=== PATIENT | male | born 1960 | race Caucasian/White ===

== ENCOUNTER 2019-10-03 09:31 | Emergency (ER) | payer MEDICARE, MEDICAID, SELFPAY ==
--- NOTE | ~2019-10-03 | XR_ITS ---
EXAMINATION: XR chest 1V portable DATE: 10/03/2019 10:07 INDICATION: Shortness of breath. TECHNIQUE: A single frontal view of the chest was obtained. COMPARISON: Chest 2 views 01/26/2019 FINDINGS: There is a small right pleural effusion. There are airspace opacities at right lung base. N o pneumothorax. The heart size is normal. IMPRESSION: 1. Small right pleural effusion with interval improvement. 2. Stable airspace opacities at right lung base, consistent with atelectasis versus pneumonia. Reviewed, dictated and finalized at location A. IMPRESSION: 1. Small right pleural effusion with interval improvement. 2. Stable airspace opacities at right lung base, consistent with atelectasis ve rsus pneumonia.
--- NOTE | 2019-10-03 09:34 | ECG_ITS ---
Measurements Intervals [place] Rate: 59 P: [place]: 0 QRS: 19 QRSD: 101 T: 67 QT: 396 QTc: 394 Interpretive Statements ATRIAL FLUTTER/TACHYCARDIA WITH SLOW VENTRICULAR RESPONSE DELAYED PRECORDIAL R/S TRANSITION LOW QRS VOLTAGE IN PRECORDIAL LEADS BASELINE ARTIFACT- I, AVL, AVF ABNORMAL ECG Electronically Signed On 10-03-2019 13:20:26 CDT by George Cruz D.O.
[2019-10-03 09:35] VITALS: BP 142/88; PULSE 70; RESP 35; TEMP 36.9; O2SAT 97
[2019-10-03 09:39] VITALS: PULSE 69
--- NOTE | 2019-10-03 10:02 | ED.SOB ---
HPI - SOB/Dyspnea General Chief Complaint: Shortness of Breath/Dyspnea Stated Complaint: SOB Time Seen by Provider: 10/03/19 09:43 History of Present Illness HPI Narrative: Patient is a 59-year-old male who presents ER with shortness of breath. Worsening over the last week. He is a long-term smoker. No fevers or chills. He does have night sweats for the last year. Mildly productive cough. Reports he has been getting out driving has not been around other people. Doesn't report aggravating or alleviating factors. Does not have an inhaler. Related Data Home Medications Medication Instructions Recorded Confirmed aripiprazole 30 mg tablet 30 mg PO DAILY 07/22/19 08/24/19 clonazepam 0.5 mg tablet 0.5 mg PO DAILY 07/22/19 08/24/19 naproxen 500 mg tablet 500 mg PO BID 07/22/19 08/24/19 sertraline 100 mg tablet 100 mg PO DAILY 07/22/19 08/24/19 Allergies Allergy/AdvReac Type Severity Reaction Status Date / Time aspirin Allergy Unknown Hives Verified 10/03/19 09:38 Review of Systems Review of Systems: All systems reviewed & are unremarkable except as noted in HPI and below Constitutional: Constitutional: Denies chills and Denies fever(s) Comments: Sweats x1 year ENT: Reports nasal congestion and Denies sore throat Cardiovascular: Cardiovascular: Denies chest pain and Denies rapid heart rate Respiratory: Respiratory: Denies chest congestion, Reports cough, Reports dyspnea and Denies wheezing Gastrointestinal: Gastrointestinal: Denies abdominal pain, Denies nausea and Denies vomiting PMFSH Past Medical History Medical History (Updated 10/03/19 @ 11:45 by Elver Fletcher MD) Abscess of buttock, left Atrial flutter Benign prostatic hyperplasia with urinary obstruction and other lower urinary tract symptoms Body mass index 40.0-44.9, adult Impacted cerumen of left ear Nicotine dependence, unspecified, uncomplicated Obstructive sleep apnea (adult) (pediatric) Other chronic pain Other hyperlipidemia Paranoid schizophrenia Pleural effusion, right Pneumonia of both lower lobes Social History Social History Smoking status: Heavy tobacco smoker Gender identity (if verbalized by the patient): Male Exam Narrative: Exam Narrative: GENERAL: Well-appearing, well-nourished, and in no acute distress. HEAD: Normocephalic, atraumatic. ENT: Mucous membranes moist. CHEST: Faint wheezing right base. No respiratory distress. HEART: Bradycardic and regular. Normal peripheral pulses. ABDOMEN: Soft, nontender, nondistended. EXTREMITIES: Normal range of motion. Trace edema. NEURO: Alert and oriented x3. PSYCH: Normal mood and affect. Course Course Emergency Course: Resting comfortably. Known history of atrial flutter. No chest pain. Will prescribe albuterol and steroids. Vital Signs Vital signs: Vital Signs Temperature 98.4 F 10/03/19 09:35 Pulse Rate 70 10/03/19 09:35 Respiratory Rate 35 H 10/03/19 09:35 Blood Pressure 142/88 H 10/03/19 09:35 Pulse Oximetry 97 10/03/19 09:35 Temperature 98.4 F 10/03/19 09:35 Pulse Rate 56 L 10/03/19 11:26 Respiratory Rate 19 10/03/19 11:26 Blood Pressure 115/64 10/03/19 11:26 Pulse Oximetry 96 10/03/19 11:26 MDM - SOB/Dyspnea Lab Data Result diagrams: 10/03/19 09:59 10/03/19 09:59 Labs: Lab Results 10/03/19 10/03/19 10/03/19 Range/Units 09:59 09:59 10:23 WBC 7.4 (4.5-10.0) K/mm3 RBC 4.61 (4.6-6.20) M/mm3 Hgb 15.0 (14.0-18.0) g/dL Hct 46.3 (42.0-52.0) % MCV 100.4 H (80-100) fl MCH 32.5 (26-34) pg MCHC 32.4 (32-36) g/dl RDW 15.1 H (11.5-14.5) % Plt Count 139 L (150-375) k/mm3 MPV 8.3 (7.4-10.4) fl Immature Gran % (Auto) 0.4 (0-0.5) % Neut % (Auto) 79.8 H (45.5-73.1) % Lymph % (Auto) 13.6 L (18.3-44.2) % [place] % (Auto) 5.8 (2.6-8.5) % Eos % (Auto) 0.1 (0-4.4) % Baso % (Aut
[2019-10-03 10:07] LABS: Basophils Percent Auto 0.3 % (0.2-1.2); Eosinophils Percent Auto 0.1 % (0-4.4); Hematocrit 46.3 % (42.0-52.0); Immature Granulocyte Absolute 0.03 K/mm3 (0.00-0.031); Immature Granulocyte Percent A 0.4 % (0-0.5); Lymphocytes Absolute Auto 1.01 K/mm3 (0.9-3.2); Lymphocytes Percent Auto 13.6 % (18.3-44.2); Mean Corpuscular HGB Conc 32.4 g/dl (32-36); Mean Corpuscular Hemoglobin 32.5 pg (26-34); Mean Corpuscular Volume 100.4 fl (80-100); Mean Platelet Volume 8.3 fl (7.4-10.4); Monocytes Absolute Auto 0.4 K/mm3 (0.1-0.6); Monocytes Percent Auto 5.8 % (2.6-8.5); Neutrophils Absolute Auto 5.9 K/mm3 (1.3-6.7); Neutrophils Percent Auto 79.8 % (45.5-73.1); Platelet Count Result 139 k/mm3 (150-375); Red Blood Count 4.61 M/mm3 (4.6-6.20); Red Cell Distribution Width 15.1 % (11.5-14.5); White Blood Count 7.4 K/mm3 (4.5-10.0)
[2019-10-03 10:19] LABS: Blood Urea Nitrogen 20 mg/dL (9-20); Calcium 8.7 mg/dL (8.4-10.2); Carbon Dioxide 29 mmol/L (22-30); Chloride 107 mmol/L (98-107); Estimated CRCL calculation 94 ml/min; Estimated Glomerular Filt Rate > 60; Glucose 94 mg/dL (75-110); Potassium 4.3 mmol/L (3.4-5.0); Sodium 140 mmol/L (137-145)
[2019-10-03 10:25] VITALS: BP 109/69; PULSE 85; RESP 19; O2SAT 96
[2019-10-03 11:26] VITALS: BP 115/64; PULSE 56; RESP 19; O2SAT 96
[2019-10-03 11:52] VITALS: BP 109/63; PULSE 59; RESP 23; O2SAT 96
== END 2019-10-03 11:53 | disposition home or self-care (01) ==
PROVIDERS: Emergency Provider Emergency Medicine; PCP Internal Medicine
DX: J44.1 Chronic obstructive pulmonary disease with (acute) exacerbation (principal); I48.92 Unspecified atrial flutter; N40.1 Benign prostatic hyperplasia with lower urinary tract symptoms; N13.8 Other obstructive and reflux uropathy; G47.33 Obstructive sleep apnea (adult) (pediatric); E78.5 Hyperlipidemia, unspecified; F20.0 Paranoid schizophrenia; F17.200 Nicotine dependence, unspecified, uncomplicated; R94.31 Abnormal electrocardiogram [ECG] [EKG]; R00.0 Tachycardia, unspecified
CPT/HCPCS: 36415; 71045; 80048; 83605; 85025; 93005; 99284

== ENCOUNTER 2019-11-15 07:51 | Outpatient (CLI) | payer MEDICARE, MEDICAID, SELFPAY ==
--- NOTE | ~2019-11-15 | NM_ITS ---
EXAMINATION: NM sis stress w perfusion DATE: 11/15/2019 10:39 INDICATION: Shortness of breath. TECHNIQUE: Rest images were obtained following intravenous administration of 10.7 mCi Tc99m tetrofosm in (Myoview). The patient was infused intravenously with Lexiscan (regadenoson). Then, 30.1 mCi Tc99m tetrofosmin (Myoview) was administered intravenously, and stress images were obtained. Data was juan francisco nstructed into short axis and horizontal and vertical long axis SPECT images. Gated SPECT images were also obtained. COMPARISON: Myocardial perfusion imaging 03/15/2015 FINDINGS: There is a small, mild, fixed perfusion defect involving apical septal segment of left vent ricle, consistent with infarct. There is a moderate-sized, mild, fixed perfusion defect involving api dann inferior, apical lateral, and mid inferolateral segments of left ventricle, consistent with infar ct. No reversible component to suggest ischemia. There is no segmental wall motion abnormality. Lef t ventricular ejection fraction measures >70%. IMPRESSION: 1. Small area of mild infarct involving apical septal segment of left ventricle. 2. Moderate-sized area of mild infarct involving apical inferior, apical lateral, and mid inferolater al segments of left ventricle. 3. Normal left ventricular ejection fraction measuring >70%. Reviewed, dictated and finalized at location E. IMPRESSION: 1. Small area of mild infarct involving apical septal segment of left ventricle . 2. Moderate-sized area of mild infarct involving apical inferior, apical latera l, and mid inferolateral segments of left ventricle. 3. Normal left ventricular ejection fraction measuring >70%.
--- NOTE | 2019-11-15 08:13 | ECHO_ITS ---
Patient Info Name: Easton Tanner Age: 59 years : 1960 Gender: Male Ht: 68 in Wt: 285 lbs BSA: 2.56 m2 HR: 50 bpm BP: 117 / 77 mmHg Heart Rhythm: Bradycardia Technical Quality: Good Exam Date: 11/15/2019 8:28 AM Exam Location: [facility] Patient Status: Outpatient Admit Date: 11/15/2019 Staff Ordering Physician: Tj Monreal DO Engineer: Will Cooper RDCS, RT Attending Provider: Tj Monreal DO Referring Physician: Rah STOVALL; Exam Type: CA echo doppler color flow Study Info Indications R06.02 - Shortness of breath Complete two-dimensional, color flow and Doppler transthoracic echocardiogram is performed. Summary 1. Left ventricular chamber dimension is mildly enlarged. 2. Left ventricular systolic function is normal, estimated at 55-60%. 3. There is mildly increased left ventricular wall thickness. 4. The left ventricular diastolic function is indeterminate. 5. Right ventricular chamber dimension is mildly enlarged. 6. Right ventricular systolic function is reduced. 7. Left atrial chamber dimension is mildly enlarged. 8. There is mild mitral valve regurgitation. 9. The pericardium appears epicardial fat pad. 10. There is small pericardial effusion. Left Ventricle Left ventricular chamber dimension is mildly enlarged. Left ventricular systolic function is normal, estimated at 55-60%. There is mildly increased left ventricular wall thickness. The left ventricular diastolic function is indeterminate. Right Ventricle Right ventricular chamber dimension is mildly enlarged. Right ventricular systolic function is reduced. Left Atria Left atrial chamber dimension is mildly enlarged. Right Atria Right atrial chamber dimension is normal. Atrial Septum Intact interatrial septum visualized by color flow imaging. Aortic Valve The aortic valve is trileaflet. There is mild aortic valve sclerosis. There is no aortic valve stenosis. There is trace aortic valve regurgitation. Pulmonic Valve The pulmonic valve is normal. There is no pulmonic valve stenosis. There is trace pulmonic regurgitation. Mitral Valve The mitral valve has normal leaflets. There is no mitral valve stenosis. There is mild mitral valve regurgitation. Tricuspid Valve The tricuspid valve leaflets are normal. There is no significant tricuspid valve stenosis. There is trace tricuspid valve regurgitation. Pericardium/Pleural The pericardium appears epicardial fat pad. There is small pericardial effusion. Inferior Vena Cava Dilated inferior vena cava with <50% collapse upon inspiration consistent with elevated right atrial pressure, 15 mmHg. Aorta The aortic root size at the sinus of Valsalva is mildly dilated. The prox ascending aorta size is normal. Left Ventricular Outflow Tract Name Value Normal LVOT 2D LVOT Diameter 2.1 cm LVOT Doppler LVOT Peak Gradient 2 mmHg LVOT Mean Gradient 1 mmHg LVOT VTI 20 cm LVOT VTI/AV VTI Ratio 1.0 LVOT Yonathank
--- NOTE | 2019-11-15 08:13 | EST_ITS ---
Patient Info Name: Easton Tanner Age: 59 years : 1960 Gender: Male Ht: 68 in Wt: 285 lbs BSA: 2.56 m2 Exam Date: 11/15/2019 10:01 AM Patient Status: Outpatient Admit Date: 11/15/2019 Staff Ordering Physician: Tj Monreal DO Attending Provider: Tj Monreal DO Exercise Technologist: Lulu Lepe RDCS Nurse: Jayda Schumacher, MARGARITA, ACNP-BC Exam Type: CA stress sis w NM Study Info Indications R06.02 - Shortness of breath A regadenoson stress test was performed. Summary 1. No abnormal ST-T wave changes with lexiscan. 2. Please correlate with nuclear medicine images, reported separately. 3. Baseline atrial flutter with slow ventricular response. Protocol: Lexiscan Stress ECG Details Stage: REST Duration (min): 6 min : 32 sec HR (bpm): 43 SBP (mmHg): 107 DBP (mmHg): 67 Stage: REST Duration (min): 23 min : 13 sec HR (bpm): 76 SBP (mmHg): 107 DBP (mmHg): 67 Stage: STAGE 1 Duration (min): 1 min : 0 sec HR (bpm): 78 SBP (mmHg): 180 DBP (mmHg): 60 Stage: RECOVERY Duration (min): 1 min : 0 sec HR (bpm): 79 SBP (mmHg): 180 DBP (mmHg): 60 Stage: RECOVERY Duration (min): 2 min : 0 sec HR (bpm): 72 SBP (mmHg): 201 DBP (mmHg): 55 Stage: RECOVERY Duration (min): 3 min : 0 sec HR (bpm): 67 SBP (mmHg): 201 DBP (mmHg): 55 Stage: RECOVERY Duration (min): 4 min : 0 sec HR (bpm): 48 SBP (mmHg): 187 DBP (mmHg): 59 Stage: RECOVERY Duration (min): 5 min : 0 sec HR (bpm): 54 SBP (mmHg): 123 DBP (mmHg): 66 Stage: RECOVERY Duration (min): 5 min : 8 sec HR (bpm): 60 SBP (mmHg): 123 DBP (mmHg): 66 Rest HR: 76 bpm Peak HR: 79 bpm Rest Sys BP: 107 mmHg Peak Sys BP: 201 mmHg Max Pred HR: 161 bpm % Max Pred HR: 49 % Target HR: 137 bpm Max RPP: 15,879 bpm*mmHg BP Response: Patient exhibited a hypertensive response with stress Termination Reason: Completed protocol Cardiac Symptoms: None Total Time: 1 min : 0 sec Rest Chapman BP: 67 mmHg Peak Chapman BP: 55 mmHg Total Dose: 0.4 mg Resting ECG Atrial flutter. slow ventricular response. Stress ECG No abnormal ST/T wave changes with exercise. Arrhythmias atrial flutter. Report Signatures
--- NOTE | 2019-11-15 11:26 | PM.OP ---
Procedure Note - Brief Procedure Note - Brief Date of procedure: 11/15/19 Pre-op diagnosis: SOB Procedure performed: Pharmacological stress test Description of procedure: Baseline 12 lead EKG: probable atrial tachycardia with slow ventricular response, Subtle ST depression in the precordial and limb leads; low voltage in the precordial leads. TEST: After obtaining baseline 12 lead EKG and blood pressure , the patient received 0.4 milligrams of Regadenoson IV push followed by stress dose of technetium. The patient was then followed for 4 minutes into recovery with 12 lead EKG and blood pressure at one minute intervals . Baseline heart rate 44 beats per minute Baseline blood pressure 107/67 mmHg Maximum heart rate 78 pbm Heart rate in recovery 55 beats per minute , blood pressure 123/[address] depression remained persistent in the precordial and limb leads after Lexiscan injection. Patient complaint of shortness of breath without chest discomfort during the procedure. EKG portion of the pharmacologic stress test is indeterminate for ischemia. Myocardial perfusion scan is pending at this time , and the results of this test should be correlated with perfusion imaging. Surgeon: Serge Greer MD
== END 2019-11-15 07:52 | disposition home or self-care (01) ==
PROVIDERS: PCP Internal Medicine; Visit Provider Internal Medicine
DX: R06.02 Shortness of breath (principal); I48.92 Unspecified atrial flutter; I21.9 Acute myocardial infarction, unspecified; I51.7 Cardiomegaly; I31.3 Pericardial effusion (noninflammatory)
CPT/HCPCS: 78452; 93017; 93306; A9502; J2785

== ENCOUNTER 2019-12-18 12:56 | Emergency (ER) | payer MEDICARE, MEDICAID, SELFPAY ==
--- NOTE | ~2019-12-18 | XR_ITS ---
EXAMINATION: XR chest 2V DATE: 12/18/2019 13:54 INDICATION: Shortness of breath. TECHNIQUE: Frontal and lateral views of the chest were obtained. COMPARISON: Chest single view 10/03/2019 FINDINGS: There is mild atelectasis in the lower lung zones. No pleural effusion or pneumothorax. The heart size is normal. IMPRESSION: 1. Mild atelectasis in the lower lung zones. Reviewed, dictated and finalized at location A.
[2019-12-18 13:06] VITALS: BP 121/65; PULSE 86; RESP 28; TEMP 37.1; O2SAT 96
[2019-12-18 13:59] LABS: Glucose Point of Care 99 (65-105)
--- NOTE | 2019-12-18 14:28 | PC.NURSE ---
dR Berry CALLED AND GAVE REPORT TO TIMMY FIGUEROA
--- NOTE | 2019-12-18 14:37 | ED.WEAKNESS ---
HPI - Weakness General Chief complaint: Weakness Stated complaint: chills/weakness Source: patient Mode of arrival: ambulatory Limitations: no limitations History of Present Illness HPI Narrative: The patient-- with COPD, ASHD and mood disorders and variably compliant with several meds-- presents with shortness of breath and weakness. Patient and family indicates that he is a current smoker and history of COPD noncompliant with inhalers; chest x-ray in early summer showed right sided atelectasis versus infiltrate which was treated with 2 courses of antibiotics. He and family also note that he had history of ASHD based upon recent November Lexiscan with reversible ischemia, yet good EF of 70%. He is also has a history of atrial flutter, which has been prescribed Plavix which he noncompliant ; he has been taking his schizophrenia medicines. Patient lives independently, and sister notes about half week history of increasing exertional weakness and shortness of breath . No fever measured - but has chills, no vomiting/diarrhea/dehydration, no chest pain, palpitations, no frequency/urgency/dysuria, no increased cough, wheeze. Symptoms are mild, worse with activity Related Data Home Medications Medication Instructions Recorded Confirmed aripiprazole 30 mg tablet 30 mg PO DAILY 07/22/19 12/18/19 clonazepam 0.5 mg tablet 0.5 mg PO DAILY 07/22/19 12/18/19 sertraline 100 mg tablet 150 mg PO DAILY 07/22/19 12/18/19 albuterol sulfate [ProAir HFA] 2 puff INHALATION QID PRN 12/18/19 12/18/19 diclofenac sodium 75 mg PO BID 12/18/19 12/18/19 nicotine 1 patch TRANSDERMAL DAILY 12/18/19 12/18/19 Allergies Allergy/AdvReac Type Severity Reaction Status Date / Time aspirin Allergy Severe Anaphylactic Verified 12/18/19 21:45 Shock Review of Systems Review of Systems: Narrative: General/Constitutional: No weight loss,fever Eyes: N0: Redness,discharge Ears/Nose/Throat: No: Epistaxis,ear discharge Respiratory: Denies: Hemoptysis Gastrointestinal: No Vomiting, Bleeding-rectal Skin: No Lumps, eruption Neurologic: No Focal Weakness,Sz Hematologic: Denies: Petechiae/Purpura Psychiatric: No: Suicida ideationl All Other Systems: Reviewed and Negative [facility] Past Medical History Medical History (Updated 12/22/19 @ 10:56 by Steve Cedillo MD) Atrial flutter Benign prostatic hyperplasia with urinary obstruction and other lower urinary tract symptoms Body mass index 40.0-44.9, adult COPD (chronic obstructive pulmonary disease) (Unknown) [id number] obstructive ventilatory defect with severe small airway disease pattern no acute bronchodilator response and mildly decreased DLCO noted on pulmonary function testing from 2014 COPD exacerbation History of myocardial infarction With stress test November 2019 demonstrating 2 fixed perfusion defects small mild area of apical septal segment defect in left ventricle, moderate sized area of mild infarct involving apical inferior apical lateral and mid inferior lateral segment of the left ventricle, ejection fraction of 70% Nicotine dependence, unspecified, uncomplicated (Unknown) Obstructive sleep apnea (adult) (pediatric) (Unknown) Obstructive sleep apnea treated with BiPAP With settings of 25/20 according to sleep study from February 2010 Other chronic pain Other hyperlipidemia (Unknown) Paranoid schizophrenia (Unknown) Right heart failure with reduced right ventricular function Echocardiogram November 2019 demonstrated reduced right ventricular systolic function and mild enlargement, mild left ventricular enlargement, EF 55-60%, indeterminate diastolic function, mild left atrial enlargement, mild mitral valve regurgitation, small pericardial effusion Surgical History Surgical History (Updated 12/19/19 @ 00:52 by Mesha Baez DO) H/O inguinal hernia repair As a child Social History Social History (Updated 12/19/19 @ 00:56 by Mesha Baez DO) Smoking packs per day: 1 Smoking ci
== END 2019-12-18 14:36 | disposition short-term general hospital (02) ==
PROVIDERS: Emergency Provider Emergency Medicine; PCP Internal Medicine
DX: R53.1 Weakness (principal); R91.8 Other nonspecific abnormal finding of lung field; J44.9 Chronic obstructive pulmonary disease, unspecified; Z20.828 Contact with and (suspected) exposure to other viral communicable diseases; I25.2 Old myocardial infarction; F17.210 Nicotine dependence, cigarettes, uncomplicated; N40.1 Benign prostatic hyperplasia with lower urinary tract symptoms; N13.8 Other obstructive and reflux uropathy; G47.33 Obstructive sleep apnea (adult) (pediatric); E78.49 Other hyperlipidemia; I50.9 Heart failure, unspecified; F20.0 Paranoid schizophrenia
CPT/HCPCS: 71046; 99213; G0463

== ENCOUNTER 2019-12-18 14:51 | Inpatient (IN) | payer MEDICARE, MEDICAID, SELFPAY ==
--- NOTE | ~2019-12-18 | CT_ITS ---
EXAMINATION: CT abdomen pelvis w con DATE: 12/18/2019 16:46 INDICATION: Rectal pain TECHNIQUE: Computed tomography (CT) of the abdomen and pelvis was performed with 100 cc Omnipaque 350 intravenous contrast. The dose-length product was 1912.81 mGy-cm. Automated exposure control and ite rative reconstruction technique were employed. COMPARISON: None. FINDINGS: There is a small amount of fatty stranding and fluid adjacent to the rectum on the left, herrmann spicious for infection. No walled off drainable fluid collection to suggest abscess. There is right lower lobe airspace disease. No significant pleural or pericardial effusion. Heart siz e is normal. Mild atherosclerosis without aneurysm. The liver, spleen, pancreas, adrenal glands and kidneys are unremarkable. There are gallstones. Jenn l appendix. Nonobstructive bowel gas pattern. Colonic diverticulosis without evidence for diverticuli tis. Severe lumbar spondylosis. IMPRESSION: 1. Left perirectal fluid and fatty infiltration, suspicious for infection. No drainable abscess ident ified. 2: Cholelithiasis. Reviewed, dictated and finalized at location A. IMPRESSION: 1. Left perirectal fluid and fatty infiltration, suspicious for infection. No d rainable abscess identified. 2: Cholelithiasis.
--- NOTE | 2019-12-18 14:52 | ECG_ITS ---
Measurements Intervals [place] Rate: 78 P: [place]: 0 QRS: 21 QRSD: 108 T: 0 QT: 213 QTc: 243 Interpretive Statements ATRIAL FLUTTER/TACHYCARDIA DELAYED PRECORDIAL R/S TRANSITION NONSPECIFIC ST & T-WAVE ABNORMALITY- DIFFUSE LEADS BASELINE ARTIFACT- III, AVF, V5-V6 ABNORMAL ECG Electronically Signed On 12-18-2019 17:17:54 CDT by George Cruz D.O.
[2019-12-18 15:01] VITALS: BP 109/46; PULSE 90; RESP 22; TEMP 36.2; O2SAT 97
[2019-12-18 15:28] LABS: Basophils Absolute Auto 0.1 K/mm3 (0.0-0.1); Basophils Percent Auto 0.4 % (0.2-1.2); Eosinophils Percent Auto 0.1 % (0-4.4); Hematocrit 45.9 % (42.0-52.0); Hemoglobin 15.3 g/dL (14.0-18.0); Immature Granulocyte Absolute 0.12 K/mm3 (0.00-0.031); Immature Granulocyte Percent A 0.8 % (0-0.5); Lymphocytes Absolute Auto 0.87 K/mm3 (0.9-3.2); Lymphocytes Percent Auto 5.5 % (18.3-44.2); Mean Corpuscular HGB Conc 33.3 g/dl (32-36); Mean Corpuscular Volume 99.1 fl (80-100); Mean Platelet Volume 8.6 fl (7.4-10.4); Monocytes Absolute Auto 0.9 K/mm3 (0.1-0.6); Monocytes Percent Auto 5.6 % (2.6-8.5); Neutrophils Absolute Auto 13.9 K/mm3 (1.3-6.7); Neutrophils Percent Auto 87.6 % (45.5-73.1); Platelet Count Result 129 k/mm3 (150-375); Red Blood Count 4.63 M/mm3 (4.6-6.20); Red Cell Distribution Width 14.5 % (11.5-14.5); White Blood Count 15.9 K/mm3 (4.5-10.0)
[2019-12-18 15:42] LABS: Blood Urea Nitrogen 26 mg/dL (9-20); Calcium 8.4 mg/dL (8.4-10.2); Carbon Dioxide 30 mmol/L (22-30); Chloride 99 mmol/L (98-107); Estimated CRCL calculation 63 ml/min; Estimated Glomerular Filt Rate 48; Glucose 108 mg/dL (75-110); Potassium 3.7 mmol/L (3.4-5.0); Sodium 136 mmol/L (137-145)
[2019-12-18 15:45] LABS: INR 1.3; Partial Thromboplastin Time 29.6 SECONDS (22.3-36.8); Prothrombin Time 15.5 Seconds (11.1-14.7)
[2019-12-18 15:54] LABS: Troponin I 0.022 ng/mL (0.000-0.034)
[2019-12-18] MEDS: SODIUM CHLORIDE 0.9% IV 1,000 ML 999 ML IV CONT ×2 (16:02→18:47)
[2019-12-18 16:08] LABS: Lactic Acid Reflex 0.8 mmol/L (0.7-2.1)
--- NOTE | 2019-12-18 17:05 | ED.GENADULT ---
HPI - General Adult General Chief complaint: Shortness of Breath/Dyspnea Stated complaint: CHEST PAIN Time Seen by Provider: 12/18/19 15:25 History of Present Illness HPI narrative: Patient is a 59-year-old male with history of schizophrenia who presents to the ER from an urgent care. Urgent care was worried about some EKG changes. He had arrived at their facility diaphoretic. Patient is a poor historian due to his mental illness. Family with him reports that he had an abnormal stress test month and a half ago. He is not complaining of any chest pain. His main issue is that when he sits on his bottom he has a lot of pain. He is reporting flares of diaphoresis. No lightheadedness. Subjective fevers and chills. Related Data Home Medications Medication Instructions Recorded Confirmed aripiprazole 30 mg tablet 30 mg PO DAILY 07/22/19 12/18/19 clonazepam 0.5 mg tablet 0.5 mg PO DAILY 07/22/19 12/18/19 sertraline 100 mg tablet 100 mg PO DAILY 07/22/19 12/18/19 Allergies Allergy/AdvReac Type Severity Reaction Status Date / Time aspirin Allergy Unknown Hives Verified 12/18/19 15:01 Review of Systems Constitutional: Constitutional: Reports chills, Reports fatigue and Reports fever(s) ENT: Denies nasal congestion and Denies sore throat Cardiovascular: Cardiovascular: Denies chest pain, Denies rapid heart rate and Denies radiating jaw, neck or arm pain Respiratory: Respiratory: Denies cough, Reports dyspnea and Denies wheezing Gastrointestinal: Gastrointestinal: Denies abdominal pain, Denies diarrhea, Denies nausea and Denies vomiting Comments: Pain around the rectum PMFSH Past Medical History Medical History (Updated 12/18/19 @ 19:36 by Elver Fletcher MD) Abscess of buttock, left Atrial flutter Benign prostatic hyperplasia with urinary obstruction and other lower urinary tract symptoms Body mass index 40.0-44.9, adult Impacted cerumen of left ear Nicotine dependence, unspecified, uncomplicated Obstructive sleep apnea (adult) (pediatric) Other chronic pain Other hyperlipidemia Paranoid schizophrenia Pleural effusion, right Pneumonia of both lower lobes Social History Social History Smoking status: Heavy tobacco smoker Gender identity (if verbalized by the patient): Male Exam Narrative: Exam Narrative: GENERAL: ill-appearing, well-nourished, and in no acute distress. HEAD: Normocephalic, atraumatic. EYES: PERRL and EOMI. CHEST: Clear to auscultation. No respiratory distress. HEART: Regular rate and rhythm. Normal peripheral pulses. ABDOMEN: Soft, nontender, nondistended, normal active bowel sounds. Tender palpation right gluteal region with skin breakdown but no obvious area of drainage. No cellulitis or skin induration is EXTREMITIES: Normal range of motion. No edema. SKIN: Warm, dry, no rash. NEURO: Alert and oriented x3. Course Course Emergency Course: Admit to hospitalist service, general surgery consulted. Sophie for antibiotic coverage. Vital Signs Vital signs: Vital Signs Temperature 97.1 F L 12/18/19 15:01 Pulse Rate 90 12/18/19 15:01 Respiratory Rate 22 H 12/18/19 15:01 Blood Pressure 109/46 L 12/18/19 15:01 Pulse Oximetry 97 12/18/19 15:01 Temperature 97.1 F L 12/18/19 15:01 Pulse Rate 78 12/18/19 18:13 Respiratory Rate 22 H 12/18/19 15:01 Blood Pressure 109/46 L 12/18/19 15:01 Pulse Oximetry 97 12/18/19 18:13 Medical Decision Making Vital Signs Vital Signs: Vital Signs Temperature 97.1 F L 12/18/19 15:01 Pulse Rate 90 12/18/19 15:01 Respiratory Rate 22 H 12/18/19 15:01 Blood Pressure 109/46 L 12/18/19 15:01 Pulse Oximetry 97 12/18/19 15:01 Temperature 97.1 F L 12/18/19 15:01 Pulse Rate 78 12/18/19 18:13 Respiratory Rate 22 H 12/18/19 15:01 Blood Pressure 109/46 L 12/18/19 15:01 Pulse Oximetry 97 12/18/19 18:13 Lab Data Result diagrams: 12/18/19
[2019-12-18 18:13] VITALS: PULSE 78; O2SAT 97
[2019-12-18 18:29] LABS: Add Urine Microscopic? YES; Appearance Urine Clear (Clear); Bilirubin Urine Negative (Negative); Blood Urine Negative (Negative); Color Urine Yellow (Yellow); Glucose Urine UA Negative (Negative); Ketones Urine Negative (Negative); Leukocyte Esterase Ur Negative LEU/UL (Negative); Mucus Urine Rare /lpf; Nitrate Urine Negative (Negative); Protein Urine Negative (Negative); RBC Urine 0-2 /hpf (0-2); Squamous Epithelial Cell Urine Moderate /hpf (Few); WBC Urine 0-3 /hpf
[2019-12-18 20:15] VITALS: BP 100/55; PULSE 80; RESP 28; TEMP 36.5; O2SAT 93; BMI 44.2
--- NOTE | 2019-12-18 20:15 | ADMGEN ---
This patient, Easton Tanner, was admitted to 3 [facility] Surg Room 320-01. Patient/family oriented to hospital policies and general routines including ID bracelet, bed and alarms, visiting hours, pain management, procedures, bathroom and other care routines, personal items, smoking policy, room service/diet, and visiting hours. Valuables list has been completed. Information on how to activate the Rapid Response Team has been discussed. Patient/Family are encouraged to report perceived risks to care and to ask questions if they do not understand what they are told or what they should do.
[2019-12-18 21:46] LABS: Troponin I < 0.012 ng/mL (0.000-0.034)
[2019-12-18 22:00] VITALS: BP 100/55; PULSE 80; RESP 28; TEMP 36.5; O2SAT 93
[2019-12-18 22:06] VITALS: PULSE 82; RESP 22; O2SAT 94
--- NOTE | 2019-12-18 22:38 | PM.IMHP ---
H&P: HPI History of Present Illness Chief complaint: Shortness of breath Narrative: Date and time of patient contact: 12/18/2019 at 9:00 p.m. Easton Tanner is a 59 year old male with a past medical history of schizophrenia, COPD, and chronic tobacco abuse who presented to the ER from [facility] due to concern for EKG changes. The patient had [facility] with diaphoresis. She the patient was also reporting some mild increased shortness of breath from his baseline. He reports a chronic smoker's cough that is nonproductive. He had a stress test last month that was unremarkable for any acute ischemia. He has not been having any chest pain or palpitations. He denied having any fevers at home but at the same time stated that he has been having shaking/chills and sweats. He has had a sore on his buttock for approximately 2 weeks. He has noticed the areas gotten larger and more tender. It is worse when he sits down and weaned back. The pain is a 5/10 in intensity at its worst. He has not noticed any pain with bowel movements. He denies any hematochezia or melena. He has had a history of prior skin infections under the arms but denies a history of skin infections to his perineal area. He does not have a history of diabetes. He denies any dysuria or changes in urinary frequency. The patient's smells strongly of smoke. Source of information: ER records, past medical records and patient report. The patient is a fair to good historian. Review of Systems Review of Systems: Narrative: 12 systems were reviewed with pertinent positives and negatives per HPI. Except as documented in the HPI, all other systems were reviewed and are negative. [facility] Past Medical History Medical History (Updated 12/19/19 @ 00:51 by Mesha Baez DO) Atrial flutter Benign prostatic hyperplasia with urinary obstruction and other lower urinary tract symptoms Body mass index 40.0-44.9, adult COPD (chronic obstructive pulmonary disease) Pati-op-zlzmbwor obstructive ventilatory defect with severe small airway disease pattern no acute bronchodilator response and mildly decreased DLCO noted on pulmonary function testing from 2014 COPD exacerbation History of myocardial infarction With stress test November 2019 demonstrating 2 fixed perfusion defects small mild area of apical septal segment defect in left ventricle, moderate sized area of mild infarct involving apical inferior apical lateral and mid inferior lateral segment of the left ventricle, ejection fraction of 70% Nicotine dependence, unspecified, uncomplicated Obstructive sleep apnea (adult) (pediatric) Obstructive sleep apnea treated with BiPAP With settings of 25/20 according to sleep study from February 2010 Other chronic pain Other hyperlipidemia Paranoid schizophrenia Right heart failure with reduced right ventricular function Echocardiogram November 2019 demonstrated reduced right ventricular systolic function and mild enlargement, mild left ventricular enlargement, EF 55-60%, indeterminate diastolic function, mild left atrial enlargement, mild mitral valve regurgitation, small pericardial effusion Surgical History Surgical History (Updated 12/19/19 @ 00:52 by Mesha Baez DO) H/O inguinal hernia repair As a child Family History Family History Sibling Healthy female adult Reportedly both of the patient's sisters are healthy. Social History Social History (Updated 12/19/19 @ 00:56 by Mesha Baez DO) Smoking packs per day: 1 Smoking cigarettes per day: 20.0 Years smoked: 43 Smoking pack-years: 43.00 Smoking status: Current every day smoker Alcohol intake: never Substance use: never Additional living arrangements comments: The patient lives in his own home. His sister comes over and spends much of the day with him. However, he is alone in the evenings. Additional occupation/education comments:
[2019-12-19] VITALS (13 sets, daily range): BP systolic 102–118; BP diastolic 54–69; PULSE 76–96; RESP 18–23; TEMP 36.1–36.9; O2SAT 88–97
[2019-12-19] MEDS: NICOTINE (*PBKC) 21 MG PATCH 1 PATCH TRANSDERM ×2 (01:02→09:25)
[2019-12-19] MEDS: SODIUM CHLORIDE 0.9% IV 1,000 ML 125 ML IV CONT ×2 (01:02→13:42)
[2019-12-19] MEDS: ALBUTEROL SULFATE NEB 2.5 MG/0.5 ML INH 5 MG INHALATION ×4 (02:28→19:59)
[2019-12-19] MEDS: IPRATROPIUM BR 0.02% INH SOLN 0.5 MG/2.5 ML VIAL INHALATION ×4 (02:28→19:59)
[2019-12-19 06:15] LABS: Basophils Percent Auto 0.2 % (0.2-1.2); Eosinophils Percent Auto 0.1 % (0-4.4); Hematocrit 41.5 % (42.0-52.0); Immature Granulocyte Absolute 0.14 K/mm3 (0.00-0.031); Immature Granulocyte Percent A 0.9 % (0-0.5); Lymphocytes Percent Auto 4.6 % (18.3-44.2); Mean Corpuscular HGB Conc 33.7 g/dl (32-36); Mean Corpuscular Hemoglobin 33.2 pg (26-34); Mean Corpuscular Volume 98.3 fl (80-100); Mean Platelet Volume 8.9 fl (7.4-10.4); Monocytes Absolute Auto 0.7 K/mm3 (0.1-0.6); Monocytes Percent Auto 4.6 % (2.6-8.5); Neutrophils Absolute Auto 13.8 K/mm3 (1.3-6.7); Neutrophils Percent Auto 89.6 % (45.5-73.1); Platelet Count Result 123 k/mm3 (150-375); Red Blood Count 4.22 M/mm3 (4.6-6.20); Red Cell Distribution Width 14.4 % (11.5-14.5); White Blood Count 15.3 K/mm3 (4.5-10.0)
[2019-12-19 06:28] LABS: Blood Urea Nitrogen 18 mg/dL (9-20); Carbon Dioxide 24 mmol/L (22-30); Chloride 103 mmol/L (98-107); Estimated CRCL calculation 93 ml/min; Estimated Glomerular Filt Rate > 60; Glucose 104 mg/dL (75-110); Potassium 3.9 mmol/L (3.4-5.0); Sodium 132 mmol/L (137-145)
[2019-12-19] MEDS: DICLOFENAC SOD 75 MG TABLET.EC PO ×2 (09:25→17:39)
[2019-12-19] MEDS: clonazePAM 0.5 MG TABLET PO (09:25)
[2019-12-19] MEDS: ARIPiprazole 10 MG TABLET 30 MG PO (09:25)
[2019-12-19] MEDS: ENOXAPARIN 40 MG/0.4 ML SYRINGE SUB-Q ×2 (09:26→20:44)
[2019-12-19] MEDS: SERTRALINE HCL 50 MG TABLET 150 MG PO (09:27)
--- NOTE | 2019-12-19 14:54 | PM.IMPN ---
Progress Note: A&P Assessment and Plan (1) Abscess, perirectal: Code(s): K61.1 - Rectal abscess Status: Acute Assessment and Plan: CT abdomen pelvis showed Left perirectal fluid and fatty infiltration, suspicious for infection. No drainable abscess identified. Cholelithiasis. Small abscess noted to superficially to left perirectal buttocks. General surgery has been consulted and will be seeing the patient today and decide if they can open the abscess in get a culture. Continue antibiotic therapy with Zosyn, consider addition of vancomycin if there is no improvement of symptoms. Blood cultures are pending. Continue monitoring patient's symptoms with the IV antibiotics. Surgical consult is greatly appreciated. (2) Obstructive sleep apnea: Code(s): G47.33 - Obstructive sleep apnea (adult) (pediatric) Status: Chronic Assessment and Plan: Patient's home BiPAP has been ordered (3) COPD (chronic obstructive pulmonary disease): Code(s): J44.9 - Chronic obstructive pulmonary disease, unspecified Status: Chronic Assessment and Plan: P.r.n. albuterol inhaler for shortness of breath. Lungs are clear to auscultation without any wheezing. (4) Paranoid schizophrenia: Code(s): F20.0 - Paranoid schizophrenia Status: Chronic Assessment and Plan: Will continue him on his home medications of sertraline and clonazepam. His mood is stable at this time. (5) Nicotine dependence, unspecified, uncomplicated: Code(s): F17.200 - Nicotine dependence, unspecified, uncomplicated Status: Chronic Assessment and Plan: He requested a nicotine patch. He is not interested in tobacco cessation education. Time Spent With Patient Time with patient: 25 - 35 minutes Subjective Date/time seen: 12/19/19 14:54 Interval history: Date of service 12/19/2019: The patient reports feeling much better today. He still has pain to his boil on his perirectal area but states it is improved. He denies any more fevers or chills today. The patient's sister states he does seem diaphoretic right now is unsure if he has a fever. The patient denies any chest pain, shortness of breath, cough, nausea, vomiting, abdominal pain, calf pain, leg swelling, or any other symptoms at this time. Review of Systems Review of Systems: All systems reviewed & are unremarkable except as noted in HPI and below Exam Narrative: Exam Narrative: General: 59-year-old man sitting up on the side of the bed talking to his sister. Appears comfortable. In no acute distress. Skin: Left perirectal area of buttocks there is a 1 cm x 1 cm round area of raised skin with a small [place] noted to the top with no active drainage at this time. Erythema is noted in about a 4 cm diameter around the raised area. Without any fluctuance or induration. No jaundice or cyanosis. Good skin turgor. Neck: Full range of motion. Supple. Respiratory: Lungs are clear to auscultation bilaterally. No bony chest wall tenderness. Cardiovascular: The heart has a regular rate and rhythm without murmur. Lower extremities: No lower extremity edema. Distal pulses are easily palpated. No calf tenderness to palpation. Gastrointestinal: The abdomen is soft, nontender and nondistended with active bowel sounds. Psychiatric: Flat affect. Memory intact. Neurologic: No focal deficits. Speech is clear. No facial drooping. Objective Data Vital Signs Vital Signs: Vital Signs - 24 hr 12/18/19 15:01 12/18/19 18:13 12/18/19 20:15 Temperature 97.1 F L 97.7 F Pulse Rate 90 78 80 Respiratory Rate 22 H 28 H Blood Pressure 109/46 L 100/55 L Pulse Oximetry 97 97 93 12/18/19 22:00
[2019-12-19] MEDS: SACCHAROMYCES BOULARDII 250 MG CAPSULE PO (17:39)
--- NOTE | 2019-12-19 20:07 | PM.CNGS ---
Assessment and Plan Assessment and plan (1) Abscess, perianal: Onset Date: ~11/2019 Code(s): K61.0 - Anal abscess Status: Acute Assessment and Plan: Careful examination of the left buttock reveals excoriation and skin breakdown near the anal opening and on the left buttock 4-5 cm from the anal verge there is a rounded red area with a 1 cm white head on it. There is no drainage currently. This may be the beginning of a skin abscess which will drain. This may also be the top of a epidermal cyst that has been present for some time. I discussed this with the patient and subsequently his POA - sister Mesha. At this time my recommendation is to begin hand-held showers to the perianal area b.i.d.. Apply Aloe [place] cream to the excoriated skin and watch the area of the abscess. If blood cultures come back showing a bacteria that could be one suspected form a skin abscess on the left buttock then will consider proceeding to incision and drainage under local anesthetic with subsequent packing. For now I recommend outlining the area of erythema and seeing if it progresses or regresses. Continue antibiotics. I am not super worried about MRSA so could continue just Zosyn for now. (2) COPD (chronic obstructive pulmonary disease): Onset Date: Unknown Code(s): J44.9 - Chronic obstructive pulmonary disease, unspecified Status: Chronic Assessment and Plan: medicines addressing this issue. (3) Paranoid schizophrenia: Onset Date: Unknown Code(s): F20.0 - Paranoid schizophrenia Status: Chronic Assessment and Plan: Patient is continuing on usual medications for this. Medicine is addressing this issue. (4) Atrial flutter by electrocardiogram: Onset Date: Unknown Code(s): I48.92 - Unspecified atrial flutter Status: Acute Assessment and Plan: this is being addressed by the medicine service (5) Other hyperlipidemia: Onset Date: Unknown Code(s): E78.49 - Other hyperlipidemia Status: Acute Assessment and Plan: this is being addressed by the medicine service (6) Obstructive sleep apnea (adult) (pediatric): Onset Date: Unknown Code(s): G47.33 - Obstructive sleep apnea (adult) (pediatric) Status: Acute (7) Nicotine dependence, unspecified, uncomplicated: Onset Date: Unknown Code(s): F17.200 - Nicotine dependence, unspecified, uncomplicated Status: Chronic History of Present Illness Consult details Consult date: 12/19/19 Reason for consult: other ( Possible abscess on the left perianal area) Requesting physician: Mesha Baez DO Narrative: I was asked to see this 59-year-old white male due to the development of an apparent skin abscess on the left buttock. This was present when he presented to the ER last evening with complaints of chills. He is being worked up for sepsis. He denied having any fevers at home but at the same time stated that he has been having shaking/chills and sweats. I talked to his sister who is also his POA after I did this consult tonight and she states that he does have a thermometer at home but that he does not know how to use it. Therefore he probably has not taken his temperature at home prior to this admission. He has had a sore on his buttock for approximately 2 weeks. He has noticed the areas gotten larger and more tender. It is worse when he sits down and leans back. The pain is a 5/10 in intensity at its worst. He has not noticed any pain with bowel movements. He denies any hematochezia or melena. He has had a history of prior skin infections under the arms but denies a history of skin infections to his perineal area. He does not have a history of diabetes. He denies any dysuria or changes in urinary frequency. After my exam and further questioning he does admit that he has had loose stools for some time. His sister states that she has kno
[2019-12-20] VITALS (12 sets, daily range): BP systolic 104–115; BP diastolic 59–70; PULSE 72–81; RESP 18–20; TEMP 36.2–36.6; O2SAT 94–97
[2019-12-20] MEDS: IPRATROPIUM BR 0.02% INH SOLN 0.5 MG/2.5 ML VIAL INHALATION ×4 (01:29→21:11)
[2019-12-20] MEDS: ALBUTEROL SULFATE NEB 2.5 MG/0.5 ML INH 5 MG INHALATION ×4 (01:29→21:11)
[2019-12-20 06:29] LABS: Basophils Percent Auto 0.1 % (0.2-1.2); Eosinophils Percent Auto 0.1 % (0-4.4); Hematocrit 39.9 % (42.0-52.0); Hemoglobin 13.3 g/dL (14.0-18.0); Immature Granulocyte Absolute 0.14 K/mm3 (0.00-0.031); Immature Granulocyte Percent A 1.2 % (0-0.5); Lymphocytes Absolute Auto 0.56 K/mm3 (0.9-3.2); Lymphocytes Percent Auto 4.7 % (18.3-44.2); Mean Corpuscular HGB Conc 33.3 g/dl (32-36); Mean Corpuscular Hemoglobin 33.1 pg (26-34); Mean Corpuscular Volume 99.3 fl (80-100); Mean Platelet Volume 8.9 fl (7.4-10.4); Monocytes Absolute Auto 0.6 K/mm3 (0.1-0.6); Monocytes Percent Auto 5.2 % (2.6-8.5); Neutrophils Absolute Auto 10.5 K/mm3 (1.3-6.7); Neutrophils Percent Auto 88.7 % (45.5-73.1); Platelet Count Result 129 k/mm3 (150-375); Red Blood Count 4.02 M/mm3 (4.6-6.20); Red Cell Distribution Width 14.4 % (11.5-14.5); White Blood Count 11.8 K/mm3 (4.5-10.0)
[2019-12-20 06:41] LABS: Blood Urea Nitrogen 24 mg/dL (9-20); Carbon Dioxide 27 mmol/L (22-30); Chloride 100 mmol/L (98-107); Estimated CRCL calculation 73 ml/min; Estimated Glomerular Filt Rate 57; Glucose 104 mg/dL (75-110); Potassium 3.7 mmol/L (3.4-5.0); Sodium 133 mmol/L (137-145)
--- NOTE | 2019-12-20 07:22 | PM.PNGS ---
Progress Note: A&P Assessment and Plan (1) Abscess, perianal: Onset Date: ~11/2019 Code(s): K61.0 - Anal abscess Status: Acute Assessment and Plan: C&S sent Continue local therapy with hand-held showers, aloe [place], also packing of the tract that was found today at the site of the white head that was present 4 cm from the anal opening on the left buttock opened. I believe we should be able to get some quarter-inch Nu Gauze in this. This will hopefully allow continuous drainage. One thought would be quizing the patient more about abdominal pain and if he does have it considering an inflammatory bowel panel to check and see if he has Crohn's or ulcerative colitis since this may be the external opening of a anal fistula. Additional Plan Consider a serology or immunologic blood panel for inflammatory bowel disease in view of the patient's possible anal fistula. Time Spent With Patient Time with patient: less than 15 minutes Subjective Subjective Date/Time Seen: 12/20/19 07:22 Patient lying in bed when I entered the room. Patient states he does not think they sent stool cultures overnight as he had another accident clean himself up in the bathroom and and call the nurse. I encouraged him to call the nurse to help him. He is having loose and I would like to get the stool cultures going. If we get these studies we may be able to start him on some Imodium to help slowed them down some. Review of Systems Constitutional: Constitutional: Reports no additional constitutional complaints ENT: Reports other (Mucous Membranes moist.) Cardiovascular: Cardiovascular: Denies dyspnea Respiratory: Respiratory: Denies pain on inspiration and Denies dyspnea Gastrointestinal: Gastrointestinal: Reports diarrhea Comments: Reports that he still having loose stools that are difficult to control. Musculoskeletal: Musculoskeletal: Reports other (No calf swelling or edema) Integumentary/Breasts: Skin/Breast: Reports system reviewed and no additional complaints, except as docu Psychiatric: Comments: Known history of schizophrenia, but seems to be calm at this time. Exam Const: General: cooperative, no acute distress, alert and awake Orientation/consciousness: patient oriented x3 HENMT: Mouth: Yes moist mucous membranes Neck: Neck: normal visual inspection Chest: Chest palpation & inspection: normal inspection of the chest Resp: Effort & Inspection: normal respiratory effort Auscultation: clear to auscultation bilaterally Cardio: Jugular venous distension: no JVD GI: Rectal Exam: deferred Other: Careful inspection shows that the area of inflammation is about the same. The purple vanessa I made is now gone since he has been having loose stools and wiping. The white head that was present 5 cm from the anal verge yesterday now is an opening. I was easily able to probe this and I did send a culture for Gram stain C&S aerobic and anaerobic after placing the swab in the cavity. This tunnels toward the anus so he may indeed have an anal fistula. Neuro: General: patient oriented x3 and moves all extremities Speech: normal speech Extrem: General: normal exam except as noted Psych: Speech and movement: Normal speech and movement present Affect: Anxious affect present Thought content: Yes Normal thought content present Other: Able to answer my questions and seems to understand instructions. Objective Data Vital Signs Vital Signs: Vital Signs - 24 hr 12/19/19 08:00 12/19/19 08:16 12/19/19 08:28 Temperature Pulse Rate 81 81 81 Respiratory Rate 20 20 20 Blood Pressure Pulse Oximetry 97 12/19/19 14:00 12/19/19 14:39 12/19/19 14:48 Temperature 36.1 C L Pulse Rate 79 82 96 Respiratory Rate 20 20 20 Blood Pressure 102/54 L Pulse Oximetry 88 L 12/19/19 19:59 12/19/19 20:08 12/19/19 22:00 Temperature 36.4 C Pulse Rate 76 76 76 Respiratory Rate 20 Blood Pressure 118/54 L Puls
[2019-12-20] MEDS: DICLOFENAC SOD 75 MG TABLET.EC PO ×2 (09:03→19:34)
[2019-12-20] MEDS: ARIPiprazole 10 MG TABLET 30 MG PO (09:03)
[2019-12-20] MEDS: SERTRALINE HCL 50 MG TABLET 150 MG PO (09:04)
[2019-12-20] MEDS: SACCHAROMYCES BOULARDII 250 MG CAPSULE PO ×2 (09:04→19:34)
[2019-12-20] MEDS: NICOTINE (*PBKC) 21 MG PATCH 1 PATCH TRANSDERM (09:05)
[2019-12-20] MEDS: clonazePAM 0.5 MG TABLET PO (09:09)
[2019-12-20 09:33] LABS: IFOB Positive Control Positive; Immunochemical Fecal Occult Bl Negative (N)
[2019-12-20] MEDS: PSYLLIUM POWDER PACKET 1 PACKET PO (14:15)
--- NOTE | 2019-12-20 17:04 | PM.IMPN ---
Progress Note: A&P Assessment and Plan (1) Abscess, perirectal: Code(s): K61.1 - Rectal abscess Status: Deleted Assessment and Plan: CT abdomen pelvis read as Left perirectal fluid and fatty infiltration, suspicious for infection. No drainable abscess identified. Dr. Coulter, General Surgery consulted and appreciate recommendations. Small abscess noted to superficially to left perirectal buttocks; this is now draining today and was packed per Surgery. Patient is adopted and family history for IBD is unknown. He has never been diagnosed with IBD in past. He has diarrhea off and on in the past per sister. He denies any oral lesions in the past; lesion noted on left buccal mucosa but he states this is from biting his cheek. Continue antibiotic therapy with Zosyn, consider addition of vancomycin if there is no improvement of symptoms. Continue monitoring Await further rec from General Surgery Given unknown family history and recurrent abscesses/boils on buttocks, agree with obtaining IBD panel; this has been collected today; await results, but will likely need f/u with PCP and possibly GI specialist (2) Obstructive sleep apnea: Code(s): G47.33 - Obstructive sleep apnea (adult) (pediatric) Status: Chronic Assessment and Plan: Patient's home BiPAP has been ordered (3) COPD (chronic obstructive pulmonary disease): Onset Date: Unknown Code(s): J44.9 - Chronic obstructive pulmonary disease, unspecified Status: Chronic Assessment and Plan: Lungs are clear to auscultation without any wheezing. P.r.n. albuterol inhaler for shortness of breath. PRN neb treatments as well (4) Paranoid schizophrenia: Onset Date: Unknown Code(s): F20.0 - Paranoid schizophrenia Status: Chronic Assessment and Plan: Will continue him on his home medications of sertraline and clonazepam. His mood is stable at this time. (5) Nicotine dependence, unspecified, uncomplicated: Onset Date: Unknown Code(s): F17.200 - Nicotine dependence, unspecified, uncomplicated Status: Chronic Assessment and Plan: He requested a nicotine patch. He is not interested in tobacco cessation education. Subjective Date/time seen: 12/20/19 17:04 Interval history: Patient is a 59 yo M with history of schizophrenia, COPD, and chronic tobacco abuse who is here for evaluation/treatment of perianal abscess and surrounding cellulitis. Patient states he is feeling better today. He is eating and drinking well today; tolerating PO. He states his loose stools/diarrhea is improving this afternoon. His buttock pain is better today as well. No other complaints. Denies f/c/s, cp/palpitations, current sob/cough, n/v, abd pain, melena, BRBPR, dysuria, hematuria, cloudy urine, calf pain/swelling. Review of Systems Review of Systems: All systems reviewed & are unremarkable except as noted in HPI and below Exam Narrative: Exam Narrative: Patient sitting upright on side of bed at time of visit; sister in room visiting Const: General: cooperative, comfortable, no acute distress, well developed, alert and awake Orientation/consciousness: patient oriented x3 HENMT: Head: normocephalic and atraumatic General nose exam: Normal nares present Face and sinus: face symmetric Mouth: Yes moist mucous membranes and Yes Abnormal oral and palatal mucosa present lesions (lesion on left buccal mucosa; states from biting ) Eyes: General: appearance normal, both eyes and all related structures EOM: EOMs intact bilaterally Neck: Neck: trachea midline and supple Resp: Effort & Inspection: normal respiratory effort Auscultation: clear to auscultation bi
[2019-12-20] MEDS: ENOXAPARIN 40 MG/0.4 ML SYRINGE SUB-Q (20:44)
[2019-12-21] VITALS (10 sets, daily range): BP systolic 109–115; BP diastolic 54–71; PULSE 68–87; RESP 18–20; TEMP 36.6–36.7; O2SAT 93–95
[2019-12-21] MEDS: IPRATROPIUM BR 0.02% INH SOLN 0.5 MG/2.5 ML VIAL INHALATION ×3 (02:16→20:25)
[2019-12-21] MEDS: ALBUTEROL SULFATE NEB 2.5 MG/0.5 ML INH 5 MG INHALATION ×3 (02:16→20:25)
[2019-12-21 07:42] LABS: Basophils Percent Auto 0.3 % (0.2-1.2); Eosinophils Absolute Auto 0.1 K/mm3 (0-0.3); Eosinophils Percent Auto 0.5 % (0-4.4); Hemoglobin 13.7 g/dL (14.0-18.0); Immature Granulocyte Absolute 0.06 K/mm3 (0.00-0.031); Immature Granulocyte Percent A 0.7 % (0-0.5); Lymphocytes Absolute Auto 0.66 K/mm3 (0.9-3.2); Lymphocytes Percent Auto 7.2 % (18.3-44.2); Mean Corpuscular HGB Conc 33.4 g/dl (32-36); Mean Corpuscular Hemoglobin 33.3 pg (26-34); Mean Corpuscular Volume 99.5 fl (80-100); Mean Platelet Volume 8.7 fl (7.4-10.4); Monocytes Absolute Auto 0.5 K/mm3 (0.1-0.6); Monocytes Percent Auto 5.1 % (2.6-8.5); Neutrophils Percent Auto 86.2 % (45.5-73.1); Platelet Count Result 152 k/mm3 (150-375); Red Blood Count 4.12 M/mm3 (4.6-6.20); Red Cell Distribution Width 14.6 % (11.5-14.5); White Blood Count 9.2 K/mm3 (4.5-10.0)
[2019-12-21 08:00] LABS: Blood Urea Nitrogen 16 mg/dL (9-20); Calcium 8.4 mg/dL (8.4-10.2); Carbon Dioxide 28 mmol/L (22-30); Chloride 105 mmol/L (98-107); Estimated CRCL calculation 93 ml/min; Estimated Glomerular Filt Rate > 60; Glucose 90 mg/dL (75-110); Potassium 3.9 mmol/L (3.4-5.0); Sodium 138 mmol/L (137-145)
[2019-12-21] MEDS: DICLOFENAC SOD 75 MG TABLET.EC PO ×2 (09:16→17:38)
[2019-12-21] MEDS: clonazePAM 0.5 MG TABLET PO (09:24)
--- NOTE | 2019-12-21 09:26 | WPDCDIQUERY2 ---
CDI Query Clarification Request - Acute kidney injury-labs consistent with dehydration with elevated urine specific gravity. Continue IV fluid hydration and repeat BMP in a.m documented in H&P - 12/17 creatinine 1.5, GFR 48, 12/20 creatinine, 1.0 GFR >60 - No further mention of acute kidney injury Please clarify if acute kidney injury was ruled in or ruled out.
[2019-12-21] MEDS: ENOXAPARIN 40 MG/0.4 ML SYRINGE SUB-Q ×2 (11:02→22:44)
[2019-12-21] MEDS: NICOTINE (*PBKC) 21 MG PATCH 1 PATCH TRANSDERM (11:02)
[2019-12-21] MEDS: ARIPiprazole 10 MG TABLET 30 MG PO (11:02)
[2019-12-21] MEDS: PSYLLIUM POWDER PACKET 1 PACKET PO ×2 (11:03→22:45)
[2019-12-21] MEDS: SACCHAROMYCES BOULARDII 250 MG CAPSULE PO ×2 (11:03→17:39)
[2019-12-21] MEDS: SERTRALINE HCL 50 MG TABLET 150 MG PO (11:04)
--- NOTE | 2019-12-21 12:00 | PM.PNGS ---
Progress Note: A&P Assessment and Plan (1) Abscess, perianal: Onset Date: ~11/2019 Code(s): K61.0 - Anal abscess Status: Acute Assessment and Plan: C&S sent Continue local therapy with hand-held showers, aloe [place], also packing of the tract that was found on 12/19 at the site of the white head that was present 4 cm from the anal opening on the left buttock opened. I believe we should be able to get some quarter-inch Nu Gauze in this. This will hopefully allow continuous drainage. An inflammatory bowel panel has been sent to check and see if he has Crohn's or ulcerative colitis since this may be the external opening of a anal fistula. Additional Plan We are serology or immunologic blood panel for inflammatory bowel disease in view of the patient's possible anal fistula. I have discussed possible colonoscopy with the patient and his sister who is [id number]. She states that he is adopted so the do not know whether not he has any family history of inflammatory bowel disease or colon tumors. Patient has not previously had a colonoscopy that we know of. I think in view of his continuing loose stools and the known probable proctitis/perirectal abscess with fistula formation it would be redd to go ahead with colonoscopy. They have given perforation to proceed so we will prep the patient this afternoon and I will try to have it added on for a procedure tomorrow. Subjective Subjective Date/Time Seen: 12/21/19 12:00 Patient is sitting up on the side of the bed when I entered the room today. Denies much pain in the perianal area today. He states that the pain is less now that the fistula is draining. He is having bowel movements once once or twice a day. These are still loose. No report of blood in them by the nurses. Patient tolerating the diet without problems at this time. Denies abdominal pain. Review of Systems Constitutional: Constitutional: Reports as per HPI, Reports no additional constitutional complaints and Denies headache(s) Eyes: Eyes: Denies loss of vision and Denies eye pain ENT: Reports Normal hearing present, Denies change in voice, Denies dizziness, Denies headache(s) and Reports other (Mucous Membranes moist.) Cardiovascular: Cardiovascular: Denies chest pain and Denies dyspnea Respiratory: Respiratory: Denies pain on inspiration, Denies dyspnea and Denies wheezing Gastrointestinal: Gastrointestinal: Denies abdominal pain ( denies epigastric right upper quadrant pain), Reports change in stool character ( stools have been loose and occasionally he is incontinent.), Denies dyspepsia, Reports diarrhea and Reports loose stools Musculoskeletal: Musculoskeletal: Denies back pain, Denies arthralgias and Reports other (No calf swelling or edema) Integumentary/Breasts: Skin/Breast: Reports system reviewed and no additional complaints, except as docu Neurologic: Reports Normal hearing present, Denies dizziness, Denies headache(s), Denies loss of vision and Denies memory loss Psychiatric: Psychiatric: Reports anxiety, Denies memory loss and Denies panic attacks Endocrine: Endocrine: Reports no additional endocrine complaints Hematologic/Lymphatic: Hematologic/Lymphatic: Reports no additional hematologic/lymphatic complaints Allergic/Immunologic: Allergic/Immunologic: Denies wheezing Exam Const: General: cooperative, no acute distress, well developed, alert and awake Nutritional Appearance: well nourished Orientation/consciousness: patient oriented x3 Limitations: no limitations HENMT: Head: normal to inspection, normocephalic and atraumatic Ears: hearing grossly normal bilaterally General nose exam: Normal external nose present Face and sinus: normal facial exam Mouth: Yes Normal oral and palatal mucosa present, Yes tongue normal and Yes moist mucous membranes Eyes: General: appearance normal, both eyes and all related structures Pupils: Equal, round and reactive pupils present EOM
--- NOTE | 2019-12-21 15:37 | PM.IMPN ---
Progress Note: A&P Assessment and Plan (1) Abscess, perirectal: Code(s): K61.1 - Rectal abscess Status: Deleted Assessment and Plan: CT abdomen pelvis read as Left perirectal fluid and fatty infiltration, suspicious for infection. No drainable abscess identified. Dr. Coulter (General Surgery) consulted and appreciate recommendations. Small abscess noted to superficially to left perirectal buttocks; this is now draining and was packed per Surgery. Patient is adopted and family history for IBD is unknown. He has never been diagnosed with IBD in past. He has diarrhea off and on in the past per sister. He denies any oral lesions in the past; lesion noted on left buccal mucosa but he states this is from biting his cheek. Patient to have colonoscopy per General Surgery tomorrow; prep starting tonight Continue antibiotic therapy with Zosyn, consider addition of vancomycin pending wound cultures Continue monitoring Await further rec from General Surgery Given unknown family history and recurrent abscesses/boils on buttocks, agree with obtaining IBD panel; this has been collected; await results, but will likely need f/u with PCP and possibly GI specialist. Agree with colonoscopy in future; planning on colonoscopy tomorrow (2) Obstructive sleep apnea: Code(s): G47.33 - Obstructive sleep apnea (adult) (pediatric) Status: Chronic Assessment and Plan: Patient's home BiPAP has been ordered (3) COPD (chronic obstructive pulmonary disease): Onset Date: Unknown Code(s): J44.9 - Chronic obstructive pulmonary disease, unspecified Status: Chronic Assessment and Plan: Lungs are clear to auscultation without any wheezing. P.r.n. albuterol inhaler for shortness of breath. PRN neb treatments as well (4) Paranoid schizophrenia: Onset Date: Unknown Code(s): F20.0 - Paranoid schizophrenia Status: Chronic Assessment and Plan: Will continue him on his home medications of sertraline and clonazepam. His mood is stable at this time. (5) Nicotine dependence, unspecified, uncomplicated: Onset Date: Unknown Code(s): F17.200 - Nicotine dependence, unspecified, uncomplicated Status: Chronic Assessment and Plan: He requested a nicotine patch. He is not interested in tobacco cessation education. Additional Plan ROBERT on admission with Cr 1.50 Resolved with rehydration. Cr 1.00 today Will monitor Cr tomorrow Subjective Date/time seen: 12/21/19 15:37 Interval history: Patient is a 59 yo M with history of schizophrenia, COPD, and chronic tobacco abuse who is here for evaluation/treatment of perianal abscess and surrounding cellulitis. Patient states he is feeling better again today. He is eating and drinking well today; tolerating PO. He states his loose stools/diarrhea is about the same from yesterday. His buttock pain is better today as well. No other complaints. Denies f/c/s, cp/palpitations, current sob/cough, n/v, abd pain, melena, BRBPR, dysuria, hematuria, cloudy urine, calf pain/swelling. Review of Systems Review of Systems: All systems reviewed & are unremarkable except as noted in HPI and below Exam Narrative: Exam Narrative: Patient sitting upright on side of bed at time of visit; sister in room visiting. nursing also in room Const: General: cooperative, comfortable, no acute distress, well developed, alert and awake Orientation/consciousness: patient oriented x3 HENMT: Head: normocephalic and atraumatic General nose exam: Normal nares present Face and sinus: face symmetric Mouth: Yes moist mucous membranes Eyes: General: appearance normal,
[2019-12-21] MEDS: polyethylene glycoL 3350 238 GM BOTTLE PO (18:29)
--- NOTE | 2019-12-21 18:58 | PC.NURSE ---
Bowel prep started 1700.
[2019-12-22] VITALS (10 sets, daily range): BP systolic 109–143; BP diastolic 60–89; PULSE 49–76; RESP 16–28; TEMP 36.3–36.7; O2SAT 91–99
[2019-12-22] MEDS: SODIUM CHLORIDE 0.9% IV 1,000 ML 100 ML IV CONT ×2 (00:28→15:57)
[2019-12-22 07:02] LABS: Basophils Absolute Auto 0.1 K/mm3 (0.0-0.1); Basophils Percent Auto 0.6 % (0.2-1.2); Eosinophils Absolute Auto 0.2 K/mm3 (0-0.3); Eosinophils Percent Auto 2.3 % (0-4.4); Immature Granulocyte Absolute 0.14 K/mm3 (0.00-0.031); Immature Granulocyte Percent A 1.7 % (0-0.5); Lymphocytes Absolute Auto 0.98 K/mm3 (0.9-3.2); Mean Corpuscular HGB Conc 32.6 g/dl (32-36); Mean Corpuscular Hemoglobin 32.7 pg (26-34); Mean Corpuscular Volume 100.2 fl (80-100); Mean Platelet Volume 8.7 fl (7.4-10.4); Monocytes Absolute Auto 0.5 K/mm3 (0.1-0.6); Monocytes Percent Auto 6.6 % (2.6-8.5); Neutrophils Absolute Auto 6.3 K/mm3 (1.3-6.7); Neutrophils Percent Auto 76.8 % (45.5-73.1); Platelet Count Result 176 k/mm3 (150-375); Red Blood Count 4.59 M/mm3 (4.6-6.20); Red Cell Distribution Width 14.6 % (11.5-14.5); White Blood Count 8.2 K/mm3 (4.5-10.0)
[2019-12-22 07:25] LABS: Blood Urea Nitrogen 10 mg/dL (9-20); Calcium 8.7 mg/dL (8.4-10.2); Carbon Dioxide 29 mmol/L (22-30); Chloride 104 mmol/L (98-107); Estimated CRCL calculation 93 ml/min; Estimated Glomerular Filt Rate > 60; Glucose 82 mg/dL (75-110); Potassium 3.7 mmol/L (3.4-5.0); Sodium 139 mmol/L (137-145)
--- NOTE | 2019-12-22 09:12 | PCRCNOTE ---
PT. REFUSED NEBULIZER TX; STATES HE DOES NOT NEED IT. CHAITANYA WISEMAN NOTIFIED.
[2019-12-22] MEDS: ENOXAPARIN 40 MG/0.4 ML SYRINGE SUB-Q ×2 (10:07→21:40)
[2019-12-22] MEDS: NICOTINE (*PBKC) 21 MG PATCH 1 PATCH TRANSDERM (10:07)
--- NOTE | 2019-12-22 11:07 | WPDANESEPPF ---
Anes - Initial Pre Proc Eval Procedure: Operation Date: 12/22/19 13:30 Proposed Procedures p Colonoscopy - Dom Coulter MD Date/Time: 12/22/19 11:07 Surgeon: London Martin PA-C Pre Op Diagnosis: Perirectal abscess, Acute kidney injury Patient Data Age: 59 Gender: M Height: 5 ft 8 in Weight: 132 kg Last Vital Signs Temp 97.4 F L 12/22/19 06:00 Pulse 74 12/22/19 06:00 Resp 16 12/22/19 06:00 BP 129/78 12/22/19 06:00 Pulse Ox 96 12/22/19 06:00 Allergies Allergy/AdvReac Type Severity Reaction Status Date / Time aspirin Allergy Severe Anaphylactic Verified 12/22/19 12:44 Shock Home Medications Medication Instructions Recorded Confirmed Type aripiprazole 30 mg tablet 30 mg PO DAILY 07/22/19 12/18/19 History clonazepam 0.5 mg tablet 0.5 mg PO DAILY 07/22/19 12/18/19 History sertraline 100 mg tablet 150 mg PO DAILY 07/22/19 12/18/19 History albuterol sulfate [ProAir HFA] 2 puff INHALATION QID PRN 12/18/19 12/18/19 History diclofenac sodium 75 mg PO BID 12/18/19 12/18/19 History nicotine 1 patch TRANSDERMAL DAILY 12/18/19 12/18/19 History Laboratory Tests 12/22/19 12/22/19 06:40 06:40 WBC 8.2 K/mm3 K/mm3 (4.5-10.0) RBC 4.59 M/mm3 L M/mm3 (4.6-6.20) Hgb 15.0 g/dL g/dL (14.0-18.0) Hct 46.0 % % (42.0-52.0) MCV 100.2 fl H fl (80-100) MCH 32.7 pg pg (26-34) MCHC 32.6 g/dl g/dl (32-36) RDW 14.6 % H % (11.5-14.5) Plt Count 176 k/mm3 k/mm3 (150-375) MPV 8.7 fl fl (7.4-10.4) Immature Gran % (Auto) 1.7 % H % (0-0.5) Neut % (Auto) 76.8 % H % (45.5-73.1) Lymph % (Auto) 12.0 % L % (18.3-44.2) [place] % (Auto) 6.6 % % (2.6-8.5) Eos % (Auto) 2.3 % % (0-4.4) Baso % (Auto) 0.6 % % (0.2-1.2) Lymph # (Auto) 0.98 K/mm3 K/mm3 (0.9-3.2) [place] # (Auto) 0.5 K/mm3 K/mm3 (0.1-0.6) Eos # (Auto) 0.2 K/mm3 K/mm3 (0-0.3) Baso # (Auto) 0.1 K/mm3 K/mm3 (0.0-0.1) Abs Immat Gran (auto) 0.14 K/mm3 H K/mm3 (0.00-0.031) Absolute Neuts (auto) 6.3 K/mm3 K/mm3 (1.3-6.7) Absolute Nucleated RBC 0.0 K/mm3 K/mm3 (0.0-0.012) Nucleated RBC % 0.0 % % (0.0-0.2) Sodium 139 mmol/L mmol/L (137-145) Potassium 3.7 mmol/L mmol/L (3.4-5.0) Chloride 104 mmol/L mmol/L (98-107) Carbon Dioxide 29 mmol/L mmol/L (22-30) BUN 10 mg/dL D mg/dL (9-20) Creatinine 1.00 mg/dL mg/dL (0.7-1.3) Estim Creat Clear Calc 93 ml/min ml/min Estimated GFR > 60 (59 - ) Glucose 82 mg/dL mg/dL (75-110) Calcium 8.7 mg/dL mg/dL (8.4-10.2) Magnesium 2.0 mg/dL mg/dL (1.6-2.3) Patient hx anesthesia problems: none Family hx anesthesia problems: none [facility] Past Medical History Medical History (Updated 12/22/19 @ 10:56 by Steve Cedillo MD) Atrial flutter Benign prostatic hyperplasia with urinary obstruction and other lower urinary tract symptoms Body mass index 40.0-44.9, adult COPD (chronic obstructive pulmonary disease) (Unknown) [id number]-ef-[id number] obstructive ventilatory defect with severe small airway disease pattern no acute bronchodilator response and mildly decreased DLCO noted on pulmonary function testing from 2014 COPD exacerbation History of myocardial infarction With stress test November 2019 demonstrating 2 fixed perfusion defects small mild area of apical septal segment defect in left ventricle, moderate sized area of mild infarct involving apical inferior apical lateral and mid inferior lateral segment of the left ventricle, ejection fraction of 70% Nicotine dependence, unspecified, uncomplicated (Unknown) Obstructive sleep apnea (adult) (pediatric) (Unknown) Obstructive sleep apnea treated with BiPAP With settings of 25/20 according to sleep study from February 2010 Other chronic pain Other hyperlipidemia (Unknown) Paranoid schizophrenia
--- NOTE | 2019-12-22 12:26 | PC.NURSE ---
Patient to GI LAB per stretcher.
[2019-12-22] MEDS: LACTATED RINGERS 1,000 ML 150 ML IV CONT (12:49)
[2019-12-22] MEDS: SIMETHICONE ORAL SUSPENSION 20 MG/0.3 ML 30 ML BOTTLE 0.6 ML PO (13:25)
--- NOTE | 2019-12-22 14:39 | SUR.OPER ---
BETADINE SOLUTION (RATIO BETADINE 5ML TO NS 15ML) INJECTED INTO PERIANAL ABSCESS BY DR LANTIGUA TO ASSESS FOR FISTULA
[2019-12-22] MEDS: clonazePAM 0.5 MG TABLET PO (15:54)
[2019-12-22] MEDS: SACCHAROMYCES BOULARDII 250 MG CAPSULE PO ×2 (15:55→18:16)
[2019-12-22] MEDS: SERTRALINE HCL 50 MG TABLET 150 MG PO (15:55)
[2019-12-22] MEDS: PSYLLIUM POWDER PACKET 1 PACKET PO ×2 (15:55→21:40)
[2019-12-22] MEDS: DICLOFENAC SOD 75 MG TABLET.EC PO ×2 (15:55→18:17)
[2019-12-22] MEDS: ARIPiprazole 10 MG TABLET 30 MG PO (15:56)
--- NOTE | 2019-12-22 18:41 | PM.IMPN ---
Progress Note: A&P Assessment and Plan (1) Abscess, perirectal: Code(s): K61.1 - Rectal abscess Status: Deleted Assessment and Plan: CT abdomen pelvis read as Left perirectal fluid and fatty infiltration, suspicious for infection. No drainable abscess identified. Dr. Coulter (General Surgery) consulted and appreciate recommendations. Small abscess noted to superficially to left perirectal buttocks; this is now draining and was packed per Surgery. Patient is adopted and family history for IBD is unknown. He has never been diagnosed with IBD in past. He has diarrhea off and on in the past per sister. He denies any oral lesions in the past; lesion noted on left buccal mucosa but he states this is from biting his cheek. Patient had colonoscopy per General Surgery today. WCx grew skin ebony on aerobic bottle and no anaerobes isolated Continue antibiotic therapy with Zosyn, consider addition of vancomycin pending wound cultures Continue monitoring Await further rec from General Surgery Given unknown family history and recurrent abscesses/boils on buttocks, agree with obtaining IBD panel; this has been collected; await results, but will likely need f/u with PCP and possibly GI specialist. Colonoscopy performed today per GS; will await results/report (2) Obstructive sleep apnea: Code(s): G47.33 - Obstructive sleep apnea (adult) (pediatric) Status: Chronic Assessment and Plan: Patient's home BiPAP has been ordered (3) COPD (chronic obstructive pulmonary disease): Onset Date: Unknown Code(s): J44.9 - Chronic obstructive pulmonary disease, unspecified Status: Chronic Assessment and Plan: Lungs are clear to auscultation without any wheezing. P.r.n. albuterol inhaler for shortness of breath. PRN neb treatments as well (4) Paranoid schizophrenia: Onset Date: Unknown Code(s): F20.0 - Paranoid schizophrenia Status: Chronic Assessment and Plan: Will continue him on his home medications of sertraline and clonazepam. His mood is stable at this time. (5) Nicotine dependence, unspecified, uncomplicated: Onset Date: Unknown Code(s): F17.200 - Nicotine dependence, unspecified, uncomplicated Status: Chronic Assessment and Plan: He requested a nicotine patch. He is not interested in tobacco cessation education. Subjective Date/time seen: 12/22/19 18:41 Interval history: Patient is a 59 yo M with history of schizophrenia, COPD, and chronic tobacco abuse who is here for evaluation/treatment of perianal abscess and surrounding cellulitis. Patient states he is feeling better again today. He thinks his colonoscopy went well. He is still having diarrhea, but thinks is mainly from his colonscopy prep. His buttock pain is better today as well. No other complaints. Denies f/c/s, cp/palpitations, current sob/cough, n/v, abd pain, melena, BRBPR, dysuria, hematuria, cloudy urine, calf pain/swelling. Review of Systems Review of Systems: All systems reviewed & are unremarkable except as noted in HPI and below Exam Narrative: Exam Narrative: Patient sitting upright on side of bed at time of visit; sister in room visiting. Const: General: cooperative, comfortable, no acute distress, well developed, alert and awake Orientation/consciousness: patient oriented x3 HENMT: Head: normocephalic and atraumatic General nose exam: Normal nares present Face and sinus: face symmetric Mouth: Yes moist mucous membranes Eyes: General: appearance normal, both eyes and all related structures EOM: EOMs intact bilaterally Neck: Neck: trachea midline and supple Resp: Effort & Inspection: normal respiratory effort
[2019-12-23] MEDS: SODIUM CHLORIDE 0.9% IV 1,000 ML 100 ML IV CONT (04:47)
[2019-12-23 06:00] VITALS: BP 122/51; PULSE 53; RESP 18; TEMP 36.4; O2SAT 97
[2019-12-23 07:35] LABS: Basophils Absolute Auto 0.1 K/mm3 (0.0-0.1); Basophils Percent Auto 0.8 % (0.2-1.2); Eosinophils Absolute Auto 0.1 K/mm3 (0-0.3); Eosinophils Percent Auto 1.4 % (0-4.4); Hemoglobin 13.6 g/dL (14.0-18.0); Immature Granulocyte Percent A 2.6 % (0-0.5); Lymphocytes Absolute Auto 1.13 K/mm3 (0.9-3.2); Lymphocytes Percent Auto 14.8 % (18.3-44.2); Mean Corpuscular HGB Conc 33.2 g/dl (32-36); Mean Corpuscular Hemoglobin 32.9 pg (26-34); Mean Platelet Volume 8.6 fl (7.4-10.4); Monocytes Absolute Auto 0.5 K/mm3 (0.1-0.6); Monocytes Percent Auto 6.6 % (2.6-8.5); Neutrophils Absolute Auto 5.6 K/mm3 (1.3-6.7); Neutrophils Percent Auto 73.8 % (45.5-73.1); Platelet Count Result 164 k/mm3 (150-375); Red Blood Count 4.14 M/mm3 (4.6-6.20); Red Cell Distribution Width 14.3 % (11.5-14.5); White Blood Count 7.6 K/mm3 (4.5-10.0)
[2019-12-23 07:50] LABS: Blood Urea Nitrogen 7 mg/dL (9-20); Calcium 8.2 mg/dL (8.4-10.2); Carbon Dioxide 27 mmol/L (22-30); Chloride 106 mmol/L (98-107); Estimated CRCL calculation 85 ml/min; Estimated Glomerular Filt Rate > 60; Glucose 76 mg/dL (75-110); Magnesium 1.9 mg/dL (1.6-2.3); Potassium 3.9 mmol/L (3.4-5.0); Sodium 137 mmol/L (137-145)
--- NOTE | 2019-12-23 09:54 | WPDANESPN ---
Anes - Prog Note Post-Op Date/Time: 12/23/19 09:54 Cardiovascular status: normal Respiratory status: normal Airway patency: baseline Mental status: baseline Post-Op hydration status: normal Vital Signs: Last Vital Signs Temp 97.6 F 12/23/19 06:00 Pulse 53 L 12/23/19 06:00 Resp 18 12/23/19 06:00 BP 122/51 L 12/23/19 06:00 Pulse Ox 97 12/23/19 06:00 I/O: Intake & Output 12/22/19 12/23/19 12/23/19 23:59 07:59 15:59 Intake Total 220 1600 Balance 220 1600 Laboratory Tests 12/23/19 06:53 12/23/19 06:53 12/23/19 12/23/19 06:53 06:53 WBC 7.6 RBC 4.14 L Hgb 13.6 L Hct 41.0 L MCV 99.0 MCH 32.9 MCHC 33.2 RDW 14.3 Plt Count 164 MPV 8.6 Immature Gran % (Auto) 2.6 H Neut % (Auto) 73.8 H Lymph % (Auto) 14.8 L [place] % (Auto) 6.6 Eos % (Auto) 1.4 Baso % (Auto) 0.8 Lymph # (Auto) 1.13 [place] # (Auto) 0.5 Eos # (Auto) 0.1 Baso # (Auto) 0.1 Abs Immat Gran (auto) 0.20 H Absolute Neuts (auto) 5.6 Absolute Nucleated RBC 0.0 Nucleated RBC % 0.0 Sodium 137 Potassium 3.9 Chloride 106 Carbon Dioxide 27 BUN 7 L Creatinine 1.10 Estim Creat Clear Calc 85 Estimated GFR > 60 Glucose 76 Calcium 8.2 L Magnesium 1.9 Microbiology 12/20/19 08:54 Abscess Anaerobic Culture - Preliminary 12/20/19 08:54 Abscess Aerobic Culture - Final 12/20/19 08:40 Stool Stool for WBCs - Final 12/20/19 08:40 Stool Escherichia coli Shiga Toxins - Final 12/20/19 08:40 Stool Salmonella/Shigella Culture - Final Post-procedural complaints: none Patient Feedback: Patient satisfied with anesthetic care.
[2019-12-23] MEDS: ARIPiprazole 10 MG TABLET 30 MG PO (10:04)
[2019-12-23] MEDS: SERTRALINE HCL 50 MG TABLET 150 MG PO (10:04)
[2019-12-23] MEDS: SACCHAROMYCES BOULARDII 250 MG CAPSULE PO (10:04)
[2019-12-23] MEDS: ENOXAPARIN 40 MG/0.4 ML SYRINGE SUB-Q (10:04)
[2019-12-23] MEDS: NICOTINE (*PBKC) 21 MG PATCH 1 PATCH TRANSDERM (10:05)
[2019-12-23] MEDS: DICLOFENAC SOD 75 MG TABLET.EC PO (10:05)
[2019-12-23] MEDS: PSYLLIUM POWDER PACKET 1 PACKET PO (10:05)
[2019-12-23] MEDS: clonazePAM 0.5 MG TABLET PO (10:07)
--- NOTE | 2019-12-23 11:12 | PC.NURSE ---
PT 0600 ZOSYN NOT GIVEN. ABLE TO HANG IT AT 1000. CALLED PHARMACY WHO SAID TO SKIP 1200 DOSE AND HANG 1800 EARLY. NOTIFIED CHAITANYA BAUER.
--- NOTE | 2019-12-23 11:44 | PM.PNGS ---
Progress Note: A&P Assessment and Plan (1) Abscess, perianal: Onset Date: ~11/2019 Code(s): K61.0 - Anal abscess Status: Acute Assessment and Plan: C&S sent Continue local therapy with hand-held showers, aloe [place], also packing of the tract that was found on 12/19 at the site of the white head that was present 4 cm from the anal opening on the left buttock opened. I believe we should be able to get some quarter-inch Nu Gauze in this. This will hopefully allow continuous drainage. An inflammatory bowel panel has been sent to check and see if he has Crohn's or ulcerative colitis since this may be the external opening of a anal fistula. (2) Obstructive sleep apnea: Code(s): G47.33 - Obstructive sleep apnea (adult) (pediatric) Status: Chronic Assessment and Plan: Medicine is handling this problem. He needs to continue using his sleep apnea machine at home. (3) Nicotine dependence, unspecified, uncomplicated: Onset Date: Unknown Code(s): F17.200 - Nicotine dependence, unspecified, uncomplicated Status: Chronic Assessment and Plan: There were papers on the patient's bedside table regarding smoking cessation. I did discuss this with him encourage him to stop smoking if at all possible. Additional Plan We have sent and are awating serology or immunologic blood panel for inflammatory bowel disease in view of the patient's possible anal fistula. Today I discussed the results of the colonoscopy yesterday with the patient while he was well awake. He understands there were a few polyps and we will get reports on these next week. There was however no sign that the opening on his left buttock leads to an internal opening that would be suggestive of a anal fistula. Most likely he just has a subcutaneous abscess the drain to the outside and will need to let this heal from the inside out. I believe the patient could be converted to oral antibiotics. I would recommend Cipro 500 mg twice a day for 10 days and Flagyl 500 mg 3 times a day for 10 days then I will see him in the office in recheck the perineal/ perianal area and the current fistula. The problem however, may be packing to the opening on the left buttock. This will need to be done twice a day. Hopefully a family member will be able to be trained to do this but patient should also probably have visiting nurses at home to come in and to check on this and make sure it is being packed appropriately. Nurse nursing was going to check with case management to pursue options on this. Subjective Subjective Date/Time Seen: 12/23/19 11:44 Post Op day: 1 ( Status post colonoscopy with biopsies) Patient reports: feels better and tolerating a regular diet Interval history: patient states he still has some irritation in the left buttock area but otherwise is doing well. He still has occasional loose stools. He did tolerate a reasonable soft diet last evening. Patient needs to be on a low-fat diet when he is discharged because of his known gallstones. Review of Systems Constitutional: Constitutional: Reports as per HPI, Reports no additional constitutional complaints and Denies headache(s) Eyes: Eyes: Denies loss of vision and Denies eye pain ENT: Reports Normal hearing present, Denies change in voice, Denies dizziness, Denies headache(s) and Reports other (Mucous Membranes moist.) Cardiovascular: Cardiovascular: Denies chest pain and Denies dyspnea Respiratory: Respiratory: Denies pain on inspiration, Denies dyspnea and Denies wheezing Gastrointestinal: Gastrointestinal: Denies abdominal pain ( denies epigastric right upper quadrant pain), Reports change in stool character ( stools have been loose and occasionally he is incontinent.), Denies dyspepsia and Reports loose stools Musculoskeletal: Musculoskeletal: Denies back pain, Denies arthralgias and Reports other (No calf swelling or edema) Integumentary/Breasts: Skin/Breast:
--- NOTE | 2019-12-23 14:33 | PM.DS ---
DS: Admitting Diagnosis Admitting Diagnosis Admitting Diagnosis: Anal abscess DS: Discharge Diagnosis Discharge Diagnosis (1) Abscess, perirectal: Code(s): K61.1 - Rectal abscess Status: Deleted Assessment and Plan: CT abdomen pelvis read as Left perirectal fluid and fatty infiltration, suspicious for infection. No drainable abscess identified. Dr. Coulter (General Surgery) consulted and appreciate recommendations. Small abscess noted to superficially to left perirectal buttocks; this is now draining and was packed per Surgery. Patient is adopted and family history for IBD is unknown. He has never been diagnosed with IBD in past. He has diarrhea off and on in the past per sister. He denies any oral lesions in the past; lesion noted on left buccal mucosa during stay but he states this is from biting his cheek. Patient had colonoscopy per General Surgery yesterday; polyps and diverticulum were noted; biopsies were take. WCx grew skin ebony on aerobic bottle and no anaerobes isolated IV zosyn during stay Per General Surgery rec, will discharge on cipro and flagyl for 10 days after discharge F/u with General Surgery and PCP in 1-2 weeks HH set up for daily packing for at least 4 days per CC; thereafter, Dr. Coulter will be contacted for further instructions Given unknown family history and recurrent abscesses/boils on buttocks, agree with obtaining IBD panel; this has been collected; await results, but will likely need f/u with PCP and possibly GI specialist. Colonoscopy performed yesterday per ; they will be following up with patient as outpatient for results (2) Obstructive sleep apnea: Code(s): G47.33 - Obstructive sleep apnea (adult) (pediatric) Status: Chronic Assessment and Plan: Patient's home BiPAP has been ordered (3) COPD (chronic obstructive pulmonary disease): Onset Date: Unknown Code(s): J44.9 - Chronic obstructive pulmonary disease, unspecified Status: Chronic Assessment and Plan: Lungs are clear to auscultation without any wheezing. P.r.n. albuterol inhaler for shortness of breath. PRN neb treatments as well (4) Paranoid schizophrenia: Onset Date: Unknown Code(s): F20.0 - Paranoid schizophrenia Status: Chronic Assessment and Plan: Will continue him on his home medications of sertraline and clonazepam. His mood is stable at this time. (5) Nicotine dependence, unspecified, uncomplicated: Onset Date: Unknown Code(s): F17.200 - Nicotine dependence, unspecified, uncomplicated Status: Chronic Assessment and Plan: He requested a nicotine patch. Smoking cessation encouraged DS: Summary Hospital Course Reason for hospitalization: Perirectal abscess and surrounding cellulitis Hospital Course: Patient is a 59 yo M with history schizophrenia, COPD, and chronic tobacco abuse who presented to the ER from [facility] due to concern for EKG changes. He arrived at [facility] with diaphoresis and mild increased SOB form his baseline. While in the ED he was found to have a abscess on his buttocks. CT of abd/pelvis in ED showed left perirectal fluid and fatty infiltration, suspicious for infection. Patient admitted under this setting. Please see H&P for further details. Presenting VS: Temp Pulse Resp BP Pulse Ox 97.1 F L 90 22 H 109/46 L 97 12/18/19 15:01 12/18/19 15:01 12/18/19 15:01 12/18/19 15:12/18/19 15:01 Presenting Pertinent labs: WBC 15.9k, Cr 1.50 (1.10 on 12/22). serial troponins 0.022, <0.012. Negative stool occult blood. ANCA screen, PR3 ab, Myeloperoxidase ab, s. cerevisiae pending. CBC, coag, chemistry, UA otherwise unremarkable Pathology: Colono
[2019-12-23 18:42] VITALS: BP 142/68; PULSE 68; RESP 16; TEMP 37.1; O2SAT 98
[2019-12-24 22:54] LABS: ANCA Screen Negative (Negative); Myeloperoxidase Ab <1.0 AI (<1.0); Proteinase-3 Ab <1.0 AI (<1.0)
== END 2019-12-23 17:20 | disposition home health service (06) | DRG 394 ==
LOC: ANHED 18:37 → ANH3MEDSUR 19:19
PROVIDERS: Internal Medicine; Physician Assistant; Surgery; Admitting Provider Internal Medicine; Emergency Provider Emergency Medicine; PCP Internal Medicine; Visit Provider Physician Assistant
PROC: 0DJD8ZZ Inspection of Lower Intestinal Tract, Via Natural or Artificial Opening Endoscopic (ICD-10-PCS; CPT 45378; principal; 2019-12-22 13:30)
DX: K61.1 Rectal abscess (principal); N17.9 Acute kidney failure, unspecified; F20.0 Paranoid schizophrenia; L03.317 Cellulitis of buttock; E86.0 Dehydration; F17.210 Nicotine dependence, cigarettes, uncomplicated; J44.9 Chronic obstructive pulmonary disease, unspecified; G47.33 Obstructive sleep apnea (adult) (pediatric); K57.30 Diverticulosis of large intestine without perforation or abscess without bleeding; K63.5 Polyp of colon; K52.9 Noninfective gastroenteritis and colitis, unspecified
CPT/HCPCS: 36415; 71046; 74177; 80048; 81001; 82274; 83605; 83735; 84484; 85025; 85610; 85730; 86021; 86671; 87040; 87045; 87046; 87070; 87075; 87205; 87427; 88305; 89055; 93005; 94640; 96361; 96365; 96366; 96372; 97161; 99213; 99285; A9270; G0378; G0463; J1650; J2543; J2704; J7030; J7040; J7120; Q9967

== ENCOUNTER 2020-01-13 09:21 | Outpatient (CLI) | payer MEDICARE, MEDICAID, SELFPAY ==
[2020-01-13 09:53] LABS: Hematocrit 45.9 % (42.0-52.0); Hemoglobin 15.3 g/dL (14.0-18.0)
[2020-01-13 10:08] LABS: Blood Urea Nitrogen 16 mg/dL (9-20); Estimated Glomerular Filt Rate > 60; Potassium 4.5 mmol/L (3.4-5.0)
== END 2020-01-13 09:22 | disposition home or self-care (01) ==
PROVIDERS: PCP Internal Medicine; Visit Provider Internal Medicine
DX: M17.0 Bilateral primary osteoarthritis of knee (principal); Z82.61 Family history of arthritis; M79.662 Pain in left lower leg
CPT/HCPCS: 36415; 82565; 84132; 84520; 85014; 85018

== ENCOUNTER 2020-01-14 13:07 | Inpatient (IN) | payer MEDICARE, MEDICAID, SELFPAY ==
[2020-01-14] VITALS (14 sets, daily range): BP systolic 92–125; BP diastolic 52–90; PULSE 78–125; RESP 26–35; TEMP 36.6–39.4; O2SAT 89–100; BMI 43.7
--- NOTE | ~2020-01-14 | XR_ITS ---
EXAMINATION: XR chest 1V portable DATE: 01/14/2020 13:35 INDICATION: Cough, shortness of breath and fever TECHNIQUE: frontal view of the chest was obtained. COMPARISON: Chest radiograph dated 12/18/2019 FINDINGS: Unchanged mild elevation of the right hemidiaphragm. Mild lingular atelectasis near the costophrenic angle. No other airspace opacities, pulmonary edema, pleural effusion or pneumothorax. The cardiomedi astinal silhouette is normal. IMPRESSION: 1. Mildly elevated right hemidiaphragm and mild lingular atelectasis. Reviewed, dictated and finalized at location A.
--- NOTE | ~2020-01-14 | CT_ITS ---
EXAMINATION: CT chest abdomen pelvis w con EXAM DATE: 01/14/2020 15:56 INDICATION: Sepsis, hypoxia. History of perirectal abscess. TECHNIQUE: Spiral CT of the chest, abdomen and pelvis was performed following intravenous injection o f 100 mL Omnipaque 350. Axial, coronal and sagittal images were reviewed. Coronal maximum intensity pixel images of chest reviewed. The dose-length product (DLP) for this examination was 2095.44 mGy- cm. The exposure was tailored according to patient size (auto mA exposure control), and iterative re construction (ASIR) was used as additional dose reduction technique. Comparison is made to prior exam ination from 12/18/2019. FINDINGS: CHEST: Bibasilar subsegmental atelectasis. There are no pleural or pericardial effusions. Tracheo bronchial tree is patent. There is no mediastinal, hilar or axillary lymphadenopathy. There is no pneumothorax. Heart normal in size. There is mild coronary arterial calcification, arterial scle rosis. ABDOMEN PELVIS: In the inner fold of the left buttocks there is again a region of induration, fat str anding with small fluid density region, but without well-defined wall. This region measures about 10 mm in thickness by 30 mm in length, slightly larger than on previous examination. No emphysema. Appea [place] most consistent with phlegmon. The liver, spleen, adrenal glands and pancreas are unremarkable. There are gallstones within an otherwise unremarkable gallbladder. No evidence of obstructive bili villa disease. Portal and splenic veins are patent. Kidneys enhance symmetrically. There is no hydro nephrosis. The prostate is unremarkable. The bladder is unremarkable. There is no retroperitoneal or pelvic lymphadenopathy. There is mild scattered arteriosclerotic disease. The appendix is normal. The stomach and small bowel are unremarkable. Suspect mild descending, sigm oid colonic wall edema, with colonic fluid. Consider enterocolitis. There is mild scattered colonic d iverticulosis. There is no adjacent inflammatory change to suggest diverticulitis. No free intraper itoneal gas. There are no osteoblastic or osteolytic lesions identified. IMPRESSION: 1. Persistent left buttock/perirectal phlegmon. 2. Possible mild colitis, with colonic fluid. Consider enterocolitis. 3. Cholelithiasis. 4. Subsegmental atelectasis. Reviewed, dictated and finalized at location A.
--- NOTE | 2020-01-14 13:22 | ECG_ITS ---
Measurements Intervals [place] Rate: 125 P: WI: 0 QRS: 12 QRSD: 87 T: 52 QT: 404 QTc: 583 Interpretive Statements ATRIAL FLUTTER/TACHYCARDIA WITH RAPID VENTRICULAR RESPONSE LOW QRS VOLTAGE IN LIMB LEADS DELAYED PRECORDIAL R/S TRANSITION BORDERLINE T WAVE ABNORMALITY- DIFFUSE LEADS BASELINE ARTIFACT- I, II, III, AVR, AVL, AVF, V1-V6 ABNORMAL ECG Electronically Signed On 01-14-2020 19:35:34 CDT by George Cruz D.O.
[2020-01-14] MEDS: SODIUM CHLORIDE 0.9% IV 1,000 ML 999 ML (13:35)
[2020-01-14 13:49] LABS: Basophils Percent Auto 0.3 % (0.2-1.2); Hematocrit 49.6 % (42.0-52.0); Hemoglobin 16.5 g/dL (14.0-18.0); Immature Granulocyte Absolute 0.02 K/mm3 (0.00-0.031); Immature Granulocyte Percent A 0.2 % (0-0.5); Immature Platelet Fraction Pct 0.9 % (0.9-11.2); Lymphocytes Absolute Auto 0.55 K/mm3 (0.9-3.2); Lymphocytes Percent Auto 4.8 % (18.3-44.2); Mean Corpuscular HGB Conc 33.3 g/dl (32-36); Mean Corpuscular Hemoglobin 32.9 pg (26-34); Mean Corpuscular Volume 98.8 fl (80-100); Mean Platelet Volume 8.9 fl (7.4-10.4); Monocytes Absolute Auto 0.2 K/mm3 (0.1-0.6); Monocytes Percent Auto 2.1 % (2.6-8.5); Neutrophils Absolute Auto 10.6 K/mm3 (1.3-6.7); Neutrophils Percent Auto 92.6 % (45.5-73.1); Platelet Count Result 158 k/mm3 (150-375); Red Blood Count 5.02 M/mm3 (4.6-6.20); Red Cell Distribution Width 14.9 % (11.5-14.5); White Blood Count 11.4 K/mm3 (4.5-10.0)
[2020-01-14 13:57] LABS: INR 1.2; Prothrombin Time 14.9 Seconds (11.1-14.7)
[2020-01-14 13:58] LABS: Partial Thromboplastin Time 28.7 SECONDS (22.3-36.8)
[2020-01-14 14:03] LABS: Lactic Acid Reflex 2.5 mmol/L (0.7-2.1)
[2020-01-14 14:11] LABS: Alanine Aminotransferase 12 U/L (4-50); Albumin Level 4.3 g/dL (3.5-5.1); Alkaline Phosphatase 84 U/L (38-126); Anion Gap 10 mmol/L (8-16); Aspartate Amino Transferase 21 U/L (17-59); Bilirubin,Total 1.7 mg/dL (0.2-1.3); Blood Urea Nitrogen 20 mg/dL (9-20); Calcium 9.1 mg/dL (8.4-10.2); Carbon Dioxide 29 mmol/L (22-30); Chloride 96 mmol/L (98-107); Estimated CRCL calculation 63 ml/min; Estimated Glomerular Filt Rate 48; Glucose 114 mg/dL (75-110); Potassium 4.1 mmol/L (3.4-5.0); Sodium 135 mmol/L (137-145)
[2020-01-14] MEDS: SODIUM CHLORIDE 0.9% IV 1,000 ML 999 ML IV CONT ×2 (14:12→16:25)
[2020-01-14 14:16] LABS: Troponin I 0.017 ng/mL (0.000-0.034)
--- NOTE | 2020-01-14 14:50 | ED.FEVER ---
HPI - Fever General Chief Complaint: Fever Stated Complaint: sob/cold sweats/shaky Time Seen by Provider: 01/14/20 13:28 History of Present Illness HPI Narrative: Patient is a 59-year-old male who presents the ER with sweats and weakness. Patient has history of perirectal abscess required drainage about a month ago. He has been seeing wound care and Dr. Coulter for this. Last visit Dr. Coulter was yesterday. He went off his antibiotics about 2 weeks ago. He has no pain in his rectum at this time. He has been having diarrhea through the night. On presentation he is hypoxic. Patient has mental delay and schizophrenia which makes obtaining a history difficult. Most history provided by his family member. Related Data Home Medications Medication Instructions Recorded Confirmed aripiprazole 30 mg tablet 30 mg PO DAILY 07/22/19 12/30/19 clonazepam 0.5 mg tablet 0.5 mg PO DAILY 07/22/19 12/30/19 sertraline 100 mg tablet 150 mg PO DAILY 07/22/19 12/30/19 albuterol sulfate [ProAir HFA] 2 puff INHALATION QID PRN 12/18/19 12/30/19 diclofenac sodium 75 mg PO BID 12/18/19 12/30/19 nicotine 1 patch TRANSDERMAL DAILY 12/18/19 12/30/19 clopidogrel 01/14/20 Allergies Allergy/AdvReac Type Severity Reaction Status Date / Time aspirin Allergy Severe Anaphylactic Verified 01/14/20 13:45 Shock Review of Systems Review of Systems: All systems reviewed & are unremarkable except as noted in HPI and below Constitutional: Constitutional: Reports chills, Reports fatigue and Reports fever(s) ENT: Denies nasal congestion and Denies sore throat Cardiovascular: Cardiovascular: Denies chest pain and Denies radiating jaw, neck or arm pain Respiratory: Respiratory: Denies cough, Denies dyspnea and Denies wheezing Gastrointestinal: Gastrointestinal: Denies abdominal pain, Denies nausea and Denies vomiting [facility] Past Medical History Medical History (Updated 01/14/20 @ 18:15 by Elver Fletcher MD) Asymptomatic cholelithiasis Atrial flutter Benign prostatic hyperplasia with urinary obstruction and other lower urinary tract symptoms Body mass index 40.0-44.9, adult COPD (chronic obstructive pulmonary disease) (Unknown) Xugc-[id number]-rhugyvxs obstructive ventilatory defect with severe small airway disease pattern no acute bronchodilator response and mildly decreased DLCO noted on pulmonary function testing from 2014 COPD exacerbation History of myocardial infarction (Unknown) With stress test November 2019 demonstrating 2 fixed perfusion defects small mild area of apical septal segment defect in left ventricle, moderate sized area of mild infarct involving apical inferior apical lateral and mid inferior lateral segment of the left ventricle, ejection fraction of 70% Nicotine dependence, unspecified, uncomplicated (Unknown) Obstructive sleep apnea (adult) (pediatric) (Unknown) Obstructive sleep apnea treated with BiPAP With settings of 25/20 according to sleep study from February 2010 Other chronic pain Other hyperlipidemia (Unknown) Paranoid schizophrenia (Unknown) Right heart failure with reduced right ventricular function Echocardiogram November 2019 demonstrated reduced right ventricular systolic function and mild enlargement, mild left ventricular enlargement, EF 55-60%, indeterminate diastolic function, mild left atrial enlargement, mild mitral valve regurgitation, small pericardial effusion Surgical History Surgical History (Updated 12/19/19 @ 00:52 by Mesha Baez DO) H/O inguinal hernia repair As a child Social History Social History (Updated 12/19/19 @ 00:56 by Mesha Baez DO) Smoking packs per day: 1 Smoking cigarettes per day: 20.0 Years smoked: 43 Smoking pack-years: 43.00 Smoking status: Current every day smoker Alcohol intake: never Substance use: never Additional living arrangements comments: The patient lives in his own home. His sister comes over and spends much of the day with him. However, he is al
[2020-01-14 15:25] LABS: Add Urine Microscopic? YES; Appearance Urine Cloudy (Clear); Bacteria Urine Trace /hpf; Bilirubin Urine 1+ (Negative); Blood Urine Negative (Negative); Color Urine Amber (Yellow); Glucose Urine UA Negative (Negative); Hyaline Casts Urine 15-19 /lpf; Ketones Urine Negative (Negative); Leukocyte Esterase Ur Negative LEU/UL (Negative); Mucus Urine Heavy /lpf; Nitrate Urine Negative (Negative); Protein Urine 2+ mg/dL (Negative); RBC Urine 0-2 /hpf (0-2); Specific Grav Ur 1.024 (1.001-1.035); Squamous Epithelial Cell Urine Moderate /hpf (Few)
[2020-01-14 15:27] LABS: CRP 7.1 mg/dL (<1.0)
--- NOTE | 2020-01-14 15:43 | PC.NURSE ---
ct taking pt, will draw when pt returns
--- NOTE | 2020-01-14 16:41 | PC.NURSE ---
Deanna Tanner, patient's sister and point of contact,[phone] Dai Ciro, sister,
[2020-01-14 16:45] LABS: Reflex Lactic Acid Yes or No Add Lactic
[2020-01-14 17:15] LABS: Lactic Acid 0.8 mmol/L (0.7-2.1)
--- NOTE | 2020-01-14 17:55 | PC.NURSE ---
stool sample sent to lab at this time.
[2020-01-14] MEDS: SODIUM CHLORIDE 0.9% IV 1,000 ML 125 ML IV CONT (20:16)
--- NOTE | 2020-01-14 20:20 | PM.IMHP ---
H&P: HPI History of Present Illness Date/Time: 01/14/20 20:30 Chief complaint: Sweats and weakness. Narrative: Easton Tanner is a very pleasant 59-year-old male smoker with multiple medical problems including COPD, coronary artery disease, obstructive sleep apnea, paroxysmal atrial flutter, and benign prostatic hyperplasia presented to the emergency department earlier this afternoon with complaints of sweats and weakness. He is known to the hospitalist service with a recent admission from 12/18 to 12/23/2019 in which he was treated for a perirectal abscess with surrounding cellulitis. He was treated with antibiotics and local wound care. He also had a colonoscopy per Dr. Coulter due to reports of chronic diarrhea, and at that time he had several colon polyps removed and was noted to have diverticulosis. It is noted that his S. cerevisiae IgA antibodies were elevated as well. he completed a course of 2 weeks of antibiotics and has been following with Dr. Coulter and wound care at home, with significant improvement in the appearance and he has not had any pain in this region since that time. Today he began to have hot sweats, presumed to have been a fever, and weakness and thus he came in for evaluation as this is how he felt prior to his last hospitalization. He was found to meet sepsis criteria, without obvious source and thus a CT of the chest, abdomen, and pelvis was ordered , which showed persistent left buttock / perirectal phlegmon and findings of possible mild colitis. As mentioned, he has chronic diarrhea and has had several episodes of such since arrival to the hospital. He denies blood in mucus in the stool. He has not had giving abdominal pain or discomfort. No melena or hematochezia. He denies nausea and vomiting. No history of C diff or exposure to such. He denies recent travel. Of note, he is requiring couple of liters of oxygen as well as his SpO2 did dip down into the high 80s, however he has no shortness of breath, cough, or cold symptoms. No chest pain, pleuritic pain, palpitations, lower extremity edema, or history of venous thromboembolism. Review of Systems Review of Systems: Narrative: Twelve systems were reviewed with pertinent positives and negatives as per HPI. Except as documented, all other systems were reviewed and are negative. [facility] Past Medical History Medical History Asymptomatic cholelithiasis Atrial flutter Benign prostatic hyperplasia Body mass index 40.0-44.9, adult Chronic pain COPD (chronic obstructive pulmonary disease) (Unknown) Auye-ex-gxzuyzfw obstructive ventilatory defect with severe small airway disease pattern no acute bronchodilator response and mildly decreased DLCO noted on pulmonary function testing from 2014. History of myocardial infarction (Unknown) With stress test November 2019 demonstrating 2 fixed perfusion defects small mild area of apical septal segment defect in left ventricle, moderate sized area of mild infarct involving apical inferior apical lateral and mid inferior lateral segment of the left ventricle, ejection fraction of 70%. Hyperlipidemia Nicotine dependence, unspecified, uncomplicated (Unknown) Obstructive sleep apnea treated with BiPAP Settings of 25/20 according to sleep study in February 2010. Paranoid schizophrenia (Unknown) Right heart failure with reduced right ventricular function Echocardiogram November 2019 demonstrated reduced right ventricular systolic function and mild enlargement, mild left ventricular enlargement, EF 55-60%, indeterminate diastolic function, mild left atrial enlargement, mild mitral valve regurgitation, small pericardial effusion Surgical History Surgical History History of inguinal herniorrhaphy As a child. Family History Family History Sibling Healthy female adult Reportedly both
--- NOTE | 2020-01-14 20:33 | PC.NURSE ---
This patient, Easton Tanner, was admitted to Intensive Care Unit-1 at 1945. Patient/family oriented to hospital policies and general routines including ID bracelet, bed and alarms, visiting hours, pain management, procedures, bathroom and other care routines, personal items, smoking policy, room service/diet, and visiting hours. Valuables list has been completed. Information on how to activate the Rapid Response Team has been discussed. Patient/Family are encouraged to report perceived risks to care and to ask questions if they do not understand what they are told or what they should do.
[2020-01-14] MEDS: NICOTINE (*PBKC) 21 MG PATCH 1 PATCH TRANSDERM (23:05)
[2020-01-15] VITALS (11 sets, daily range): BP systolic 91–120; BP diastolic 63–65; PULSE 67–85; RESP 14–23; TEMP 36.1–36.8; O2SAT 93–98
[2020-01-15 05:39] LABS: Basophils Percent Auto 0.3 % (0.2-1.2); Eosinophils Percent Auto 0.1 % (0-4.4); Hematocrit 42.3 % (42.0-52.0); Hemoglobin 13.9 g/dL (14.0-18.0); Immature Granulocyte Absolute 0.06 K/mm3 (0.00-0.031); Immature Granulocyte Percent A 0.4 % (0-0.5); Lymphocytes Percent Auto 5.2 % (18.3-44.2); Mean Corpuscular HGB Conc 32.9 g/dl (32-36); Mean Corpuscular Hemoglobin 32.6 pg (26-34); Mean Corpuscular Volume 99.3 fl (80-100); Mean Platelet Volume 8.5 fl (7.4-10.4); Monocytes Absolute Auto 0.7 K/mm3 (0.1-0.6); Monocytes Percent Auto 5.3 % (2.6-8.5); Neutrophils Percent Auto 88.7 % (45.5-73.1); Platelet Count Result 106 k/mm3 (150-375); Red Blood Count 4.26 M/mm3 (4.6-6.20); Red Cell Distribution Width 15.2 % (11.5-14.5); White Blood Count 13.5 K/mm3 (4.5-10.0)
[2020-01-15 06:11] LABS: Alanine Aminotransferase 9 U/L (4-50); Albumin Level 3.3 g/dL (3.5-5.1); Alkaline Phosphatase 58 U/L (38-126); Anion Gap 5 mmol/L (8-16); Aspartate Amino Transferase 16 U/L (17-59); Blood Urea Nitrogen 17 mg/dL (9-20); Calcium 8.2 mg/dL (8.4-10.2); Carbon Dioxide 25 mmol/L (22-30); Chloride 107 mmol/L (98-107); Estimated CRCL calculation 84 ml/min; Estimated Glomerular Filt Rate > 60; Glucose 94 mg/dL (75-110); Lactate Dehydrogenase 239 U/L (313-618); Sodium 137 mmol/L (137-145)
[2020-01-15] MEDS: ARIPiprazole 10 MG TABLET 30 MG PO (08:47)
[2020-01-15] MEDS: SERTRALINE HCL 50 MG TABLET 150 MG PO (08:47)
[2020-01-15] MEDS: clonazePAM 0.5 MG TABLET PO (08:48)
[2020-01-15] MEDS: SODIUM CHLORIDE 0.9% IV 1,000 ML 125 ML IV CONT (11:40)
--- NOTE | 2020-01-15 12:45 | PM.CNGS ---
Assessment and Plan Assessment and plan (1) Sepsis: Qualifiers: Sepsis type: sepsis due to unspecified organism Sepsis acute organ dysfunction status: with acute organ dysfunction Severe sepsis acute organ dysfunction type: encephalopathy Code(s): A41.9 - Sepsis, unspecified organism Status: Acute Assessment and Plan: high fever of uncertain etiology associated with hypoxemia, altered mental status, acute renal failure with creatinine 1.5. (2) Person under investigation for COVID-19: Code(s): Z20.828 - Contact with and (suspected) exposure to other viral communicable diseases Status: Acute Assessment and Plan: With hypoxemia stars Coronavirus type 2 testing is pending. (3) Perianal excoriation: Code(s): S30.817A - Abrasion of anus, initial encounter Status: Acute Assessment and Plan: I do not see a perirectal abscess or a persistent perianal tract. There is some evidence of inflammation on the left side of the perianal area on CT scan which is described as a phlegmon. This could be just healing perianal inflammation from his infection 1 month ago. Currently all I see is excoriation and some coating of liquid stool which will certainly contribute to more excoriation. No pain or tenderness. (4) Colitis: Code(s): K52.9 - Noninfective gastroenteritis and colitis, unspecified Status: Acute Assessment and Plan: Patient having severe diarrhea much worse than what he had been having previously. He has also just finished at least 1 round of antibiotics last month. Will get stool cultures and C difficile toxin testing. CT shows evidence of colitis which is not particularly mild by my review with Dr. Roberts. (5) Asymptomatic cholelithiasis: Code(s): K80.20 - Calculus of gallbladder without cholecystitis without obstruction Status: Chronic Assessment and Plan: Noted on CT scan. No evidence of acute cholecystitis noted. No symptoms of cholecystitis. (6) COPD (chronic obstructive pulmonary disease): Onset Date: Unknown Code(s): J44.9 - Chronic obstructive pulmonary disease, unspecified Status: Chronic (7) History of myocardial infarction: Onset Date: Unknown Code(s): I25.2 - Old myocardial infarction Status: Chronic (8) Paranoid schizophrenia: Onset Date: Unknown Code(s): F20.0 - Paranoid schizophrenia Status: Chronic Assessment and Plan: Patient chronically disabled. Also has some cognitive impairment. (9) Obstructive sleep apnea: Code(s): G47.33 - Obstructive sleep apnea (adult) (pediatric) Status: Chronic (10) Morbid obesity with BMI of 40.0-44.9, adult: Code(s): E66.01 - Morbid (severe) obesity due to excess calories; Z68.41 - Body mass index (BMI) 40.0-44.9, adult Status: Chronic History of Present Illness Consult details Consult date: 01/14/20 Reason for consult: other (Perirectal abscess, fever) Narrative: patient was seen in the emergency room about 4:30 p.m. on January 14, 2020 even though this consultation is being done on January 14. The patient is a 59-year-old man with multiple problems. He has cognitive impairment as well as paranoid schizophrenia. He is morbidly obese with a BMI of 43.5. He has COPD obstructive sleep apnea history of myocardial infarction and atrial flutter. He takes Plavix chronically. I saw him and his sister was there and was primarily the source of the history as well as old records. Mr. Tanner had been seen by my partner, Dr. Coulter, in the middle of December for perianal skin breakdown and excoriation. Although diagnosed as a perianal abscess, no incision and drainage procedure was required. Ghazala [place] cream to the perianal area was recommended. He was treated with Zosyn antibiotics. A tract was found at that time 4 cm from the anal opening and this was treated with quarter-inch Nu Gauze packing. Janelle
[2020-01-15 13:06] LABS: SARS-CoV-2 RNA PCR Negative
--- NOTE | 2020-01-15 13:20 | PM.PNGS ---
Progress Note: A&P Assessment and Plan (1) Sepsis: Qualifiers: Sepsis type: sepsis due to unspecified organism Sepsis acute organ dysfunction status: with acute organ dysfunction Severe sepsis acute organ dysfunction type: encephalopathy Code(s): A41.9 - Sepsis, unspecified organism Status: Acute Assessment and Plan: mental status, renal function, fever, respiratory rate and heart rate have all improved from yesterday. Continue antibiotics. Not sure what we are treating but with the response to Zosyn, consider colitis. (2) Person under investigation for COVID-19: Code(s): Z20.828 - Contact with and (suspected) exposure to other viral communicable diseases Status: Acute Assessment and Plan: Pending (3) Perianal excoriation: Code(s): S30.817A - Abrasion of anus, initial encounter Status: Acute Assessment and Plan: a little worse with persistent coating of liquid stool. No abscess no purulent drainage no sign of fistula (4) Colitis: Code(s): K52.9 - Noninfective gastroenteritis and colitis, unspecified Status: Acute Assessment and Plan: stool still loose but less frequent no abdominal pain or tenderness. (5) Paranoid schizophrenia: Onset Date: Unknown Code(s): F20.0 - Paranoid schizophrenia Status: Chronic (6) Morbid obesity with BMI of 40.0-44.9, adult: Code(s): E66.01 - Morbid (severe) obesity due to excess calories; Z68.41 - Body mass index (BMI) 40.0-44.9, adult Status: Chronic Subjective Subjective Date/Time Seen: 01/15/20 11:20 Patient reports: no new complaints ( More conversant and lucid this morning), feels better, tolerating a regular diet, diarrhea ( Much fewer stools than the night before coming to the emergency room.) and afebrile ( Fever heart rate respiratory rate all came down very quickly yesterday.) Review of Systems Review of Systems: All systems reviewed & are unremarkable except as noted in HPI and below Constitutional: Constitutional: Denies chills, Denies fever(s), Denies headache(s) and Reports weakness ( better) Cardiovascular: Cardiovascular: Denies chest pain and Denies dyspnea Respiratory: Respiratory: Denies cough and Denies dyspnea Gastrointestinal: Gastrointestinal: Reports as per HPI, Denies abdominal pain, Denies bloating, Reports diarrhea, Reports loose stools, Denies nausea and Denies vomiting Neurologic: Denies confusion, Denies dizziness, Denies headache(s) and Reports weakness ( improved) Psychiatric: Psychiatric: Reports as per HPI and Reports confusion ( improved) Exam Const: General: cooperative, comfortable, no acute distress, alert, awake and poor hygiene; No confusion Nutritional Appearance: obese Orientation/consciousness: oriented to person, oriented to place and No confusion GI: Inspection: normal to inspection and obesity GI Palp: Yes Soft to palpation, No Tenderness to palpation present (GI), No Guarding due to palpation present (GI), No Palpable mass present and No Rebound tenderness present Percussion: No Fluid wave present Auscultation: normal bowel sounds Rectal Exam: Abnormal stool present ( liquid stool coating perianal skin again), No abscess, No Anal fissure(s) present, Excoriation present (GI) ( more excoriation predominantly on the left side and the posterior aspect ), No mass and No buttock abscess Extrem: General: no calf tenderness and no edema Psych: Appearance: disheveled Speech and movement: Clear speech present Affect: normal affect Attitude: cooperative Thought process: Normal thought process present Thought content: Yes Normal thought content present Insight: Fair insight present (Psych) Judgement: Fair judgement present (Psych) Objective Data Vital Signs Vital Signs: Vital Signs - 24 hr 01/14/20 13:36 01/14/20 13:51 01/14/20 13:57 Temperature 38.7 C H 39.4 C H Pulse Rate 125 H Respiratory Rate 28 H 29
[2020-01-15] MEDS: FLUTICASONE/SALMETEROL 115-21 MCG INHALER 1 PUFF 2 PUFF INHALATION ×2 (13:45→20:20)
--- NOTE | 2020-01-15 14:20 | PM.IMPN ---
Progress Note: A&P Assessment and Plan (1) Sepsis: Qualifiers: Sepsis type: sepsis due to unspecified organism Sepsis acute organ dysfunction status: with acute organ dysfunction Severe sepsis acute organ dysfunction type: encephalopathy Severe sepsis shock status: without septic shock Qualified Code(s): A41.9 - Sepsis, unspecified organism; R65.20 - Severe sepsis without septic shock; G93.40 - Encephalopathy, unspecified Code(s): A41.9 - Sepsis, unspecified organism Status: Acute Assessment and Plan: Present on admission and supported by fever, leukocytosis, and elevated lactic acid level. Fever has resolved today. Lactic acid level has normalized with IV fluid rehydration. Blood cultures have been obtained and are pending. Continue IV fluids and IV antibiotics (2) Colitis: Code(s): K52.9 - Noninfective gastroenteritis and colitis, unspecified Status: Acute Assessment and Plan: CT a/p shows possible mild colitis with colonic fluid. He has had chronic diarrhea but colonoscopy during last hospitalization was unrevealing. It is noted, however, that his S. cerevisiae IgA antibodies were elevated. Will send stool studies for culture and C diff testing Continue IV Zosyn and IV fluids (3) Perianal excoriation: Code(s): S30.817A - Abrasion of anus, initial encounter Status: Acute Assessment and Plan: CT shows persistent left buttock/perirectal phlegmon. He had previously been hospitalized approximately 1 month ago for a perirectal abscess which was managed by Dr. Coulter. At this time there does not appear to be any evidence of abscess. General surgery has been consulted and recommendations are appreciated. Will continue to monitor this area. (4) Hypoxia: Code(s): R09.02 - Hypoxemia Status: Acute Assessment and Plan: He has had intermittent hypoxia, mainly with exertion. due to sepsis and recent hospitalization, he was checked for COVID-19 which was negative. He is maintaining adequate oxygenation on 2 L nasal cannula. Given his continued tobacco use and COPD, he may very well have an oxygen requirement and will need an evaluation prior to discharge. Continue supplemental oxygen as needed with goal O2 saturation 90% or above. (5) COPD (chronic obstructive pulmonary disease): Onset Date: Unknown Code(s): J44.9 - Chronic obstructive pulmonary disease, unspecified Status: Chronic Assessment and Plan: He has post expiratory wheezes on exam. he is requiring 2 L supplemental O2. Continue albuterol rescue inhaler as needed. Continue addition of long-acting bronchodilator / inhaled steroid I am unsure if he has had PFT done recently, but he would benefit from this as an outpatient. (6) Nicotine dependence, unspecified, uncomplicated: Onset Date: Unknown Code(s): F17.200 - Nicotine dependence, unspecified, uncomplicated Status: Chronic Assessment and Plan: He smokes 1 pack per day. Smoking cessation is imperative and is encouraged. I have counseled him on smoking cessation for 4 minutes. Continue nicotine patch while inpatient. (7) Dehydration: Code(s): E86.0 - Dehydration Status: Acute Assessment and Plan: Due to insensible losses and fever. His serum creatinine was a bit elevated at presentation at 1.5 and has improved with IV fluids. Continue IV fluid rehydration, monitoring closely for signs of fluid overload. (8) Paranoid schizophrenia: Onset Date: Unknown Code(s): F20.0 - Paranoid schizophrenia Status: Chronic Assessment and Plan: Continue aripiprazole and clonazepam as needed. Additional Plan Given improvement of sepsis and stable vitals, will downgrade from IMU status to med surge with tele. Subjective Date/time seen: 01/15/20 14:20 Interval history: Date of servi
--- NOTE | 2020-01-15 16:36 | PC.NURSE ---
This patient, Easton Tanner, was transferred to [ [id number]] on 01/15/20 at 1620. Personal belongings sent with patient. Belongings list checked and signed with receiving [ ]. Report given to [ AVA Antony]. Appropriate documentation sent with patient.
[2020-01-15] MEDS: SODIUM CHLORIDE 0.9% IV 1,000 ML 100 ML IV CONT ×2 (18:00→21:48)
--- NOTE | 2020-01-15 18:35 | PC.NURSE ---
This patient, Easotn Tanner, was received from ICU on 01/15/20 at 1625. Personal belongings list checked and signed. Patient/family oriented to unit policies and routines
[2020-01-15] MEDS: NICOTINE (*PBKC) 21 MG PATCH 1 PATCH TRANSDERM (21:47)
[2020-01-15] MEDS: FIDAXOMICIN 200 MG TABLET PO (21:48)
[2020-01-16] VITALS (16 sets, daily range): BP systolic 113–116; BP diastolic 57–70; PULSE 51–83; RESP 14–19; TEMP 36.2; O2SAT 92–99
[2020-01-16 05:55] LABS: Basophils Percent Auto 0.2 % (0.2-1.2); Eosinophils Absolute Auto 0.1 K/mm3 (0-0.3); Eosinophils Percent Auto 1.4 % (0-4.4); Hematocrit 40.1 % (42.0-52.0); Hemoglobin 12.9 g/dL (14.0-18.0); Immature Granulocyte Absolute 0.03 K/mm3 (0.00-0.031); Immature Granulocyte Percent A 0.4 % (0-0.5); Lymphocytes Absolute Auto 1.11 K/mm3 (0.9-3.2); Lymphocytes Percent Auto 13.2 % (18.3-44.2); Mean Corpuscular HGB Conc 32.2 g/dl (32-36); Mean Corpuscular Hemoglobin 32.3 pg (26-34); Mean Corpuscular Volume 100.5 fl (80-100); Monocytes Absolute Auto 0.5 K/mm3 (0.1-0.6); Monocytes Percent Auto 6.1 % (2.6-8.5); Neutrophils Absolute Auto 6.6 K/mm3 (1.3-6.7); Neutrophils Percent Auto 78.7 % (45.5-73.1); Platelet Count Result 118 k/mm3 (150-375); Red Blood Count 3.99 M/mm3 (4.6-6.20); Red Cell Distribution Width 15.2 % (11.5-14.5); White Blood Count 8.4 K/mm3 (4.5-10.0)
[2020-01-16 06:14] LABS: Anion Gap 6 mmol/L (8-16); Blood Urea Nitrogen 17 mg/dL (9-20); Carbon Dioxide 25 mmol/L (22-30); Chloride 105 mmol/L (98-107); Estimated CRCL calculation 85 ml/min; Estimated Glomerular Filt Rate > 60; Glucose 85 mg/dL (75-110); Potassium 3.9 mmol/L (3.4-5.0); Sodium 136 mmol/L (137-145)
[2020-01-16 06:18] LABS: Lactic Acid 0.9 mmol/L (0.7-2.1)
[2020-01-16] MEDS: FLUTICASONE/SALMETEROL 115-21 MCG INHALER 1 PUFF 2 PUFF INHALATION (07:51)
[2020-01-16] MEDS: SODIUM CHLORIDE 0.9% IV 1,000 ML 100 ML IV CONT (08:22)
[2020-01-16] MEDS: SERTRALINE HCL 50 MG TABLET 150 MG PO (08:23)
[2020-01-16] MEDS: clonazePAM 0.5 MG TABLET PO (08:23)
[2020-01-16] MEDS: ARIPiprazole 10 MG TABLET 30 MG PO (08:23)
[2020-01-16] MEDS: FIDAXOMICIN 200 MG TABLET PO (08:23)
[2020-01-16] MEDS: SACCHAROMYCES BOULARDII 250 MG CAPSULE PO ×2 (09:41→17:59)
--- NOTE | 2020-01-16 15:53 | PM.DS ---
DS: Admitting Diagnosis Admitting Diagnosis Admitting Diagnosis: Sepsis, unspecified organism DS: Discharge Diagnosis Discharge Diagnosis (1) Sepsis: Qualifiers: Sepsis acute organ dysfunction status: with acute organ dysfunction Sepsis type: sepsis due to unspecified organism Severe sepsis acute organ dysfunction type: encephalopathy Severe sepsis shock status: without septic shock Qualified Code(s): A41.9 - Sepsis, unspecified organism; R65.20 - Severe sepsis without septic shock; G93.40 - Encephalopathy, unspecified Code(s): A41.9 - Sepsis, unspecified organism Status: Acute Assessment and Plan: Present on admission and supported by fever, leukocytosis, and elevated lactic acid level. Source of infection is colitis. Lactic acid level normalized with IV fluid rehydration. Blood cultures were negative. Fever and leukocytosis resolved. (2) C. difficile colitis: Code(s): A04.72 - Enterocolitis due to Clostridium difficile, not specified as recurrent Status: Acute Assessment and Plan: CT a/p shows possible mild colitis with colonic fluid. He tested positive for C. Diff toxin A and B. Additional stool cultures were negative. He was recently treated with Cipro and Flagyl for a perirectal abscess in December 2019. He was started on IV Zosyn for empiric coverage and switched to PO Fidaxomicin upon return of C. Diff results. He was started on probiotics. His diarrhea improved. He will continue Fidaxomicin and probiotic. We discussed hygiene to prevent transmission. (3) Perianal excoriation: Code(s): S30.817A - Abrasion of anus, initial encounter Status: Acute Assessment and Plan: CT shows persistent left buttock/perirectal phlegmon. He had previously been hospitalized approximately 1 month ago for a perirectal abscess which was managed by Dr. Coulter. At this time there does not appear to be any evidence of abscess. He was evaluated by general surgery and no further intervention was required. (4) Hypoxia: Code(s): R09.02 - Hypoxemia Status: Acute Assessment and Plan: He has had intermittent hypoxia, mainly with exertion. Due to sepsis and recent hospitalization, he was checked for COVID-19 which was negative. He was started on 2L O2 per NC and was weaned to room air. He had a home O2 eval which revealed he would not require home oxygen. (5) COPD (chronic obstructive pulmonary disease): Onset Date: Unknown Qualifiers: COPD type: unspecified COPD Qualified Code(s): J44.9 - Chronic obstructive pulmonary disease, unspecified Code(s): J44.9 - Chronic obstructive pulmonary disease, unspecified Status: Chronic Assessment and Plan: He had post expiratory wheezes on exam and initially required 2 L supplemental O2. He was weaned to room air. He was started on Advair. Continue albuterol and advair. I am unsure if he has had PFT done recently, but he would benefit from this as an outpatient. (6) Nicotine dependence, unspecified, uncomplicated: Onset Date: Unknown Qualifiers: Nicotine product type: cigarettes Qualified Code(s): F17.210 - Nicotine dependence, cigarettes, uncomplicated Code(s): F17.200 - Nicotine dependence, unspecified, uncomplicated Status: Chronic Assessment and Plan: He smokes 1 pack per day. Smoking cessation is imperative and is encouraged. I have counseled him on smoking cessation for 4 minutes. (7) Dehydration: Code(s): E86.0 - Dehydration Status: Acute Assessment and Plan: Due to insensible losses and fever. His serum creatinine was a bit elevated at presentation at 1.5 and has improved with IV fluids. He was adequately rehydrated and was tolerating PO intake. (8) Paranoid schizophrenia: Onset Date: Unknown Code(s): F20.0 - Paranoid schizophrenia Status: Chronic Assessment and Plan: Continue
--- NOTE | 2020-01-16 16:09 | HOMEO2EVAL ---
Home Oxygen Evaluation RC: Home Oxygen (O2) Evaluation Start: 01/16/20 14:16 Freq: ONCE Status: Active Protocol: RPE Activity Type Activity Date Activity User E-Sign Co-Sign Detail Recorded Client Recorded Date Recorded By Document 01/16/20 15:05 RES [email or web address] 01/16/20 16:01 RES Document 01/16/20 15:09 RES [email or web address] 01/16/20 16:06 RES Document 01/16/20 15:11 RES [email or web address] 01/16/20 16:06 RES Document 01/16/20 15:12 RES [email or web address] 01/16/20 16:06 RES Document 01/16/20 15:14 RES [email or web address] 01/16/20 16:06 RES Document 01/16/20 15:16 RES [email or web address] 01/16/20 16:06 RES Document 01/16/20 15:18 RES [email or web address] 01/16/20 16:06 RES 01/16/20 01/16/20 01/16/20 15:05 15:09 15:11 Home O2 Evaluation Test Phase Resting Resting Exercise Oxygen Delivery Nasal Cannula Room Air Room Air Oxygen Flow Rate (L/min) 2 Fraction of Inspired Oxygen (%) 28 21 21 Pulse Oximetry (90-100 %) 96 94 93 Pulse Rate (60-100 beats/min) 68 70 73 Activity Tolerance Good Good Good Rating of Perceived Dyspnea (PD) +1 Mild, Noticeable to the Participant but Not to an Observer Rate of Perceived Exertion (PE) 9 Very light Home Oxygen Evaluation Comments pt on placed on pt walking back room air at and forth to this time bathroom and not sob at this time Treatment Charges O2 Evaluation 01/16/20 01/16/20 01/16/20 15:12 15:14 15:16 Home O2 Evaluation Test Phase Exercise Exercise Exercise Oxygen Delivery Room Air Room Air Room Air Oxygen Flow Rate (L/min) Fraction of Inspired Oxygen (%) 21 21 21 Pulse Oximetry (90-100 %) 92 93 92 Pulse Rate (60-100 beats/min) 75 80 78 Activity Tolerance Good Good Good Rating of Perceived Dyspnea (PD) +1 Mild, +1 Mild, +1 Mild, Noticeable to Noticeable to Noticeable to the Participant the Participant the Participant but Not to an but Not to an but Not to an Observer Observer Observer Rate of Perceived Exertion (PE) 9 Very light 9 Very light 9 Very light Home Oxygen Evaluation Comments pt walking back pt walking back pt walking back and forth to and forth to and forth to bathroom and bathroom and bathroom and not sob at this not sob at this not sob at this time time time Treatment Charges 01/16/20 15:18 Home O2 Evaluation Test Phase Resting Oxygen Delivery Room Air Oxygen Flow Rate (L/min) Fraction of Inspired Oxygen (%) 21 Pulse Oximetry (90-100 %) 92 Pulse Rate (60-100 beats/min) 83 Activity Tolerance Good Rating of Perceived Dyspnea (PD) +1 Mild, Noticeable to the Participant but Not to an Observer Rate of Perceived Exertion (PE) 9 Very light Home Oxygen Evaluation Comments pt walked back to bed, pt stated he is not sob at this time. Treatment Charges
== END 2020-01-16 18:03 | disposition home or self-care (01) | DRG 871 ==
LOC: ANHED 16:24 → ANHICU 17:47 → ANH3MED 01-16 02:32 → ANHICU 01-19 12:46
PROVIDERS: Physician Assistant; Admitting Provider Internal Medicine; Emergency Provider Emergency Medicine; PCP Internal Medicine; Visit Provider Family Medicine
DX: A41.9 Sepsis, unspecified organism (principal); G93.41 Metabolic encephalopathy; A04.72 Enterocolitis due to Clostridium difficile, not specified as recurrent; N17.9 Acute kidney failure, unspecified; F20.0 Paranoid schizophrenia; I48.92 Unspecified atrial flutter; Z68.41 Body mass index [BMI] 40.0-44.9, adult; E66.01 Morbid (severe) obesity due to excess calories; R65.20 Severe sepsis without septic shock; Z20.828 Contact with and (suspected) exposure to other viral communicable diseases; S30.817A Abrasion of anus, initial encounter; R09.02 Hypoxemia; K80.20 Calculus of gallbladder without cholecystitis without obstruction; F17.210 Nicotine dependence, cigarettes, uncomplicated; E86.0 Dehydration; J44.9 Chronic obstructive pulmonary disease, unspecified; E78.5 Hyperlipidemia, unspecified; I25.10 Atherosclerotic heart disease of native coronary artery without angina pectoris; I25.2 Old myocardial infarction; G47.33 Obstructive sleep apnea (adult) (pediatric); N40.0 Benign prostatic hyperplasia without lower urinary tract symptoms; Z79.899 Other long term (current) drug therapy
CPT/HCPCS: 36415; 71045; 71260; 74177; 80048; 80053; 81001; 82565; 82728; 83605; 83615; 83735; 84132; 84484; 84520; 85014; 85018; 85025; 85055; 85610; 85730; 86140; 87015; 87040; 87045; 87046; 87086; 87088; 87269; 87272; 87324; 87427; 87635; 93005; 94618; 94640; 96361; 96365; 96366; 96367; 99212; 99285; A9270; C9803; G0378; G0463; J0131; J2543; J7030; Q9967; U0003

== ENCOUNTER 2020-02-15 08:08 | Outpatient (RCR) | payer MEDICARE, MEDICAID, SELFPAY ==
[2019-12-30 08:59] VITALS: BMI 43.4
--- NOTE | 2019-12-30 14:06 | WPDWOUNDNOTE ---
Wound Care Note Date/Time: 12/30/19 09:06 History: Patient had a recent hospitalization for a Perirectal/ perianal abscess and surrounding cellulitis Hospital Course: Patient is a 59 yo M with history schizophrenia, COPD, and chronic tobacco abuse who presented to the ER from [facility] due to concern for EKG changes. He arrived at [facility] with diaphoresis and mild increased SOB form his baseline. While in the ED he was found to have a abscess on his buttocks. CT of abd/pelvis in ED showed left perirectal fluid and fatty infiltration, suspicious for infection. Patient admitted under this setting. Please see H&P of 12/21/19 for further details. Wound history: This wound was noted during the patient's hospitalization. When I last saw it in the hospital the right side of the anal opening was completely normal, whereas the left side had a circumferential area of redness extending about 4 cm from the anal verge out onto the perianal skin. There were small punctate sites of skin breakdown and then a specific left lower opening that tunneled about 3 cm and was able to be packed with a small piece of quarter-inch iodoform Nu Gauze. Apparently the visiting nurses have visit him since he left the hospital while on antibiotics and they have not been able to find the opening it in order to pack it. They have been apparently helping clean the area and apply Aloe Ferris. Although patient's sister and the patient denied they have elevates to at home this date. Wound approximation: No Wound width: o.5 cm Wound length: 1,5 cm Wound depth: 0.2 cm Drainage: Serous. Surrounding tissue appearance: The surrounding tissue is reddish with some white exudate. This may be some residual AloeVista cream. Tunneling: No tunneling is apparent. Percentage granulation tissue: 100 % Treatment/Procedures: For now hand-held showers to the area after each bowel movement followed by application of bowel of the stump. Recheck the patient in the wound clinic in 2 weeks. Patient is to call our office in the interim if he begins having more than 3 loose stools per day. If he has this will consider further workup for Crohn's disease. I informed the patient and his sister today that he had 1 test on image nausea panel suggestive of possible Crohn's disease characteristics. Therefore a MR and talk her feet done at [place] may be the next step to check for Crohn's disease. We may need to by criteria do a small-bowel follow-through as an outpatient prior to moving to this test. Did mention to them the possibility of a capsule endoscopy but have since talk with Dr. downey to reach those and he feels like that was this will be approved for the patient and that a MR enterography is a better test. Dressings: No specific gauze dressings suggested they get base 's for him to clean with an to apply all of this to after each bowel movement. Also after each bowel movement he should do hand-held warm shower to the area for 5 minutes. Assessment and Plan Assessment and plan (1) Abscess, perianal: Onset Date: ~11/2019 Code(s): K61.0 - Anal abscess Status: Acute Assessment and Plan: This seems to have sealed. Patient will complete the current course of oral antibiotics as prescribed when he left the hospital. He will continue doing hand-held showers to the anal area after bowel movements and applying out of this to cream to try to subtle the excoriation that is mainly on the left side of the buttock. (2) Abnormal chest x-ray: Onset Date: Unknown Code(s): R93.89 - Abnormal findings on diagnostic imaging of other specified body structures Status: Acute Assessment and Plan: Patient follow-up with PCP regarding this (3) History of COPD: Onset Date: Unknown Code(s): Z87.09 - Personal history of other diseases of the respiratory system Status: Acute Assessment and Plan: patient resume usual home meds and follow up wi
--- NOTE | 2020-01-13 12:21 | P.PNWOUND_ITS ---
Wound Care Note Date/Time: 01/13/20 12:21 History: History: Patient had a recent hospitalization for a Perirectal/ perianal abscess and surrounding cellulitis Hospital Course: Patient is a 59 yo M with history schizophrenia, COPD, and chronic tobacco abuse who presented to the ER from [facility] due to concern for EKG changes. He arrived at [facility] with diaphoresis and mild increased SOB form his baseline. While in the ED he was found to have a abscess on his buttocks. CT of abd/pelvis in ED showed left perirectal fluid and fatty infiltration, suspicious for infection. Patient admitted under this setting. Please see H&P of 12/21/19 for further details. Wound history: . Wound history: This wound was noted during the patient's hospitalization. When I last saw it in the hospital the right side of the anal opening was completely normal, whereas the left side had a circumferential area of redness extending about 4 cm from the anal verge out onto the perianal skin. There were small punctate sites of skin breakdown and then a specific left lower opening that tunneled about 3 cm and was able to be packed with a small piece of quarter-inch iodoform Nu Gauze. Apparently the visiting nurses that have visited him since he left the hospital while on antibiotics and they have not been able to find the opening it in order to pack it. They have been apparently helping clean the area and apply Aloe Tilden anti- fungal cream. 01/13/2020-- he states there is not much pain now with bowel movements. He has noticed no blood in the stool. Wound approximation: Yes Wound width: N/A Wound length: N/A Wound depth: N/A Drainage: minimal Surrounding tissue appearance: Perianal area on the left side has small fissure like openings in the skin with some reddish irritated skin. Tunneling: None Percentage granulation tissue: N/A Treatment/Procedures: patient will continue using antifungal cream on the left side of his anal opening to try to heal the skin. He will place an on cotton ball right at the opening to try to keep this from aspirating as much. This should long heal up. Will see him back in 2-3 weeks to recheck the area. He will call if the area worsens. Dressings: No specific dressing other than a cotton ball at the external anal opening and antifungal cream on the areas of breakdown and irritation left perianal skin.
--- NOTE | 2020-02-17 13:50 | WPDWOUNDNOTE ---
Wound Care Note Date/Time: 01/27/20 12:50 History: Easton Tanner is a 59 year old male smoker with multiple medical problems including COPD, coronary artery disease, obstructive sleep apnea, paroxysmal atrial flutter, and benign prostatic hyperplasia presented to the emergency department on 01/14/20 with complaints of sweats and weakness. He had a recent admission from 12/18 to 12/23/2019 in which he was treated for a perirectal abscess with surrounding cellulitis. He was treated with antibiotics and local wound care. He was having chronic diarrhea. At presentation, T 102.7, HR 124, RR 26, WBC 11.4, Cr 1.5, lactic 2.5, and CT a/p showing persistent left buttock/perirectal phlegmon and possible mild colitis with colonic fluid. He was admitted to the hospitalist service and seen in consultation by general surgery given his perirectal abscess history. He was found to have C. difficile colitis and was started on Fidaxomicin. Sepsis resolved and his diarrhea improved. His oxygenation improved and he was determined not to require supplemental oxygen at home based on O2 trial. He began feeling much better and was tolerating PO intake. He was determined to no longer require inpatient care and will continue a course of PO fidaxomicin as an outpatient. He was educated on his medications and we discussed worrisome signs and symptoms for which to return. He will follow up with his PCP and with Dr. Coulter for perianal wound monitoring. He was discharged in hemodynamically stable condition on 01/16/2020. Wound history: Patient is here for his 1st outpatient wound care visit. He was seen in the hospital and a small abscess on the left perianal area was packed. It was already draining when I saw him. Please see the hospital consultation note for further wound history details. It appears today that the abscess area has completely healed however the patient still has excoriated skin in the general area of the left side of the anal opening. Interestingly the right side is completely normal in appearance without irritation. Wound width: Not applicable, there is an area of macerated skin with small punctate breakdown sites on the left side of the anal opening approximately 3 x 4 cm in size. Wound length: Not applicable see above under wound with Wound depth: not applicable Drainage: minimal serous Surrounding tissue appearance: slightly macerated as counter oppose the opposite side on the right which appears normal without skin breakdown. Tunneling: None The site of the previous abscess has sealed. Percentage granulation tissue: Not applicable Treatment/Procedures: will continue to use aloe vera cream which contains antifungal medication Dressings: careful cleansing as after each bowel movement, Sitz baths or hand-held shower 3 times a day, application of L of air cream with antifungal components. Assessment and Plan Assessment and plan (1) Perianal excoriation: Onset Date: ~12/2019 Code(s): S30.817A - Abrasion of anus, initial encounter Status: Acute Assessment and Plan: this was the main reason for our consultation. Essentially this is resolved as SSEPs for some excoriation of the skin on the left side of the perianal area with small areas of skin breakdown that are very superficial in nature. We will continue to treat this with aloe vera antifungal cream. (2) Morbid obesity with BMI of 40.0-44.9, adult: Onset Date: Unknown Code(s): E66.01 - Morbid (severe) obesity due to excess calories; Z68.41 - Body mass index (BMI) 40.0-44.9, adult Status: Chronic Assessment and Plan: Encouraged patient to improve his diet and avoid high fatty foods. (3) Abscess, perirectal: Onset Date: ~12/2019 Code(s): K61.1 - Rectal abscess Status: Acute Assessment and Plan: Resolved Review of Systems Constitutional: Constitutional: Reports no additional constitutional complaints ENT: Reports other (Muc
--- NOTE | 2020-02-17 14:00 | WPDWOUNDNOTE ---
Wound Care Note Date/Time: 02/15/20 14:00 History: Easton Tanner is a 59 year old male smoker with multiple medical problems including COPD, coronary artery disease, obstructive sleep apnea, paroxysmal atrial flutter, and benign prostatic hyperplasia presented to the emergency department on 01/14/20 with complaints of sweats and weakness. He had a recent admission from 12/18 to 12/23/2019 in which he was treated for a perirectal abscess with surrounding cellulitis. He was treated with antibiotics and local wound care. He was having chronic diarrhea. At presentation, T 102.7, HR 124, RR 26, WBC 11.4, Cr 1.5, lactic 2.5, and CT a/p showing persistent left buttock/perirectal phlegmon and possible mild colitis with colonic fluid. He was admitted to the hospitalist service and seen in consultation by general surgery given his perirectal abscess history. He was found to have C. difficile colitis and was started on Fidaxomicin. Sepsis resolved and his diarrhea improved. His oxygenation improved and he was determined not to require supplemental oxygen at home based on O2 trial. He began feeling much better and was tolerating PO intake. He was determined to no longer require inpatient care and will continue a course of PO fidaxomicin as an outpatient. He was educated on his medications and we discussed worrisome signs and symptoms for which to return. He will follow up with his PCP and with Dr. Coulter for perirectal monitoring. He was discharged in hemodynamically stable condition on 01/16/2020. Wound history: patient has a history of chronic irritation of the lateral left side of the anal area. This continues to have somewhat abnormal skin with small punctate areas of skin breakdown. Inferior to this almost a crease E had a perianal abscess which was drained 2 hospitalizations ago. This has completely cleared at thistime. patient continues however to have the irritation of the skin on the left side of the anal area where as the right seems to be perfectly healthy. Wound approximation: No Wound width: Not applicable Patient has maceration/skin excoriation on the left side of the perianal area. the area involved is about 4 x 5 cm in size. Wound length: Not applicable see wound with above Wound depth: not applicable Drainage: slightly serous otherwise none Surrounding tissue appearance: normal appearing skin Tunneling: none Percentage granulation tissue: not applicable Treatment/Procedures: continue to apply aloe vera cream. Patient will continue to do hand-held shower to the area after each bowel movement. He should use a cotton ball to be applied to the anal opening to be absorbent keep the area dry. Dressings: Just a cotton ball placed over the anal opening to be absorbent. Also continue to treat the irritated skin with Alovera cream Assessment and Plan Assessment and plan (1) Perianal excoriation: Onset Date: ~12/2019 Code(s): S30.817A - Abrasion of anus, initial encounter Status: Acute Assessment and Plan: continue hand-held showers to the area for cleansing after each bowel movement and at least 2 times a day. Hello vera cream to the area. (2) Morbid obesity with BMI of 40.0-44.9, adult: Onset Date: Unknown Code(s): E66.01 - Morbid (severe) obesity due to excess calories; Z68.41 - Body mass index (BMI) 40.0-44.9, adult Status: Chronic Assessment and Plan: Courage patient to adjust diet and to avoid 5 high fat foods. Review of Systems Constitutional: Constitutional: Reports no additional constitutional complaints ENT: Reports other (Mucous Membranes moist.) Cardiovascular: Cardiovascular: Denies dyspnea Respiratory: Respiratory: Denies pain on inspiration and Denies dyspnea Gastrointestinal: Gastrointestinal: Reports as per HPI, Denies diarrhea and Denies loose stools Genitourinary: Comments: history of BPH Musculoskeletal: Musculoskeletal: Reports other (No calf swelling or lilian
== END 2020-03-26 11:07 | disposition home or self-care (01) ==
LOC: ANHWOC 08:08
PROVIDERS: PCP Internal Medicine; Visit Provider Surgery
DX: K61.0 Anal abscess (principal)
CPT/HCPCS: 99212; G0463

== ENCOUNTER 2020-05-11 16:09 | Outpatient (CLI) | payer MEDICARE, MEDICAID, SELFPAY ==
[2020-05-11 16:44] LABS: Hematocrit 45.9 % (42.0-52.0); Hemoglobin 15.5 g/dL (14.0-18.0)
[2020-05-11 16:53] LABS: Estimated Glomerular Filt Rate > 60; Potassium 4.3 mmol/L (3.4-5.0)
== END 2020-05-11 16:10 | disposition home or self-care (01) ==
LOC: ANHLAB 16:13
PROVIDERS: PCP Internal Medicine; Visit Provider Internal Medicine
DX: Z51.81 Encounter for therapeutic drug level monitoring (principal); Z79.1 Long term (current) use of non-steroidal anti-inflammatories (NSAID)
CPT/HCPCS: 36415; 82565; 84132; 85014; 85018

== ENCOUNTER 2020-08-27 15:26 | Outpatient (CLI) | payer MEDICARE, MEDICAID, SELFPAY ==
[2020-08-27 17:03] LABS: Hematocrit 47.9 % (42.0-52.0); Hemoglobin 15.9 g/dL (14.0-18.0)
[2020-08-27 17:15] LABS: Estimated Glomerular Filt Rate > 60; Potassium 4.1 mmol/L (3.4-5.0)
== END 2020-08-27 15:27 | disposition home or self-care (01) ==
PROVIDERS: PCP Internal Medicine; Visit Provider Internal Medicine
DX: Z51.81 Encounter for therapeutic drug level monitoring (principal); Z79.1 Long term (current) use of non-steroidal anti-inflammatories (NSAID)
CPT/HCPCS: 36415; 82565; 84132; 85014; 85018

== ENCOUNTER 2020-09-22 11:03 | Outpatient (CLI) | payer MEDICARE, MEDICAID, SELFPAY ==
--- NOTE | ~2020-09-22 | MR_ITS ---
EXAMINATION: MR brain/brain stem wo/w con DATE: 09/22/2020 12:21 INDICATION: Other symptoms and signs involving the musculoskeletal system. Left hand is not functioni ng correctly. TECHNIQUE: Magnetic resonance imaging (MRI) of the brain and brainstem was performed without and with 20 mL MultiHance intravenous contrast. Sequences included sagittal and axial T1-weighted FSE, axial diffusion-weighted FS EPI, axial T2*-weighted GRE, axial T2-weighted FLAIR Propeller, and axial T2-we ighted Propeller. Postcontrast sequences included axial and coronal T1-weighted FSE. Apparent diffusi on coefficient (ADC) maps were created. COMPARISON: None. FINDINGS: There are scattered areas of nonspecific increased T2-weighted signal intensity in the cere bral white matter, which is within normal limits for the patient's age. There is no intracranial hemo rrhage, acute infarction, or abnormal intracranial mass lesion. 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 The ventricles are normal in size. The mastoid air cells are n ormal. The orbits are normal. There is mild mucosal thickening in the ethmoid sinuses. IMPRESSION: 1. Normal brain. Reviewed, dictated and finalized at location B. IMPRESSION: 1. Normal brain.
== END 2020-09-22 11:04 | disposition home or self-care (01) ==
LOC: ANHIMG 11:06
PROVIDERS: PCP Internal Medicine; Visit Provider Internal Medicine
DX: R29.898 Other symptoms and signs involving the musculoskeletal system (principal)
CPT/HCPCS: 70553; A9577

== ENCOUNTER 2020-11-12 10:16 | Emergency (ER) | payer MEDICARE, MEDICAID, SELFPAY ==
[2020-11-12 10:32] VITALS: BP 117/57; PULSE 88; RESP 18; TEMP 37; O2SAT 95
[2020-11-12 10:38] VITALS: BP 117/57; PULSE 88; RESP 18; TEMP 37; O2SAT 95
--- NOTE | 2020-11-12 10:55 | ED.DENTAL ---
HPI - Dental/Oral General Chief complaint: Dental/Oral Stated complaint: tooth pain Time Seen by Provider: 11/12/20 10:41 Source: patient and RN notes reviewed Mode of arrival: ambulatory Limitations: no limitations Related Data Home Medications Medication Instructions Recorded Confirmed aripiprazole 30 mg PO DAILY 11/12/20 11/12/20 clonazepam 0.5 mg PO DAILY 11/12/20 11/12/20 diclofenac sodium 75 mg PO DAILY 11/12/20 11/12/20 sertraline 100 mg PO DAILY 11/12/20 11/12/20 Allergies Allergy/AdvReac Type Severity Reaction Status Date / Time aspirin Allergy Severe Anaphylactic Verified 11/12/20 10:38 Shock [facility] Past Medical History Medical History (Updated 11/12/20 @ 10:58 by Ruchi Farmer, [facility]) Asymptomatic cholelithiasis Atrial flutter Benign prostatic hyperplasia Body mass index 40.0-44.9, adult Chronic pain COPD (chronic obstructive pulmonary disease) (Unknown) Kbgs-or-jrpnlffe obstructive ventilatory defect with severe small airway disease pattern no acute bronchodilator response and mildly decreased DLCO noted on pulmonary function testing from 2014. Hematuria History of myocardial infarction (Unknown) With stress test November 2019 demonstrating 2 fixed perfusion defects small mild area of apical septal segment defect in left ventricle, moderate sized area of mild infarct involving apical inferior apical lateral and mid inferior lateral segment of the left ventricle, ejection fraction of 70%. Hyperlipidemia Nicotine dependence, unspecified, uncomplicated (Unknown) Obstructive sleep apnea treated with BiPAP Settings of 25/20 according to sleep study in February 2010. Paranoid schizophrenia (Unknown) Right heart failure with reduced right ventricular function Echocardiogram November 2019 demonstrated reduced right ventricular systolic function and mild enlargement, mild left ventricular enlargement, EF 55-60%, indeterminate diastolic function, mild left atrial enlargement, mild mitral valve regurgitation, small pericardial effusion Surgical History Surgical History History of inguinal herniorrhaphy As a child. Family History Family History Sibling Healthy female adult Reportedly both of the patient's sisters are healthy. Social History Social History (Updated 11/06/20 @ 11:11 by Suri Arciniega MA) Social History: Surrogate decision maker: Mesha Tanner, sister. Code status: Full code. Smoking packs per day: 1 Smoking cigarettes per day: 20.0 Years smoked: 43 Smoking pack-years: 43.00 Smoking status: Current every day smoker Tobacco type: cigarettes Second hand tobacco smoke exposure: Yes Alcohol intake: never Substance use: never Substance use type: does not use Additional living arrangements comments: The patient lives in his own home. His sister comes over and spends much of the day with him. However, he is alone in the evenings. Additional occupation/education comments: Disabled due to paranoid schizophrenia. Gender identity (if verbalized by the patient): Male Spiritual care concerns: No Course Vital Signs Vital signs: Vital Signs Temperature 98.6 F 11/12/20 10:32 Pulse Rate 88 11/12/20 10:32 Respiratory Rate 18 11/12/20 10:32 Blood Pressure 117/57 L 11/12/20 10:32 Pulse Oximetry 95 11/12/20 10:32 Temperature 98.6 F 11/12/20 10:38 Pulse Rate 88 11/12/20 10:38 Respiratory Rate 18 11/12/20 10:38 Blood Pressure 117/57 L 11/12/20 10:38 Pulse Oximetry 95 11/12/20 10:38 Discharge Plan Discharge Clinical Impression: Abscess, dental Patient Disposition: Home, Self-Care Condition: Stable Instructions: Antibiotic Form, Dental Abscess (ED) Additional Instructions: Please take the amoxicillin as prescribed until gone. Please make an appointment with a dentist soon as possible for furthe
--- NOTE | 2020-11-12 11:03 | ED.DENTAL ---
HPI - Dental/Oral General Chief complaint: Dental/Oral Stated complaint: tooth pain Time Seen by Provider: 11/12/20 10:41 Source: patient and RN notes reviewed Mode of arrival: ambulatory Limitations: no limitations History of Present Illness HPI Narrative: Patient presents today with a 1 week history of left lower posterior tooth pain. Denies any injury. No known cavity or fracture to the tooth. Currently rates pain 8/10 and has been using Orajel without relief. Denies fever, facial swelling, shortness of breath, or difficulty swallowing. Patient does not have a dentist. No recent antibiotic use. Smokes 1 pack/day. He has been vaccinated against COVID-19. MD Complaint: tooth pain Related Data Home Medications Medication Instructions Recorded Confirmed aripiprazole 30 mg PO DAILY 11/12/20 11/12/20 clonazepam 0.5 mg PO DAILY 11/12/20 11/12/20 diclofenac sodium 75 mg PO DAILY 11/12/20 11/12/20 sertraline 100 mg PO DAILY 11/12/20 11/12/20 Allergies Allergy/AdvReac Type Severity Reaction Status Date / Time aspirin Allergy Severe Anaphylactic Verified 11/12/20 10:38 Shock Review of Systems Review of Systems: Narrative: CONSTITUTIONAL: Denies body aches, fever, chills, or sweats. EYES: Denies visual changes, redness, or discharge. ENT: Denies rhinorrhea, congestion, sore throat, or otalgia.+ Tooth pain CARDIOVASCULAR: Denies chest pain, palpitations, or edema. RESPIRATORY: Denies cough or dyspnea. GASTROINTESTINAL: Denies abdominal pain, nausea, vomiting, or diarrhea. GENITOURINARY: Denies dysuria or hematuria. SKIN: Denies rash, itching, or wounds. MUSCULOSKELETAL: Denies back pain, joint pain, or myalgia. NEUROLOGIC: Denies headache, numbness, tingling, or weakness. PSYCH: Denies depression or anxiety. [facility] Past Medical History Medical History Asymptomatic cholelithiasis Atrial flutter Benign prostatic hyperplasia Body mass index 40.0-44.9, adult Chronic pain COPD (chronic obstructive pulmonary disease) (Unknown) Bldc-ku-qqxogbsj obstructive ventilatory defect with severe small airway disease pattern no acute bronchodilator response and mildly decreased DLCO noted on pulmonary function testing from 2014. Hematuria History of myocardial infarction (Unknown) With stress test November 2019 demonstrating 2 fixed perfusion defects small mild area of apical septal segment defect in left ventricle, moderate sized area of mild infarct involving apical inferior apical lateral and mid inferior lateral segment of the left ventricle, ejection fraction of 70%. Hyperlipidemia Nicotine dependence, unspecified, uncomplicated (Unknown) Obstructive sleep apnea treated with BiPAP Settings of 25/20 according to sleep study in February 2010. Paranoid schizophrenia (Unknown) Right heart failure with reduced right ventricular function Echocardiogram November 2019 demonstrated reduced right ventricular systolic function and mild enlargement, mild left ventricular enlargement, EF 55-60%, indeterminate diastolic function, mild left atrial enlargement, mild mitral valve regurgitation, small pericardial effusion Surgical History Surgical History History of inguinal herniorrhaphy As a child. Family History Family History Sibling Healthy female adult Reportedly both of the patient's sisters are healthy. Social History Social History Social History: Surrogate decision maker: Mesha Tanner, sister. Code status: Full code. Smoking packs per day: 1 Smoking cigarettes per day: 20.0 Years smoked: 43 Smoking pack-years: 43.00 Smoking status: Current every day smoker Tobacco type: cigarettes Second hand tobacco smoke exposure: Yes Alcohol intake: never Substance use: never
== END 2020-11-12 11:03 | disposition home or self-care (01) ==
PROVIDERS: Emergency Provider Nurse Practitioner
DX: K04.7 Periapical abscess without sinus (principal); F17.219 Nicotine dependence, cigarettes, with unspecified nicotine-induced disorders; I48.92 Unspecified atrial flutter; N40.0 Benign prostatic hyperplasia without lower urinary tract symptoms; J44.9 Chronic obstructive pulmonary disease, unspecified; I25.2 Old myocardial infarction; E78.5 Hyperlipidemia, unspecified; G47.33 Obstructive sleep apnea (adult) (pediatric); I50.9 Heart failure, unspecified
CPT/HCPCS: 99213; G0463

== ENCOUNTER 2020-11-22 13:15 | Outpatient (RCR) | payer MEDICARE, MEDICAID, SELFPAY ==
--- NOTE | 2020-10-25 15:35 | OTOPEVAL ---
OCCUPATIONAL THERAPY INITIAL EVALUATION: 10/25/2020 Thank you for referring Easton Tanner to [facility].? The patient is scheduled to be seen for therapy? 2x/week for 4 weeks. Please review, sign, date and return this plan of care SHAWN. I agree with and certify that the following plan of care is medically necessary. Referring Physician Date Attending Provider: DO Eva JohnsonOT Outpatient Evaluation Start: 10/25/20 14:11 Freq: Status: Active Protocol: Document 10/25/20 14:05 KJL (Rec: 10/25/20 15:32 KJL [email or web address]) Therapy Assessment Status Assessment Status Assessment Status Evaluation Outpatient Past Medical History Neurological History Hx Neurological Disorders No Significant History Cardiovascular History Hx Atrial Fibrillation Yes Respiratory History Hx Chronic Obstructive Pulmonary Disease Yes (COPD) Gastrointestinal History Hx Gastrointestinal Disorders No Significant History Genitourinary History Hx Genitourinary Disorders No Significant History Musculoskeletal History Hx Musculoskeletal Disorders No Significant History Hematological History Hx Hematological Disorders No Significant History Endocrine History Hx Endocrine Disorders No Significant History HEENT History Hx HEENT Disorders No Significant History Integumentary History Hx Skin Disorders No Significant History Reproductive History Hx Reproductive Disorders No Significant History Psychosocial History Hx Anxiety Yes Hx Attention Deficit Disorder Yes Hx Attention Deficit Hyperactivity Yes Disorder Hx Depression Yes Hx Schizophrenia Yes Hx Other Psychiatric Disorders Yes: developmentally delayed Pain History History of Any Previous or Ongoing No Significant History Instance of Pain Anesthesia History Hx Anesthesia Reactions No Significant History Evaluation Information Problem Onset august 2020 Additional Evaluation Detail Patient presents with 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 Brain MRI: (negative) Subjective Information Patient reports decreased Query Text:As Reported By Patient/ strength for the past two Family months. Patient reports woke up one day and had weakness in L hand which progressively became worse over several days . reports difficulties with opening items, gripping, grasping, difficulties completing ADLs such as
--- NOTE | 2020-10-29 13:36 | PCOTNOTE ---
Patient called and canceled today's appointment due to a fall.
--- NOTE | 2020-11-12 12:47 | PCOTNOTE ---
Patient called & cancelled scheduled appointment this date due to having a tooth ache.
--- NOTE | 2020-11-22 15:32 | OTOPEVAL ---
OCCUPATIONAL THERAPY D/C SUMMARY: 11/22/2020 Patient presents to Outpatient Occupational Therapy after 4 weeks of therapy including 5 treatment sessions for Re-evaluation. Patient demonstrates no functional/strength gains since beginning therapy on 10/25/2020 including decreased data sme strength since initial evaluation. 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 Patient is independent with HEP programs although compliance with completing HEP 2-3x/day has not been achievable for patient although educated on benefits of completing. Patient will be d/c from skilled OT at this time with independence in completing HEP. Patient has an appointment with neurology for a EMG study on 01/03/2021. Thank you for referring Easton Tanner to [facility].? Please review, sign, date and return this D/C Summary SHAWN. I agree with and certify that the following plan of care is medically necessary. 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 Brain MRI: (negative). Patient has appointment with neurologist for EMG test on January 03, 2021. Subjective Information Patient reports since starting Query Text:As Reported By Patient/ Occupational Therapy patient Family reports no functional change in L UE hand with daily tasks including pulling pants up, gripping, grasping items. Patient reports completing issued HEP's 1x/day every other day. Patient has been educated to complete HEP 2-3x/ day. Pain Assessment Timing of Pain Assessment Timing of Pain Assessment Assessment Self Report Self Report Pain Level 0 Pain Score Pain Score 0: Self Report Upper Extremity Range of Motion General Upper Extremity Range of Motion Reason Not Measured WNL/Left,WNL/Right Finger Range of Motion Left Ring Finger PIP Joint Extension - Active -35 Ring Finger PIP Joint Extension - 0 Passive Little Finger MCP Joint Extension - -15 Active
== END 2021-01-15 13:32 | disposition home or self-care (01) ==
LOC: ANHOT 13:15
PROVIDERS: PCP Internal Medicine; Visit Provider Internal Medicine
DX: R29.898 Other symptoms and signs involving the musculoskeletal system (principal)
CPT/HCPCS: 97014; 97110; 97165; G0283

== ENCOUNTER 2020-12-04 09:59 | Outpatient (CLI) | payer MEDICARE, MEDICAID, SELFPAY ==
--- NOTE | 2020-12-04 11:30 | NEURO_ITS ---
Impression: # Complains of left upper extremity numbness. # Left median neuropathy. # No Carpal Tunnel Syndrome. # No F-wave response from median nerve. # Needle/EMG exam neurogenic; Higher involvement needs to be ruled out. Nerve Conduction Studies Anti Sensory Summary Table Stim Site NR Peak (ms) P-T Amp (?V) Site1 Site2 Delta-P (ms) Dist (cm) Vincenzo (m/s) Left Median Anti Sensory (2-3nd Digit) Wrist 3.9 25.8 Wrist 2-3nd Digit 3.9 14.0 36 Wrist 4.2 15.9 Wrist 2-3nd Digit 3.9 14.0 36 Left Radial Anti Sensory (Base 1st Digit) Wrist 2.3 6.8 Wrist Base 1st Digit 2.3 0.0 Left Ulnar Anti Sensory (5th Digit) Wrist 2.9 27.9 Wrist 5th Digit 2.9 14.0 48 Motor Summary Table Stim Site NR Onset (ms) O-P Amp (mV) Site1 Site2 Delta-0 (ms) Dist (cm) Vincenzo (m/s) Left Median Motor (Abd Poll Brev) Wrist 4.2 0.7 Elbow Wrist 10.6 30.0 28 Elbow 14.8 0.1 Left Ulnar Motor (Abd Dig Minimi) Wrist 3.4 1.5 A Elbow Wrist 6.8 31.0 46 A Elbow 10.2 1.1 F Wave Studies NR F-Lat (ms) L-R F-Lat (ms) Left Median (Mrkrs) (Abd Poll Brev) NO RESPONSE NR Left Ulnar (Mrkrs) (Abd Dig Min) 32.55 EMG Side Muscle Nerve Root Ins Act Fibs Amp Dur Recrt Comment Left 1stDorInt Ulnar C8-T1 Nml Nml Nml Nml Reduced Left Ext Indicis Radial (Post Int) C7-8 Nml Nml Nml Nml Nml Left Ext Digitorum Radial (Post Int) C7-8 Nml Nml Nml Nml Nml Left BrachioRad Radial C5-6 Nml Nml Nml Nml Nml Left PronatorTeres Median C6-7 Nml Nml Nml Nml Nml Left Abd Poll Brev Median C8-T1 Nml Nml Nml Nml Reduced Left Biceps Musculocut C5-6 Nml Nml Nml Nml Nml Left Triceps Radial C6-7-8 Nml Nml Nml Nml Nml Left Deltoid Axillary C5-6 Nml Nml Nml Nml Nml MTDD
== END 2020-12-04 10:00 | disposition home or self-care (01) ==
PROVIDERS: PCP Internal Medicine; Visit Provider Internal Medicine
DX: R53.1 Weakness (principal)
CPT/HCPCS: 95886; 95909

== ENCOUNTER 2021-04-04 20:42 | Inpatient (IN) | payer OTHER, SELFPAY ==
--- NOTE | ~2021-04-04 | XR_ITS ---
EXAMINATION: XR chest PICC line EXAM DATE: 04/08/2021 11:44 INDICATION: PICC placement TECHNIQUE: Portable AP frontal chest x-ray was obtained. Comparison is made to prior examination from 01/14/2020. FINDINGS: There is a right-sided PICC line with tip projecting over the mid SVC. The lungs are clear. There are no pleural effusions. Cardiac silhouette is prominent but magnified on this AP technique . There is no pneumothorax suspected. The bones and soft tissues are unremarkable. IMPRESSION: No acute cardiopulmonary findings. PICC line in position. Reviewed, dictated and finalized at location A.
--- NOTE | ~2021-04-04 | US_ITS ---
EXAMINATION: US arterial ankle brachial ind DATE: 04/05/2021 15:24 INDICATION: Left great toe osteomyelitis. TECHNIQUE: Segmental pressures and plethysmographic and Doppler waveforms of the brachial and lower e xtremity arteries were obtained. COMPARISON: None. FINDINGS: Right and left brachial artery pressures of 109 mm Hg and 114 mm Hg, respectively, are concordant (no rmal difference <= 30 mmHg). The right ankle-brachial index (RICHARD) is 1.20 (normal >= 0.9-1.0). The right great toe-brachial index (TBI) is 0.85 (normal >= 0.65). Arterial Doppler waveforms are at least biphasic at the ankle. The left RICHARD is 1.26. The left TBI is 0.98. Arterial Doppler waveforms are at least biphasic at the a nkle. IMPRESSION: 1. No significant arterial occlusive disease. Reviewed, dictated and finalized at location A.
--- NOTE | ~2021-04-04 | XR_ITS ---
XR foot LT min 3V 04/04/2021 22:30 Indication: Infection. Procedure: 4 views of the left foot Comparison: No prior studies for comparison. Findings: There is soft tissue swelling of the first toe. There is osteolysis at the tuft of the firs t toe, consistent with osteomyelitis. Lisfranc joint intact. No foreign bodies. Impression: 1: Osteolysis of the first distal phalanx at the tuft with overlying soft tissue swelling, compatible with osteomyelitis. Reviewed, dictated and finalized at location A. Impression: 1: Osteolysis of the first distal phalanx at the tuft with overlying soft tissu e swelling, compatible with osteomyelitis.
[2021-04-04 22:06] VITALS: BP 113/68; PULSE 76; RESP 20; TEMP 36.2; O2SAT 95
[2021-04-04 22:32] LABS: Basophils Percent Auto 0.3 % (0.2-1.2); Eosinophils Percent Auto 0.1 % (0-4.4); Hematocrit 42.3 % (42.0-52.0); Hemoglobin 14.1 g/dL (14.0-18.0); Immature Granulocyte Absolute 0.04 K/mm3 (0.00-0.031); Immature Granulocyte Percent A 0.4 % (0-0.5); Lymphocytes Absolute Auto 1.19 K/mm3 (0.9-3.2); Lymphocytes Percent Auto 11.7 % (18.3-44.2); Mean Corpuscular HGB Conc 33.3 g/dl (32-36); Mean Corpuscular Hemoglobin 33.4 pg (26-34); Mean Corpuscular Volume 100.2 fl (80-100); Mean Platelet Volume 8.5 fl (7.4-10.4); Monocytes Absolute Auto 0.5 K/mm3 (0.1-0.6); Monocytes Percent Auto 5.1 % (2.6-8.5); Neutrophils Absolute Auto 8.4 K/mm3 (1.3-6.7); Neutrophils Percent Auto 82.4 % (45.5-73.1); Platelet Count Result 139 k/mm3 (150-375); Red Blood Count 4.22 M/mm3 (4.6-6.20); Red Cell Distribution Width 14.3 % (11.5-14.5); White Blood Count 10.2 K/mm3 (4.5-10.0)
[2021-04-04 22:55] LABS: Alanine Aminotransferase 38 U/L (4-50); Albumin Level 3.7 g/dL (3.5-5.1); Alkaline Phosphatase 107 U/L (38-126); Anion Gap 6 mmol/L (8-16); Aspartate Amino Transferase 51 U/L (17-59); Bilirubin,Total 0.4 mg/dL (0.2-1.3); Blood Urea Nitrogen 19 mg/dL (9-20); Calcium 8.5 mg/dL (8.4-10.2); Carbon Dioxide 29 mmol/L (22-30); Chloride 104 mmol/L (98-107); Estimated CRCL calculation 77 ml/min; Estimated Glomerular Filt Rate > 60; Glucose 92 mg/dL (65-110); Potassium 4.4 mmol/L (3.4-5.0); Sodium 139 mmol/L (137-145)
[2021-04-05] VITALS (8 sets, daily range): BP systolic 104–136; BP diastolic 54–81; PULSE 48–87; RESP 14–18; TEMP 36.4–37.4; O2SAT 93–100; BMI 34.7
[2021-04-05 00:16] LABS: Erythrocyte Sedimentation Rate 28 mm/hr (0-20)
--- NOTE | 2021-04-05 00:47 | ED.GENADULT ---
HPI - General Adult General Chief complaint: Extremity Injury, Lower Stated complaint: Toe infection Time Seen by Provider: 04/04/21 22:20 History of Present Illness HPI narrative: Patient is a 60-year-old male who presents ER with reports of osteomyelitis. Patient has mental handicap and has difficulty caring for himself. He had an ingrown toenail on his left great toe surgically excised by a pyroglazer. He was not caring for the wound and went on a trip to [place]. Down there it was noted that he had a red and hot and swollen toe. He had an incision and drainage in emergency room with images that showed osteomyelitis. He was started on ceftriaxone as well as clindamycin. Patient then drove back today so he could be evaluated. No other reports of pain or injury. Related Data Home Medications Medication Instructions Recorded Confirmed aripiprazole 30 mg PO DAILY 11/12/20 12/03/20 clonazepam 0.5 mg PO DAILY 11/12/20 12/03/20 diclofenac sodium 75 mg PO DAILY 11/12/20 12/03/20 sertraline 100 mg PO DAILY 11/12/20 12/03/20 lactobacillus combination no.4 3 3,000 mmu cells PO DAILY 12/03/20 12/03/20 billion cell capsule Allergies Allergy/AdvReac Type Severity Reaction Status Date / Time aspirin Allergy Severe Anaphylactic Verified 12/03/20 11:14 Shock Review of Systems Review of Systems: All systems reviewed & are unremarkable except as noted in HPI and below Constitutional: Constitutional: Reports chills, Denies fatigue and Reports fever(s) Respiratory: Respiratory: Denies cough, Denies dyspnea and Denies wheezing Gastrointestinal: Gastrointestinal: Denies abdominal pain, Denies nausea and Denies vomiting Musculoskeletal: Musculoskeletal: Denies arthralgias Comments: Left toe redness and swelling. Integumentary/Breasts: Comments: Cellulitis and abscess of the left great toe. [facility] Past Medical History Medical History Asymptomatic cholelithiasis Atrial flutter Benign prostatic hyperplasia Body mass index 40.0-44.9, adult Chronic pain COPD (chronic obstructive pulmonary disease) (Unknown) [id number] obstructive ventilatory defect with severe small airway disease pattern no acute bronchodilator response and mildly decreased DLCO noted on pulmonary function testing from 2014. Hematuria History of myocardial infarction (Unknown) With stress test November 2019 demonstrating 2 fixed perfusion defects small mild area of apical septal segment defect in left ventricle, moderate sized area of mild infarct involving apical inferior apical lateral and mid inferior lateral segment of the left ventricle, ejection fraction of 70%. Hyperlipidemia Nicotine dependence, unspecified, uncomplicated (Unknown) Obstructive sleep apnea treated with BiPAP Settings of 25/20 according to sleep study in February 2010. Paranoid schizophrenia (Unknown) Right heart failure with reduced right ventricular function Echocardiogram November 2019 demonstrated reduced right ventricular systolic function and mild enlargement, mild left ventricular enlargement, EF 55-60%, indeterminate diastolic function, mild left atrial enlargement, mild mitral valve regurgitation, small pericardial effusion Surgical History Surgical History History of inguinal herniorrhaphy As a child. Family History Family History Sibling Healthy female adult Reportedly both of the patient's sisters are healthy. Social History Social History Social History: Surrogate decision maker: Mesha Tanner, sister. Code status: Full code. Smoking packs per day: 1 Smoking cigarettes per day: 20.0 Years smoked: 43 Smoking pack-years: 43.00 Smoking status: Current every day smoker Tobacco type: cigarettes Second hand toba
[2021-04-05] MEDS: CLINDAMYCIN 600 MG/D5W 50 ML 600 MG/50 ML PIGGYBACK 100 MG IVPB ×4 (01:28→17:20)
--- NOTE | 2021-04-05 01:29 | PM.IMHP ---
H&P: HPI History of Present Illness Date/Time: 04/05/21 01:29 Chief Complaint: Left toe swelling Narrative: This is a 60-year-old male with past medical history significant for paranoid schizophrenia, cognitive impairment, obstructive sleep apnea on CPAP at nighttime, tobacco dependence. Patient was brought to the emergency room due to left toe swelling tenderness redness purulent discharge, the day before the patient was visiting [place] where he was taken to an emergency room and a local hospital due to left toe throbbing pain there he had drainage of purulent discharge today he was brought to our emergency room for follow-up date rolled from [place] today. According to sister who is at bedside and who is giving most of the history about a month ago or so he has been having ingrown toenail about a week ago he went to a milk treater who performed a procedure on his left toenail he has developed swelling redness purulent discharge ever since. Preliminary workup was significant for foot x-ray with distal phalanx osteomyelitis. Patient denies any fevers, any chills, any rigors, any nausea ,vomiting ,,diarrhea abdominal pa,in shortness of breath, cough ,sputum production, he smokes over a pack a day. Review of Systems Review of Systems: ROS unobtainable: Yes unobtainable due to medical condition (Patient with cognitive and learning disability) [facility] Past Medical History Medical History (Reviewed 11/12/20 @ 11:04 by Ruchi Farmer, [facility], ) Asymptomatic cholelithiasis Atrial flutter Benign prostatic hyperplasia Body mass index 40.0-44.9, adult Chronic pain COPD (chronic obstructive pulmonary disease) (Unknown) [id number] obstructive ventilatory defect with severe small airway disease pattern no acute bronchodilator response and mildly decreased DLCO noted on pulmonary function testing from 2014. Hematuria History of myocardial infarction (Unknown) With stress test November 2019 demonstrating 2 fixed perfusion defects small mild area of apical septal segment defect in left ventricle, moderate sized area of mild infarct involving apical inferior apical lateral and mid inferior lateral segment of the left ventricle, ejection fraction of 70%. Hyperlipidemia Nicotine dependence, unspecified, uncomplicated (Unknown) Obstructive sleep apnea treated with BiPAP Settings of 25/20 according to sleep study in February 2010. Paranoid schizophrenia (Unknown) Right heart failure with reduced right ventricular function Echocardiogram November 2019 demonstrated reduced right ventricular systolic function and mild enlargement, mild left ventricular enlargement, EF 55-60%, indeterminate diastolic function, mild left atrial enlargement, mild mitral valve regurgitation, small pericardial effusion Surgical History Surgical History History of inguinal herniorrhaphy As a child. Family History Family History Sibling Healthy female adult Reportedly both of the patient's sisters are healthy. Social History Social History Social History: Surrogate decision maker: Mesha Tanner, sister. Code status: Full code. Smoking packs per day: 1 Smoking cigarettes per day: 20.0 Years smoked: 43 Smoking pack-years: 43.00 Smoking status: Current every day smoker Tobacco type: cigarettes Second hand tobacco smoke exposure: Yes Alcohol intake: never Substance use: never Substance use type: does not use Additional living arrangements comments: The patient lives in his own home. His sister comes over and spends much of the day with him. However, he is alone in the evenings. Additional occupation/education comments: Disabled due to paranoid schizophrenia. Gender identity (if verbalized by the patient): Male Spiritual care concerns: No Meds Home Medic
--- NOTE | 2021-04-05 02:42 | PC.NURSE ---
This patient, Easton Tanner, was admitted to 3 [facility] Surg Room 325-01. Patient/family oriented to hospital policies and general routines including ID bracelet, bed and alarms, visiting hours, pain management, procedures, bathroom and other care routines, personal items, smoking policy, room service/diet, and visiting hours. Information on how to activate the Rapid Response Team has been discussed. Patient/Family are encouraged to report perceived risks to care and to ask questions if they do not understand what they are told or what they should do.
[2021-04-05] MEDS: NICOTINE (*PBKC) 21 MG PATCH 1 PATCH TRANSDERM (06:05)
[2021-04-05] MEDS: ENOXAPARIN 40 MG/0.4 ML SYRINGE SUB-Q (08:56)
[2021-04-05] MEDS: ALBUTEROL SULFATE NEB 2.5 MG/0.5 ML INH INHALATION (09:02)
--- NOTE | 2021-04-05 10:39 | PM.CNGS ---
Assessment and Plan Assessment and plan (1) Osteomyelitis of great toe of left foot: Code(s): M86.9 - Osteomyelitis, unspecified Status: Acute Assessment and Plan: no obvious fluctuance or drainable fluid collection, cont local wound care and IV abx History of Present Illness Consult details Consult date: 04/05/21 Reason for consult: wound care Requesting physician: Jillian Murray PA-C Narrative: Pt is a 60 y/o M c multiple med issues presenting c L toe osteomyelitis. Pt reports he had ingrown toenail and went to see brake engineer about a wk ago. After procedure, toe has become progressively more inflamed, red. Pt reports toe has been throbbing and recently draining purulent discharge. Pt was actually seen in [place] while visiting and dx'd c osteomyelitis. Review of Systems Constitutional: Constitutional: Denies anorexia, Denies chills, Reports fatigue, Reports fever(s), Denies headache(s), Denies increased appetite, Reports lethargy, Denies malaise, Denies poor appetite and Reports weakness Eyes: Eyes: Reports no additional eye complaints ENT: Reports system reviewed and no additional complaints, except as documented Cardiovascular: Cardiovascular: Reports no additional cardiovascular complaints Respiratory: Respiratory: Reports no additional respiratory complaints Gastrointestinal: Gastrointestinal: Reports no additional gastrointestinal complaints Genitourinary: Genitourinary: Reports no additional male genitourinary complaints Musculoskeletal: Musculoskeletal: Reports as per HPI and Reports abnormal gait Integumentary/Breasts: Skin/Breast: Reports as per HPI, Reports swelling and Reports wounds Neurologic: Reports system reviewed and no additional complaints, except as documented Psychiatric: Psychiatric: Reports no additional psychiatric complaints Endocrine: Endocrine: Reports no additional endocrine complaints Hematologic/Lymphatic: Hematologic/Lymphatic: Reports no additional hematologic/lymphatic complaints Allergic/Immunologic: Allergic/Immunologic: Reports no additional allergic/immunologic complaints [facility] Past Medical History Medical History Asymptomatic cholelithiasis Atrial flutter Benign prostatic hyperplasia Body mass index 40.0-44.9, adult Chronic pain COPD (chronic obstructive pulmonary disease) (Unknown) Yizh-ua-[id number] obstructive ventilatory defect with severe small airway disease pattern no acute bronchodilator response and mildly decreased DLCO noted on pulmonary function testing from 2014. Hematuria History of myocardial infarction (Unknown) With stress test November 2019 demonstrating 2 fixed perfusion defects small mild area of apical septal segment defect in left ventricle, moderate sized area of mild infarct involving apical inferior apical lateral and mid inferior lateral segment of the left ventricle, ejection fraction of 70%. Hyperlipidemia Nicotine dependence, unspecified, uncomplicated (Unknown) Obstructive sleep apnea treated with BiPAP Settings of 25/20 according to sleep study in February 2010. Paranoid schizophrenia (Unknown) Right heart failure with reduced right ventricular function Echocardiogram November 2019 demonstrated reduced right ventricular systolic function and mild enlargement, mild left ventricular enlargement, EF 55-60%, indeterminate diastolic function, mild left atrial enlargement, mild mitral valve regurgitation, small pericardial effusion Surgical History Surgical History History of inguinal herniorrhaphy As a child. Family History Family History Sibling Healthy female adult Reportedly both of the patient's sisters are healthy. Social History Social History Social History: Surrogate decision maker: Mesha Tanner, sister.
--- NOTE | 2021-04-05 12:25 | PM.IMPN ---
Progress Note: A&P Assessment and Plan (1) Osteomyelitis of great toe of left foot: Code(s): M86.9 - Osteomyelitis, unspecified Status: Acute Assessment and Plan: Presented with left toe pain. Foot x-ray showed osteolysis of the 1st distal phalanx with overlying soft tissue swelling compatible with osteomyelitis. Appreciate general surgery consultation. No obvious drainable fluid collection, therefore no surgical intervention planned at this time Appreciate Wound Care consultation Continue with IV clindamycin and ceftriaxone Blood cultures pending Appreciate infectious disease consultation Analgesics available as needed for pain Remains afebrile. Mild leukocytosis. (2) Bradycardia: Code(s): R00.1 - Bradycardia, unspecified Status: Acute Assessment and Plan: Noted to have some episodes of bradycardia down to 48. He is completely asymptomatic with this. Will evaluate EKG Check orthostatics Consider teletypesetter monitor based on above evaluation (3) Paranoid schizophrenia: Onset Date: Unknown Code(s): F20.0 - Paranoid schizophrenia Status: Chronic Assessment and Plan: Mood is stable at this time Continue Abilify and clonazepam Continue sertraline (4) COPD (chronic obstructive pulmonary disease): Onset Date: Unknown Qualifiers: COPD type: unspecified COPD Qualified Code(s): J44.9 - Chronic obstructive pulmonary disease, unspecified Code(s): J44.9 - Chronic obstructive pulmonary disease, unspecified Status: Chronic Assessment and Plan: Not in acute exacerbation Albuterol p.r.n. (5) Obstructive sleep apnea (adult) (pediatric): Onset Date: Unknown Code(s): G47.33 - Obstructive sleep apnea (adult) (pediatric) Status: Acute Assessment and Plan: CPAP at night (6) Nicotine dependence, unspecified, uncomplicated: Onset Date: Unknown Qualifiers: Nicotine product type: cigarettes Qualified Code(s): F17.210 - Nicotine dependence, cigarettes, uncomplicated Code(s): F17.200 - Nicotine dependence, unspecified, uncomplicated Status: Chronic Assessment and Plan: Patient smokes 1 pack per day Continue with nicotine patch Smoking cessation is imperative and will be reinforced Subjective Date/time seen: 04/05/21 12:25 Interval history: Date of service: 04/05/2021 Easton Tanner is a 60-year-old male with a history COPD, BEBETO on BiPAP, coronary artery disease, and schizophrenia who is seen in follow-up for possible osteomyelitis of 1st distal phalanx. He is doing pretty well today. He reports improvement in his toe pain. Stating that yesterday it was 10/10 and today it has improved to 4/10. He has not noticed any drainage or increased redness. Denies numbness or tingling of his extremities. He denies fevers, chills, nausea, or vomiting. Denies shortness breath, cough. No issues with urination. Reports regular bowel movements and denies diarrhea. No abdominal pain. He is tolerating his diet. He denies chest pain or palpitations. No dizziness or lightheadedness. Review of Systems Review of Systems: All systems reviewed & are unremarkable except as noted in HPI and below Exam Narrative: Mr. Tanner is a well-nourished, well-appearing 60-year-old male who is lying semi-recumbent in bed. He appears comfortable and is in NARD. Neuro: awake, alert and oriented x4, speech clear, no focal neuro deficits noted HEENMT: normocephalic, atraumatic, EOMI, sclerae anicteric, moist oral mucosa Neck: supple, no lymphadenopathy Respiratory: clear to auscultation bilaterally, nonlabored breathing Cardio: bradycardic, regular rhythm with S1-S2 Abdomen: nondistended, normoactive bowel sounds, soft, nontender to palpation Extremities: no edema, erythema, or tenderness to palpation, DP pulses 2+ bilaterally. Left great toe with lateral woun
--- NOTE | 2021-04-05 12:51 | ECG_ITS ---
Measurements Intervals Pearson Rate: 74 P: WI: 0 QRS: 22 QRSD: 116 T: 34 QT: 398 QTc: 443 Interpretive Statements ATRIAL FLUTTER/TACHYCARDIA INTRAVENTRICULAR CONDUCTION DELAY DELAYED PRECORDIAL R/S TRANSITION LOW QRS VOLTAGE IN LIMB LEADS BORDERLINE T WAVE ABNORMALITY- ANTERIOR LEADS ABNORMAL ECG Electronically Signed On 04-05-2021 16:51:47 CDT by George Cruz D.O.
--- NOTE | 2021-04-05 13:17 | PCCCNOTE ---
On 04/05/21, the student, [Kelly Canada ], provided care and [facility]. I have reviewed the student's documentation and agree with the findings.
--- NOTE | 2021-04-05 14:12 | WPDINFPN2 ---
Progress Note: A&P Assessment and Plan (1) Osteomyelitis of great toe of left foot: Code(s): M86.9 - Osteomyelitis, unspecified Status: Acute Assessment and Plan: L 1st toe OM REC Ctx and clinda #2 /28 days, arterial doppler, amputation if unsuccessful Subjective Date/time seen: 04/05/21 14:12 Objective Data Vital Signs Vital Signs: Vital Signs - 24 hr 04/04/21 22:06 04/05/21 00:00 04/05/21 02:03 Temperature 36.2 C L 36.9 C Pulse Rate 76 87 81 Respiratory Rate 20 18 Blood Pressure 113/68 111/68 125/79 Pulse Oximetry 95 100 100 04/05/21 05:50 04/05/21 09:02 04/05/21 09:11 Temperature 36.4 C Pulse Rate 76 48 L 52 L Respiratory Rate 18 18 18 Blood Pressure 110/54 L Pulse Oximetry 95 93 Intake/Output Intake/Output: Intake & Output 04/02/21 04/03/21 04/04/21 04/05/21 23:59 23:59 23:59 23:59 Intake Total 1480 Balance 1480 Meds/Results Medications: Active Medications Generic Name Dose Route Start Last Admin Trade Name Freq PRN Reason Stop Dose Admin Acetaminophen 650 mg 04/05/21 12:49 Acetaminophen 325 Mg Tablet PO Q4H PRN Pain 1-5 Hydrocodone Bitart/Acetaminophen 1 tab 04/05/21 12:49 Hydrocodone/Acetaminophen (*Crx) 5-325 Mg Tablet PO Q4H PRN Pain Rated 6-10 Albuterol 2.5 mg 04/05/21 12:49 Albuterol Sulfate Neb 2.5 Mg/0.5 Ml Inh INHALATION Q4HRT PRN Bronchospasm Aripiprazole 30 mg 04/06/21 09:00 Aripiprazole 10 Mg Tablet PO 05/06/21 08:59 DAILY [place] Clonazepam 0.5 mg 04/06/21 09:00 Clonazepam (*Crx) 0.5 Mg Tablet PO DAILY [place] Enoxaparin Sodium 40 mg 04/05/21 09:00 04/05/21 08:56 Enoxaparin 40 Mg/0.4 Ml Syringe SUB-Q 40 mg DAILY [place] Administration Ceftriaxone Sodium 2 gm in 100 mls @ 200 mls/hr 04/05/21 21:00 Rocephin 2 Gm/D5w 100 Ml IVPB Q24H [place] Clindamycin Phosphate 600 mg in 50 mls @ 100 mls/hr 04/05/21 06:00 04/05/21 11:45 Clindamycin 600 Mg/D5w 50 Ml IVPB Infused Q6HR [facility] Infusion Morphine Sulfate 1 mg 04/05/21 12:49 Morphine Sulfate (*Crx) 4 Mg/Ml Inj IV PUSH Q2H PRN Breakthrough Pain Nicotine 1 patch 04/05/21 09:00 04/05/21 06:05 Nicotine (*Pbkc) 21 Mg Patch TRANSDERM 1 patch QAM [place] Administration Ondansetron HCl 4 mg 04/05/21 00:47 Ondansetron Inj 4 Mg/2 Ml Vial IV PUSH Q4H PRN Nausea Sertraline HCl 150 mg 04/06/21 09:00 Sertraline Hcl 50 Mg Tablet PO DAILY [facility] Silver Nitrate 1 applic 04/05/21 09:00 Silvergel (Elta) 45 Ml TOPICAL DAILY [facility] Radiology Results: ITS Impressions Foot X-Ray 04/04/21 22:33 Impression: 1: Osteolysis of the first distal phalanx at the tuft with overlying soft tissue swelling, compatible with osteomyelitis. Labs Labs: Laboratory Results - last 24 hr 04/04/21 04/04/21 22:23 22:23 WBC 10.2 H RBC 4.22 L Hgb 14.1 Hct 42.3 MCV 100.2 H MCH 33.4 MCHC 33.3 RDW 14.3 Plt Count 139 L MPV 8.5 Immature Gran % (Auto) 0.4 Neut % (Auto) 82.4 H Lymph % (Auto) 11.7 L [place] % (Auto) 5.1 Eos % (Auto) 0.1 Baso % (Auto) 0.3 Lymph # (Auto) 1.19 [place] # (Auto) 0.5 Eos # (Auto) 0.0 Baso # (Auto) 0.0 Abs Immat Gran (auto) 0.04 H Absolute Neuts (auto) 8.4 H Absolute Nucleated RBC 0.0 Nucleated RBC % 0.0 ESR 28 H Sodium 139 Potassium 4.4 Chloride 104 Carbon Dioxide 29 Anion Gap 6 L BUN 19 Creatinine 1.10 Estim Creat Clear Calc 77 Estimated GFR > 60 Glucose 92 Calcium 8.5 Total Bilirubin 0.4 AST 51 ALT 38 Alkaline Phosphatase 107 C-Reactive Protein 6.0 H Total Protein 6.0 L Albumin 3.7
[2021-04-05] MEDS: SERTRALINE HCL 50 MG TABLET 150 MG PO (17:20)
[2021-04-05] MEDS: SILVERGEL (ELTA) 45 ML 1 APPLIC TOPICAL (17:20)
[2021-04-05] MEDS: ARIPiprazole 10 MG TABLET 30 MG PO (17:20)
[2021-04-05] MEDS: SACCHAROMYCES BOULARDII 250 MG CAPSULE PO (17:21)
--- NOTE | 2021-04-05 17:31 | CONS_ITS ---
DATE OF CONSULTATION: 04/05/2021 REASON FOR CONSULTATION: Osteomyelitis. HISTORY OF PRESENT ILLNESS: 60-year-old male without diabetes. He is a poor historian. He reported to others that he had some type of podiatry surgery on his left first toe several weeks prior to admission. He denies that to me whatsoever. He denies any other known trauma. No fever, chills, sweats, previous operations, or known vascular compromise. Aside from his provided history to me, he presented to the emergency room with pain in his left first toe, along with drainage. His wound nurse is present at the bedside currently and has just packed his wound, which involves an abscess cavity deep underneath the nail with tunneling and tracking. ALLERGIES: ASPIRIN. HABITS: One pack per day smoker. No alcohol. PRESENT MEDICATIONS: See above. Ceftriaxone, clindamycin. PAST MEDICAL HISTORY: Schizophrenia, inguinal hernia repair, BEBETO, hyperlipidemia, previous NV, COPD, BPH, AF, gallstones, asymptomatic apparently. REVIEW OF SYSTEMS: 14-point review otherwise negative though compromised by the patient's memory. FAMILY HISTORY: See chart. SOCIAL HISTORY: Looked after in part by a sister. He lives alone at night. PHYSICAL EXAMINATION: GENERAL: Middle-aged male appears his actual age. No acute distress. VITAL SIGNS: Afebrile, 76, 18, 110/54, 95% on room air. SKIN: Warm and dry. EENT: The conjunctivae are clear. The oral mucosa is normal. NECK: No masses or thyromegaly. LUNGS: Clear to auscultation. CARDIAC: Regular rate and rhythm without murmur or gallop. Dorsalis pedis pulses are trace and equal. Radial pulses 1+. ABDOMEN: Obese, nontender. No mass. No organomegaly. EXTREMITIES: He has erythema and edema of the left first toe with skin thinning. There is no crepitus. He has 2+ nonpitting edema of the toe. LABORATORY DATA: Blood cultures, no growth so far. No other microbiology in process. His white count is 10.2, hemoglobin 14.1, platelets 139. His chemistry panel is normal. CRP is 6.0. RADIOLOGY: Plain films of the left first toe show osteolysis, distal phalanx. ASSESSMENT: 1. Acute osteomyelitis of the left first toe. Other causes of his present illness less likely including gout, trauma, or aseptic bone destruction. 2. Tobacco abuse and probable atherosclerosis with diminished pulse in the affected limb. 3. Schizophrenia, poor candidate for prolonged IV antibiotics in an unsupervised setting. RECOMMENDATIONS: 1. Current antibiotics appropriate day #2 out of 28 days. 2. Arterial Dopplers and correct if marked deformities that will impair his healing potential. 3. Local wound care. 4. 5. Thank you for asking me to see him. TYE KENYON M.D. SOIL SCIENCE TEACHER SOIL SCIENCE TEACHER D I MT: Reji
[2021-04-06] MEDS: CLINDAMYCIN 600 MG/D5W 50 ML 600 MG/50 ML PIGGYBACK 100 MG IVPB ×5 (00:07→23:46)
[2021-04-06 05:33] VITALS: BP 112/66; PULSE 50; RESP 20; TEMP 36.7; O2SAT 93
[2021-04-06 06:04] LABS: Hematocrit 39.5 % (42.0-52.0); Hemoglobin 13.1 g/dL (14.0-18.0); Immature Platelet Fraction Pct 1.1 % (0.9-11.2); Mean Corpuscular HGB Conc 33.2 g/dl (32-36); Mean Corpuscular Hemoglobin 33.1 pg (26-34); Mean Corpuscular Volume 99.7 fl (80-100); Mean Platelet Volume 8.4 fl (7.4-10.4); Platelet Count Result 160 k/mm3 (150-375); Red Blood Count 3.96 M/mm3 (4.6-6.20); Red Cell Distribution Width 13.9 % (11.5-14.5)
[2021-04-06 06:16] LABS: Anion Gap 6 mmol/L (8-16); Blood Urea Nitrogen 15 mg/dL (9-20); CRP 4.3 mg/dL (<1.0); Calcium 8.5 mg/dL (8.4-10.2); Carbon Dioxide 27 mmol/L (22-30); Chloride 101 mmol/L (98-107); Estimated CRCL calculation 79 ml/min; Estimated Glomerular Filt Rate > 60; Glucose 102 mg/dL (65-110); Potassium 4.2 mmol/L (3.4-5.0); Sodium 134 mmol/L (137-145)
[2021-04-06] MEDS: ENOXAPARIN 40 MG/0.4 ML SYRINGE SUB-Q (08:59)
[2021-04-06] MEDS: NICOTINE (*PBKC) 21 MG PATCH 1 PATCH TRANSDERM (08:59)
[2021-04-06] MEDS: ARIPiprazole 10 MG TABLET 30 MG PO (08:59)
[2021-04-06] MEDS: clonazePAM (*CRX) 0.5 MG TABLET PO (08:59)
[2021-04-06] MEDS: SACCHAROMYCES BOULARDII 250 MG CAPSULE PO ×3 (08:59→17:01)
[2021-04-06] MEDS: SERTRALINE HCL 50 MG TABLET 150 MG PO (08:59)
[2021-04-06] MEDS: SILVERGEL (ELTA) 45 ML 1 APPLIC TOPICAL (08:59)
--- NOTE | 2021-04-06 12:09 | PM.PNGS ---
Progress Note: A&P Assessment and Plan (1) Osteomyelitis of great toe of left foot: Code(s): M86.9 - Osteomyelitis, unspecified Status: Acute Assessment and Plan: Continue antibiotics and local wound care. Patient will likely have to follow up with Podiatry as outpatient. No surgical intervention needed at this time. Subjective Subjective Date/Time Seen: 04/06/21 12:09 Interval history: No new complaints. Exam Extrem: Other: Left 1st hallux scant drainage induration, and edema. Dorsalis pedis and posterior tibial pulses easily palpable on lower extremities. Objective Data Vital Signs Vital Signs: Vital Signs - 24 hr 04/05/21 14:43 04/05/21 17:38 04/05/21 21:37 Temperature 37.1 C 37.4 C Pulse Rate 62 50 L Respiratory Rate 14 18 Blood Pressure 104/62 136/81 106/63 Pulse Oximetry 94 94 04/06/21 05:33 Temperature 36.7 C Pulse Rate 50 L Respiratory Rate 20 Blood Pressure 112/66 Pulse Oximetry 93 Intake/Output Intake/Output: Intake & Output 04/03/21 04/04/21 04/05/21 04/06/21 23:59 23:59 23:59 23:59 Intake Total 2970 650 Balance 2970 650 Meds/Results Medications: Active Medications Generic Name Dose Route Start Last Admin Trade Name Freq PRN Reason Stop Dose Admin Acetaminophen 650 mg 04/05/21 12:49 Acetaminophen 325 Mg Tablet PO Q4H PRN Pain 1-5 Hydrocodone Bitart/Acetaminophen 1 tab 04/05/21 12:49 Hydrocodone/Acetaminophen (*Crx) 5-325 Mg Tablet PO Q4H PRN Pain Rated 6-10 Albuterol 2.5 mg 04/05/21 12:49 Albuterol Sulfate Neb 2.5 Mg/0.5 Ml Inh INHALATION Q4HRT PRN Bronchospasm Aripiprazole 30 mg 04/06/21 09:00 04/06/21 08:59 Aripiprazole 10 Mg Tablet PO 05/06/21 08:59 30 mg DAILY MIREILLE Administration Clonazepam 0.5 mg 04/06/21 09:00 04/06/21 08:59 Clonazepam (*Crx) 0.5 Mg Tablet PO 0.5 mg DAILY MIRE[place]LE Administration Enoxaparin Sodium 40 mg 04/05/21 09:00 04/06/21 08:59 Enoxaparin 40 Mg/0.4 Ml Syringe SUB-Q 40 mg DAILY MIRE[place]LE Administration Ceftriaxone Sodium 2 gm in 100 mls @ 200 mls/hr 04/05/21 21:00 04/05/21 22:24 Rocephin 2 Gm/D5w 100 Ml IVPB Infused Q24H MI[place] Infusion Clindamycin Phosphate 600 mg in 50 mls @ 100 mls/hr 04/05/21 06:00 04/06/21 05:49 Clindamycin 600 Mg/D5w 50 Ml IVPB Infused Q6HR [place] Infusion Morphine Sulfate 1 mg 04/05/21 12:49 Morphine Sulfate (*Crx) 4 Mg/Ml Inj IV PUSH Q2H PRN Breakthrough Pain Nicotine 1 patch 04/05/21 09:00 04/06/21 08:59 Nicotine (*Pbkc) 21 Mg Patch TRANSDERM 1 patch QAM MIRE[place]LE Administration Ondansetron HCl 4 mg 04/05/21 00:47 Ondansetron Inj 4 Mg/2 Ml Vial IV PUSH Q4H PRN Nausea Saccharomyces Boulardii 250 mg 04/05/21 17:00 04/06/21 08:59 Saccharomyces Boulardii 250 Mg Capsule PO 250 mg TID MIREILLE Administration Sertraline HCl 150 mg 04/06/21 09:00 04/06/21 08:59 Sertraline Hcl 50 Mg Tablet PO 150 mg DAILY MIRE[place] Administration Silver Nitrate 1 applic 04/05/21 09:00 04/06/21 08:59 Silvergel (Elta) 45 Ml TOPICAL 1 applic DAILY MIRE[place] Administration Radiology Results: ITS Impressions Foot X-Ray 04/04/21 22:33 Impression: 1: Osteolysis of the first distal phalanx at the tuft with overlying soft tissue swelling, compatible with osteomyelitis. Ankle Brachial Index 04/05/21 15:30 IMPRESSION: 1. No significant arterial occlusive disease. Labs Labs: Laboratory Results - last 24 hr 04/06/21 04/06/21 05:51 05:51 WBC 8.0 RBC 3.96 L Hgb 13.1 L Hct 39.5 L MCV 99.7 MCH 33.1 MCHC 33.2 RDW 13.9 Plt Count 160 MPV 8.4 % Immature Plt Fraction 1.1 Sodium 134 L Potassium 4.2 Chloride 101 Carbon Dioxide 27 Anion Gap 6 L BUN 15 Creatinine 1.10 Estim Creat Clear Calc 79 Estimated GFR > 60 Glucose 102 Calcium 8.5 C-Reactive Protein 4.3 H Quality VTE Prophylaxis VTE prophylax
--- NOTE | 2021-04-06 12:22 | P.PNIM_ITS ---
Progress Note: A&P Assessment and Plan (1) Osteomyelitis of great toe of left foot: Code(s): M86.9 - Osteomyelitis, unspecified Status: Acute Assessment and Plan: Presented with left toe pain. He had least recently had excision of ingrown toenail by his senior manager asset protection. * Foot x-ray showed osteolysis of the 1st distal phalanx with overlying soft tissue swelling compatible with osteomyelitis. * Appreciate general surgery consultation. No obvious drainable fluid collection, therefore no surgical intervention planned at this time * Appreciate Wound Care consultation * Local wound care with silver nitrate * Appreciate infectious disease consultation. * Continue with IV clindamycin and ceftriaxone. He will require 28 days of IV antibiotic therapy per infectious disease specialist, Dr. Archer * He does have a history of Clostridium difficile colitis in January 2020. Given his need for extended duration IV antibiotics, will need to be cautious regarding this. Continue with Florastor TID. Appreciate ID recommendations * Blood cultures pending; negative to date * Analgesics available as needed for pain * Remains afebrile. Mild leukocytosis has resolved. CRP improving * He will likely need outpatient podiatry follow-up. (2) Bradycardia: Code(s): R00.1 - Bradycardia, unspecified Status: Acute Assessment and Plan: Noted to have some episodes of bradycardia down to 48. He is completely asymptomatic with this. * EKG evaluated in light of bradycardia demonstrated atrial flutter with heart rate 74 * Check orthostatics (3) Atrial flutter: Code(s): I48.92 - Unspecified atrial flutter Status: Acute Assessment and Plan: Atrial flutter evident on EKG. He does have a history of this. * Rate is controlled. * His CHADS2-Vasc score is 0. No need to initiate anticoagulation. I spoke with his sister/POA regarding this who reports she does not want to consider anticoagulation as she is concerned about his fall risk. (4) Paranoid schizophrenia: Onset Date: Unknown Code(s): F20.0 - Paranoid schizophrenia Status: Chronic Assessment and Plan: Mood is stable at this time * Continue Abilify and clonazepam * Continue sertraline * Given his psychiatric illness and select cognitive deficit, he will be unable to manage outpatient infusions at home. His family would like to pursue SNF placement while being treated with IV antibiotics. Care coordination aware and following. (5) COPD (chronic obstructive pulmonary disease): Onset Date: Unknown Qualifiers: COPD type: unspecified COPD Qualified Code(s): J44.9 - Chronic obstructive pulmonary disease, unspecified Code(s): J44.9 - Chronic obstructive pulmonary disease, unspecified Status: Chronic Assessment and Plan: Not in acute exacerbation * Albuterol p.r.n. (6) Obstructive sleep apnea (adult) (pediatric): Onset Date: Unknown Code(s): G47.33 - Obstructive sleep apnea (adult) (pediatric) Status: Acute Assessment and Plan: CPAP at night (7) Nicotine dependence, unspecified, uncomplicated: Onset Date: Unknown Qualifiers: Nicotine product type: cigarettes Qualified Code(s): F17.210 - Nicotine dependence, cigarettes, uncomplicated Code(s): F17.200 - Nicotine dependence, unspecified, uncomplicated Status: Chronic Assessment and Plan: Patient smokes 1 pack per day * Continue with nicotine patc
--- NOTE | 2021-04-06 12:22 | PM.IMPN ---
Progress Note: A&P Assessment and Plan (1) Osteomyelitis of great toe of left foot: Code(s): M86.9 - Osteomyelitis, unspecified Status: Acute Assessment and Plan: Presented with left toe pain. He had least recently had excision of ingrown toenail by his choir member. Foot x-ray showed osteolysis of the 1st distal phalanx with overlying soft tissue swelling compatible with osteomyelitis. Appreciate general surgery consultation. No obvious drainable fluid collection, therefore no surgical intervention planned at this time Appreciate Wound Care consultation Local wound care with silver nitrate Appreciate infectious disease consultation. Continue with IV clindamycin and ceftriaxone. He will require 28 days of IV antibiotic therapy per infectious disease specialist, Dr. Archer He does have a history of Clostridium difficile colitis in January 2020. Given his need for extended duration IV antibiotics, will need to be cautious regarding this. Continue with Florastor TID. Appreciate ID recommendations Blood cultures pending; negative to date Analgesics available as needed for pain Remains afebrile. Mild leukocytosis has resolved. CRP improving He will likely need outpatient podiatry follow-up. (2) Bradycardia: Code(s): R00.1 - Bradycardia, unspecified Status: Acute Assessment and Plan: Noted to have some episodes of bradycardia down to 48. He is completely asymptomatic with this. EKG evaluated in light of bradycardia demonstrated atrial flutter with heart rate 74 Check orthostatics (3) Atrial flutter: Code(s): I48.92 - Unspecified atrial flutter Status: Acute Assessment and Plan: Atrial flutter evident on EKG. He does have a history of this. Rate is controlled. His CHADS2-Vasc score is 0. No need to initiate anticoagulation. I spoke with his sister/POA regarding this who reports she does not want to consider anticoagulation as she is concerned about his fall risk. (4) Paranoid schizophrenia: Onset Date: Unknown Code(s): F20.0 - Paranoid schizophrenia Status: Chronic Assessment and Plan: Mood is stable at this time Continue Abilify and clonazepam Continue sertraline Given his psychiatric illness and select cognitive deficit, he will be unable to manage outpatient infusions at home. His family would like to pursue SNF placement while being treated with IV antibiotics. Care coordination aware and following. (5) COPD (chronic obstructive pulmonary disease): Onset Date: Unknown Qualifiers: COPD type: unspecified COPD Qualified Code(s): J44.9 - Chronic obstructive pulmonary disease, unspecified Code(s): J44.9 - Chronic obstructive pulmonary disease, unspecified Status: Chronic Assessment and Plan: Not in acute exacerbation Albuterol p.r.n. (6) Obstructive sleep apnea (adult) (pediatric): Onset Date: Unknown Code(s): G47.33 - Obstructive sleep apnea (adult) (pediatric) Status: Acute Assessment and Plan: CPAP at night (7) Nicotine dependence, unspecified, uncomplicated: Onset Date: Unknown Qualifiers: Nicotine product type: cigarettes Qualified Code(s): F17.210 - Nicotine dependence, cigarettes, uncomplicated Code(s): F17.200 - Nicotine dependence, unspecified, uncomplicated Status: Chronic Assessment and Plan: Patient smokes 1 pack per day Continue with nicotine patch Smoking cessation is imperative. Educated the patient on smoking cessation and this will continue to be reinforced. Subjective Date/time seen: 04/06/21 12:22 Interval history: Date of service: 04/06/2021 Easton Tanner is a 60-year-old male with a history COPD, BEBETO on BiPAP, coronary artery disease, and schizophrenia who is seen in follow-up for osteomyelitis of 1st distal phalanx. He is doing well today. He is not having pain in h
[2021-04-06 12:36] VITALS: BP 139/80
[2021-04-06 16:58] VITALS: BP 111/63; PULSE 63; RESP 14; TEMP 36.7; O2SAT 94
[2021-04-06 21:55] VITALS: BP 111/60; PULSE 72; RESP 20; TEMP 36.6; O2SAT 97
[2021-04-07] VITALS (8 sets, daily range): BP systolic 103–120; BP diastolic 56–70; PULSE 52–62; RESP 18–26; TEMP 36.2–36.5; O2SAT 94–95
--- NOTE | 2021-04-07 01:04 | PCRCNOTE ---
When pt was placed on home BiPAP, it did not appear to be working properly. Although pressures were set at 22/18, the pressures being delivered seemed low and were not changing with inhalation and exhalation. Additionally, the data screens were displaying 0s for all data (RR, Vt, MV, and leak). Pt was placed on a hospital BiPAP with the same settings that are on his home machine and he stated that the pressures felt higher than what he was feeling with his home machine. Pt was advised to get his home health company to look at his machine. Nurse was advised that pt should not wear his home machine while here.
[2021-04-07 06:21] LABS: Hematocrit 40.2 % (42.0-52.0); Hemoglobin 13.4 g/dL (14.0-18.0); Mean Corpuscular HGB Conc 33.3 g/dl (32-36); Mean Corpuscular Hemoglobin 33.2 pg (26-34); Mean Corpuscular Volume 99.5 fl (80-100); Mean Platelet Volume 8.5 fl (7.4-10.4); Platelet Count Result 129 k/mm3 (150-375); Red Blood Count 4.04 M/mm3 (4.6-6.20); Red Cell Distribution Width 13.6 % (11.5-14.5); White Blood Count 7.1 K/mm3 (4.5-10.0)
[2021-04-07] MEDS: CLINDAMYCIN 600 MG/D5W 50 ML 600 MG/50 ML PIGGYBACK 100 MG IVPB ×3 (06:22→17:34)
[2021-04-07 06:34] LABS: Anion Gap 3 mmol/L (8-16); Blood Urea Nitrogen 16 mg/dL (9-20); CRP 3.8 mg/dL (<1.0); Calcium 8.5 mg/dL (8.4-10.2); Carbon Dioxide 32 mmol/L (22-30); Chloride 98 mmol/L (98-107); Estimated CRCL calculation 79 ml/min; Estimated Glomerular Filt Rate > 60; Glucose 92 mg/dL (65-110); Potassium 4.3 mmol/L (3.4-5.0); Sodium 133 mmol/L (137-145)
[2021-04-07] MEDS: SACCHAROMYCES BOULARDII 250 MG CAPSULE PO ×3 (08:41→17:34)
[2021-04-07] MEDS: SILVERGEL (ELTA) 45 ML 1 APPLIC TOPICAL (08:41)
[2021-04-07] MEDS: ENOXAPARIN 40 MG/0.4 ML SYRINGE SUB-Q (08:41)
[2021-04-07] MEDS: NICOTINE (*PBKC) 21 MG PATCH 1 PATCH TRANSDERM (08:41)
[2021-04-07] MEDS: SERTRALINE HCL 50 MG TABLET 150 MG PO (08:42)
[2021-04-07] MEDS: ARIPiprazole 10 MG TABLET 30 MG PO (08:42)
--- NOTE | 2021-04-07 09:18 | P.PNIM_ITS ---
Progress Note: A&P Assessment and Plan (1) Osteomyelitis of great toe of left foot: Code(s): M86.9 - Osteomyelitis, unspecified Status: Acute Assessment and Plan: Presented with left toe pain. He had least recently had excision of ingrown toenail by his audiovisual production specialist. * Foot x-ray showed osteolysis of the 1st distal phalanx with overlying soft tissue swelling compatible with osteomyelitis. * Appreciate general surgery consultation. No obvious drainable fluid collection, therefore no surgical intervention planned at this time * Appreciate Wound Care consultation. Continue local wound care with silver nitrate * Appreciate infectious disease consultation. * Continue with IV clindamycin and ceftriaxone day #3. He will require 28 days of IV antibiotic therapy per infectious disease specialist, Dr. Archer * Blood cultures pending; negative to date * Analgesics available as needed for pain * Remains afebrile. Mild leukocytosis has resolved. CRP improving * He will likely need outpatient podiatry follow-up. (2) Bradycardia: Code(s): R00.1 - Bradycardia, unspecified Status: Acute Assessment and Plan: Noted to have some episodes of bradycardia down to 48. He is completely asymptomatic with this. * EKG evaluated in light of bradycardia demonstrated atrial flutter with heart rate 74 * Continue to monitor with routine vitals checks (3) Atrial flutter: Code(s): I48.92 - Unspecified atrial flutter Status: Acute Assessment and Plan: Atrial flutter evident on EKG. He does have a history of this. * Rate is controlled. * His CHADS2-Vasc score is 0. No need to initiate anticoagulation. (4) Paranoid schizophrenia: Onset Date: Unknown Code(s): F20.0 - Paranoid schizophrenia Status: Chronic Assessment and Plan: Mood is stable at this time * Continue Abilify and clonazepam * Continue sertraline * Given his psychiatric illness and mild cognitive deficit, he will be unable to manage outpatient infusions at home. His family would like to pursue SNF placement while being treated with IV antibiotics. Care coordination aware and following. Insurance authorization pending (5) History of Clostridium difficile colitis: Code(s): Z86.19 - Personal history of other infectious and parasitic diseases Status: Acute Assessment and Plan: January 2020, managed at this facility * Given his need for extended duration IV antibiotics, will need to be cautious regarding this and monitor stool patterns. * Continue with Florastor TID. * Discussed with ID; no need for further prophylaxis given colitis >12 months ago (6) COPD (chronic obstructive pulmonary disease): Onset Date: Unknown Qualifiers: COPD type: unspecified COPD Qualified Code(s): J44.9 - Chronic obstructive pulmonary disease, unspecified Code(s): J44.9 - Chronic obstructive pulmonary disease, unspecified Status: Chronic Assessment and Plan: Not in acute exacerbation * Albuterol p.r.n. (7) Nicotine dependence, unspecified, uncomplicated: Onset Date: Unknown Qualifiers: Nicotine product type: cigarettes Qualified Code(s): F17.210 - Nicotine dependence, cigarettes, uncomplicated Code(s): F17.200 - Nicotine dependence, unspecified, uncomplicated Status: Chronic Assessment and Plan: Patient smokes 1 pack per day * Continue with nicotine patch * Smoking cessation is imperative. Educa
--- NOTE | 2021-04-07 09:18 | PM.IMPN ---
Progress Note: A&P Assessment and Plan (1) Osteomyelitis of great toe of left foot: Code(s): M86.9 - Osteomyelitis, unspecified Status: Acute Assessment and Plan: Presented with left toe pain. He had least recently had excision of ingrown toenail by his certified professional coder. Foot x-ray showed osteolysis of the 1st distal phalanx with overlying soft tissue swelling compatible with osteomyelitis. Appreciate general surgery consultation. No obvious drainable fluid collection, therefore no surgical intervention planned at this time Appreciate Wound Care consultation. Continue local wound care with silver nitrate Appreciate infectious disease consultation. Continue with IV clindamycin and ceftriaxone day #3. He will require 28 days of IV antibiotic therapy per infectious disease specialist, Dr. Archer Blood cultures pending; negative to date Analgesics available as needed for pain Remains afebrile. Mild leukocytosis has resolved. CRP improving He will likely need outpatient podiatry follow-up. (2) Bradycardia: Code(s): R00.1 - Bradycardia, unspecified Status: Acute Assessment and Plan: Noted to have some episodes of bradycardia down to 48. He is completely asymptomatic with this. EKG evaluated in light of bradycardia demonstrated atrial flutter with heart rate 74 Continue to monitor with routine vitals checks (3) Atrial flutter: Code(s): I48.92 - Unspecified atrial flutter Status: Acute Assessment and Plan: Atrial flutter evident on EKG. He does have a history of this. Rate is controlled. His CHADS2-Vasc score is 0. No need to initiate anticoagulation. (4) Paranoid schizophrenia: Onset Date: Unknown Code(s): F20.0 - Paranoid schizophrenia Status: Chronic Assessment and Plan: Mood is stable at this time Continue Abilify and clonazepam Continue sertraline Given his psychiatric illness and mild cognitive deficit, he will be unable to manage outpatient infusions at home. His family would like to pursue SNF placement while being treated with IV antibiotics. Care coordination aware and following. Insurance authorization pending (5) History of Clostridium difficile colitis: Code(s): Z86.19 - Personal history of other infectious and parasitic diseases Status: Acute Assessment and Plan: January 2020, managed at this facility Given his need for extended duration IV antibiotics, will need to be cautious regarding this and monitor stool patterns. Continue with Florastor TID. Discussed with ID; no need for further prophylaxis given colitis >12 months ago (6) COPD (chronic obstructive pulmonary disease): Onset Date: Unknown Qualifiers: COPD type: unspecified COPD Qualified Code(s): J44.9 - Chronic obstructive pulmonary disease, unspecified Code(s): J44.9 - Chronic obstructive pulmonary disease, unspecified Status: Chronic Assessment and Plan: Not in acute exacerbation Albuterol p.r.n. (7) Nicotine dependence, unspecified, uncomplicated: Onset Date: Unknown Qualifiers: Nicotine product type: cigarettes Qualified Code(s): F17.210 - Nicotine dependence, cigarettes, uncomplicated Code(s): F17.200 - Nicotine dependence, unspecified, uncomplicated Status: Chronic Assessment and Plan: Patient smokes 1 pack per day Continue with nicotine patch Smoking cessation is imperative. Educated the patient on smoking cessation and this will continue to be reinforced. (8) Obstructive sleep apnea (adult) (pediatric): Onset Date: Unknown Code(s): G47.33 - Obstructive sleep apnea (adult) (pediatric) Status: Acute Assessment and Plan: CPAP at night Subjective Date/time seen: 04/07/21 09:18 Interval history: Date of service: 04/07/2021 Easton Bari Tanner is a 60-year-old male with a history COPD, OS
[2021-04-07] MEDS: clonazePAM (*CRX) 0.5 MG TABLET PO (10:08)
[2021-04-07] MEDS: ACETAMINOPHEN 325 MG TABLET 650 MG PO (12:00)
[2021-04-08] MEDS: CLINDAMYCIN 600 MG/D5W 50 ML 600 MG/50 ML PIGGYBACK 100 MG IVPB ×4 (00:21→17:09)
[2021-04-08 05:51] LABS: Hematocrit 40.6 % (42.0-52.0); Hemoglobin 13.5 g/dL (14.0-18.0); Immature Platelet Fraction Pct 1.1 % (0.9-11.2); Mean Corpuscular HGB Conc 33.3 g/dl (32-36); Mean Corpuscular Hemoglobin 32.9 pg (26-34); Mean Platelet Volume 8.4 fl (7.4-10.4); Platelet Count Result 153 k/mm3 (150-375); Red Cell Distribution Width 13.5 % (11.5-14.5); White Blood Count 6.6 K/mm3 (4.5-10.0)
[2021-04-08 06:00] VITALS: BP 100/56; PULSE 52; RESP 18; TEMP 36.7; O2SAT 95
[2021-04-08 06:02] LABS: Anion Gap 5 mmol/L (8-16); Blood Urea Nitrogen 21 mg/dL (9-20); Calcium 8.7 mg/dL (8.4-10.2); Carbon Dioxide 30 mmol/L (22-30); Chloride 101 mmol/L (98-107); Estimated CRCL calculation 79 ml/min; Estimated Glomerular Filt Rate > 60; Glucose 93 mg/dL (65-110); Potassium 4.6 mmol/L (3.4-5.0); Sodium 136 mmol/L (137-145)
[2021-04-08 08:00] VITALS: PULSE 52; RESP 18; O2SAT 95
[2021-04-08] MEDS: SILVERGEL (ELTA) 45 ML 1 APPLIC TOPICAL (08:15)
[2021-04-08] MEDS: ARIPiprazole 10 MG TABLET 30 MG PO (08:15)
[2021-04-08] MEDS: SERTRALINE HCL 50 MG TABLET 150 MG PO (08:15)
[2021-04-08] MEDS: NICOTINE (*PBKC) 21 MG PATCH 1 PATCH TRANSDERM (08:15)
[2021-04-08] MEDS: ENOXAPARIN 40 MG/0.4 ML SYRINGE SUB-Q (08:15)
[2021-04-08] MEDS: SACCHAROMYCES BOULARDII 250 MG CAPSULE PO ×3 (08:16→16:34)
[2021-04-08] MEDS: clonazePAM (*CRX) 0.5 MG TABLET PO (08:17)
--- NOTE | 2021-04-08 10:03 | PM.PNGS ---
Progress Note: A&P Assessment and Plan (1) Osteomyelitis of great toe of left foot: Code(s): M86.9 - Osteomyelitis, unspecified Status: Acute Assessment and Plan: much improved, cont local wound care, abx per ID, no acute surgical issues, will sign off, call c ?s, issues, f/u c podiatry as outpt Subjective Subjective Date/Time Seen: 04/08/21 feels much better, reports toe c no pain, drainage Review of Systems Review of Systems: All systems reviewed & are unremarkable except as noted in HPI and below Exam Const: General: cooperative, comfortable and no acute distress Resp: Effort & Inspection: normal respiratory effort Auscultation: clear to auscultation bilaterally Cardio: Rate: regular rate Rhythm: regular rhythm GI: Inspection: normal to inspection GI Palp: Yes Soft to palpation and No Tenderness to palpation present (GI) Skin: Other: L toe - induration much improved, no TTP, no drainage, no fluctuance Objective Data Vital Signs Vital Signs: Vital Signs - 24 hr 04/07/21 10:26 04/07/21 10:27 04/07/21 10:28 Temperature Pulse Rate Respiratory Rate Blood Pressure 114/62 111/70 119/60 Pulse Oximetry 04/07/21 14:00 04/07/21 22:00 04/07/21 23:05 Temperature 36.2 C L 36.5 C Pulse Rate 62 52 L 60 Respiratory Rate 18 18 Blood Pressure 107/65 103/56 L Pulse Oximetry 95 94 95 04/08/21 06:00 Temperature 36.7 C Pulse Rate 52 L Respiratory Rate 18 Blood Pressure 100/56 L Pulse Oximetry 95 Intake/Output Intake/Output: Intake & Output 04/05/21 04/06/21 04/07/21 04/08/21 23:59 23:59 23:59 23:59 Intake Total 2970 2980 1300 570 Balance 2970 2980 1300 570 Meds/Results Medications: Active Medications Generic Name Dose Route Start Last Admin Trade Name Freq PRN Reason Stop Dose Admin Acetaminophen 650 mg 04/05/21 12:49 04/07/21 12:00 Acetaminophen 325 Mg Tablet PO 650 mg Q4H PRN Administration Pain 1-5 Hydrocodone Bitart/Acetaminophen 1 tab 04/05/21 12:49 Hydrocodone/Acetaminophen (*Crx) 5-325 Mg Tablet PO Q4H PRN Pain Rated 6-10 Albuterol 2.5 mg 04/05/21 12:49 Albuterol Sulfate Neb 2.5 Mg/0.5 Ml Inh INHALATION Q4HRT PRN Bronchospasm Aripiprazole 30 mg 04/06/21 09:00 04/08/21 08:15 Aripiprazole 10 Mg Tablet PO 05/06/21 08:59 30 mg DAILY MIREILLE Administration Clonazepam 0.5 mg 04/06/21 09:00 04/08/21 08:17 Clonazepam (*Crx) 0.5 Mg Tablet PO 0.5 mg DAILY MIRE[place]LE Administration Enoxaparin Sodium 40 mg 04/05/21 09:00 04/08/21 08:15 Enoxaparin 40 Mg/0.4 Ml Syringe SUB-Q 40 mg DAILY MIRE[place]LE Administration Ceftriaxone Sodium 2 gm in 100 mls @ 200 mls/hr 04/05/21 21:00 04/07/21 21:00 Rocephin 2 Gm/D5w 100 Ml IVPB Infused Q24H MI[place] Infusion Clindamycin Phosphate 600 mg in 50 mls @ 100 mls/hr 04/05/21 06:00 04/08/21 07:05 Clindamycin 600 Mg/D5w 50 Ml IVPB Infused Q6HR MI[place] Infusion Morphine Sulfate 1 mg 04/05/21 12:49 Morphine Sulfate (*Crx) 4 Mg/Ml Inj IV PUSH Q2H PRN Breakthrough Pain Nicotine 1 patch 04/05/21 09:00 04/08/21 08:15 Nicotine (*Pbkc) 21 Mg Patch TRANSDERM 1 patch QAM MIRE[place] Administration Ondansetron HCl 4 mg 04/05/21 00:47 Ondansetron Inj 4 Mg/2 Ml Vial IV PUSH Q4H PRN Nausea Saccharomyces Boulardii 250 mg 04/05/21 17:00 04/08/21 08:16 Saccharomyces Boulardii 250 Mg Capsule PO 250 mg TID MIREILLE Administration Sertraline HCl 150 mg 04/06/21 09:00 04/08/21 08:15 Sertraline Hcl 50 Mg Tablet PO 150 mg DAILY MIRE[place] Administration Silver Nitrate 1 applic 04/05/21 09:00 04/08/21 08:15 Silvergel (Elta) 45 Ml TOPICAL 1 applic DAILY MIRE[place] Administration Radiology Results: ITS Impressions Foot X-Ray 04/04/21 22:33 Impression: 1: Osteolysis of the first distal phalanx at the tuft with overlying soft tissue swelling, compatible with osteomyelitis. Ankle Brachial Index 04/05/21 15:
--- NOTE | 2021-04-08 10:40 | PC.NURSE ---
verbal consent verified, consent given by sister Justine Tanner, verified by x2 nurses.
[2021-04-08] MEDS: LIDOCAINE HCL 1% PF INJ 5 ML VIAL INFILTRATE (11:10)
--- NOTE | 2021-04-08 11:57 | P.PNIM_ITS ---
Progress Note: A&P Assessment and Plan (1) Osteomyelitis of great toe of left foot: Code(s): M86.9 - Osteomyelitis, unspecified Status: Acute Assessment and Plan: Presented with left toe pain. He had recently had excision of ingrown toenail by his executive talent acquisition consultant. * Foot x-ray showed osteolysis of the 1st distal phalanx with overlying soft tissue swelling compatible with osteomyelitis. * Appreciate general surgery consultation. No obvious drainable fluid collection, therefore no surgical intervention indicated * Appreciate Wound Care consultation. Continue local wound care with silver nitrate * Appreciate infectious disease consultation. * Continue IV ceftriaxone day #4. He will require 28 days of IV antibiotic therapy per infectious disease specialist, Dr. Archer. Will proceed with PICC line placement today * Transition clindamycin to PO. Started on 600 mg PO q.8 hours * Blood cultures pending; negative to date * Analgesics available as needed for pain * He will need outpatient podiatry follow-up. * Care coordination following for placement options while patient is on IV antibiotics (2) Bradycardia: Code(s): R00.1 - Bradycardia, unspecified Status: Acute Assessment and Plan: Noted to have some episodes of bradycardia down to 48. He is completely asymptomatic with this. Heart rate typically 55-60 * EKG evaluated in light of bradycardia demonstrated atrial flutter with heart rate 74 * Continue to monitor with routine vitals checks (3) Atrial flutter: Code(s): I48.92 - Unspecified atrial flutter Status: Acute Assessment and Plan: Atrial flutter evident on EKG. He does have a history of this. * Rate is controlled. * His CHADS2-Vasc score is 0. No need to initiate anticoagulation. (4) Paranoid schizophrenia: Onset Date: Unknown Code(s): F20.0 - Paranoid schizophrenia Status: Chronic Assessment and Plan: Mood is stable at this time * Continue Abilify and clonazepam * Continue sertraline * Given his psychiatric illness and mild cognitive deficit, he will be unable to manage outpatient infusions at home. His family would like to pursue SNF placement while being treated with IV antibiotics. Care coordination aware and following. (5) History of Clostridium difficile colitis: Code(s): Z86.19 - Personal history of other infectious and parasitic diseases Status: Acute Assessment and Plan: January 2020, managed at this facility * Given his need for extended duration IV antibiotics, will need to be cautious regarding this and monitor stool patterns. * Continue with Florastor TID. * Discussed with ID; no need for further prophylaxis given colitis >12 months ago (6) COPD (chronic obstructive pulmonary disease): Onset Date: Unknown Qualifiers: COPD type: unspecified COPD Qualified Code(s): J44.9 - Chronic obstructive pulmonary disease, unspecified Code(s): J44.9 - Chronic obstructive pulmonary disease, unspecified Status: Chronic Assessment and Plan: Not in acute exacerbation * Albuterol p.r.n. (7) Nicotine dependence, unspecified, uncomplicated: Onset Date: Unknown Qualifiers: Nicotine product type: cigarettes Qualified Code(s): F17.210 - Nicotine dependence, cigarettes, uncomplicated Code(s): F17.200 - Nicotine dependence, unspecified, uncomplicated Status: Chronic Assessment and Plan: Patient smokes 1 pack
--- NOTE | 2021-04-08 11:57 | PM.IMPN ---
Progress Note: A&P Assessment and Plan (1) Osteomyelitis of great toe of left foot: Code(s): M86.9 - Osteomyelitis, unspecified Status: Acute Assessment and Plan: Presented with left toe pain. He had recently had excision of ingrown toenail by his therapeutic support staff. Foot x-ray showed osteolysis of the 1st distal phalanx with overlying soft tissue swelling compatible with osteomyelitis. Appreciate general surgery consultation. No obvious drainable fluid collection, therefore no surgical intervention indicated Appreciate Wound Care consultation. Continue local wound care with silver nitrate Appreciate infectious disease consultation. Continue IV ceftriaxone day #4. He will require 28 days of IV antibiotic therapy per infectious disease specialist, Dr. Archer. Will proceed with PICC line placement today Transition clindamycin to PO. Started on 600 mg PO q.8 hours Blood cultures pending; negative to date Analgesics available as needed for pain He will need outpatient podiatry follow-up. Care coordination following for placement options while patient is on IV antibiotics (2) Bradycardia: Code(s): R00.1 - Bradycardia, unspecified Status: Acute Assessment and Plan: Noted to have some episodes of bradycardia down to 48. He is completely asymptomatic with this. Heart rate typically 55-60 EKG evaluated in light of bradycardia demonstrated atrial flutter with heart rate 74 Continue to monitor with routine vitals checks (3) Atrial flutter: Code(s): I48.92 - Unspecified atrial flutter Status: Acute Assessment and Plan: Atrial flutter evident on EKG. He does have a history of this. Rate is controlled. His CHADS2-Vasc score is 0. No need to initiate anticoagulation. (4) Paranoid schizophrenia: Onset Date: Unknown Code(s): F20.0 - Paranoid schizophrenia Status: Chronic Assessment and Plan: Mood is stable at this time Continue Abilify and clonazepam Continue sertraline Given his psychiatric illness and mild cognitive deficit, he will be unable to manage outpatient infusions at home. His family would like to pursue SNF placement while being treated with IV antibiotics. Care coordination aware and following. (5) History of Clostridium difficile colitis: Code(s): Z86.19 - Personal history of other infectious and parasitic diseases Status: Acute Assessment and Plan: January 2020, managed at this facility Given his need for extended duration IV antibiotics, will need to be cautious regarding this and monitor stool patterns. Continue with Florastor TID. Discussed with ID; no need for further prophylaxis given colitis >12 months ago (6) COPD (chronic obstructive pulmonary disease): Onset Date: Unknown Qualifiers: COPD type: unspecified COPD Qualified Code(s): J44.9 - Chronic obstructive pulmonary disease, unspecified Code(s): J44.9 - Chronic obstructive pulmonary disease, unspecified Status: Chronic Assessment and Plan: Not in acute exacerbation Albuterol p.r.n. (7) Nicotine dependence, unspecified, uncomplicated: Onset Date: Unknown Qualifiers: Nicotine product type: cigarettes Qualified Code(s): F17.210 - Nicotine dependence, cigarettes, uncomplicated Code(s): F17.200 - Nicotine dependence, unspecified, uncomplicated Status: Chronic Assessment and Plan: Patient smokes 1 pack per day Continue with nicotine patch Smoking cessation is imperative. Educated the patient on smoking cessation and this will continue to be reinforced. (8) Obstructive sleep apnea (adult) (pediatric): Onset Date: Unknown Code(s): G47.33 - Obstructive sleep apnea (adult) (pediatric) Status: Acute Assessment and Plan: CPAP at night Additional Plan Patient is medically stable for discharge following PICC line pl
--- NOTE | 2021-04-08 13:26 | WPDINFPN2 ---
Progress Note: A&P Assessment and Plan (1) Osteomyelitis of great toe of left foot: Code(s): M86.9 - Osteomyelitis, unspecified Status: Acute Assessment and Plan: L 1st toe OM, normal ABIs. q6-8 hour clinda not possible at [facility] REC Ctx and clinda #5 /28 days, oral clinda ok, amputation if unsuccessful, ok discharge planning, call if Qs Subjective Date/time seen: 04/08/21 13:26 Interval history: patient not seen, chart reviewed Objective Data Vital Signs Vital Signs: Vital Signs - 24 hr 04/07/21 14:00 04/07/21 22:00 04/07/21 23:05 Temperature 36.2 C L 36.5 C Pulse Rate 62 52 L 60 Respiratory Rate 18 18 Blood Pressure 107/65 103/56 L Pulse Oximetry 95 94 95 04/08/21 06:00 Temperature 36.7 C Pulse Rate 52 L Respiratory Rate 18 Blood Pressure 100/56 L Pulse Oximetry 95 Intake/Output Intake/Output: Intake & Output 04/05/21 04/06/21 04/07/21 04/08/21 23:59 23:59 23:59 23:59 Intake Total 2970 2980 1300 570 Balance 2970 2980 1300 570 Meds/Results Medications: Active Medications Generic Name Dose Route Start Last Admin Trade Name Freq PRN Reason Stop Dose Admin Acetaminophen 650 mg 04/05/21 12:49 04/07/21 12:00 Acetaminophen 325 Mg Tablet PO 650 mg Q4H PRN Administration Pain 1-5 Hydrocodone Bitart/Acetaminophen 1 tab 04/05/21 12:49 Hydrocodone/Acetaminophen (*Crx) 5-325 Mg Tablet PO Q4H PRN Pain Rated 6-10 Albuterol 2.5 mg 04/05/21 12:49 Albuterol Sulfate Neb 2.5 Mg/0.5 Ml Inh INHALATION Q4HRT PRN Bronchospasm Aripiprazole 30 mg 04/06/21 09:00 04/08/21 08:15 Aripiprazole 10 Mg Tablet PO 05/06/21 08:59 30 mg DAILY MIREILLE Administration Clonazepam 0.5 mg 04/06/21 09:00 04/08/21 08:17 Clonazepam (*Crx) 0.5 Mg Tablet PO 0.5 mg DAILY MIREILLE Administration Enoxaparin Sodium 40 mg 04/05/21 09:00 04/08/21 08:15 Enoxaparin 40 Mg/0.4 Ml Syringe SUB-Q 40 mg DAILY MIREILLE Administration Ceftriaxone Sodium 2 gm in 100 mls @ 200 mls/hr 04/05/21 21:00 04/07/21 21:00 Rocephin 2 Gm/D5w 100 Ml IVPB Infused Q24H MIRE[place] Infusion Clindamycin Phosphate 600 mg in 50 mls @ 100 mls/hr 04/05/21 06:00 04/08/21 07:05 Clindamycin 600 Mg/D5w 50 Ml IVPB Infused Q6HR [place]RE[place] Infusion Morphine Sulfate 1 mg 04/05/21 12:49 Morphine Sulfate (*Crx) 4 Mg/Ml Inj IV PUSH Q2H PRN Breakthrough Pain Nicotine 1 patch 04/05/21 09:00 04/08/21 08:15 Nicotine (*Pbkc) 21 Mg Patch TRANSDERM 1 patch QAM MIRE[place]LE Administration Ondansetron HCl 4 mg 04/05/21 00:47 Ondansetron Inj 4 Mg/2 Ml Vial IV PUSH Q4H PRN Nausea Saccharomyces Boulardii 250 mg 04/05/21 17:00 04/08/21 12:03 Saccharomyces Boulardii 250 Mg Capsule PO 250 mg TID MIREILLE Administration Sertraline HCl 150 mg 04/06/21 09:00 04/08/21 08:15 Sertraline Hcl 50 Mg Tablet PO 150 mg DAILY MIRE[place]LE Administration Silver Nitrate 1 applic 04/05/21 09:00 04/08/21 08:15 Silvergel (Elta) 45 Ml TOPICAL 1 applic DAILY MIRE[place]LE Administration Sodium Chloride 10 ml 04/08/21 14:00 Central Line Flush IV PUSH Q8HR MIRE[place] Sodium Chloride 10 ml 04/08/21 11:58 Central Line Flush IV PUSH PRN PRN with TPN bag changes Sodium Chloride 20 ml 04/08/21 11:58 Central Line Flush IV PUSH PRN PRN after blood draws Radiology Results: ITS Impressions Foot X-Ray 04/04/21 22:33 Impression: 1: Osteolysis of the first distal phalanx at the tuft with overlying soft tissue swelling, compatible with osteomyelitis. Ankle Brachial Index 04/05/21 15:30 IMPRESSION: 1. No significant arterial occlusive disease. Chest X-Ray 04/08/21 11:55 IMPRESSION: No acute cardiopulmonary findings. PICC line in position. Labs Labs: Laboratory Results - last 24 hr 04/08/21 04/08/21 05:34 05:34 WBC 6.6 RBC 4.10 L Hgb 13.5 L Hct 40.6 L MCV 99.0 MCH 32.9 MCHC 33.3 RDW 13
[2021-04-08 14:53] VITALS: BP 101/62; PULSE 58; RESP 14; TEMP 36.9; O2SAT 94
[2021-04-08] MEDS: CENTRAL LINE FLUSH 10 ML IV PUSH ×2 (15:16→21:20)
[2021-04-08 20:27] VITALS: PULSE 60; RESP 18; O2SAT 94
[2021-04-08 22:00] VITALS: BP 104/66; PULSE 63; RESP 18; TEMP 36.8; O2SAT 97
[2021-04-09] MEDS: CLINDAMYCIN 600 MG/D5W 50 ML 600 MG/50 ML PIGGYBACK 100 MG IVPB ×4 (00:15→16:56)
[2021-04-09 01:32] VITALS: PULSE 62; O2SAT 95
[2021-04-09] MEDS: CENTRAL LINE FLUSH 10 ML IV PUSH ×2 (05:31→13:31)
[2021-04-09 05:43] VITALS: BP 116/70; PULSE 88; RESP 20; TEMP 36.8; O2SAT 93
[2021-04-09 06:33] LABS: Anion Gap 2 mmol/L (8-16); Blood Urea Nitrogen 19 mg/dL (9-20); Calcium 8.4 mg/dL (8.4-10.2); Carbon Dioxide 31 mmol/L (22-30); Chloride 103 mmol/L (98-107); Estimated CRCL calculation 79 ml/min; Estimated Glomerular Filt Rate > 60; Glucose 92 mg/dL (65-110); Potassium 4.3 mmol/L (3.4-5.0); Sodium 136 mmol/L (137-145)
[2021-04-09 06:34] LABS: Hematocrit 39.6 % (42.0-52.0); Hemoglobin 13.3 g/dL (14.0-18.0)
[2021-04-09] MEDS: ENOXAPARIN 40 MG/0.4 ML SYRINGE SUB-Q (08:30)
[2021-04-09] MEDS: SILVERGEL (ELTA) 45 ML 1 APPLIC TOPICAL (08:31)
[2021-04-09] MEDS: ARIPiprazole 10 MG TABLET 30 MG PO (08:32)
[2021-04-09] MEDS: NICOTINE (*PBKC) 21 MG PATCH 1 PATCH TRANSDERM (08:32)
[2021-04-09] MEDS: SERTRALINE HCL 50 MG TABLET 150 MG PO (08:32)
[2021-04-09] MEDS: SACCHAROMYCES BOULARDII 250 MG CAPSULE PO ×3 (08:32→16:55)
[2021-04-09] MEDS: clonazePAM (*CRX) 0.5 MG TABLET PO (08:33)
--- NOTE | 2021-04-09 10:07 | PCNFU ---
Nutrition Follow-Up Complete: Increased protein needs as related to wounds as evidenced by Osteomyelitis of great toe of left foot. Goal: Adequate Intake of at least 75% of meals/supplements. Patient has met current goal. No new goal. Pt current nutrition is Heart Healthy. Last recorded weight is 110 kg, no new weight to report. Bowel Motility:+BM reported 04/08 Labs Reviewed:Na 136, Hct 39.6,Hgb 13.3 Meds Noted:Zoloft, Florastor, Rocephin, Clindamycin, Lovenox Additional Notes: Nutrition follow up. Patient seen today. States to eating well, consuming 100% of meals. Patient is not drinking diet supplement. That has been discontinued. Agree with diet orders. Monitoring: Will monitor every 7 days.
--- NOTE | 2021-04-09 10:43 | PC.NURSE ---
On 04/09/21, the student, [Kasia Chambers ], provided care and completed [facility] documentation on this patient. I have reviewed the student's documentation and agree with the findings.
--- NOTE | 2021-04-09 13:16 | P.PNIM_ITS ---
Progress Note: A&P Assessment and Plan (1) Osteomyelitis of great toe of left foot: Code(s): M86.9 - Osteomyelitis, unspecified Status: Acute Assessment and Plan: Presented with left toe pain. He had recently had excision of ingrown toenail by his grapple operator. * Foot x-ray showed osteolysis of the 1st distal phalanx with overlying soft tissue swelling compatible with osteomyelitis. * Appreciate general surgery consultation. No obvious drainable fluid collection, therefore no surgical intervention indicated * Appreciate Wound Care consultation. Continue local wound care with silver nitrate * Appreciate infectious disease consultation. * Continue IV ceftriaxone day #4. He will require 28 days of IV antibiotic therapy per infectious disease specialist, Dr. Archer. Will proceed with PICC line placement today * Transition clindamycin to PO. Started on 600 mg PO q.8 hours * Blood cultures pending; negative to date * Analgesics available as needed for pain * Awaiting placement (2) Bradycardia: Code(s): R00.1 - Bradycardia, unspecified Status: Acute Assessment and Plan: Noted to have some episodes of bradycardia down to 48. Resolved. * Continue to monitor with routine vitals checks (3) Atrial flutter: Code(s): I48.92 - Unspecified atrial flutter Status: Acute Assessment and Plan: Atrial flutter evident on EKG. Resolved * Rate is controlled. (4) Paranoid schizophrenia: Onset Date: Unknown Code(s): F20.0 - Paranoid schizophrenia Status: Chronic Assessment and Plan: Mood is stable at this time * Continue Abilify and clonazepam * Continue sertraline * Given his psychiatric illness and mild cognitive deficit, he will be unable to manage outpatient infusions at home. * Pt needing SNF placement for ABX infusions (5) History of Clostridium difficile colitis: Code(s): Z86.19 - Personal history of other infectious and parasitic diseases Status: Acute Assessment and Plan: January 2020, managed at this facility * Given his need for extended duration IV antibiotics * Continue with Florastor TID. (6) COPD (chronic obstructive pulmonary disease): Onset Date: Unknown Qualifiers: COPD type: unspecified COPD Qualified Code(s): J44.9 - Chronic obstructive pulmonary disease, unspecified Code(s): J44.9 - Chronic obstructive pulmonary disease, unspecified Status: Chronic Assessment and Plan: Not in acute exacerbation * Albuterol p.r.n. (7) Nicotine dependence, unspecified, uncomplicated: Onset Date: Unknown Qualifiers: Nicotine product type: cigarettes Qualified Code(s): F17.210 - Nicotine dependence, cigarettes, uncomplicated Code(s): F17.200 - Nicotine dependence, unspecified, uncomplicated Status: Chronic Assessment and Plan: Patient smokes 1 pack per day * Continue with nicotine patch * smoking cessation adviced (8) Obstructive sleep apnea (adult) (pediatric): Onset Date: Unknown Code(s): G47.33 - Obstructive sleep apnea (adult) (pediatric) Status: Acute Assessment and Plan: CPAP at night Subjective Date/time seen: 04/09/21 13:16 Interval history: Easton Tanner is a 60-year-old male with a history COPD, BEBETO on BiPAP, coronary artery disease, and schizophrenia who is seen in follow-up for osteomyelitis of left 1st distal phalanx.
--- NOTE | 2021-04-09 13:16 | PM.IMPN ---
Progress Note: A&P Assessment and Plan (1) Osteomyelitis of great toe of left foot: Code(s): M86.9 - Osteomyelitis, unspecified Status: Acute Assessment and Plan: Presented with left toe pain. He had recently had excision of ingrown toenail by his porter marina. Foot x-ray showed osteolysis of the 1st distal phalanx with overlying soft tissue swelling compatible with osteomyelitis. Appreciate general surgery consultation. No obvious drainable fluid collection, therefore no surgical intervention indicated Appreciate Wound Care consultation. Continue local wound care with silver nitrate Appreciate infectious disease consultation. Continue IV ceftriaxone day #4. He will require 28 days of IV antibiotic therapy per infectious disease specialist, Dr. Archer. Will proceed with PICC line placement today Transition clindamycin to PO. Started on 600 mg PO q.8 hours Blood cultures pending; negative to date Analgesics available as needed for pain Awaiting placement (2) Bradycardia: Code(s): R00.1 - Bradycardia, unspecified Status: Acute Assessment and Plan: Noted to have some episodes of bradycardia down to 48. Resolved. Continue to monitor with routine vitals checks (3) Atrial flutter: Code(s): I48.92 - Unspecified atrial flutter Status: Acute Assessment and Plan: Atrial flutter evident on EKG. Resolved Rate is controlled. (4) Paranoid schizophrenia: Onset Date: Unknown Code(s): F20.0 - Paranoid schizophrenia Status: Chronic Assessment and Plan: Mood is stable at this time Continue Abilify and clonazepam Continue sertraline Given his psychiatric illness and mild cognitive deficit, he will be unable to manage outpatient infusions at home. Pt needing SNF placement for ABX infusions (5) History of Clostridium difficile colitis: Code(s): Z86.19 - Personal history of other infectious and parasitic diseases Status: Acute Assessment and Plan: January 2020, managed at this facility Given his need for extended duration IV antibiotics Continue with Florastor TID. (6) COPD (chronic obstructive pulmonary disease): Onset Date: Unknown Qualifiers: COPD type: unspecified COPD Qualified Code(s): J44.9 - Chronic obstructive pulmonary disease, unspecified Code(s): J44.9 - Chronic obstructive pulmonary disease, unspecified Status: Chronic Assessment and Plan: Not in acute exacerbation Albuterol p.r.n. (7) Nicotine dependence, unspecified, uncomplicated: Onset Date: Unknown Qualifiers: Nicotine product type: cigarettes Qualified Code(s): F17.210 - Nicotine dependence, cigarettes, uncomplicated Code(s): F17.200 - Nicotine dependence, unspecified, uncomplicated Status: Chronic Assessment and Plan: Patient smokes 1 pack per day Continue with nicotine patch smoking cessation adviced (8) Obstructive sleep apnea (adult) (pediatric): Onset Date: Unknown Code(s): G47.33 - Obstructive sleep apnea (adult) (pediatric) Status: Acute Assessment and Plan: CPAP at night Subjective Date/time seen: 04/09/21 13:16 Interval history: Easton Tanner is a 60-year-old male with a history COPD, BEBETO on BiPAP, coronary artery disease, and schizophrenia who is seen in follow-up for osteomyelitis of left 1st distal phalanx. Pt seen by Dr Archer will need REC Ctx and clinda # / days. Pt had picc line inserted. Pt will need to go to SNF to complete ABX, awaiting placement. Review of Systems Review of Systems: All systems reviewed & are unremarkable except as noted in HPI and below Exam Narrative: Mr. Tanner comfortable calm mood appropriate conversation Neuro: awake, alert HEENMT: normocephalic, atraumatic, EOMI, sclerae anicteric, moist oral mucosa Neck: supple, no lymphadenopathy Resp
[2021-04-09 14:05] VITALS: BP 113/63; PULSE 58; RESP 18; TEMP 36.6; O2SAT 96
[2021-04-09 22:00] VITALS: BP 103/56; PULSE 60; RESP 16; TEMP 36.1; O2SAT 94
[2021-04-09 23:42] VITALS: PULSE 63; O2SAT 94
[2021-04-10] MEDS: CLINDAMYCIN 600 MG/D5W 50 ML 600 MG/50 ML PIGGYBACK 100 MG IVPB ×5 (00:20→22:29)
[2021-04-10] MEDS: CENTRAL LINE FLUSH 10 ML IV PUSH ×3 (00:23→21:21)
[2021-04-10 03:05] VITALS: PULSE 68; O2SAT 95
[2021-04-10 06:00] VITALS: BP 109/69; PULSE 73; RESP 20; TEMP 36.1; O2SAT 98
[2021-04-10 08:00] VITALS: O2SAT 96
[2021-04-10] MEDS: ARIPiprazole 10 MG TABLET 30 MG PO (09:54)
[2021-04-10] MEDS: SACCHAROMYCES BOULARDII 250 MG CAPSULE PO ×3 (09:54→18:30)
[2021-04-10] MEDS: SERTRALINE HCL 50 MG TABLET 150 MG PO (09:54)
[2021-04-10] MEDS: NICOTINE (*PBKC) 21 MG PATCH 1 PATCH TRANSDERM (09:54)
[2021-04-10] MEDS: ENOXAPARIN 40 MG/0.4 ML SYRINGE SUB-Q (09:55)
[2021-04-10] MEDS: SILVERGEL (ELTA) 45 ML 1 APPLIC TOPICAL (09:55)
[2021-04-10] MEDS: clonazePAM (*CRX) 0.5 MG TABLET PO (10:10)
--- NOTE | 2021-04-10 12:18 | PM.IMPN ---
Progress Note: A&P Assessment and Plan (1) Osteomyelitis of great toe of left foot: Code(s): M86.9 - Osteomyelitis, unspecified Status: Acute Assessment and Plan: Presented with left toe pain. He had recently had excision of ingrown toenail by his research mechanic. Foot x-ray showed osteolysis of the 1st distal phalanx with overlying soft tissue swelling compatible with osteomyelitis. Appreciate general surgery consultation. No obvious drainable fluid collection, therefore no surgical intervention indicated Appreciate Wound Care consultation. Continue local wound care with silver nitrate Appreciate infectious disease consultation. Continue IV ceftriaxone day #6. He will require 28 days of IV antibiotic therapy per infectious disease specialist, Dr. Archer. Will proceed with PICC line placement today Transition clindamycin to PO. Started on 600 mg PO q.8 hours Blood cultures are negative Analgesics available as needed for pain Awaiting placement (2) Bradycardia: Code(s): R00.1 - Bradycardia, unspecified Status: Acute Assessment and Plan: Noted to have some episodes of bradycardia down to 48. Resolved no further episodes. (3) Atrial flutter: Code(s): I48.92 - Unspecified atrial flutter Status: Acute Assessment and Plan: Atrial flutter evident on EKG. Resolved. Rate is controlled (4) Paranoid schizophrenia: Onset Date: Unknown Code(s): F20.0 - Paranoid schizophrenia Status: Chronic Assessment and Plan: Mood is stable at this time Continue Abilify and clonazepam Continue sertraline Given his psychiatric illness and mild cognitive deficit, he will be unable to manage outpatient infusions at home. Pt needing SNF placement for ABX infusions (5) History of Clostridium difficile colitis: Code(s): Z86.19 - Personal history of other infectious and parasitic diseases Status: Acute Assessment and Plan: January 2020, managed at this facility Given his need for extended duration IV antibiotics Continue with Florastor TID. (6) COPD (chronic obstructive pulmonary disease): Onset Date: Unknown Qualifiers: COPD type: unspecified COPD Qualified Code(s): J44.9 - Chronic obstructive pulmonary disease, unspecified Code(s): J44.9 - Chronic obstructive pulmonary disease, unspecified Status: Chronic Assessment and Plan: Not in acute exacerbation Albuterol p.r.n. (7) Nicotine dependence, unspecified, uncomplicated: Onset Date: Unknown Qualifiers: Nicotine product type: cigarettes Qualified Code(s): F17.210 - Nicotine dependence, cigarettes, uncomplicated Code(s): F17.200 - Nicotine dependence, unspecified, uncomplicated Status: Chronic Assessment and Plan: Patient smokes 1 pack per day Continue with nicotine patch Smoking cessation adviced (8) Obstructive sleep apnea (adult) (pediatric): Onset Date: Unknown Code(s): G47.33 - Obstructive sleep apnea (adult) (pediatric) Status: Acute Assessment and Plan: Pt uses CPAP at night Subjective Date/time seen: 04/10/21 12:18 Interval history: Easton Tanner is a 60-year-old male with a history COPD, BEBETO on BiPAP, coronary artery disease, and schizophrenia who is seen in follow-up for osteomyelitis of left 1st distal phalanx. Pt seen by Dr Archer will need REC Ctx and clinda # days. Pt had picc line inserted. Pt will need to go to SNF to complete ABX infusion, awaiting placement. Review of Systems Review of Systems: All systems reviewed & are unremarkable except as noted in HPI and below Exam Narrative: Mr. Tanner comfortable calm mood appropriate conversation Neuro: awake, alert HEENMT: normocephalic, atraumatic, EOMI, sclerae anicteric, moist oral mucosa Neck: supple, no lymphadenopathy Respiratory: clear to ausc
[2021-04-10 14:00] VITALS: BP 104/53; PULSE 50; RESP 16; TEMP 36.4; O2SAT 96
--- NOTE | 2021-04-10 15:53 | PCCCNOTE ---
On 04/10/21, the student, [Kelly Canada ], provided care and completed [facility] documentation on this patient. I have reviewed the student's documentation and agree with the findings.
[2021-04-10] MEDS: ACETAMINOPHEN 325 MG TABLET 650 MG PO (18:38)
[2021-04-10 20:00] VITALS: PULSE 70; RESP 20; O2SAT 99
[2021-04-10 22:00] VITALS: BP 109/69; PULSE 70; RESP 20; TEMP 36.3; O2SAT 99
[2021-04-11 05:53] LABS: Hematocrit 38.2 % (42.0-52.0); Hemoglobin 12.7 g/dL (14.0-18.0); Immature Platelet Fraction Pct 1.1 % (0.9-11.2); Mean Corpuscular HGB Conc 33.2 g/dl (32-36); Mean Corpuscular Hemoglobin 33.1 pg (26-34); Mean Corpuscular Volume 99.5 fl (80-100); Mean Platelet Volume 8.5 fl (7.4-10.4); Platelet Count Result 146 k/mm3 (150-375); Red Blood Count 3.84 M/mm3 (4.6-6.20); Red Cell Distribution Width 13.8 % (11.5-14.5); White Blood Count 5.9 K/mm3 (4.5-10.0)
[2021-04-11 05:56] VITALS: BP 92/47; PULSE 51; RESP 20; TEMP 36.3; O2SAT 95
[2021-04-11] MEDS: CLINDAMYCIN 600 MG/D5W 50 ML 600 MG/50 ML PIGGYBACK 100 MG IVPB (06:20)
[2021-04-11 08:00] VITALS: O2SAT 95
[2021-04-11] MEDS: CENTRAL LINE FLUSH 10 ML IV PUSH ×4 (09:38→21:09)
[2021-04-11] MEDS: ENOXAPARIN 40 MG/0.4 ML SYRINGE SUB-Q (09:38)
[2021-04-11] MEDS: SILVERGEL (ELTA) 45 ML 1 APPLIC TOPICAL (09:38)
[2021-04-11] MEDS: ARIPiprazole 10 MG TABLET 30 MG PO (09:39)
[2021-04-11] MEDS: SERTRALINE HCL 50 MG TABLET 150 MG PO (09:39)
[2021-04-11] MEDS: SACCHAROMYCES BOULARDII 250 MG CAPSULE PO ×3 (09:39→18:34)
[2021-04-11] MEDS: NICOTINE (*PBKC) 21 MG PATCH 1 PATCH TRANSDERM (09:39)
[2021-04-11] MEDS: clonazePAM (*CRX) 0.5 MG TABLET PO (09:42)
[2021-04-11] MEDS: ACETAMINOPHEN 325 MG TABLET 650 MG PO (09:51)
--- NOTE | 2021-04-11 11:50 | P.PNIM_ITS ---
Progress Note: A&P Assessment and Plan (1) Osteomyelitis of great toe of left foot: Code(s): M86.9 - Osteomyelitis, unspecified Status: Acute Assessment and Plan: Presented with left toe pain. He had recently had excision of ingrown toenail by his real estate appraiser supervisor. * Foot x-ray showed osteolysis of the 1st distal phalanx with overlying soft tissue swelling compatible with osteomyelitis. * Appreciate general surgery consultation. No obvious drainable fluid collection, therefore no surgical intervention indicated * Appreciate Wound Care consultation. Continue local wound care with silver nitrate * Appreciate infectious disease consultation. * Continue IV ceftriaxone day #7. He will require 28 days of IV antibiotic therapy per infectious disease specialist, Dr. Archer. PICC line placed on 04/08/21 * Transition clindamycin to PO. Starton 600 mg PO q.8 hours * Blood cultures negative * Analgesics available as needed for pain * He will need outpatient podiatry follow-up. * Care coordination following for placement options. Planning for SNF but awaiting insurance authorization (2) Bradycardia: Code(s): R00.1 - Bradycardia, unspecified Status: Acute Assessment and Plan: Noted to have some episodes of bradycardia down to 48. He is completely asymptomatic with this. Heart rate typically 55-70 * EKG evaluated in light of bradycardia demonstrated atrial flutter with heart rate 74 * Continue to monitor with routine vitals checks (3) Atrial flutter: Code(s): I48.92 - Unspecified atrial flutter Status: Acute Assessment and Plan: Atrial flutter evident on EKG. He does have a history of this. * Rate is controlled. * His CHADS2-Vasc score is 0. No need to initiate anticoagulation. (4) Paranoid schizophrenia: Onset Date: Unknown Code(s): F20.0 - Paranoid schizophrenia Status: Chronic Assessment and Plan: Mood is stable at this time * Continue Abilify and clonazepam * Continue sertraline * Given his psychiatric illness and mild cognitive deficit, he will be unable to manage outpatient infusions at home. SNF placement being pursued given need for IV antibiotics. Care coordination aware and following. (5) History of Clostridium difficile colitis: Code(s): Z86.19 - Personal history of other infectious and parasitic diseases Status: Acute Assessment and Plan: January 2020, managed at this facility * Given his need for extended duration IV antibiotics, will need to be cautious regarding this and monitor stool patterns. * Continue with Florastor TID. * Discussed with ID; no need for further prophylaxis given colitis >12 months ago (6) COPD (chronic obstructive pulmonary disease): Onset Date: Unknown Qualifiers: COPD type: unspecified COPD Qualified Code(s): J44.9 - Chronic obstructive pulmonary disease, unspecified Code(s): J44.9 - Chronic obstructive pulmonary disease, unspecified Status: Chronic Assessment and Plan: Not in acute exacerbation * Albuterol p.r.n. (7) Nicotine dependence, unspecified, uncomplicated: Onset Date: Unknown Qualifiers: Nicotine product type: cigarettes Qualified Code(s): F17.210 - Nicotine dependence, cigarettes, uncomplicated Code(s): F17.200 - Nicotine dependence, unspecified, uncomplicated Status: Chronic Assessment and Plan: Patient smokes 1 pack per day * Continue with nicotine patch
--- NOTE | 2021-04-11 11:50 | PM.IMPN ---
Progress Note: A&P Assessment and Plan (1) Osteomyelitis of great toe of left foot: Code(s): M86.9 - Osteomyelitis, unspecified Status: Acute Assessment and Plan: Presented with left toe pain. He had recently had excision of ingrown toenail by his patch sander. Foot x-ray showed osteolysis of the 1st distal phalanx with overlying soft tissue swelling compatible with osteomyelitis. Appreciate general surgery consultation. No obvious drainable fluid collection, therefore no surgical intervention indicated Appreciate Wound Care consultation. Continue local wound care with silver nitrate Appreciate infectious disease consultation. Continue IV ceftriaxone day #7. He will require 28 days of IV antibiotic therapy per infectious disease specialist, Dr. Archer. PICC line placed on 04/08/21 Transition clindamycin to PO. Starton 600 mg PO q.8 hours Blood cultures negative Analgesics available as needed for pain He will need outpatient podiatry follow-up. Care coordination following for placement options. Planning for SNF but awaiting insurance authorization (2) Bradycardia: Code(s): R00.1 - Bradycardia, unspecified Status: Acute Assessment and Plan: Noted to have some episodes of bradycardia down to 48. He is completely asymptomatic with this. Heart rate typically 55-70 EKG evaluated in light of bradycardia demonstrated atrial flutter with heart rate 74 Continue to monitor with routine vitals checks (3) Atrial flutter: Code(s): I48.92 - Unspecified atrial flutter Status: Acute Assessment and Plan: Atrial flutter evident on EKG. He does have a history of this. Rate is controlled. His CHADS2-Vasc score is 0. No need to initiate anticoagulation. (4) Paranoid schizophrenia: Onset Date: Unknown Code(s): F20.0 - Paranoid schizophrenia Status: Chronic Assessment and Plan: Mood is stable at this time Continue Abilify and clonazepam Continue sertraline Given his psychiatric illness and mild cognitive deficit, he will be unable to manage outpatient infusions at home. SNF placement being pursued given need for IV antibiotics. Care coordination aware and following. (5) History of Clostridium difficile colitis: Code(s): Z86.19 - Personal history of other infectious and parasitic diseases Status: Acute Assessment and Plan: January 2020, managed at this facility Given his need for extended duration IV antibiotics, will need to be cautious regarding this and monitor stool patterns. Continue with Florastor TID. Discussed with ID; no need for further prophylaxis given colitis >12 months ago (6) COPD (chronic obstructive pulmonary disease): Onset Date: Unknown Qualifiers: COPD type: unspecified COPD Qualified Code(s): J44.9 - Chronic obstructive pulmonary disease, unspecified Code(s): J44.9 - Chronic obstructive pulmonary disease, unspecified Status: Chronic Assessment and Plan: Not in acute exacerbation Albuterol p.r.n. (7) Nicotine dependence, unspecified, uncomplicated: Onset Date: Unknown Qualifiers: Nicotine product type: cigarettes Qualified Code(s): F17.210 - Nicotine dependence, cigarettes, uncomplicated Code(s): F17.200 - Nicotine dependence, unspecified, uncomplicated Status: Chronic Assessment and Plan: Patient smokes 1 pack per day Continue with nicotine patch Smoking cessation is imperative. Educated the patient on smoking cessation and this will continue to be reinforced. (8) Obstructive sleep apnea (adult) (pediatric): Onset Date: Unknown Code(s): G47.33 - Obstructive sleep apnea (adult) (pediatric) Status: Acute Assessment and Plan: CPAP at night Subjective Date/time seen: 04/11/21 11:50 Interval history: Date of service: 04/11/2021 Easton Tanner is a 60-yea
[2021-04-11] MEDS: CLINDAMYCIN HCL 150 MG CAP 600 MG PO ×2 (13:28→21:09)
[2021-04-11 14:38] VITALS: BP 107/56; PULSE 52; RESP 16; TEMP 36.3; O2SAT 97
[2021-04-11 19:33] VITALS: PULSE 64; RESP 18; O2SAT 93
[2021-04-11 20:00] VITALS: PULSE 72; RESP 18; O2SAT 96
[2021-04-11] MEDS: WATER FOR IRRIGATION, STERILE 1,000 ML BOTTLE 1000 ML (21:15)
[2021-04-11 22:00] VITALS: BP 107/61; PULSE 72; RESP 18; TEMP 36.7; O2SAT 96
[2021-04-12] MEDS: CLINDAMYCIN HCL 150 MG CAP 600 MG PO ×3 (05:51→22:20)
[2021-04-12] MEDS: ACETAMINOPHEN 325 MG TABLET 650 MG PO (05:53)
[2021-04-12] MEDS: CENTRAL LINE FLUSH 10 ML IV PUSH ×3 (05:55→22:29)
[2021-04-12 06:00] VITALS: BP 113/66; PULSE 52; RESP 18; TEMP 36.2; O2SAT 98
[2021-04-12 06:12] LABS: Hematocrit 38.8 % (42.0-52.0); Hemoglobin 12.9 g/dL (14.0-18.0); Immature Platelet Fraction Pct 1.3 % (0.9-11.2); Mean Corpuscular HGB Conc 33.2 g/dl (32-36); Mean Corpuscular Hemoglobin 32.7 pg (26-34); Mean Corpuscular Volume 98.5 fl (80-100); Mean Platelet Volume 8.4 fl (7.4-10.4); Platelet Count Result 157 k/mm3 (150-375); Red Blood Count 3.94 M/mm3 (4.6-6.20); Red Cell Distribution Width 13.7 % (11.5-14.5); White Blood Count 6.5 K/mm3 (4.5-10.0)
[2021-04-12 06:26] LABS: Anion Gap 4 mmol/L (8-16); Blood Urea Nitrogen 18 mg/dL (9-20); Carbon Dioxide 32 mmol/L (22-30); Chloride 98 mmol/L (98-107); Estimated CRCL calculation 95 ml/min; Estimated Glomerular Filt Rate > 60; Glucose 87 mg/dL (65-110); Potassium 4.2 mmol/L (3.4-5.0); Sodium 134 mmol/L (137-145)
[2021-04-12] MEDS: clonazePAM (*CRX) 0.5 MG TABLET PO (08:59)
[2021-04-12] MEDS: SERTRALINE HCL 50 MG TABLET 150 MG PO (08:59)
[2021-04-12] MEDS: NICOTINE (*PBKC) 21 MG PATCH 1 PATCH TRANSDERM (08:59)
[2021-04-12] MEDS: ENOXAPARIN 40 MG/0.4 ML SYRINGE SUB-Q (08:59)
[2021-04-12] MEDS: SILVERGEL (ELTA) 45 ML 1 APPLIC TOPICAL (08:59)
[2021-04-12] MEDS: ARIPiprazole 10 MG TABLET 30 MG PO (08:59)
[2021-04-12] MEDS: SACCHAROMYCES BOULARDII 250 MG CAPSULE PO ×3 (08:59→16:37)
[2021-04-12 14:00] VITALS: BP 106/59; PULSE 55; RESP 20; TEMP 36.6; O2SAT 100
--- NOTE | 2021-04-12 14:22 | PM.IMPN ---
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 GS consulted, recommendations appreciated No obvious drainable fluid collection, therefore no surgical intervention indicated Wound Care following, continue local wound care with silver nitrate ID following, recommendations appreciated Continue IV ceftriaxone day #8 He will require 28 days of IV antibiotic therapy per infectious disease specialist, Dr. Archer. PICC line placed on 04/08/21 Transitioned to clindamycin to PO-->600 mg PO q.8 hours Blood cultures negative Analgesics available as needed for pain He will need outpatient podiatry follow-up. Care coordination following for placement options. Planning for SNF but awaiting insurance authorization (2) Bradycardia: Code(s): R00.1 - Bradycardia, unspecified Status: Acute Assessment and Plan: Noted to have some episodes of bradycardia down to 48, completely asymptomatic Heart rate typically 50s-70s EKG evaluated in light of bradycardia demonstrated atrial flutter with heart rate 74 Continue to monitor with routine vitals checks (3) Atrial flutter: Code(s): I48.92 - Unspecified atrial flutter Status: Acute Assessment and Plan: Chronic Noted on EKG Rate is controlled His CHADS2-Vasc score is 0 No need to initiate anticoagulation (4) Paranoid schizophrenia: Onset Date: Unknown Code(s): F20.0 - Paranoid schizophrenia Status: Chronic Assessment and Plan: Mood is stable at this time Continue Abilify and clonazepam Continue sertraline Given his psychiatric illness and mild cognitive deficit, he will be unable to manage outpatient infusions at home. SNF placement being pursued given need for IV antibiotics. Care coordination aware and following. (5) History of Clostridium difficile colitis: Code(s): Z86.19 - Personal history of other infectious and parasitic diseases Status: Acute Assessment and Plan: January 2020, managed at this facility Given his need for extended duration IV antibiotics, will need to be cautious regarding this and monitor stool patterns. Continue with Florastor TID. Discussed with ID; no need for further prophylaxis given colitis >12 months ago (6) COPD (chronic obstructive pulmonary disease): Onset Date: Unknown Qualifiers: COPD type: unspecified COPD Qualified Code(s): J44.9 - Chronic obstructive pulmonary disease, unspecified Code(s): J44.9 - Chronic obstructive pulmonary disease, unspecified Status: Chronic Assessment and Plan: Not in acute exacerbation Albuterol p.r.n. (7) Nicotine dependence, unspecified, uncomplicated: Onset Date: Unknown Qualifiers: Nicotine product type: cigarettes Qualified Code(s): F17.210 - Nicotine dependence, cigarettes, uncomplicated Code(s): F17.200 - Nicotine dependence, unspecified, uncomplicated Status: Chronic Assessment and Plan: Patient smokes 1 pack per day Continue with nicotine patch Smoking cessation is imperative Smoking cessation continued to be reinforced (8) Obstructive sleep apnea (adult) (pediatric): Onset Date: Unknown Code(s): G47.33 - Obstructive sleep apnea (adult) (pediatric) Status: Acute Assessment and Plan: CPAP at night Additional Plan Patient is medically stable for discharge following PICC line placement and appropriate arrangements for IV antibiotic infusions Subjective Date/time seen: 04/12/21 14:22 Interval history: pt seen and evaluated; no new complaints; placement pending Review of Syst
[2021-04-12 20:00] VITALS: PULSE 64; RESP 18; O2SAT 95
[2021-04-12 20:52] VITALS: PULSE 62; RESP 18; O2SAT 94
[2021-04-12 21:37] VITALS: BP 94/44; PULSE 59; RESP 18; TEMP 37.4; O2SAT 94
[2021-04-12 22:38] VITALS: PULSE 64; O2SAT 95
[2021-04-13] MEDS: CLINDAMYCIN HCL 150 MG CAP 600 MG PO ×2 (05:19→13:01)
[2021-04-13 06:00] VITALS: BP 109/67; PULSE 56; RESP 18; TEMP 36.4; O2SAT 93
[2021-04-13] MEDS: clonazePAM (*CRX) 0.5 MG TABLET PO (08:35)
[2021-04-13] MEDS: SACCHAROMYCES BOULARDII 250 MG CAPSULE PO ×2 (08:35→13:01)
[2021-04-13] MEDS: SERTRALINE HCL 50 MG TABLET 150 MG PO (08:35)
[2021-04-13] MEDS: ENOXAPARIN 40 MG/0.4 ML SYRINGE SUB-Q (08:35)
[2021-04-13] MEDS: NICOTINE (*PBKC) 21 MG PATCH 1 PATCH TRANSDERM (08:35)
[2021-04-13] MEDS: SILVERGEL (ELTA) 45 ML 1 APPLIC TOPICAL (08:35)
[2021-04-13] MEDS: ARIPiprazole 10 MG TABLET 30 MG PO (08:36)
[2021-04-13] MEDS: CENTRAL LINE FLUSH 10 ML IV PUSH ×2 (08:36→13:01)
--- NOTE | 2021-04-13 12:52 | PM.DS ---
DS: Admitting Diagnosis Discharge Date 04/13/2021 Admitting Diagnosis Left toe swelling DS: Discharge Diagnosis Discharge Diagnosis (1) Osteomyelitis of great toe of left foot: Code(s): M86.9 - Osteomyelitis, unspecified Status: Acute Assessment and Plan: Presented with left toe pain He had recently had excision of ingrown toenail by his channel turner Foot x-ray showed osteolysis of the 1st distal phalanx with overlying soft tissue swelling compatible with osteomyelitis. GS consulted, recommendations appreciated No obvious drainable fluid collection, therefore no surgical intervention indicated Wound Care following, continue local wound care with silver nitrate ID following, recommendations appreciated Continue IV ceftriaxone He will require 28 days of IV antibiotic therapy per infectious disease specialist, Dr. Archer. PICC line placed on 04/08/21 Transitioned to clindamycin to PO-->600 mg PO q 8 hours Blood cultures negative Analgesics available as needed for pain He will need outpatient podiatry follow-up D/c SNF (2) Bradycardia: Code(s): R00.1 - Bradycardia, unspecified Status: Acute Assessment and Plan: Noted to have some episodes of bradycardia down to 48, completely asymptomatic Heart rate typically 50s-70s EKG evaluated in light of bradycardia demonstrated atrial flutter with heart rate 74 Continue to monitor with routine vitals checks (3) Atrial flutter: Code(s): I48.92 - Unspecified atrial flutter Status: Acute Assessment and Plan: Chronic Noted on EKG Rate is controlled His CHADS2-Vasc score is 0 No need to initiate anticoagulation (4) Paranoid schizophrenia: Onset Date: Unknown Code(s): F20.0 - Paranoid schizophrenia Status: Chronic Assessment and Plan: Mood is stable at this time Continue Abilify and clonazepam Continue sertraline Given his psychiatric illness and mild cognitive deficit, he will be unable to manage outpatient infusions at home SNF placement given need for IV antibiotics (5) History of Clostridium difficile colitis: Code(s): Z86.19 - Personal history of other infectious and parasitic diseases Status: Acute Assessment and Plan: January 2020, managed at this facility Given his need for extended duration IV antibiotics, will need to be cautious regarding this and monitor stool patterns. Continue with Florastor TID Discussed with ID; no need for further prophylaxis given colitis >12 months ago (6) COPD (chronic obstructive pulmonary disease): Onset Date: Unknown Qualifiers: COPD type: unspecified COPD Qualified Code(s): J44.9 - Chronic obstructive pulmonary disease, unspecified Code(s): J44.9 - Chronic obstructive pulmonary disease, unspecified Status: Chronic Assessment and Plan: Not in acute exacerbation Albuterol p.r.n. (7) Nicotine dependence, unspecified, uncomplicated: Onset Date: Unknown Qualifiers: Nicotine product type: cigarettes Qualified Code(s): F17.210 - Nicotine dependence, cigarettes, uncomplicated Code(s): F17.200 - Nicotine dependence, unspecified, uncomplicated Status: Chronic Assessment and Plan: Patient smokes 1 pack per day Continue with nicotine patch Smoking cessation is imperative Smoking cessation continued to be reinforced (8) Obstructive sleep apnea (adult) (pediatric): Onset Date: Unknown Code(s): G47.33 - Obstructive sleep apnea (adult) (pediatric) Status: Acute Assessment and Plan: CPAP at night DS: Summary Hospital Course Hospital Course: 60-year-old male with past medical history significant for paranoid schizophrenia, cognitive impairment, obstructive sleep apnea on CPAP at nighttime, tobacco dependence. Patient was brought to the emergency room due to left toe swelling tenderness redness purulent discharge. The day before, the patient was vis
[2021-04-13 13:21] LABS: EDCOVIDSCREEN Negative (Negative)
[2021-04-13 14:00] VITALS: BP 116/63; PULSE 71; RESP 16; TEMP 36.5; O2SAT 96
== END 2021-04-13 14:30 | DRG 540 ==
LOC: ANHED 22:55 → ANH3MEDSUR 04-05 02:24
PROVIDERS: Family Medicine; Nurse Practitioner Adult Health; Physician Assistant; Admitting Provider Internal Medicine; Emergency Provider Emergency Medicine; PCP Internal Medicine; Visit Provider Internal Medicine
DX: M86.172 Other acute osteomyelitis, left ankle and foot (principal); I48.92 Unspecified atrial flutter; F20.0 Paranoid schizophrenia; Z20.822 Contact with and (suspected) exposure to COVID-19; J44.9 Chronic obstructive pulmonary disease, unspecified; G47.33 Obstructive sleep apnea (adult) (pediatric); N40.0 Benign prostatic hyperplasia without lower urinary tract symptoms; I25.10 Atherosclerotic heart disease of native coronary artery without angina pectoris; R00.1 Bradycardia, unspecified; E78.5 Hyperlipidemia, unspecified; M72.0 Palmar fascial fibromatosis [Dupuytren]; F17.210 Nicotine dependence, cigarettes, uncomplicated; Z86.19 Personal history of other infectious and parasitic diseases; I25.2 Old myocardial infarction
CPT/HCPCS: 36415; 36569; 73630; 80048; 80053; 85014; 85018; 85025; 85027; 85055; 85652; 86140; 87040; 87426; 93005; 93922; 94640; 94660; 96365; 96366; 96368; 96372; 97110; 97116; 97161; 97165; 97535; 99285; A9270; C1751; C9803; G0378; J0696; J1650

== ENCOUNTER 2022-01-26 12:26 | Outpatient (CLI) | payer MEDICARE, MEDICAID, SELFPAY ==
--- NOTE | ~2022-01-26 | MR_ITS ---
EXAMINATION: MR foot LT wo con DATE: 01/26/2022 13:15 INDICATION: Osteomyelitis of the great toe TECHNIQUE: Magnetic resonance imaging (MRI) of the left fore/mid foot was performed without intraveno us contrast. Sequences included sagittal T1-weighted FSE, sagittal fluid sensitive FSE STIR, coronal PD-weighted FS FSE, coronal T1-weighted FSE, axial PD-weighted FS FSE, and axial PD-weighted FSE. COMPARISON: Left foot radiographs dated 04/04/2021 FINDINGS: Curvilinear sclerosis surrounding a T2 hyperintense cystic-appearing region at the the distal tip of the tuft of the left first distal phalanx. There is surrounding marrow edema and geographic loss of T 1 fat signal at the distal third of the left first distal phalanx. On the axial fat saturated sequenc e there appears to be a focal tiny defect in the dorsal cortex underlying the nail bed of the great t oe. There appears to be elevation of the nail with possible 2-3 mm thick region of heterogeneous mild ly increased T2 and PD weighted signal. Constellation of findings consistent with ongoing chronic ost eomyelitis with a likely Nitesh's abscess at the tip of the tuft and possible sinus tract extending t o the subungual space. Bone marrow signal in the remainder of the left forefoot is normal. Mild osteo arthritis at the first metatarsophalangeal, the first interphalangeal and a few of the tarsal metatar brandyn joints. No joint effusions, soft tissue abscess or other abnormal fluid collections. The flexor a nd extensor tendons are normal. The collateral ligament complex at the metatarsophalangeal and interp halangeal joints are normal. IMPRESSION: 1. Likely acute on chronic osteomyelitis at the distal third of the left first distal phalanx with herrmann ggestion of possible intraosseous Nitesh's abscess at the distal tip of the tuft and likely sinus tra ct communicating with the mildly widened subungual space is concerning for subungual abscess. Reviewed, dictated and finalized at location A. IMPRESSION: 1. Likely acute on chronic osteomyelitis at the distal third of the left first distal phalanx with suggestion of possible intraosseous Nitesh's abscess at the distal tip of the tuft and likely sinus tract communicating with the mildly wi dened subungual space is concerning for subungual abscess.
== END 2022-01-26 12:27 | disposition home or self-care (01) ==
PROVIDERS: PCP Internal Medicine; Visit Provider Internal Medicine
DX: M86.9 Osteomyelitis, unspecified (principal)
CPT/HCPCS: 73718

== ENCOUNTER 2022-02-04 10:28 | Outpatient (CLI) | payer MEDICARE, MEDICAID, SELFPAY ==
[2022-02-04 12:12] LABS: Alanine Aminotransferase 19 U/L (6-50); Albumin Level 3.9 g/dL (3.5-5.1); Alkaline Phosphatase 100 U/L (38-126); Anion Gap 9 mmol/L (8-16); Aspartate Amino Transferase 25 U/L (17-59); Bilirubin,Total 0.9 mg/dL (0.2-1.3); Blood Urea Nitrogen 33 mg/dL (9-20); Calcium 8.8 mg/dL (8.4-10.2); Carbon Dioxide 28 mmol/L (22-30); Chloride 100 mmol/L (98-107); Cholesterol 134 mg/dL (0-200); Estimated Glomerular Filt Rate > 60; Glucose 83 mg/dL (65-110); HDL Direct 35 mg/dL; Potassium 4.7 mmol/L (3.4-5.0); Sodium 137 mmol/L (137-145); Triglycerides 40 mg/dL (<150)
[2022-02-04 12:23] LABS: LDL Cholesterol Direct 82 mg/dL
[2022-02-04 12:42] LABS: Prostate Specific Antigen 0.7 ng/mL (< OR = 4.0)
== END 2022-02-04 10:29 | disposition home or self-care (01) ==
LOC: ANHLAB 10:30
PROVIDERS: PCP Internal Medicine; Visit Provider Internal Medicine
DX: E78.5 Hyperlipidemia, unspecified (principal); E78.49 Other hyperlipidemia; I25.10 Atherosclerotic heart disease of native coronary artery without angina pectoris; Z12.5 Encounter for screening for malignant neoplasm of prostate
CPT/HCPCS: 36415; 80053; 80061; 84153; G0103

== ENCOUNTER 2022-02-13 13:11 | Outpatient (CLI) | payer MEDICARE, MEDICAID, SELFPAY ==
--- NOTE | ~2022-02-13 | CT_ITS ---
EXAMINATION:CT lung screening DATE: 02/13/2022 13:34 INDICATION: Tobacco use. 60 pack year history. TECHNIQUE: Computed tomography (CT) of the chest was performed without intravenous contrast. Automate d exposure control and iterative reconstruction technique were employed. The dose-length product (DLP ) was 342.81 mGy-cm. COMPARISON: Chest CT 01/14/2020 FINDINGS: There is mild emphysema. There is stable mild scarring at the lung apices. There is mild at electasis bilaterally. There is chronic mild elevation of right hemidiaphragm. No pleural effusion. T he heart size is normal. There are coronary artery calcifications. No pericardial effusion. There are gallstones in the gallbladder, which is normal in size. There are bridging endplate osteophytes at m ultiple levels in the spine, consistent with diffuse idiopathic skeletal hyperostosis (DISH). There i s severe thoracic spondylosis. IMPRESSION: 1. Lung-RADS category 2: Benign appearance or behavior. Continue annual screening with noncontrast lo w-dose chest CT in 12 months. Reviewed, dictated and finalized at location A. IMPRESSION: 1. Lung-RADS category 2: Benign appearance or behavior. Continue annual screeni ng with noncontrast low-dose chest CT in 12 months.
== END 2022-02-13 13:12 | disposition home or self-care (01) ==
PROVIDERS: PCP Internal Medicine; Visit Provider Nurse Practitioner Family
DX: Z12.2 Encounter for screening for malignant neoplasm of respiratory organs (principal); Z87.891 Personal history of nicotine dependence
CPT/HCPCS: 71271

== ENCOUNTER 2022-05-08 01:23 | Day surgery (SDC) | payer MEDICARE, MEDICAID, SELFPAY ==
[2022-05-07 14:39] VITALS: BMI 40.7
[2022-05-08] VITALS (10 sets, daily range): BP systolic 105–131; BP diastolic 63–72; PULSE 34–44; RESP 13–21; TEMP 36.4; O2SAT 95–100; BMI 41.9
[2022-05-08 08:51] LABS: Basophils Percent Auto 0.8 % (0.2-1.2); Eosinophils Absolute Auto 0.3 K/mm3 (0-0.3); Eosinophils Percent Auto 5.5 % (0-4.4); Hematocrit 38.2 % (42.0-52.0); Hemoglobin 12.8 g/dL (14.0-18.0); Immature Granulocyte Absolute 0.02 K/mm3 (0.00-0.031); Immature Granulocyte Percent A 0.4 % (0-0.5); Immature Platelet Fraction Pct 0.9 % (0.9-11.2); Lymphocytes Absolute Auto 1.04 K/mm3 (0.9-3.2); Lymphocytes Percent Auto 20.3 % (18.3-44.2); Mean Corpuscular HGB Conc 33.5 g/dl (32-36); Mean Corpuscular Hemoglobin 32.5 pg (26-34); Mean Platelet Volume 8.5 fl (7.4-10.4); Monocytes Absolute Auto 0.4 K/mm3 (0.1-0.6); Monocytes Percent Auto 7.8 % (2.6-8.5); Neutrophils Absolute Auto 3.4 K/mm3 (1.3-6.7); Neutrophils Percent Auto 65.2 % (45.5-73.1); Platelet Count Result 127 k/mm3 (150-375); Red Blood Count 3.94 M/mm3 (4.6-6.20); Red Cell Distribution Width 13.8 % (11.5-14.5); White Blood Count 5.1 K/mm3 (4.5-10.0)
[2022-05-08 09:05] LABS: Anion Gap 7 mmol/L (8-16); Blood Urea Nitrogen 33 mg/dL (9-20); Calcium 8.7 mg/dL (8.4-10.2); Carbon Dioxide 28 mmol/L (22-30); Chloride 104 mmol/L (98-107); Estimated CRCL calculation 72 ml/min; Estimated Glomerular Filt Rate > 60; Glucose 92 mg/dL (65-110); Potassium 4.8 mmol/L (3.4-5.0); Sodium 139 mmol/L (137-145)
--- NOTE | 2022-05-08 09:13 | ECG_ITS ---
Measurements Intervals [place] Rate: 34 P: NV: 0 QRS: 27 QRSD: 110 T: 59 QT: 510 QTc: 386 Interpretive Statements ATRIAL FLUTTER/TACHYCARDIA WITH SLOW VENTRICULAR RESPONSE LOW QRS VOLTAGE IN PRECORDIAL LEADS [QRS DEFLECTION < 1.0 mV IN CHEST LEADS] MODERATE T-WAVE ABNORMALITY, CONSIDER ANTERIOR ISCHEMIA [-0.1+ mV T WAVE IN V3/V4] ABNORMAL ECG COMPARED TO ECG 04/05/2021 16:02:56 NO SIGNIFICANT CHANGES Electronically Signed On 05-08-2022 11:25:32 DIGITAL PRODUCT MANAGER by Steve Villegas M.D.
--- NOTE | 2022-05-08 09:36 | WPDHPUPDATE1 ---
History and Physical Update Update Date/Time: 05/08/22 09:36 History and Physical has been reviewed, including an updated exam of the patient. There are NO changes in the patient's condition. Risks, benefits, and alternatives have been discussed and questions answered. Patient agrees to proceed with procedure.
--- NOTE | 2022-05-08 09:37 | WPDMODSED ---
Moderate Sedation Note-Pt Data Patient Data Diagnosis: Abnormal stress test Present Complaint: Abnormal stress test Procedure to be performed/Plan: Coronary angiography, C Allergies Allergy/AdvReac Type Severity Reaction Status Date / Time aspirin Allergy Severe Anaphylactic Verified 05/08/22 08:42 Shock Home Medications Medication Instructions Recorded Confirmed Type aripiprazole 30 mg tablet 30 mg PO DAILY 11/12/20 05/08/22 History clonazepam 0.5 mg tablet 0.5 mg PO DAILY 11/12/20 05/08/22 History sertraline 100 mg tablet 150 mg PO DAILY 11/12/20 05/08/22 History Probiotic 1 cap PO DAILY 05/07/22 05/08/22 History diclofenac sodium 75 mg 75 mg PO BID 05/07/22 05/08/22 History tablet,delayed release Current Medications: Active Medications Sodium Chloride (Normal Saline Iv) 500 mls @ 100 mls/hr IV CONT .Q5H [place] Sedation/Anesthesia: No previous sedation/anesthesia problems (including family history). [facility] Past Medical History Medical History Asymptomatic cholelithiasis Atrial flutter Benign prostatic hyperplasia Body mass index 40.0-44.9, adult Chronic pain COPD (chronic obstructive pulmonary disease) (Unknown) [id number] obstructive ventilatory defect with severe small airway disease pattern no acute bronchodilator response and mildly decreased DLCO noted on pulmonary function testing from 2014. Hematuria History of Clostridium difficile colitis History of myocardial infarction (Unknown) With stress test November 2019 demonstrating 2 fixed perfusion defects small mild area of apical septal segment defect in left ventricle, moderate sized area of mild infarct involving apical inferior apical lateral and mid inferior lateral segment of the left ventricle, ejection fraction of 70%. Hyperlipidemia Nicotine dependence, unspecified, uncomplicated (Unknown) Obstructive sleep apnea treated with BiPAP Settings of 25/20 according to sleep study in February 2010. Paranoid schizophrenia (Unknown) Right heart failure with reduced right ventricular function Echocardiogram November 2019 demonstrated reduced right ventricular systolic function and mild enlargement, mild left ventricular enlargement, EF 55-60%, indeterminate diastolic function, mild left atrial enlargement, mild mitral valve regurgitation, small pericardial effusion Surgical History Surgical History History of inguinal herniorrhaphy As a child. Family History Family History Sibling Healthy female adult Reportedly both of the patient's sisters are healthy. Social History Social History Social History: Surrogate decision maker: Mesha Tanner, sister. Code status: Full code. Smoking packs per day: 1 Smoking cigarettes per day: 20.0 Years smoked: 43 Smoking pack-years: 43.00 Smoking status: Former smoker Tobacco type: cigarettes Second hand tobacco smoke exposure: No Smoking end date: 02/05/22 Alcohol intake: never Substance use: never Substance use type: does not use Living arrangements: other Additional living arrangements comments: Senior disable apartment building. Sister helps and checks on him frequently Additional occupation/education comments: Disabled due to paranoid schizophrenia. Gender identity (if verbalized by the patient): Male Spiritual care concerns: No Mod Sed Physical Exam Physical Exam Pre Procedural Exam: Normal: Appearance, Lungs, Neuro Exam, Abdomen, Extremities and Skin and Variation: Heart Rate (Bradycardic) and Heart Rhythm (Atrial flutter) Hours since solid foods: 12 Hours since liquid intake: 8 Mallampati Classification: class III Internal Medicine - PN: Obj Da Vital Signs Vital Signs: Vital Signs - 24 hr 05/08/22 08:45 Temperature 36.4 C L Pulse Rate 35
--- NOTE | 2022-05-08 10:52 | WPDCARDPROC ---
Cardiac Cath Procedure Note Date of procedure:: 05/08/22 Performing physician:: CATHETERIZATION LABORATORY REPORT Procedure Date: 05/08/2022 Area Secretary: Marcus Juarez M.D., [facility]? Referring Physician: Dr. Stas Villegas M.D. ? Anesthesia: Versed and Fentanyl were ordered and given in my presence at 10:17, procedure ended at 10:43. Supervision of nurse monitored moderate sedation with Versed and Fentanyl was provided for 26 minutes. Total of Versed 1mg and Fentanyl 25mcg were administered by the Platform Worker RN Rani Quintanilla. Pre-op Diagnosis: Coronary artery disease Post-op Diagnosis: Non-obstructive coronary arteries. Left dominant system. Sluggish flow noted in epicardial coronary arteries Left ventricular end-diastolic pressure of 21mmHg Procedure(s): Left heart catheterization with coronary angiography Access Site: Right radial artery Brief History and Clinical Indications: Patient is a 61-year-old male who is referred for coronary angiography for abnormal stress test. All risks, benefits and alternatives to left heart catheterization with or without percutaneous coronary intervention was discussed at length with the patient. Risk of complications including but not limited to bleeding, infection, arrhythmia, stroke, worsening kidney function, blood loss, groin hematoma, limb loss, emergency coronary artery bypass grafting, and even were discussed with the patient and all questions were answered. The patient understood and wished to proceed. Time out called, patient name, date of , medical record number, allergies, procedure performed, identify Area Secretary, patient and staff member concurred with accurate data, procedure carried on. Findings: LEFT HEART CATHETERIZATION FINDINGS: 1. Left main: The left main coronary artery is widely patent without any significant obstructive disease. 2. Left anterior descending: The LAD and the diagonal branches have mild luminal irregularities without any significant obstructive angiographic disease. 3. Left circumflex: The left circumflex artery and the main marginal branches have mild luminal irregularities without any significant obstructive angiographic disease. The left circumflex artery is the dominant vessel. 4. Right coronary artery: The RCA has mild luminal irregularities without any significant obstructive angiographic disease. The RCA is the non-dominant vessel. 5. Left ventricle: A. End-diastolic pressure 21mmHg. B. LV gram deferred. C. No significant gradient across aortic valve on catheter pullback. Description of Procedure: Informed consent signed and placed in the chart. Patient transferred to research laboratory specialist room. Prepped and draped in usual sterile fashion. 2% lidocaine injected subcutaneously in right wrist area. 22-gauge venipuncture catheter used to access the right radial artery with the Seldinger technique. 6-FR slender sheath placed in right radial artery. Nitroglycerine and Verapamil were given intraarterial through the sheath. Versacore wire advanced under fluoroscopy 5F Tig 4 diagnostic catheter engaged Left Main Coronary Artery. 5F Tig 4 diagnostic catheter engaged Right Coronary Artery Multiple orthogonal angiogram obtained and reviewed 5F Tig 4 diagnostic catheter crossed aortic valve to obtain LVEDP, LV angiogram deferred. Hemostasis was achieved by application of TR band. ? Assessment: Non-obstructive coronary arteries. Left dominant system. Sluggish flow noted in epicardial coronary arteries Left ventricular end-diastolic pressure of 21mmHg Post Operative Condition: Stable No significant blood loss Disposition: Home Plan: The patient will be monitored in the recovery area. Discharge home after post-cath bed rest is completed. The above findings were discussed with the referring physician. Continue aggressive medical therapy and risk factor modification. ? Marcus Juarez M.D. Interventional Cardiology
--- NOTE | 2022-05-08 13:00 | SUR.PHASEII ---
Education given to patient and sister. Questions answered. Discharge completed. Pt assisted with changing. Assisted to wheelchair. Escorted to [address] via wheelchair for heart monitor. Checked in with hospital receptionist, pt safe and given clear to leave by RN.
== END 2022-05-08 13:15 | disposition home or self-care (01) ==
PROVIDERS: PCP Internal Medicine; Visit Provider Internal Medicine
PROC: 4A023N7 Measurement of Cardiac Sampling and Pressure, Left Heart, Percutaneous Approach (ICD-10-PCS; CPT 93452; principal; 2022-05-08 10:00)
DX: I25.10 Atherosclerotic heart disease of native coronary artery without angina pectoris (principal); R94.39 Abnormal result of other cardiovascular function study; I50.810 Right heart failure, unspecified; I48.3 Typical atrial flutter; I25.2 Old myocardial infarction; E78.5 Hyperlipidemia, unspecified; J44.9 Chronic obstructive pulmonary disease, unspecified; G47.33 Obstructive sleep apnea (adult) (pediatric); Z87.891 Personal history of nicotine dependence; E66.01 Morbid (severe) obesity due to excess calories; Z68.41 Body mass index [BMI] 40.0-44.9, adult
CPT/HCPCS: 36415; 80048; 85025; 85055; 93005; 93458; C1769; C1887; C1894; J1644; J2250; J3010; J7040

== ENCOUNTER 2022-06-05 10:40 | Emergency (ER) | payer MEDICARE, MEDICAID, SELFPAY ==
--- NOTE | ~2022-06-05 | XR_ITS ---
Clinical Indication: Cough, Covid 19 positive PA and lateral views of the chest: Comparison: 04/08/2021 Findings: The lungs are clear, without evidence of focal consolidation or pleural effusion. Cardiome diastinal silhouette is within normal limits. Bones and soft tissues are unremarkable. Impression: Normal chest. Reviewed, dictated and finalized at location . 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
--- NOTE | 2022-06-05 10:51 | ED.URI ---
HPI - URI/Sore Throat General Chief Complaint: Upper Respiratory Infection Stated Complaint: covid Time Seen by Provider: 06/05/22 10:51 Source: patient, RN notes reviewed and old records reviewed Mode of arrival: ambulatory Limitations: no limitations History of Present Illness HPI Narrative: 61-year-old male presents to the [facility] with Sister, tested positive for COVID yesterday. Symptoms for over 1 week. Has not been taking his probiotic. Has declined taking ibuprofen from his sister. Has been taking Mucinex 1 time a day Related Data Home Medications Medication Instructions Recorded Confirmed aripiprazole 30 mg tablet 30 mg PO DAILY 11/12/20 06/05/22 clonazepam 0.5 mg tablet 0.5 mg PO DAILY 11/12/20 06/05/22 sertraline 100 mg tablet 150 mg PO DAILY 11/12/20 06/05/22 Probiotic 1 cap PO DAILY 05/07/22 06/05/22 Allergies Allergy/AdvReac Type Severity Reaction Status Date / Time aspirin Allergy Severe Anaphylactic Verified 06/05/22 10:55 Shock Review of Systems Review of Systems: All systems reviewed & are unremarkable except as noted in HPI and below Constitutional: Constitutional: Reports as per HPI Eyes: Eyes: Reports no additional eye complaints ENT: Reports system reviewed and no additional complaints, except as documented Cardiovascular: Cardiovascular: Reports no additional cardiovascular complaints, Denies chest pain and Denies dyspnea Respiratory: Respiratory: Reports as per HPI, Denies chest congestion, Reports cough and Denies dyspnea Gastrointestinal: Gastrointestinal: Reports no additional gastrointestinal complaints, Denies abdominal pain, Denies nausea and Denies vomiting Musculoskeletal: Musculoskeletal: Reports no additional musculoskeletal complaints Integumentary/Breasts: Skin/Breast: Reports system reviewed and no additional complaints, except as docu Neurologic: Reports system reviewed and no additional complaints, except as documented Psychiatric: Psychiatric: Reports no additional psychiatric complaints Allergic/Immunologic: Allergic/Immunologic: Reports no additional allergic/immunologic complaints [facility] Past Medical History Medical History Asymptomatic cholelithiasis Atrial flutter Benign prostatic hyperplasia Body mass index 40.0-44.9, adult Chronic pain COPD (chronic obstructive pulmonary disease) (Unknown) Tlfy-gk-ndutbjpk obstructive ventilatory defect with severe small airway disease pattern no acute bronchodilator response and mildly decreased DLCO noted on pulmonary function testing from 2014. Hematuria History of Clostridium difficile colitis History of myocardial infarction (Unknown) With stress test November 2019 demonstrating 2 fixed perfusion defects small mild area of apical septal segment defect in left ventricle, moderate sized area of mild infarct involving apical inferior apical lateral and mid inferior lateral segment of the left ventricle, ejection fraction of 70%. Hyperlipidemia Nicotine dependence, unspecified, uncomplicated (Unknown) Obstructive sleep apnea treated with BiPAP Settings of 25/20 according to sleep study in February 2010. Paranoid schizophrenia (Unknown) Right heart failure with reduced right ventricular function Echocardiogram November 2019 demonstrated reduced right ventricular systolic function and mild enlargement, mild left ventricular enlargement, EF 55-60%, indeterminate diastolic function, mild left atrial enlargement, mild mitral valve regurgitation, small pericardial effusion Surgical History Surgical History History of inguinal herniorrhaphy As a child. Family History Family History Sibling Healthy female adult Reportedly both of the patient's sisters are healthy. Social History Social History Social
[2022-06-05 10:55] VITALS: BP 105/52; PULSE 54; RESP 20; TEMP 36.7; O2SAT 96
== END 2022-06-05 12:08 | disposition home or self-care (01) ==
PROVIDERS: Emergency Provider Nurse Practitioner; PCP Internal Medicine
DX: U07.1 COVID-19 (principal); Z87.891 Personal history of nicotine dependence; N40.0 Benign prostatic hyperplasia without lower urinary tract symptoms; J44.9 Chronic obstructive pulmonary disease, unspecified; E78.5 Hyperlipidemia, unspecified; G47.33 Obstructive sleep apnea (adult) (pediatric); I50.9 Heart failure, unspecified; I48.92 Unspecified atrial flutter
CPT/HCPCS: 71046; 87426; 87804; 99213; C9803; G0463

== ENCOUNTER 2022-06-15 09:52 | Emergency (ER) | payer MEDICARE, MEDICAID, SELFPAY ==
[2022-06-15 10:05] VITALS: BP 107/62; PULSE 50; RESP 16; TEMP 36.6; O2SAT 97
--- NOTE | 2022-06-15 11:33 | ED.GENADULT ---
HPI - General Adult General Chief complaint: Skin/Abscess/Foreign Body Stated complaint: boil on buttocks Source: patient Mode of arrival: ambulatory Limitations: no limitations History of Present Illness HPI narrative: Patient presents for evaluation of painful sore to the left buttock that he believes is an abscess. He states symptoms started about 2-3 weeks ago. He states he now has drainage from the area. He is not able to visualize the area of concern. He is here in the company of his sister who helps provide some of the history. Patient does sit for prolonged periods of time. He denies any fever, chills, nausea, vomiting. No swelling in the scrotum. Denies rectal pain. He is not diabetic. He does not smoke. He lives independently. He has a procedure scheduled for later this month for pacemaker placement. Related Data Home Medications Medication Instructions Recorded Confirmed aripiprazole 30 mg tablet 30 mg PO DAILY 11/12/20 06/15/22 clonazepam 0.5 mg tablet 0.5 mg PO DAILY 11/12/20 06/15/22 sertraline 100 mg tablet 150 mg PO DAILY 11/12/20 06/15/22 Probiotic 1 cap PO DAILY 05/07/22 06/15/22 Allergies Allergy/AdvReac Type Severity Reaction Status Date / Time aspirin Allergy Severe Anaphylactic Verified 06/15/22 10:28 Shock Review of Systems Review of Systems: CONSTITUTIONAL: Denies fever, chills, or sweats. EYES: Denies visual changes, redness, or discharge. ENT: Denies rhinorrhea, congestion, sore throat, or otalgia. CARDIOVASCULAR: Denies chest pain, palpitations, or edema. RESPIRATORY: Denies cough or dyspnea. GASTROINTESTINAL: Denies abdominal pain, nausea, vomiting, or diarrhea. GENITOURINARY: Denies dysuria or hematuria. SKIN: Reports painful lesion to left buttock MUSCULOSKELETAL: Denies back pain, joint pain, or myalgia. NEUROLOGIC: Denies headache, numbness, dizziness, or weakness. PSYCHIATRIC: Denies anxiety or depression. [facility] Past Medical History Medical History Asymptomatic cholelithiasis Atrial flutter Benign prostatic hyperplasia Body mass index 40.0-44.9, adult Chronic pain COPD (chronic obstructive pulmonary disease) (Unknown) Pmja-tm-atlgcndv obstructive ventilatory defect with severe small airway disease pattern no acute bronchodilator response and mildly decreased DLCO noted on pulmonary function testing from 2014. Hematuria History of Clostridium difficile colitis History of myocardial infarction (Unknown) With stress test November 2019 demonstrating 2 fixed perfusion defects small mild area of apical septal segment defect in left ventricle, moderate sized area of mild infarct involving apical inferior apical lateral and mid inferior lateral segment of the left ventricle, ejection fraction of 70%. Hyperlipidemia Nicotine dependence, unspecified, uncomplicated (Unknown) Obstructive sleep apnea treated with BiPAP Settings of 25/20 according to sleep study in February 2010. Paranoid schizophrenia (Unknown) Right heart failure with reduced right ventricular function Echocardiogram November 2019 demonstrated reduced right ventricular systolic function and mild enlargement, mild left ventricular enlargement, EF 55-60%, indeterminate diastolic function, mild left atrial enlargement, mild mitral valve regurgitation, small pericardial effusion Surgical History Surgical History History of inguinal herniorrhaphy As a child. Family History Family History Sibling Healthy female adult Reportedly both of the patient's sisters are healthy. Social History Social History Social History: Surrogate decision maker: Mesha Ryan, sister. Code status: Full code. Smoking packs per day: 1 Smoking cigarettes per day: 20.0 Years smoked: 43 Smoking
== END 2022-06-15 11:35 | disposition home or self-care (01) ==
PROVIDERS: Emergency Provider Nurse Practitioner; PCP Internal Medicine
DX: S30.0XXA Contusion of lower back and pelvis, initial encounter (principal); X58.XXXA Exposure to other specified factors, initial encounter; Z87.891 Personal history of nicotine dependence; N40.0 Benign prostatic hyperplasia without lower urinary tract symptoms; J44.9 Chronic obstructive pulmonary disease, unspecified; Z86.19 Personal history of other infectious and parasitic diseases; I25.2 Old myocardial infarction; E78.5 Hyperlipidemia, unspecified; G47.33 Obstructive sleep apnea (adult) (pediatric); I50.9 Heart failure, unspecified
CPT/HCPCS: 10140; 87070; 87075; 87205; 99212; G0463

== ENCOUNTER 2022-07-02 12:14 | Outpatient (RCR) | payer MEDICARE, MEDICAID, SELFPAY ==
--- NOTE | 2022-07-02 14:10 | OTOPEVDC ---
Assessment and note entered by Sebastian Wooten, OTR/L, CHT Thank you for referring Easton Tanner to [facility].? An evaluation has been completed. No further treatment is needed. Evaluation Information Assessment Status Evaluation Subjective Information Seating and mobility evaluation for w/c. Comes with dx of bilateral knee OA. He is unable to have knee replacements. Mobility in his apartment is severely limited due to pain, decreased balance, and limited cardiopulmonary functioning. He is not a safe or functional ambulator with a properly fitted cane or walker. Reported Pain Level Pain Score 9: Self Report Assessment OT Clinical Summary Patient referred to our clinic for seating/ mobility evaluation. This was completed today and the patient will benefit from use of a power wheelchair to allow for independent and safe mobility in his home for optimal safety and independence with ADLs and mobility-related ADLs. He is unable to safely ambulate household distances with a properly fitted cane or walker due to pain, weakness, fatigue, and decreased standing balance. He is at risk for falls. He is willing and capable to operate a power wheelchair. Please see scanned Seating/Mobility Evaluation form for thorough documentation on w/c recommendations. No care plan established as this referral was for evaluation purposes only. Discharging today. Plan of Care OT Services Indicated No
== END 2022-07-02 14:59 | disposition home or self-care (01) ==
LOC: ANHOT 12:14
PROVIDERS: PCP Internal Medicine; Visit Provider Internal Medicine
DX: M17.0 Bilateral primary osteoarthritis of knee (principal)
CPT/HCPCS: 97167

== ENCOUNTER 2022-07-17 15:56 | Outpatient (CLI) | payer MEDICARE, MEDICAID, SELFPAY ==
[2022-07-17 16:25] LABS: Alanine Aminotransferase 33 U/L (6-50); Albumin Level 4.4 g/dL (3.5-5.1); Alkaline Phosphatase 125 U/L (38-126); Anion Gap 6 mmol/L (8-16); Aspartate Amino Transferase 35 U/L (17-59); Bilirubin,Total 0.6 mg/dL (0.2-1.3); Blood Urea Nitrogen 35 mg/dL (9-20); Calcium 8.7 mg/dL (8.4-10.2); Carbon Dioxide 30 mmol/L (22-30); Chloride 107 mmol/L (98-107); Estimated Glomerular Filt Rate > 60; Glucose 89 mg/dL (65-110); Phosphorus 3.4 mg/dL (2.5-4.5); Potassium 5.1 mmol/L (3.4-5.0); Sodium 143 mmol/L (137-145)
== END 2022-07-17 15:57 | disposition home or self-care (01) ==
PROVIDERS: PCP Internal Medicine; Visit Provider Internal Medicine
DX: N18.9 Chronic kidney disease, unspecified (principal)
CPT/HCPCS: 36415; 80053; 84100

== ENCOUNTER 2022-12-18 15:39 | Outpatient (CLI) | payer MEDICARE, MEDICAID, SELFPAY ==
[2022-12-18 16:52] LABS: Anion Gap 4 mmol/L (8-16); Blood Urea Nitrogen 42 mg/dL (9-20); Calcium 8.7 mg/dL (8.4-10.2); Carbon Dioxide 28 mmol/L (22-30); Chloride 107 mmol/L (98-107); Estimated Glomerular Filt Rate 56; Glucose 109 mg/dL (65-110); Potassium 4.6 mmol/L (3.4-5.0); Sodium 139 mmol/L (137-145)
== END 2022-12-18 15:40 | disposition home or self-care (01) ==
PROVIDERS: PCP Nurse Practitioner; Visit Provider Nurse Practitioner
DX: N18.9 Chronic kidney disease, unspecified (principal)
CPT/HCPCS: 36415; 80048

== ENCOUNTER 2023-02-16 10:14 | Outpatient (CLI) | payer MEDICARE, MEDICAID, SELFPAY ==
--- NOTE | ~2023-02-16 | CT_ITS ---
CT Scan of the Chest without Contrast: Clinical Indication: Lung cancer screening, personal history of nicotine dependence Technique: Contiguous sections were acquired throughout the chest without intravenous contrast. Dose reduction technique was used on this scan by utilizing automated exposure control and iterative recon struction technique. The dose-length product (DLP) was 465.90 mGy-cm. COMPARISON: 02/13/2022, 01/14/2020 Findings: There is no evidence of any significant mediastinal, hilar or axillary lymphadenopathy. The mediastin al soft tissues appear normal. There is no evidence of pleural or pericardial effusion. Stable probable fissural nodule along the right minor fissure. There is bibasilar atelectatic change. Images through the upper abdomen reveal no abnormalities. There is DISH of the thoracic spine. Impression: Lung RADS 2: Benign appearance. 12 month follow-up screening CT advised. Reviewed, dictated and finalized at [facility]. Impression: Lung RADS 2: Benign appearance. 12 month follow-up screening CT advised.
== END 2023-02-16 10:15 | disposition home or self-care (01) ==
PROVIDERS: PCP Nurse Practitioner; Visit Provider Nurse Practitioner Family
DX: Z12.2 Encounter for screening for malignant neoplasm of respiratory organs (principal); Z87.891 Personal history of nicotine dependence
CPT/HCPCS: 71271

== ENCOUNTER 2023-04-01 11:01 | Emergency (ER) | payer MEDICARE, MEDICAID, SELFPAY ==
[2023-04-01 11:11] VITALS: BP 120/66; PULSE 50; RESP 16; TEMP 36.6; O2SAT 96
--- NOTE | 2023-04-01 11:19 | ED.GENADULT ---
HPI - General Adult General Chief complaint: Unspecified Stated complaint: Buttock Pain Source: patient and RN notes reviewed History of Present Illness HPI narrative: 62 yo M presents to urgent care with complaints of of his butt hurting. Pt states he feels like he wiped himself raw with tissue and noticed blood on the tissue paper today. Pt denies any hemorrhoids. Denies any bloody stools, abdominal pain, vomiting, fevers, or chills. Related Data Home Medications Medication Instructions Recorded Confirmed clonazepam 0.5 mg tablet 0.5 mg PO DAILY 11/12/20 04/01/23 sertraline 100 mg tablet 150 mg PO DAILY 11/12/20 04/01/23 Probiotic 1 cap PO DAILY 05/07/22 04/01/23 sertraline 50 mg tablet 50 mg PO DAILY 11/07/22 04/01/23 aripiprazole 30 mg tablet 30 mg PO DAILY 04/01/23 04/01/23 Allergies Allergy/AdvReac Type Severity Reaction Status Date / Time aspirin Allergy Severe Anaphylactic Verified 04/01/23 11:24 Shock Review of Systems Review of Systems: CONSTITUTIONAL: Denies fever, chills, or sweats. EYES: Denies visual changes, redness, or discharge. ENT: Denies otalgia and sore throat CARDIOVASCULAR: Denies chest pain, palpitations, or edema. RESPIRATORY: Denies cough or dyspnea. GASTROINTESTINAL: Denies abdominal pain, nausea, vomiting, or diarrhea. GENITOURINARY: Denies dysuria or hematuria. BUTTOCKS: burning buttocks and bleeding SKIN: Denies rash or itching. MUSCULOSKELETAL: Denies back pain, joint pain, or myalgia. NEUROLOGIC: Denies headache, numbness, or weakness. Pertinent positives per HPI. REPLACED BY [facility] Past Medical History Medical History Asymptomatic cholelithiasis Atrial flutter Benign prostatic hyperplasia Body mass index 40.0-44.9, adult Chronic pain COPD (chronic obstructive pulmonary disease) (Unknown) Lhow-bb-yqboiwrq obstructive ventilatory defect with severe small airway disease pattern no acute bronchodilator response and mildly decreased DLCO noted on pulmonary function testing from 2014. Hematuria History of Clostridium difficile colitis History of myocardial infarction (Unknown) With stress test November 2019 demonstrating 2 fixed perfusion defects small mild area of apical septal segment defect in left ventricle, moderate sized area of mild infarct involving apical inferior apical lateral and mid inferior lateral segment of the left ventricle, ejection fraction of 70%. Hyperlipidemia Nicotine dependence, unspecified, uncomplicated (Unknown) Obstructive sleep apnea treated with BiPAP Settings of 25/20 according to sleep study in February 2010. Osteomyelitis Paranoid schizophrenia (Unknown) Right heart failure with reduced right ventricular function Echocardiogram November 2019 demonstrated reduced right ventricular systolic function and mild enlargement, mild left ventricular enlargement, EF 55-60%, indeterminate diastolic function, mild left atrial enlargement, mild mitral valve regurgitation, small pericardial effusion Surgical History Surgical History History of inguinal herniorrhaphy As a child. Family History Family History Sibling Healthy female adult Reportedly both of the patient's sisters are healthy. Social History Social History (Reviewed 12/12/22 @ 13:33 by Suzanne Cox, [facility]) Social History: Surrogate decision maker: Mesha Tanner, sister. Code status: Full code. Smoking packs per day: 1 Smoking cigarettes per day: 20.0 Years smoked: 43 Smoking pack-years: 43.00 Smoking status: Former smoker Tobacco type: cigarettes Second hand tobacco smoke exposure: No Smoking end date: 02/05/22 Alcohol intake: never Substance use: never Substance use type: does not use Lack of Transportation: No Lack of Food: Never True Current Housing: I Have Housing Concerned About Future
== END 2023-04-01 11:30 | disposition home or self-care (01) ==
PROVIDERS: Emergency Provider Nurse Practitioner Family; PCP Nurse Practitioner
DX: K62.9 Disease of anus and rectum, unspecified (principal); Z87.891 Personal history of nicotine dependence; N40.0 Benign prostatic hyperplasia without lower urinary tract symptoms; J44.9 Chronic obstructive pulmonary disease, unspecified; Z86.19 Personal history of other infectious and parasitic diseases; I25.2 Old myocardial infarction; E78.5 Hyperlipidemia, unspecified; G47.33 Obstructive sleep apnea (adult) (pediatric); I50.9 Heart failure, unspecified
CPT/HCPCS: 99213; G0463

== ENCOUNTER 2023-05-30 14:04 | Emergency (ER) | payer MEDICARE, MEDICAID, SELFPAY ==
[2023-05-30 14:23] VITALS: BP 117/63; PULSE 63; RESP 16; TEMP 36.7; O2SAT 94
--- NOTE | 2023-05-30 15:13 | ED.SKABFB ---
HPI - Skin/Abscess/Foreign Bdy General Chief complaint: Skin/Abscess/Foreign Body Stated complaint: Boil on Penis Time Seen by Provider: 05/30/23 15:00 Source: patient, family (Sister) and RN notes reviewed Mode of arrival: ambulatory Limitations: no limitations History of Present Illness HPI narrative: Sister presents patient today complaining of a boil to his genitalia times 1-2 weeks. Denies drainage. Sister reports that patient has an extensive history of boils and abscesses. History of perirectal abscess and subsequent sepsis. Related Data Home Medications Medication Instructions Recorded Confirmed clonazepam 0.5 mg tablet 0.5 mg PO DAILY 11/12/20 04/01/23 sertraline 100 mg tablet 150 mg PO DAILY 11/12/20 04/01/23 sertraline 50 mg tablet 50 mg PO DAILY 11/07/22 04/01/23 aripiprazole 30 mg tablet 30 mg PO DAILY 04/01/23 04/01/23 mirabegron 50 mg tablet,extended mg PO 05/30/23 05/30/23 release 24 hr (Myrbetriq) Allergies Allergy/AdvReac Type Severity Reaction Status Date / Time aspirin Allergy Severe Anaphylactic Verified 04/01/23 11:24 Shock Review of Systems Review of Systems: CONSTITUTIONAL: Denies body aches, fever, chills, or sweats. EYES: Denies visual changes, redness, or discharge. ENT: Denies rhinorrhea, congestion, sore throat, or otalgia. CARDIOVASCULAR: Denies chest pain, palpitations, or edema. RESPIRATORY: Denies cough or dyspnea. GASTROINTESTINAL: Denies abdominal pain, nausea, vomiting, or diarrhea. GENITOURINARY: Denies dysuria or hematuria. SKIN: Denies rash, itching, or wounds.+ genitalia boil MUSCULOSKELETAL: Denies back pain, joint pain, or myalgia. NEUROLOGIC: Denies headache, numbness, tingling, or weakness. PSYCH: Denies depression or anxiety. [facility] Past Medical History Medical History Asymptomatic cholelithiasis Atrial flutter Benign prostatic hyperplasia Body mass index 40.0-44.9, adult Chronic pain COPD (chronic obstructive pulmonary disease) (Unknown) Pwbt-df-vsfthsnw obstructive ventilatory defect with severe small airway disease pattern no acute bronchodilator response and mildly decreased DLCO noted on pulmonary function testing from 2014. Hematuria History of Clostridium difficile colitis History of myocardial infarction (Unknown) With stress test November 2019 demonstrating 2 fixed perfusion defects small mild area of apical septal segment defect in left ventricle, moderate sized area of mild infarct involving apical inferior apical lateral and mid inferior lateral segment of the left ventricle, ejection fraction of 70%. Hyperlipidemia Nicotine dependence, unspecified, uncomplicated (Unknown) Obstructive sleep apnea treated with BiPAP Settings of 25/20 according to sleep study in February 2010. Osteomyelitis Paranoid schizophrenia (Unknown) Right heart failure with reduced right ventricular function Echocardiogram November 2019 demonstrated reduced right ventricular systolic function and mild enlargement, mild left ventricular enlargement, EF 55-60%, indeterminate diastolic function, mild left atrial enlargement, mild mitral valve regurgitation, small pericardial effusion Surgical History Surgical History History of inguinal herniorrhaphy As a child. Family History Family History Sibling Healthy female adult Reportedly both of the patient's sisters are healthy. Social History Social History Social History: Surrogate decision maker: Mesha Tanner, sister. Code status: Full code. Smoking packs per day: 1 Smoking cigarettes per day: 20.0 Years smoked: 43 Smoking pack-years: 43.00 Smoking status: Former smoker Tobacco type: cigarettes Second hand tobacco smoke exposure: No Smoking end date: 02/05/22 Christophe
== END 2023-05-30 15:18 | disposition home or self-care (01) ==
PROVIDERS: Emergency Provider Nurse Practitioner; PCP Nurse Practitioner
DX: Z71.1 Person with feared health complaint in whom no diagnosis is made (principal); J44.9 Chronic obstructive pulmonary disease, unspecified; E78.5 Hyperlipidemia, unspecified; Z79.899 Other long term (current) drug therapy; Z87.891 Personal history of nicotine dependence
CPT/HCPCS: 99211; G0463

== ENCOUNTER 2023-07-02 11:23 | Outpatient (CLI) | payer MEDICARE, MEDICAID, SELFPAY ==
--- NOTE | ~2023-07-02 | NM_ITS ---
EXAMINATION: NM bone 3 phase DATE: 07/02/2023 15:23 INDICATION: Left toe cellulitis. TECHNIQUE: 25 mCi Tc-99m HDP by intravenous route. Scintigrams of the bilateral were obtained in ang iographic, blood pool, and delayed phases. COMPARISON: None. FINDINGS: There is diffuse increased activity throughout the left forefoot on the angiographic phase images. Mo re focal increased activity in the region of the left first distal phalanx on the immediate blood poo l images. There is increased activity at the left great toe pole of the region of the first metatarso phalangeal joint as well as at the distal phalanx. The former which is without increased activity in the blood pool images is most likely related to osteoarthritis. The latter with matched increased act ivity on all 3 phases would be consistent with an acute inflammatory process including fracture or os teomyelitis. IMPRESSION: 1. Matched three-phase uptake at the distal phalanx of the left great toe which could be due to oste omyelitis or fracture in the appropriate clinical setting. Reviewed, dictated and finalized at location A. ANALYST IMPRESSION: 1. Matched three-phase uptake at the distal phalanx of the left great toe whic h could be due to osteomyelitis or fracture in the appropriate clinical setting .
[2023-07-02 11:48] LABS: Hemoglobin 12.2 g/dL (14.0-18.0); Immature Platelet Fraction Pct 0.8 % (0.9-11.2); Mean Corpuscular HGB Conc 32.1 g/dl (32-36); Mean Corpuscular Volume 96.7 fl (80-100); Mean Platelet Volume 8.5 fl (7.4-10.4); Platelet Count Result 147 k/mm3 (150-375); Red Blood Count 3.93 M/mm3 (4.6-6.20); Red Cell Distribution Width 13.4 % (11.5-14.5); White Blood Count 4.9 K/mm3 (4.5-10.0)
[2023-07-02 11:58] LABS: Alanine Aminotransferase 14 U/L (6-50); Albumin Level 3.9 g/dL (3.5-5.1); Alkaline Phosphatase 118 U/L (38-126); Anion Gap 6 mmol/L (8-16); Aspartate Amino Transferase 24 U/L (17-59); Bilirubin,Total 0.7 mg/dL (0.2-1.3); Blood Urea Nitrogen 30 mg/dL (9-20); Calcium 8.6 mg/dL (8.4-10.2); Carbon Dioxide 28 mmol/L (22-30); Chloride 102 mmol/L (98-107); Cholesterol 138 mg/dL (0-200); Estimated Glomerular Filt Rate 56; Glucose 93 mg/dL (65-110); HDL Direct 30 mg/dL; Potassium 4.3 mmol/L (3.4-5.0); Sodium 136 mmol/L (137-145); Triglycerides 64 mg/dL (<150)
[2023-07-02 12:09] LABS: LDL Cholesterol Direct 89 mg/dL
[2023-07-02 12:17] LABS: Erythrocyte Sedimentation Rate 61 mm/hr (0-20)
[2023-07-02 12:28] LABS: Prostate Specific Antigen 0.8 ng/mL (< OR = 4.0)
== END 2023-07-02 11:24 | disposition home or self-care (01) ==
PROVIDERS: PCP Nurse Practitioner; Visit Provider Nurse Practitioner
DX: L03.032 Cellulitis of left toe (principal); Z87.39 Personal history of other diseases of the musculoskeletal system and connective tissue
CPT/HCPCS: 36415; 78315; 80053; 80061; 84153; 84443; 85027; 85055; 85652; A9503

== ENCOUNTER 2023-07-02 21:18 | Inpatient (IN) | payer MEDICARE, MEDICAID, SELFPAY ==
--- NOTE | ~2023-07-02 | XR_ITS ---
EXAMINATION: XR chest PICC line Exam Date/Time: 07/04/2023 14:25 TRANSMISSION SUPERVISOR HISTORY: PICC ADJUSTMENT Comparison: Same date at 2:39 PM. FINDINGS/IMPRESSION: The right upper extremity PICC tip remains superiorly directed, likely terminating in the right inter nal jugular vein. Stable mild interstitial edema, likely right basilar atelectasis, and possible small right pleural ef fusion. Results reported telephonically to Amari Gardner RN by Dr. Lopez at 2:57 PM on 07/04/2023. Reviewed, dictated and finalized at location K. SMISSION SUPERVISOR
--- NOTE | ~2023-07-02 | XR_ITS ---
EXAMINATION: XR chest PICC line Exam Date/Time: 07/04/2023 14:25 CASE PREPARER AND LINER HISTORY: PICC placed Comparison: 06/05/2022. RESULT: Lines, tubes, and devices: Right upper extremity PICC, tip directed superiorly, likely into the righ t internal jugular vein. Lungs and pleura: Mild diffuse reticular opacities. Streaky bibasilar opacities. Mild right costophr enic angle blunting. Cardiomediastinal silhouette: Stable. Other: No acute osseous or upper abdominal finding. IMPRESSION: Right upper extremity PICC tip is directed superiorly likely terminating in the right internal jugula r vein. Mild interstitial edema. Likely right basilar scar/atelectasis. Possible small right pleural effusion . Reviewed, dictated and finalized at [facility] K. PREPARER AND LINER IMPRESSION: Right upper extremity PICC tip is directed superiorly likely terminating in the right internal jugular vein. Mild interstitial edema. Likely right basilar scar/atelectasis. Possible small right pleural effusion.
--- NOTE | ~2023-07-02 | XR_ITS ---
EXAMINATION: XR chest PICC line Exam Date/Time: 07/04/2023 15:23 BILLING COLLECTIONS SPECIALIST HISTORY: PICC PLACEMENT Comparison: Same date at 2:42 PM. FINDINGS/IMPRESSION: The right upper extremity PICC tip now terminates in the upper SVC. Unchanged mild interstitial edema, likely right basilar atelectasis, and possible small right pleural effusion. Reviewed, dictated and finalized at location K. ING COLLECTIONS SPECIALIST
[2023-07-02 21:23] VITALS: BP 124/49; PULSE 58; RESP 20; TEMP 36.3; O2SAT 93
--- NOTE | 2023-07-02 23:17 | ED.GENADULT ---
HPI - General Adult General Chief complaint: Extremity Injury, Lower Stated complaint: toe infection Time Seen by Provider: 07/02/23 22:48 History of Present Illness HPI narrative: patient is 60-year-old gentleman who presents emergency department with chief complaint of left great toe pain. The patient reports that he has had prior episodes of osteomyelitis in left foot and reports that he started having pain and went to his primary care provider who ordered outpatient labs and a bone scan. The patient's bone scan was consistent with osteomyelitis sed rate was elevated the patient is currently afebrile and just complains of pain in the left great toe. The patient reports no drainage no ulceration Related Data Home Medications Medication Instructions Recorded Confirmed clonazepam 0.5 mg tablet 0.5 mg PO DAILY 11/12/20 06/23/23 sertraline 100 mg tablet 150 mg PO DAILY 11/12/20 06/23/23 sertraline 50 mg tablet 50 mg PO DAILY 11/07/22 06/23/23 aripiprazole 30 mg tablet 30 mg PO DAILY 04/01/23 06/23/23 mirabegron 50 mg tablet,extended mg PO 05/30/23 06/23/23 release 24 hr (Myrbetriq) mirabegron 50 mg tablet,extended 50 mg PO DAILY 07/02/23 release 24 hr (Myrbetriq) Allergies Allergy/AdvReac Type Severity Reaction Status Date / Time aspirin Allergy Severe Anaphylactic Verified 07/02/23 08:26 Shock Review of Systems Review of Systems: A 10 system review of systems was completed on the patient and is negative except for what is stated in the HPI. Nursing and ancillary documentation was reviewed. [facility] Past Medical History Medical History Asymptomatic cholelithiasis Atrial flutter Benign prostatic hyperplasia Body mass index 40.0-44.9, adult Chronic pain COPD (chronic obstructive pulmonary disease) (Unknown) [id number]-av-[id number] obstructive ventilatory defect with severe small airway disease pattern no acute bronchodilator response and mildly decreased DLCO noted on pulmonary function testing from 2014. Hematuria History of Clostridium difficile colitis History of myocardial infarction (Unknown) With stress test November 2019 demonstrating 2 fixed perfusion defects small mild area of apical septal segment defect in left ventricle, moderate sized area of mild infarct involving apical inferior apical lateral and mid inferior lateral segment of the left ventricle, ejection fraction of 70%. Hyperlipidemia Nicotine dependence, unspecified, uncomplicated (Unknown) Obstructive sleep apnea treated with BiPAP Settings of / according to sleep study in February 2010. Osteomyelitis Paranoid schizophrenia (Unknown) Right heart failure with reduced right ventricular function Echocardiogram November 2019 demonstrated reduced right ventricular systolic function and mild enlargement, mild left ventricular enlargement, EF 55-60%, indeterminate diastolic function, mild left atrial enlargement, mild mitral valve regurgitation, small pericardial effusion Surgical History Surgical History History of inguinal herniorrhaphy As a child. Family History Family History Sibling Healthy female adult Reportedly both of the patient's sisters are healthy. Social History Social History Social History: Surrogate decision maker: Mesha Tanner, sister. Code status: Full code. Smoking packs per day: 1 Smoking cigarettes per day: 20.0 Years smoked: 43 Smoking pack-years: 43.00 Smoking status: Former smoker Tobacco type: cigarettes Second hand tobacco smoke exposure: No Smoking end date: 02/05/22 Alcohol intake: never Substance use: never Substance use type: does not use Lack of Transportation: No Lack of Food: Never True Current Housing: I Have Housing Leigha
--- NOTE | 2023-07-02 23:26 | PM.IMHP ---
H&P: HPI History of Present Illness Date/Time: 07/02/23 23:26 Chief Complaint: Left great toe pain Narrative: Patient presents to the ED for evaluation of left great toe pain. He had prior history of osteomyelitis on the same area. He saw his primary care physician today regarding this pain and had bone scan ordered which showed osteomyelitis of the left great toe. He reports associated redness and deformity of the left great toe. Patient was sent to the ED for further evaluation. He denied fever, chills or weakness. I was halted to admit this patient for further evaluation. Patient had received vancomycin cefepime and Flagyl in the ED Review of Systems Review of Systems: All systems reviewed & are unremarkable except as noted in HPI and below PMFSH Past Medical History Medical History Asymptomatic cholelithiasis Atrial flutter Benign prostatic hyperplasia Body mass index 40.0-44.9, adult Chronic pain COPD (chronic obstructive pulmonary disease) (Unknown) Fsdl-jn-kuumxlar obstructive ventilatory defect with severe small airway disease pattern no acute bronchodilator response and mildly decreased DLCO noted on pulmonary function testing from 2014. Hematuria History of Clostridium difficile colitis History of myocardial infarction (Unknown) With stress test November 2019 demonstrating 2 fixed perfusion defects small mild area of apical septal segment defect in left ventricle, moderate sized area of mild infarct involving apical inferior apical lateral and mid inferior lateral segment of the left ventricle, ejection fraction of 70%. Hyperlipidemia Nicotine dependence, unspecified, uncomplicated (Unknown) Obstructive sleep apnea treated with BiPAP Settings of 25/20 according to sleep study in February 2010. Osteomyelitis Paranoid schizophrenia (Unknown) Right heart failure with reduced right ventricular function Echocardiogram November 2019 demonstrated reduced right ventricular systolic function and mild enlargement, mild left ventricular enlargement, EF 55-60%, indeterminate diastolic function, mild left atrial enlargement, mild mitral valve regurgitation, small pericardial effusion Surgical History Surgical History History of inguinal herniorrhaphy As a child. Family History Family History Sibling Healthy female adult Reportedly both of the patient's sisters are healthy. Social History Social History Social History: Surrogate decision maker: Mesha Tanner, sister. Code status: Full code. Smoking packs per day: 1 Smoking cigarettes per day: 20.0 Years smoked: 43 Smoking pack-years: 43.00 Smoking status: Never smoker Tobacco type: cigarettes Second hand tobacco smoke exposure: No Smoking end date: 02/05/22 Alcohol intake: never Substance use: never Substance use type: does not use Do You Feel Safe in your Home?: Yes Lack of Transportation: No Lack of Food: Never True Current Housing: I Have Housing Concerned About Future Housing: No Difficulty Paying Gas/Electric Bills: No Difficulty Paying for Meds: No Currently Unemployed: No Education: Grade School Difficulty w/ Childcare or Family Care: No Living arrangements: other Additional living arrangements comments: Senior disable apartment building. Sister helps and checks on him frequently Occupation/Education: retired Additional occupation/education comments: Disabled due to paranoid schizophrenia. Gender identity (if verbalized by the patient): Male Spiritual care concerns: No Meds Home Medications and Allergies Home Medications Medication Instructions Recorded Confirmed Type clonazepam 0.5 mg tablet 0.5 mg PO DAILY 11/12/20 07/03/23 History sertraline 100 mg tablet
[2023-07-02 23:29] LABS: Basophils Percent Auto 0.5 % (0.2-1.2); Eosinophils Absolute Auto 0.1 K/mm3 (0-0.3); Eosinophils Percent Auto 1.8 % (0-4.4); Hematocrit 38.7 % (42.0-52.0); Hemoglobin 12.5 g/dL (14.0-18.0); Immature Granulocyte Absolute 0.02 K/mm3 (0.00-0.031); Immature Granulocyte Percent A 0.3 % (0-0.5); Lymphocytes Absolute Auto 1.39 K/mm3 (0.9-3.2); Lymphocytes Percent Auto 22.8 % (18.3-44.2); Mean Corpuscular HGB Conc 32.3 g/dl (32-36); Mean Corpuscular Hemoglobin 31.2 pg (26-34); Mean Corpuscular Volume 96.5 fl (80-100); Mean Platelet Volume 8.2 fl (7.4-10.4); Monocytes Absolute Auto 0.4 K/mm3 (0.1-0.6); Monocytes Percent Auto 7.2 % (2.6-8.5); Neutrophils Absolute Auto 4.1 K/mm3 (1.3-6.7); Neutrophils Percent Auto 67.4 % (45.5-73.1); Platelet Count Result 121 k/mm3 (150-375); Red Blood Count 4.01 M/mm3 (4.6-6.20); Red Cell Distribution Width 13.2 % (11.5-14.5); White Blood Count 6.1 K/mm3 (4.5-10.0)
[2023-07-02 23:40] LABS: Alanine Aminotransferase 16 U/L (6-50); Alkaline Phosphatase 124 U/L (38-126); Anion Gap 7 mmol/L (8-16); Aspartate Amino Transferase 27 U/L (17-59); Bilirubin,Total 0.7 mg/dL (0.2-1.3); Blood Urea Nitrogen 38 mg/dL (9-20); Carbon Dioxide 27 mmol/L (22-30); Chloride 104 mmol/L (98-107); Estimated CRCL calculation 78 ml/min; Estimated Glomerular Filt Rate > 60; Glucose 114 mg/dL (65-110); Potassium 4.3 mmol/L (3.4-5.0); Sodium 138 mmol/L (137-145)
[2023-07-02 23:44] LABS: INR 1.1; Prothrombin Time 14.1 Seconds (11.1-14.7)
[2023-07-02 23:45] LABS: Partial Thromboplastin Time 31.1 SECONDS (22.3-36.8)
[2023-07-03] MEDS: metroNIDAZOLE 500 MG/ISO 100ML 500 MG/100 ML BAG 100 MG IVPB ×3 (00:04→15:40)
[2023-07-03] MEDS: SODIUM CHLORIDE 0.9% IV 1,000 ML 999 ML IV CONT (00:05)
[2023-07-03] MEDS: CEFEPIME 2 GM/NS 50 ML 2 GM/50 ML BAG IVPB ×3 (00:05→20:58)
[2023-07-03 00:08] VITALS: BP 118/66; PULSE 56; RESP 16; O2SAT 95
[2023-07-03 00:13] LABS: Lactic Acid Reflex 0.9 mmol/L (0.7-2.0)
[2023-07-03 03:00] VITALS: BMI 42.3
--- NOTE | 2023-07-03 03:52 | ADMGEN ---
This patient, Easton Tanner, was admitted to 3 [facility] Room 312-01. Patient/family oriented to hospital policies and general routines including ID bracelet, bed and alarms, visiting hours, pain management, procedures, bathroom and other care routines, personal items, smoking policy, room service/diet, and visiting hours. Information on how to activate the Rapid Response Team has been discussed. Patient/Family are encouraged to report perceived risks to care and to ask questions if they do not understand what they are told or what they should do.
[2023-07-03 04:00] VITALS: BP 128/63; PULSE 50; RESP 18; TEMP 36.6; O2SAT 94
[2023-07-03] MEDS: VANCOMYCIN 1,250 MG/NS 250 ML 1,250 MG/250 ML BAG 166.67 MG IVPB ×2 (04:32→06:02)
[2023-07-03 06:47] LABS: Basophils Percent Auto 0.5 % (0.2-1.2); Eosinophils Absolute Auto 0.4 K/mm3 (0-0.3); Eosinophils Percent Auto 6.6 % (0-4.4); Hematocrit 36.5 % (42.0-52.0); Hemoglobin 11.8 g/dL (14.0-18.0); Immature Granulocyte Absolute 0.03 K/mm3 (0.00-0.031); Immature Granulocyte Percent A 0.5 % (0-0.5); Lymphocytes Absolute Auto 1.49 K/mm3 (0.9-3.2); Lymphocytes Percent Auto 24.6 % (18.3-44.2); Mean Corpuscular HGB Conc 32.3 g/dl (32-36); Mean Corpuscular Hemoglobin 31.3 pg (26-34); Mean Corpuscular Volume 96.8 fl (80-100); Mean Platelet Volume 8.7 fl (7.4-10.4); Monocytes Absolute Auto 0.5 K/mm3 (0.1-0.6); Monocytes Percent Auto 7.6 % (2.6-8.5); Neutrophils Absolute Auto 3.6 K/mm3 (1.3-6.7); Neutrophils Percent Auto 60.2 % (45.5-73.1); Platelet Count Result 118 k/mm3 (150-375); Red Blood Count 3.77 M/mm3 (4.6-6.20); Red Cell Distribution Width 13.4 % (11.5-14.5); White Blood Count 6.1 K/mm3 (4.5-10.0)
[2023-07-03 07:02] LABS: Anion Gap 7 mmol/L (8-16); Blood Urea Nitrogen 31 mg/dL (9-20); Calcium 8.5 mg/dL (8.4-10.2); Carbon Dioxide 26 mmol/L (22-30); Chloride 105 mmol/L (98-107); Estimated CRCL calculation 78 ml/min; Estimated Glomerular Filt Rate > 60; Glucose 88 mg/dL (65-110); Potassium 4.1 mmol/L (3.4-5.0); Sodium 138 mmol/L (137-145)
[2023-07-03 07:43] LABS: Cholesterol 124 mg/dL (0-200); HDL Direct 28 mg/dL; Triglycerides 75 mg/dL (<150)
[2023-07-03 07:53] LABS: LDL Cholesterol Direct 81 mg/dL
[2023-07-03 08:06] LABS: Hemoglobin A1C 5.4 % (<5.7)
[2023-07-03] MEDS: ARIPiprazole 10 MG TABLET 30 MG PO (09:43)
[2023-07-03] MEDS: PANTOPRAZOLE 40 MG TABLET PO (09:43)
[2023-07-03] MEDS: MIRABEGRON 50 MG ER TABLET PO (09:43)
[2023-07-03] MEDS: clonazePAM (*CRX) 0.5 MG TABLET PO (09:43)
[2023-07-03] MEDS: DICLOFENAC SOD 75 MG TABLET.EC PO ×2 (09:43→16:23)
--- NOTE | 2023-07-03 11:35 | PM.IMPN ---
Progress Note: A&P Assessment and Plan (1) Osteomyelitis of great toe of left foot: Code(s): M86.9 - Osteomyelitis, unspecified Status: Acute (2) History of osteomyelitis: Code(s): Z87.39 - Personal history of other diseases of the musculoskeletal system and connective tissue Status: Acute (3) Cellulitis of toe of left foot: Code(s): L03.032 - Cellulitis of left toe Status: Acute Time Spent With Patient Time: Osteomyelitis/cellulitis -LT Great Toe -HX of IV ABX therapy same toe 12 weeks -Surgery consulted for recommendations retirement IV ABX therapy vs Amputation?? -Blood cultures pending -Wound culture pending -Bone scan showing osteomyelitis. -Antibiotic regimen targeting vanc, cefepime, and flaygl will de-escalate pending cultures -Monitor IV hydration. -Monitor vital signs and oxygen saturation. -consult I&D if needed based off cultures Code status: Full code per patient DVT prophylaxis: SCD's Stress ulcer prophylaxis: Protonix 40 daily PT/OT notes: Patient ambulatory will order post surgery if surgical intervention Disposition: Patient admitted to the medical unit for osteomyelitis of the left great toe. Patient with previous long-term IV antibiotic therapy for same to surgery consulted for recommendations on IV antibiotics versus amputation. Patient to return home when medically stable or pending need for IV ABX therapy. -Patient's previous records reviewed on admission -ER notes reviewed in detail on admission -discussed all findings and current treatment plan with patient/Family/POA -Consultations reviewed for recommendations -Patient's disposition for safe discharge discussed with caseworker protective services Dictation performed by [employer] direct speech recognition software, therefore last puller variants and typographical errors may occur. Time with patient: 25 - 35 minutes Subjective Date/time seen: 07/03/23 11:35 Interval history: Chief Complaint: Left great toe pain Narrative: Patient presents to the ED for evaluation of left great toe pain.? He had prior history of osteomyelitis on the same area.? He saw his primary care physician today regarding this pain and had bone scan ordered which showed osteomyelitis of the left great toe.? He reports associated redness and deformity of the left great toe.? Patient was sent to the ED for further evaluation.? He denied fever, chills or weakness.? I was halted to admit this patient for further evaluation.? Patient had received vancomycin cefepime and Flagyl in the ED 1/26: Patient in bed comfortable and reports no significant pain to LT great toe. WBC normal range, afebrile over night blood cultures pending. Patient had previous 12 week IV ABX therapy for same great toe, new bone scan showing osteomyelitis. Surgery consulted for further recommendations IV ABX vs amputation. Review of Systems Review of Systems: All systems reviewed & are unremarkable except as noted in HPI and below Exam Narrative: General: Alert and oriented x4, not in distress HEENT: Normocephalic atraumatic EOMI Respiratory: Clear to auscultation bilaterally Cardiovascular: Regular rate and rhythm normal no gallop no edema Gastrointestinal: Obese, nontender nondistended was found Musculoskeletal: Mildly inflamed and swollen tip of left great toe, warm compared to the right, no discharge, dizziness but is and posterior tibial pulses palpable on the left lower extremity. Skin: Mildly inflamed and swollen left great toe as documented above Neurologic: No focal deficit Objective Data Vital Signs Vital Signs: Vital Signs - 24 hr 07/02/23 21:23 07/03/23 00:08 07/03/23 04:39 Temperature 97.4 F L Pulse Rate 58 L 56 L Respiratory Rate 20 16 Blood Pressure 124/49 L 118/66 Pulse Oximetry 93 95 Oxygen Delivery Room Air 07/03/23 04:00 07/03/23 08:00 Temperature 97.8 F Pulse Rate 50 L R
--- NOTE | 2023-07-03 13:52 | PM.CNGS ---
Assessment and Plan Assessment and plan (1) Osteomyelitis of great toe of left foot: Code(s): M86.9 - Osteomyelitis, unspecified Status: Acute Assessment and Plan: Long discussion with patient regarding recurrent osteomyelitis left great toe, recommend amputation, however patient does not want to proceed at this time, patient wants to continue conservative management with IV antibiotics, will continue local wound care for now and IV antibiotics History of Present Illness Consult details Consult date: 07/03/23 Reason for consult: wound care Requesting physician: Nat Wolff MD Narrative: The patient is a 62-year-old male with multiple medical issues, including previous history of left toe osteomyelitis, presenting with worsening pain, cellulitis, swelling of his left great toe. The patient reports he had been diagnosed with osteomyelitis previously in this toe and had undergone IV antibiotic therapy. The patient reports ports resolution of infection in the toe after treatment. He reports the last few weeks he has experienced swelling, pain, cellulitis again in this toe. Patient denies any drainage. The patient was seen by his primary care physician and bone scan was ordered. Bone scan was significant for osteomyelitis. Review of Systems Review of Systems: All systems reviewed & are unremarkable except as noted in HPI and below PMFSH Past Medical History Medical History Asymptomatic cholelithiasis Atrial flutter Benign prostatic hyperplasia Body mass index 40.0-44.9, adult Chronic pain COPD (chronic obstructive pulmonary disease) (Unknown) Xwjj-co-guklqncr obstructive ventilatory defect with severe small airway disease pattern no acute bronchodilator response and mildly decreased DLCO noted on pulmonary function testing from 2014. Hematuria History of Clostridium difficile colitis History of myocardial infarction (Unknown) With stress test November 2019 demonstrating 2 fixed perfusion defects small mild area of apical septal segment defect in left ventricle, moderate sized area of mild infarct involving apical inferior apical lateral and mid inferior lateral segment of the left ventricle, ejection fraction of 70%. Hyperlipidemia Nicotine dependence, unspecified, uncomplicated (Unknown) Obstructive sleep apnea treated with BiPAP Settings of 25/20 according to sleep study in February 2010. Osteomyelitis Paranoid schizophrenia (Unknown) Right heart failure with reduced right ventricular function Echocardiogram November 2019 demonstrated reduced right ventricular systolic function and mild enlargement, mild left ventricular enlargement, EF 55-60%, indeterminate diastolic function, mild left atrial enlargement, mild mitral valve regurgitation, small pericardial effusion Surgical History Surgical History History of inguinal herniorrhaphy As a child. Family History Family History Sibling Healthy female adult Reportedly both of the patient's sisters are healthy. Social History Social History Social History: Surrogate decision maker: Mesha Tanner, sister. Code status: Full code. Smoking packs per day: 1 Smoking cigarettes per day: 20.0 Years smoked: 43 Smoking pack-years: 43.00 Smoking status: Never smoker Tobacco type: cigarettes Second hand tobacco smoke exposure: No Smoking end date: 02/05/22 Alcohol intake: never Substance use: never Substance use type: does not use Do You Feel Safe in your Home?: Yes Lack of Transportation: No Lack of Food: Never True Current Housing: I Have Housing Concerned About Future Housing: No Difficulty Paying Gas/Electric Bills: No Difficulty Paying for Meds: No Currently Unemployed: No Education: Grade School Difficul
[2023-07-03 14:00] VITALS: BP 118/66; PULSE 54; RESP 20; TEMP 36.5; O2SAT 92
[2023-07-03 18:11] LABS: Anion Gap 7 mmol/L (8-16); Blood Urea Nitrogen 33 mg/dL (9-20); Calcium 8.5 mg/dL (8.4-10.2); Carbon Dioxide 25 mmol/L (22-30); Chloride 106 mmol/L (98-107); Estimated CRCL calculation 58 ml/min; Estimated Glomerular Filt Rate 47; Glucose 100 mg/dL (65-110); Potassium 4.5 mmol/L (3.4-5.0); Sodium 138 mmol/L (137-145)
[2023-07-03] MEDS: SERTRALINE HCL 50 MG TABLET 150 MG PO (20:58)
[2023-07-03 21:40] VITALS: BP 110/68; PULSE 52; RESP 18; TEMP 36.2; O2SAT 93
[2023-07-03] MEDS: VANCOMYCIN 1,500 MG/NS 500 ML 1,500 MG/500 ML BAG 250 MG IVPB (22:17)
[2023-07-04] MEDS: metroNIDAZOLE 500 MG/ISO 100ML 500 MG/100 ML BAG 100 MG IVPB ×2 (02:46→08:50)
[2023-07-04 06:00] VITALS: BP 121/61; PULSE 50; RESP 18; TEMP 36.2; O2SAT 95
[2023-07-04 06:26] LABS: Basophils Percent Auto 0.5 % (0.2-1.2); Eosinophils Absolute Auto 0.4 K/mm3 (0-0.3); Eosinophils Percent Auto 5.7 % (0-4.4); Hemoglobin 10.8 g/dL (14.0-18.0); Immature Granulocyte Absolute 0.03 K/mm3 (0.00-0.031); Immature Granulocyte Percent A 0.5 % (0-0.5); Lymphocytes Absolute Auto 1.16 K/mm3 (0.9-3.2); Lymphocytes Percent Auto 18.8 % (18.3-44.2); Mean Corpuscular HGB Conc 31.8 g/dl (32-36); Mean Corpuscular Volume 97.7 fl (80-100); Mean Platelet Volume 8.6 fl (7.4-10.4); Monocytes Absolute Auto 0.5 K/mm3 (0.1-0.6); Monocytes Percent Auto 7.9 % (2.6-8.5); Neutrophils Absolute Auto 4.1 K/mm3 (1.3-6.7); Neutrophils Percent Auto 66.6 % (45.5-73.1); Platelet Count Result 102 k/mm3 (150-375); Red Blood Count 3.48 M/mm3 (4.6-6.20); Red Cell Distribution Width 13.6 % (11.5-14.5); White Blood Count 6.2 K/mm3 (4.5-10.0)
[2023-07-04 06:49] LABS: Alanine Aminotransferase 13 U/L (6-50); Albumin Level 3.2 g/dL (3.5-5.1); Alkaline Phosphatase 109 U/L (38-126); Anion Gap 6 mmol/L (8-16); Aspartate Amino Transferase 22 U/L (17-59); Bilirubin,Total 0.5 mg/dL (0.2-1.3); Blood Urea Nitrogen 32 mg/dL (9-20); Calcium 8.2 mg/dL (8.4-10.2); Carbon Dioxide 24 mmol/L (22-30); Chloride 107 mmol/L (98-107); Estimated CRCL calculation 66 ml/min; Estimated Glomerular Filt Rate 56; Glucose 97 mg/dL (65-110); Potassium 4.4 mmol/L (3.4-5.0); Sodium 137 mmol/L (137-145)
[2023-07-04] MEDS: PANTOPRAZOLE 40 MG TABLET PO (08:53)
[2023-07-04] MEDS: clonazePAM (*CRX) 0.5 MG TABLET PO (08:53)
[2023-07-04] MEDS: ARIPiprazole 10 MG TABLET 30 MG PO (08:53)
[2023-07-04] MEDS: DICLOFENAC SOD 75 MG TABLET.EC PO ×2 (08:53→16:51)
[2023-07-04] MEDS: MIRABEGRON 50 MG ER TABLET PO (08:53)
[2023-07-04 09:11] VITALS: O2SAT 99
[2023-07-04] MEDS: CEFEPIME 2 GM/NS 50 ML 2 GM/50 ML BAG IVPB ×2 (10:08→20:39)
--- NOTE | 2023-07-04 10:50 | PM.PNGS ---
Progress Note: A&P Assessment and Plan (1) Osteomyelitis of great toe of left foot: Code(s): M86.9 - Osteomyelitis, unspecified Status: Acute Assessment and Plan: d/w pt and sister re: amputation and he cont to want to proceed c conservative mgmt c IV abx, pt will need PICC for outpt abx and needs outpt f/u c wound care and infectious disease Subjective Subjective Date/Time Seen: 07/04/23 10:50 Interval history: feels better, reports pain, swelling are much improved in toe Review of Systems Review of Systems: All systems reviewed & are unremarkable except as noted in HPI and below Exam Const: General: cooperative, comfortable and no acute distress Resp: Auscultation: clear to auscultation bilaterally Cardio: Rate: regular rate Rhythm: regular rhythm GI: Inspection: normal to inspection Extrem: Other: L toe - decreased induration and cellulitis, no open wounds, no fluctuance, +mild TTP Objective Data Vital Signs Vital Signs: Vital Signs - 24 hr 07/03/23 14:00 07/03/23 21:40 07/03/23 20:00 Temperature 36.5 C 36.2 C L Pulse Rate 54 L 52 L Respiratory Rate 20 18 Blood Pressure 118/66 110/68 Pulse Oximetry 92 93 Oxygen Delivery Room Air 07/04/23 06:00 07/04/23 09:11 Temperature 36.2 C L Pulse Rate 50 L Respiratory Rate 18 Blood Pressure 121/61 Pulse Oximetry 95 99 Oxygen Delivery Room Air Intake/Output Intake/Output: Intake & Output 07/01/23 07/02/23 07/03/23 07/04/23 23:59 23:59 23:59 23:59 Intake Total 2550 1700 Output Total 1280 1650 Balance 1270 50 Meds/Results Medications: Active Medications Generic Name Dose Route Start Last Admin Trade Name Freq PRN Reason Stop Dose Admin Acetaminophen 650 mg 07/02/23 23:20 Acetaminophen 325 Mg Tablet PO Q4H PRN Mild Pain (1-3) or Fever Hydrocodone Bitart/Acetaminophen 1 tab 07/02/23 23:24 Hydrocodone/Acetaminophen (*Crx) 5-325 Mg Tablet PO Q4H PRN Moderate Pain (4-6) Aripiprazole 30 mg 07/03/23 09:00 07/04/23 08:53 Aripiprazole 10 Mg Tablet PO 30 mg DAILY MIREILLE Administration Clonazepam 0.5 mg 07/03/23 09:00 07/04/23 08:53 Clonazepam (*Crx) 0.5 Mg Tablet PO 0.5 mg DAILY MIREILLE Administration Diclofenac Sodium 75 mg 07/03/23 09:00 07/04/23 08:53 Diclofenac Sod 75 Mg Tablet.Ec PO 75 mg BID MIREILLE Administration Cefepime HCl 2 gm in 50 mls @ 100 mls/hr 07/02/23 10:00 07/04/23 10:08 Maxipime 2 Gm/Ns 50 Ml IVPB 100 mls/hr Q12H MIREILLE Administration Metronidazole 500 mg in 100 mls @ 100 mls/hr 07/03/23 08:00 07/04/23 08:50 Flagyl 500 Mg/Iso Soln 100 Ml IVPB 100 mls/hr Q8H MIREILLE Administration Vancomycin HCl 1,500 mg in 500 mls @ 250 mls/hr 07/03/23 23:00 07/04/23 00:17 Vancomycin 1,500 Mg/Ns 500 Ml IVPB Infused Q18H MIREILLE Infusion Mirabegron 50 mg 07/03/23 09:00 07/04/23 08:53 Mirabegron 50 Mg Er Tablet PO 50 mg DAILY MIREILLE Administration Ondansetron HCl 4 mg 07/02/23 23:24 Ondansetron Inj 4 Mg/2 Ml Vial IV PUSH Q6H PRN Nausea And Vomiting Pantoprazole Sodium 40 mg 07/03/23 09:00 07/04/23 08:53 Pantoprazole 40 Mg Tablet PO 40 mg QAM MIREILLE Administration Sertraline HCl 150 mg 07/03/23 21:00 07/03/23 20:58 Sertraline Hcl 50 Mg Tablet PO 150 mg QHS MIREILLE Administration Labs Labs: Laboratory Results - last 24 hr 07/03/23 07/04/23 16:56 05:59 WBC 6.2 RBC 3.48 L Hgb 10.8 L Hct 34.0 L MCV 97.7 MCH 31.0 MCHC 31.8 L RDW 13.6 Plt Count 102 L MPV 8.6 Immature Gran % (Auto) 0.5 Neut % (Auto) 66.6 Lymph % (Auto) 18.8 [place] % (Auto) 7.9 Eos % (Auto) 5.7 H Baso % (Auto) 0.5 Lymph # (Auto) 1.16 [place] # (Auto) 0.5 Eos # (Auto) 0.4 H Baso # (Auto) 0.0 Abs Immat Gran (auto) 0.03 Absolute Neuts (auto) 4.1 Absolute Nucleated RBC 0.0 Nucleated RBC % 0.0 Sodium 138 137 Potassium 4.5 4.4 Chloride 106 10
--- NOTE | 2023-07-04 11:24 | PM.IMPN ---
Progress Note: A&P Assessment and Plan (1) Osteomyelitis of great toe of left foot: Code(s): M86.9 - Osteomyelitis, unspecified Status: Acute (2) History of osteomyelitis: Code(s): Z87.39 - Personal history of other diseases of the musculoskeletal system and connective tissue Status: Acute (3) Cellulitis of toe of left foot: Code(s): L03.032 - Cellulitis of left toe Status: Acute Plan Osteomyelitis/cellulitis -LT Great Toe -HX of IV ABX therapy same toe 12 weeks -Surgery consulted for recommendations care home IV ABX therapy vs Amputation?? ?-Blood cultures NGTD -Bone scan showing osteomyelitis.? -Switch to previous ABX therapy recommended by ID ad terminal makeup operator CTX 2g IV daily and PO clindamycin 28 days -Monitor IV hydration.? -Monitor vital signs and oxygen saturation.? -consult I&D if needed based off cultures -Will need F/U o/p scan -Midline ordered -CC for IV aBX therapy Code status:? Full code per patient DVT prophylaxis:? SCD's Stress ulcer prophylaxis:? Protonix 40 daily PT/OT notes:? Ambulatory Disposition:? Patient and family still requesting conservative care with IV antibiotic therapy encouraged partial amputation will need follow-up outpatient following IV antibiotics for scan. Patient will need E long-term IV antibiotic therapy CC consulted for discharge planning. -Patient's previous records reviewed on admission -ER notes reviewed in detail on admission -discussed all findings and current treatment plan with patient/Family/POA -Consultations reviewed for recommendations -Patient's disposition for safe discharge discussed with case advocate Dictation performed by [employer] direct speech recognition software, therefore crm manager variants and typographical errors may occur. Time Spent With Patient Time with patient: 15 - 25 minutes Subjective Date/time seen: 07/04/23 11:24 Interval history: Chief Complaint: Left great toe pain Narrative: Patient presents to the ED for evaluation of left great toe pain.? He had prior history of osteomyelitis on the same area.? He saw his primary care physician today regarding this pain and had bone scan ordered which showed osteomyelitis of the left great toe.? He reports associated redness and deformity of the left great toe.? Patient was sent to the ED for further evaluation.? He denied fever, chills or weakness.? I was halted to admit this patient for further evaluation.? Patient had received vancomycin cefepime and Flagyl in the ED 07/03: Patient in bed comfortable and reports no significant pain to LT great toe. WBC normal range, afebrile over night blood cultures pending. Patient had previous 12 week IV ABX therapy for same great toe, new bone scan showing osteomyelitis. Surgery consulted for further recommendations IV ABX vs amputation. 07/04: Patient with no complaints, WBC normal range, sister at bedside and sister on phone discussed options amputation vs IV ABX they have all decided to continue with conservative treatment with IV ABX therapy will need close monitor O/P and follow-up scan. Will speak with case management to set-up o/p IV aBX therapy. Reviewed previous ID ABX therapy and switched to CTX 2 grams and clindomyocin PO for 28 days. will order for midline placement. Review of Systems Review of Systems: All systems reviewed & are unremarkable except as noted in HPI and below Exam Narrative: General: Alert and oriented x4, not in distress HEENT: Normocephalic atraumatic EOMI Respiratory: Clear to auscultation bilaterally Cardiovascular: Regular rate and rhythm normal no gallop no edema Gastrointestinal: Obese, nontender nondistended was found Musculoskeletal: Mildly inflamed and swollen tip of left great toe, warm compared to the right, no discharge, dizziness but is and posterior tibial pulses palpable on the left lower extremity. Skin: Mildly inflamed and swollen left gre
[2023-07-04] MEDS: WATER FOR IRRIGATION, STERILE 1,000 ML BOTTLE 1000 ML (12:15)
[2023-07-04] MEDS: cefTRIAXone 2 GM/NS 100 ML 2 GM/100 ML BAG IVPB (12:15)
[2023-07-04] MEDS: ACIDOPHILUS/BULGARICUS CHEWABLE TABLET 1 TABLET PO ×3 (12:26→20:40)
[2023-07-04 14:00] VITALS: BP 106/51; PULSE 53; RESP 16; TEMP 36.7; O2SAT 94
[2023-07-04] MEDS: LIDOCAINE HCL 1% PF INJ 5 ML VIAL INFILTRATE (14:00)
[2023-07-04] MEDS: CLINDAMYCIN HCL 150 MG CAP 600 MG PO ×2 (15:39→20:40)
[2023-07-04] MEDS: SERTRALINE HCL 50 MG TABLET 150 MG PO (20:39)
[2023-07-04] MEDS: CENTRAL LINE FLUSH 10 ML IV PUSH (20:40)
[2023-07-04 21:57] VITALS: BP 129/67; PULSE 66; RESP 18; TEMP 36.1; O2SAT 99
[2023-07-04 22:40] VITALS: O2SAT 99
[2023-07-05] MEDS: CLINDAMYCIN HCL 150 MG CAP 600 MG PO ×3 (05:15→22:14)
[2023-07-05] MEDS: CENTRAL LINE FLUSH 20 ML IV PUSH (05:15)
[2023-07-05] MEDS: CENTRAL LINE FLUSH 10 ML IV PUSH ×3 (05:15→22:14)
[2023-07-05 05:29] LABS: Basophils Percent Auto 0.5 % (0.2-1.2); Eosinophils Absolute Auto 0.3 K/mm3 (0-0.3); Eosinophils Percent Auto 4.3 % (0-4.4); Hematocrit 35.6 % (42.0-52.0); Hemoglobin 11.5 g/dL (14.0-18.0); Immature Granulocyte Absolute 0.02 K/mm3 (0.00-0.031); Immature Granulocyte Percent A 0.3 % (0-0.5); Lymphocytes Absolute Auto 1.11 K/mm3 (0.9-3.2); Mean Corpuscular HGB Conc 32.3 g/dl (32-36); Mean Corpuscular Hemoglobin 31.2 pg (26-34); Mean Corpuscular Volume 96.5 fl (80-100); Mean Platelet Volume 8.7 fl (7.4-10.4); Monocytes Absolute Auto 0.5 K/mm3 (0.1-0.6); Monocytes Percent Auto 8.1 % (2.6-8.5); Neutrophils Percent Auto 67.8 % (45.5-73.1); Platelet Count Result 102 k/mm3 (150-375); Red Blood Count 3.69 M/mm3 (4.6-6.20); Red Cell Distribution Width 13.5 % (11.5-14.5); White Blood Count 5.8 K/mm3 (4.5-10.0)
[2023-07-05 05:41] LABS: Alanine Aminotransferase 13 U/L (6-50); Albumin Level 3.7 g/dL (3.5-5.1); Alkaline Phosphatase 109 U/L (38-126); Anion Gap 7 mmol/L (8-16); Aspartate Amino Transferase 20 U/L (17-59); Bilirubin,Total 0.5 mg/dL (0.2-1.3); Blood Urea Nitrogen 27 mg/dL (9-20); Calcium 8.5 mg/dL (8.4-10.2); Carbon Dioxide 24 mmol/L (22-30); Chloride 105 mmol/L (98-107); Estimated CRCL calculation 71 ml/min; Estimated Glomerular Filt Rate > 60; Glucose 91 mg/dL (65-110); Potassium 4.4 mmol/L (3.4-5.0); Sodium 136 mmol/L (137-145)
[2023-07-05 05:59] VITALS: BP 109/72; PULSE 52; RESP 22; TEMP 35.9; O2SAT 97
[2023-07-05 06:46] VITALS: PULSE 66; O2SAT 99
[2023-07-05] MEDS: PANTOPRAZOLE 40 MG TABLET PO (08:07)
[2023-07-05] MEDS: clonazePAM (*CRX) 0.5 MG TABLET PO (08:08)
[2023-07-05] MEDS: ACIDOPHILUS/BULGARICUS CHEWABLE TABLET 1 TABLET PO ×4 (08:08→22:14)
[2023-07-05] MEDS: MIRABEGRON 50 MG ER TABLET PO (08:08)
[2023-07-05] MEDS: DICLOFENAC SOD 75 MG TABLET.EC PO ×2 (08:08→16:56)
[2023-07-05] MEDS: ARIPiprazole 10 MG TABLET 30 MG PO (08:08)
[2023-07-05] MEDS: CEFEPIME 2 GM/NS 50 ML 2 GM/50 ML BAG IVPB ×2 (09:55→22:15)
--- NOTE | 2023-07-05 10:53 | PM.PNGS ---
Progress Note: A&P Assessment and Plan (1) Osteomyelitis of great toe of left foot: Code(s): M86.9 - Osteomyelitis, unspecified Status: Acute Assessment and Plan: cont abx, setup for PICC line for IV abx as outpt, will need f/u in wound care clinic once dc'd, no acute surgical intervention at this time, will s/o, call c?s, issues Subjective Subjective Date/Time Seen: 07/05/23 10:53 Interval history: no acute issues, reports cont improvement of toe Review of Systems Review of Systems: All systems reviewed & are unremarkable except as noted in HPI and below Exam Const: General: cooperative, comfortable and no acute distress Resp: Auscultation: clear to auscultation bilaterally Cardio: Rate: regular rate Rhythm: regular rhythm GI: Inspection: normal to inspection Extrem: Other: L toe - decreased induration, no cellulitis, no fluctuance, no drainage Objective Data Vital Signs Vital Signs: Vital Signs - 24 hr 07/04/23 14:00 07/04/23 20:00 07/04/23 21:57 Temperature 36.7 C 36.1 C L Pulse Rate 53 L 66 Respiratory Rate 16 18 Blood Pressure 106/51 L 129/67 Pulse Oximetry 94 99 Oxygen Delivery Room Air 07/05/23 05:59 07/04/23 22:40 07/05/23 06:46 Temperature 35.9 C L Pulse Rate 52 L 66 Respiratory Rate 22 H Blood Pressure 109/72 Pulse Oximetry 97 99 99 Oxygen Delivery Room Air Room Air 07/05/23 08:05 Temperature Pulse Rate Respiratory Rate Blood Pressure Pulse Oximetry Oxygen Delivery Room Air Intake/Output Intake/Output: Intake & Output 07/02/23 07/03/23 07/04/23 07/05/23 23:59 23:59 23:59 23:59 Intake Total 2550 3860 1340 Output Total 1280 3050 350 Balance 1270 810 990 Meds/Results Medications: Active Medications Generic Name Dose Route Start Last Admin Trade Name Freq PRN Reason Stop Dose Admin Acetaminophen 650 mg 07/02/23 23:20 Acetaminophen 325 Mg Tablet PO Q4H PRN Mild Pain (1-3) or Fever Hydrocodone Bitart/Acetaminophen 1 tab 07/02/23 23:24 Hydrocodone/Acetaminophen (*Crx) 5-325 Mg Tablet PO Q4H PRN Moderate Pain (4-6) Aripiprazole 30 mg 07/03/23 09:00 07/05/23 08:08 Aripiprazole 10 Mg Tablet PO 30 mg DAILY MIREILLE Administration Clindamycin HCl 600 mg 07/04/23 14:00 07/05/23 05:15 Clindamycin Hcl 150 Mg Cap PO 600 mg Q8HR MIREILLE Administration Clonazepam 0.5 mg 07/03/23 09:00 07/05/23 08:08 Clonazepam (*Crx) 0.5 Mg Tablet PO 0.5 mg DAILY MIREILLE Administration Diclofenac Sodium 75 mg 07/03/23 09:00 07/05/23 08:08 Diclofenac Sod 75 Mg Tablet.Ec PO 75 mg BID MIREILLE Administration Cefepime HCl 2 gm in 50 mls @ 100 mls/hr 07/02/23 10:00 07/05/23 09:55 Maxipime 2 Gm/Ns 50 Ml IVPB 100 mls/hr Q12H MIREILLE Administration Ceftriaxone Sodium 2 gm in 100 mls @ 200 mls/hr 07/04/23 12:00 07/04/23 12:45 Rocephin 2 Gm/Ns 100 Ml IVPB Infused Q24H MIREILLE Infusion Lactobacillus Acidophilus 1 tablet 07/04/23 13:00 07/05/23 08:08 Acidophilus/Bulgaricus Chewable Tablet PO 1 tablet QID MIREILLE Administration Mirabegron 50 mg 07/03/23 09:00 07/05/23 08:08 Mirabegron 50 Mg Er Tablet PO 50 mg DAILY MIREILLE Administration Ondansetron HCl 4 mg 07/02/23 23:24 Ondansetron Inj 4 Mg/2 Ml Vial IV PUSH Q6H PRN Nausea And Vomiting Pantoprazole Sodium 40 mg 07/03/23 09:00 07/05/23 08:07 Pantoprazole 40 Mg Tablet PO 40 mg QAM MIREILLE Administration Sertraline HCl 150 mg 07/03/23 21:00 07/04/23 20:39 Sertraline Hcl 50 Mg Tablet PO 150 mg QHS MIREILLE Administration Sodium Chloride 10 ml 07/04/23 22:00 07/05/23 05:15 Central Line Flush IV PUSH 10 ml Q8HR MIREILLE Administration Sodium Chloride 10 ml 07/04/23 15:28 Central Line Flush IV PUSH PRN PRN with TPN bag changes Sodium Chloride 20 ml 07/04/23 15:28 07/05/23 05:15 Central Line Flush IV PUSH 20 ml PRN PRN Administration after
--- NOTE | 2023-07-05 11:28 | PM.IMPN ---
Progress Note: A&P Assessment and Plan (1) Osteomyelitis of great toe of left foot: Code(s): M86.9 - Osteomyelitis, unspecified Status: Acute (2) History of osteomyelitis: Code(s): Z87.39 - Personal history of other diseases of the musculoskeletal system and connective tissue Status: Acute (3) Cellulitis of toe of left foot: Code(s): L03.032 - Cellulitis of left toe Status: Acute Plan Osteomyelitis/cellulitis -LT Great Toe -HX of IV ABX therapy same toe 12 weeks -Surgery consulted for recommendations [facility] IV ABX therapy vs Amputation?? Patient and family chose IV ABX ?-Blood cultures NGTD -Bone scan showing osteomyelitis.? -Switch to previous ABX therapy recommended by ID termite control representative CTX 2g IV daily and PO clindamycin 28 days -Monitor IV hydration.? -Monitor vital signs and oxygen saturation.? -consult I&D if needed based off cultures -Will need F/U o/p bone scan -PICC placed -CC for IV aBX therapy Code status:? Full code per patient DVT prophylaxis:? SCD's Stress ulcer prophylaxis:? Protonix 40 daily PT/OT notes:? Ambulatory Disposition:? Patient and family still requesting conservative care with IV antibiotic therapy encouraged partial amputation will need follow-up outpatient following IV antibiotics for bone scan. Patient will need long-term IV antibiotic therapy CC consulted for discharge planning. -Patient's previous records reviewed on admission -ER notes reviewed in detail on admission -discussed all findings and current treatment plan with patient/Family/POA -Consultations reviewed for recommendations -Patient's disposition for safe discharge discussed with patient case manager Dictation performed by [employer] direct speech recognition software, therefore construction trades teacher variants and typographical errors may occur. Time Spent With Patient Time with patient: less than 15 minutes Subjective Date/time seen: 07/05/23 11:28 Interval history: Chief Complaint: Left great toe pain Narrative: Patient presents to the ED for evaluation of left great toe pain.? He had prior history of osteomyelitis on the same area.? He saw his primary care physician today regarding this pain and had bone scan ordered which showed osteomyelitis of the left great toe.? He reports associated redness and deformity of the left great toe.? Patient was sent to the ED for further evaluation.? He denied fever, chills or weakness.? I was halted to admit this patient for further evaluation.? Patient had received vancomycin cefepime and Flagyl in the ED 07/03: Patient in bed comfortable and reports no significant pain to LT great toe. WBC normal range, afebrile over night blood cultures pending. Patient had previous 12 week IV ABX therapy for same great toe, new bone scan showing osteomyelitis. Surgery consulted for further recommendations IV ABX vs amputation. 07/04: Patient with no complaints, WBC normal range, sister at bedside and sister on phone discussed options amputation vs IV ABX they have all decided to continue with conservative treatment with IV ABX therapy will need close monitor O/P and follow-up scan. Will speak with case management to set-up o/p IV aBX therapy. Reviewed previous ID ABX therapy and switched to CTX 2 grams and clindamycin PO for 28 days. will order for midline placement. 07/05: Patient with no complaints up in chair eating reports no pain to LT great toe, WBC WNL and afebrile. Plan is still IV ABX CC consulted for discharge planning for detention 28 day IV ABX will need follow-up bone scan. Review of Systems Review of Systems: All systems reviewed & are unremarkable except as noted in HPI and below Exam Narrative: General: Alert and oriented x4, not in distress HEENT: Normocephalic atraumatic EOMI Respiratory: Clear to auscultation bilaterally Cardiovascular: Regular rate and rhythm normal no gallop no edema Gastrointestinal: Obese, nonte
[2023-07-05] MEDS: cefTRIAXone 2 GM/NS 100 ML 2 GM/100 ML BAG IVPB (11:56)
[2023-07-05 14:00] VITALS: BP 113/55; PULSE 50; RESP 18; TEMP 36.5; O2SAT 99
[2023-07-05 21:10] VITALS: BP 124/60; PULSE 47; RESP 16; TEMP 36.4; O2SAT 96
[2023-07-05] MEDS: SERTRALINE HCL 50 MG TABLET 150 MG PO (22:14)
[2023-07-06 00:03] VITALS: PULSE 71; O2SAT 99
[2023-07-06 05:05] VITALS: BP 108/59; PULSE 49; RESP 16; TEMP 37; O2SAT 93
[2023-07-06 05:13] VITALS: PULSE 67; O2SAT 98
[2023-07-06] MEDS: CENTRAL LINE FLUSH 20 ML IV PUSH (05:18)
[2023-07-06] MEDS: CLINDAMYCIN HCL 150 MG CAP 600 MG PO (05:18)
[2023-07-06] MEDS: CENTRAL LINE FLUSH 10 ML IV PUSH ×3 (05:18→20:54)
[2023-07-06 05:38] LABS: Basophils Percent Auto 0.7 % (0.2-1.2); Eosinophils Absolute Auto 0.1 K/mm3 (0-0.3); Eosinophils Percent Auto 0.8 % (0-4.4); Hematocrit 35.9 % (42.0-52.0); Hemoglobin 11.6 g/dL (14.0-18.0); Immature Granulocyte Absolute 0.02 K/mm3 (0.00-0.031); Immature Granulocyte Percent A 0.3 % (0-0.5); Lymphocytes Absolute Auto 1.02 K/mm3 (0.9-3.2); Lymphocytes Percent Auto 16.9 % (18.3-44.2); Mean Corpuscular HGB Conc 32.3 g/dl (32-36); Mean Corpuscular Hemoglobin 31.3 pg (26-34); Mean Corpuscular Volume 96.8 fl (80-100); Mean Platelet Volume 8.9 fl (7.4-10.4); Monocytes Absolute Auto 0.5 K/mm3 (0.1-0.6); Monocytes Percent Auto 8.6 % (2.6-8.5); Neutrophils Absolute Auto 4.4 K/mm3 (1.3-6.7); Neutrophils Percent Auto 72.7 % (45.5-73.1); Platelet Count Result 106 k/mm3 (150-375); Red Blood Count 3.71 M/mm3 (4.6-6.20); Red Cell Distribution Width 13.9 % (11.5-14.5); White Blood Count 6.1 K/mm3 (4.5-10.0)
[2023-07-06 05:49] LABS: Alanine Aminotransferase 15 U/L (6-50); Albumin Level 3.8 g/dL (3.5-5.1); Alkaline Phosphatase 111 U/L (38-126); Anion Gap 6 mmol/L (8-16); Aspartate Amino Transferase 26 U/L (17-59); Bilirubin,Total 0.6 mg/dL (0.2-1.3); Blood Urea Nitrogen 29 mg/dL (9-20); Calcium 8.7 mg/dL (8.4-10.2); Carbon Dioxide 27 mmol/L (22-30); Chloride 104 mmol/L (98-107); Estimated CRCL calculation 71 ml/min; Estimated Glomerular Filt Rate > 60; Glucose 89 mg/dL (65-110); Potassium 4.6 mmol/L (3.4-5.0); Sodium 137 mmol/L (137-145)
[2023-07-06] MEDS: ACIDOPHILUS/BULGARICUS CHEWABLE TABLET 1 TABLET PO ×4 (09:18→20:52)
[2023-07-06] MEDS: DOXYCYCLINE HYCLATE 100 MG TABLET PO ×2 (09:18→20:52)
[2023-07-06] MEDS: ARIPiprazole 10 MG TABLET 30 MG PO (09:19)
[2023-07-06] MEDS: MIRABEGRON 50 MG ER TABLET PO (09:20)
[2023-07-06] MEDS: PANTOPRAZOLE 40 MG TABLET PO (09:20)
[2023-07-06] MEDS: clonazePAM (*CRX) 0.5 MG TABLET PO (09:20)
[2023-07-06] MEDS: DICLOFENAC SOD 75 MG TABLET.EC PO ×2 (09:20→16:45)
--- NOTE | 2023-07-06 11:36 | PM.IMPN ---
Progress Note: A&P Assessment and Plan (1) Osteomyelitis of great toe of left foot: Code(s): M86.9 - Osteomyelitis, unspecified Status: Acute (2) History of osteomyelitis: Code(s): Z87.39 - Personal history of other diseases of the musculoskeletal system and connective tissue Status: Acute (3) Cellulitis of toe of left foot: Code(s): L03.032 - Cellulitis of left toe Status: Acute Plan Osteomyelitis/cellulitis -LT Great Toe -HX of IV ABX therapy same toe 12 weeks -Surgery consulted for recommendations [facility] IV ABX therapy vs Amputation?? Patient and family chose IV ABX ?-Blood cultures NGTD -Bone scan showing osteomyelitis.? -Switch to previous ABX therapy recommended by ID intermediate designer CTX 2g IV daily and Doxycycline BID x 6 weeks -Monitor IV hydration.? -Monitor vital signs and oxygen saturation.? -consult I&D if needed based off cultures -Will need F/U o/p bone scan -PICC placed -CC for IV aBX therapy Code status:? Full code per patient DVT prophylaxis:? SCD's Stress ulcer prophylaxis:? Protonix 40 daily PT/OT notes:? Ambulatory Disposition:? Patient and family still requesting conservative care with IV antibiotic therapy encouraged partial amputation will need follow-up outpatientbone scan 2 weeks following start of IV antibiotics Patient will need long-term IV antibiotic therapy 6 weeks CC consulted for discharge planning. -Patient's previous records reviewed on admission -ER notes reviewed in detail on admission -discussed all findings and current treatment plan with patient/Family/POA -Consultations reviewed for recommendations -Patient's disposition for safe discharge discussed with disease case manager rn Dictation performed by [employer] direct speech recognition software, therefore slp teacher variants and typographical errors may occur. Time Spent With Patient Time with patient: 25 - 35 minutes Subjective Date/time seen: 07/06/23 11:36 Interval history: Chief Complaint: Left great toe pain Narrative: Patient presents to the ED for evaluation of left great toe pain.? He had prior history of osteomyelitis on the same area.? He saw his primary care physician today regarding this pain and had bone scan ordered which showed osteomyelitis of the left great toe.? He reports associated redness and deformity of the left great toe.? Patient was sent to the ED for further evaluation.? He denied fever, chills or weakness.? I was halted to admit this patient for further evaluation.? Patient had received vancomycin cefepime and Flagyl in the ED 07/03: Patient in bed comfortable and reports no significant pain to LT great toe. WBC normal range, afebrile over night blood cultures pending. Patient had previous 12 week IV ABX therapy for same great toe, new bone scan showing osteomyelitis. Surgery consulted for further recommendations IV ABX vs amputation. 07/04: Patient with no complaints, WBC normal range, sister at bedside and sister on phone discussed options amputation vs IV ABX they have all decided to continue with conservative treatment with IV ABX therapy will need close monitor O/P and follow-up scan. Will speak with case management to set-up o/p IV aBX therapy. Reviewed previous ID ABX therapy and switched to CTX 2 grams and clindamycin PO for 28 days. will order for midline placement. 07/05: Patient with no complaints up in chair eating reports no pain to LT great toe, WBC WNL and afebrile. Plan is still IV ABX CC consulted for discharge planning for intermediate designer 28 day IV ABX will need follow-up bone scan. 07/06: Patient up in chair no complaints denies pain to great toe, diarrhea x2 episodes probiotic added. CC working on SNF for [facility] IV abx therapy 6 weeks, bone scan 2 weeks after ABX. Sister at bedside updated and agreed with plan. Review of Systems Review of Systems: All systems reviewed & are unremarkable except as noted in HPI and below
[2023-07-06] MEDS: cefTRIAXone 2 GM/NS 100 ML 2 GM/100 ML BAG IVPB (12:47)
[2023-07-06 13:47] VITALS: BP 122/56; PULSE 52; RESP 16; TEMP 36.2; O2SAT 100
[2023-07-06 20:36] VITALS: BP 136/64; PULSE 60; RESP 16; TEMP 36.4; O2SAT 93
[2023-07-06] MEDS: SERTRALINE HCL 50 MG TABLET 150 MG PO (20:52)
[2023-07-07 01:23] VITALS: PULSE 70; O2SAT 98
[2023-07-07 04:25] VITALS: BP 129/67; PULSE 48; RESP 18; TEMP 36.9; O2SAT 94
[2023-07-07] MEDS: CENTRAL LINE FLUSH 10 ML IV PUSH ×2 (05:31→13:24)
[2023-07-07] MEDS: CENTRAL LINE FLUSH 20 ML IV PUSH (05:31)
[2023-07-07 05:44] LABS: Basophils Absolute Auto 0.1 K/mm3 (0.0-0.1); Basophils Percent Auto 0.8 % (0.2-1.2); Eosinophils Absolute Auto 0.5 K/mm3 (0-0.3); Eosinophils Percent Auto 8.2 % (0-4.4); Hematocrit 34.6 % (42.0-52.0); Hemoglobin 11.2 g/dL (14.0-18.0); Immature Granulocyte Absolute 0.02 K/mm3 (0.00-0.031); Immature Granulocyte Percent A 0.3 % (0-0.5); Immature Platelet Fraction Pct 1.1 % (0.9-11.2); Lymphocytes Absolute Auto 1.09 K/mm3 (0.9-3.2); Lymphocytes Percent Auto 17.2 % (18.3-44.2); Mean Corpuscular HGB Conc 32.4 g/dl (32-36); Mean Corpuscular Hemoglobin 31.3 pg (26-34); Mean Corpuscular Volume 96.6 fl (80-100); Mean Platelet Volume 8.9 fl (7.4-10.4); Monocytes Absolute Auto 0.5 K/mm3 (0.1-0.6); Monocytes Percent Auto 7.6 % (2.6-8.5); Neutrophils Absolute Auto 4.2 K/mm3 (1.3-6.7); Neutrophils Percent Auto 65.9 % (45.5-73.1); Platelet Count Result 123 k/mm3 (150-375); Red Blood Count 3.58 M/mm3 (4.6-6.20); Red Cell Distribution Width 13.7 % (11.5-14.5); White Blood Count 6.4 K/mm3 (4.5-10.0)
[2023-07-07 05:57] LABS: Alanine Aminotransferase 19 U/L (6-50); Albumin Level 3.6 g/dL (3.5-5.1); Alkaline Phosphatase 112 U/L (38-126); Anion Gap 5 mmol/L (8-16); Aspartate Amino Transferase 32 U/L (17-59); Bilirubin,Total 0.5 mg/dL (0.2-1.3); Blood Urea Nitrogen 27 mg/dL (9-20); Calcium 8.6 mg/dL (8.4-10.2); Carbon Dioxide 28 mmol/L (22-30); Chloride 103 mmol/L (98-107); Estimated CRCL calculation 71 ml/min; Estimated Glomerular Filt Rate > 60; Glucose 93 mg/dL (65-110); Potassium 4.6 mmol/L (3.4-5.0); Sodium 136 mmol/L (137-145)
[2023-07-07] MEDS: DOXYCYCLINE HYCLATE 100 MG TABLET PO (09:16)
[2023-07-07] MEDS: PANTOPRAZOLE 40 MG TABLET PO (09:16)
[2023-07-07] MEDS: DICLOFENAC SOD 75 MG TABLET.EC PO (09:16)
[2023-07-07] MEDS: clonazePAM (*CRX) 0.5 MG TABLET PO (09:16)
[2023-07-07] MEDS: ARIPiprazole 10 MG TABLET 30 MG PO (09:17)
[2023-07-07] MEDS: MIRABEGRON 50 MG ER TABLET PO (09:17)
[2023-07-07] MEDS: ACIDOPHILUS/BULGARICUS CHEWABLE TABLET 1 TABLET PO ×2 (09:17→12:37)
--- NOTE | 2023-07-07 11:10 | P.CDI_ITS ---
Morbid Obesity CDI Query Clarification Request Documentation in the medical record indicates that this patient has: BMI 42.3 Based on your medical judgement, can you if known, further clarify in the progress notes the diagnosis associated with these findings such as: * Overweight * Obesity * Morbid Obesity * Other condition * None of the above/ Not applicable.
[2023-07-07] MEDS: cefTRIAXone 2 GM/NS 100 ML 2 GM/100 ML BAG IVPB (12:37)
[2023-07-07 12:51] LABS: Influenza A QL RT-PCR Negative (Negative); Influenza B QL RT-PCR Negative (Negative); RSV RNA, RT-PCR Negative (Negative); SARS-CoV-2 RNA PCR Negative (Negative)
[2023-07-07 14:00] VITALS: BP 114/59; PULSE 61; RESP 22; TEMP 36.5; O2SAT 99
--- NOTE | 2023-07-07 15:14 | PM.DS ---
DS: Admitting Diagnosis Discharge Date 07/07/2023 Admitting Diagnosis Osteomyelitis great LT toe DS: Discharge Diagnosis Discharge Diagnosis (1) Osteomyelitis of great toe of left foot: Code(s): M86.9 - Osteomyelitis, unspecified Status: Acute (2) History of osteomyelitis: Code(s): Z87.39 - Personal history of other diseases of the musculoskeletal system and connective tissue Status: Acute (3) Cellulitis of toe of left foot: Code(s): L03.032 - Cellulitis of left toe Status: Acute Plan Osteomyelitis/cellulitis -LT great toe -IV ABX ceftriaxone x 6 weeks -Doxycycline BID x 6 weeks -F/U Bone scan 3 weeks -F/U with podiatry or general surgery -Monitor for signs of sepsis DS: Summary Hospital Course Reason for hospitalization: Osteomyelitis left great toe Hospital Course: Interval history: Chief Complaint: Left great toe pain Narrative: Patient presents to the ED for evaluation of left great toe pain.? He had prior history of osteomyelitis on the same area.? He saw his primary care physician today regarding this pain and had bone scan ordered which showed osteomyelitis of the left great toe.? He reports associated redness and deformity of the left great toe.? Patient was sent to the ED for further evaluation.? He denied fever, chills or weakness.? I was halted to admit this patient for further evaluation.? Patient had received vancomycin cefepime and Flagyl in the ED 07/03:?Patient in bed comfortable and reports no significant pain to LT great toe.? WBC normal range, afebrile over night blood cultures pending.? Patient had previous 12 week IV ABX therapy for same great toe, new bone scan showing osteomyelitis.? Surgery consulted for further recommendations IV ABX vs amputation. 07/04:??Patient with no complaints, WBC normal range, sister at bedside and sister on phone discussed options amputation vs IV ABX they have all decided to continue with conservative treatment with IV ABX therapy will need close monitor O/P and follow-up scan.? Will speak with case management to set-up o/p IV aBX therapy.? Reviewed previous ID ABX therapy and switched to CTX 2 grams and clindamycin PO for 28 days.? will order for midline placement. 07/05:??Patient with no complaints up in chair eating reports no pain to LT great toe, WBC WNL and afebrile.? Plan is still IV ABX CC consulted for discharge planning for residential 28 day IV ABX will need follow-up bone scan. 07/06:??Patient up in chair no complaints denies pain to great toe, diarrhea x2 episodes probiotic added.? CC working on SNF for residential IV abx therapy 6 weeks, bone scan 2 weeks after ABX.? Sister at bedside updated and agreed with plan. Spoke with I&D changed oral doxycycline Received insurance authorization patient to discharge to SNF for 6 week IV ABX therapy. Plan for bone scan in 3 weeks for clearance of infection if worsening will likely need amputation. Status at Discharge Functional status at discharge: independent ambulation Time Spent with Patient Time attestation: Total time spent providing and/or coordinating discharge services: Time spent: Greater than 30 minutes Exam Narrative: General: Alert and oriented x4, not in distress HEENT: Normocephalic atraumatic EOMI Respiratory: Clear to auscultation bilaterally Cardiovascular: Regular rate and rhythm normal no gallop no edema Gastrointestinal: Obese, nontender nondistended was found Musculoskeletal: Mildly inflamed and swollen tip of left great toe, warm compared to the right, no discharge, dizziness but is and posterior tibial pulses palpable on the left lower extremity. Skin: Mildly inflamed and swollen left great toe as documented above Neurologic: No focal deficit DS: Data Data Completed and Pending Labs on day of discharge: Labs from last 24 hours 07/07/23 07/07/23 12:09 05:37 WBC 6.4 RBC 3.58 L Hgb 11.2 L Hct 34.6 L MCV 96.6 MCH 31.3
== END 2023-07-07 15:40 | DRG 540 ==
LOC: ANHED 23:20 → ANH3MEDSUR 07-03 03:01
PROVIDERS: Admitting Provider Student in an Organized Health Care Education/Training Program; Emergency Provider Emergency Medicine; PCP Family Medicine; Visit Provider Nurse Practitioner Family
DX: M86.9 Osteomyelitis, unspecified (principal); F20.0 Paranoid schizophrenia; I48.92 Unspecified atrial flutter; I50.22 Chronic systolic (congestive) heart failure; Z68.41 Body mass index [BMI] 40.0-44.9, adult; L03.032 Cellulitis of left toe; E78.5 Hyperlipidemia, unspecified; K80.20 Calculus of gallbladder without cholecystitis without obstruction; E66.01 Morbid (severe) obesity due to excess calories; N40.0 Benign prostatic hyperplasia without lower urinary tract symptoms; G89.29 Other chronic pain; G47.33 Obstructive sleep apnea (adult) (pediatric); F17.210 Nicotine dependence, cigarettes, uncomplicated; I25.2 Old myocardial infarction; Z20.822 Contact with and (suspected) exposure to COVID-19
CPT/HCPCS: 36415; 36569; 78315; 80048; 80053; 80061; 83036; 83605; 84153; 84443; 85025; 85027; 85055; 85610; 85652; 85730; 87040; 87637; 96365; 96367; 96376; 97161; 99285; A9270; A9503; G0378; J0692; J0696; J1836; J3370; J7030

== ENCOUNTER 2023-07-22 08:51 | Outpatient (CLI) | payer OTHER, MEDICARE, MEDICAID, SELFPAY ==
--- NOTE | ~2023-07-22 | NM_ITS ---
EXAMINATION: NM bone 3 phase DATE: 07/22/2023 12:44 INDICATION: Left great toe osteomyelitis. TECHNIQUE: 25.8 mCi Tc-99m HDP was administered intravenously. Scintigrams of the feet were obtained in angiographic, blood pool, and delayed phases. COMPARISON: Left foot MRI 01/26/2022, radiographs 04/04/2021, bone scan 07/02/2023 FINDINGS: There is no abnormal activity in the toes. There is increased activity in the right midfoot in the delayed phase without radiographic comparison, likely osteoarthritis. IMPRESSION: 1. No evidence of osteomyelitis. Reviewed, dictated and finalized at location A. [facility]
[2023-07-22 09:38] LABS: Hematocrit 39.1 % (42.0-52.0); Hemoglobin 12.7 g/dL (14.0-18.0); Mean Corpuscular HGB Conc 32.5 g/dl (32-36); Mean Corpuscular Volume 95.4 fl (80-100); Mean Platelet Volume 8.4 fl (7.4-10.4); Platelet Count Result 112 k/mm3 (150-375); Red Cell Distribution Width 13.5 % (11.5-14.5); White Blood Count 5.7 K/mm3 (4.5-10.0)
[2023-07-22 09:52] LABS: Alanine Aminotransferase 24 U/L (6-50); Alkaline Phosphatase 109 U/L (38-126); Anion Gap 7 mmol/L (8-16); Aspartate Amino Transferase 37 U/L (17-59); Bilirubin,Total 0.7 mg/dL (0.2-1.3); Blood Urea Nitrogen 27 mg/dL (9-20); Calcium 9.1 mg/dL (8.4-10.2); Carbon Dioxide 27 mmol/L (22-30); Chloride 100 mmol/L (98-107); Cholesterol 149 mg/dL (0-200); Estimated Glomerular Filt Rate > 60; Glucose 92 mg/dL (65-110); HDL Direct 33 mg/dL; Potassium 4.7 mmol/L (3.4-5.0); Sodium 134 mmol/L (137-145); Triglycerides 60 mg/dL (<150)
[2023-07-22 10:03] LABS: LDL Cholesterol Direct 97 mg/dL
[2023-07-22 10:20] LABS: Prostate Specific Antigen 0.8 ng/mL (< OR = 4.0)
== END 2023-07-22 08:52 | disposition home or self-care (01) ==
LOC: ANHIMG 08:57
PROVIDERS: PCP Family Medicine; Visit Provider Nurse Practitioner
DX: M86.9 Osteomyelitis, unspecified (principal); E78.5 Hyperlipidemia, unspecified; E78.49 Other hyperlipidemia; Z79.899 Other long term (current) drug therapy; Z12.5 Encounter for screening for malignant neoplasm of prostate
CPT/HCPCS: 36415; 78315; 80053; 80061; 84153; 84443; 85027; A9503; G0103

== ENCOUNTER 2023-11-05 10:03 | Outpatient (CLI) | payer MEDICARE, OTHER, SELFPAY ==
[2023-11-05 10:43] LABS: Anion Gap 5 mmol/L (4-12); Blood Urea Nitrogen 38 mg/dL (9-20); Calcium 8.9 mg/dL (8.4-10.2); Carbon Dioxide 26 mmol/L (22-30); Chloride 105 mmol/L (98-107); Estimated Glomerular Filt Rate > 60; Glucose 95 mg/dL (65-110); Potassium 4.6 mmol/L (3.4-5.0); Sodium 136 mmol/L (137-145)
== END 2023-11-05 10:04 | disposition home or self-care (01) ==
PROVIDERS: PCP Nurse Practitioner; Visit Provider Internal Medicine Cardiovascular Disease
DX: R94.30 Abnormal result of cardiovascular function study, unspecified (principal); I48.3 Typical atrial flutter
CPT/HCPCS: 36415; 80048

== ENCOUNTER 2024-01-26 15:32 | Outpatient (CLI) | payer MEDICARE, MEDICAID, SELFPAY ==
[2024-01-26 16:45] LABS: Anion Gap 10 mmol/L (4-12); Carbon Dioxide 26 mmol/L (22-30); Chloride 101 mmol/L (98-107); Potassium 4.6 mmol/L (3.4-5.0); Sodium 137 mmol/L (137-145)
[2024-01-26 16:46] LABS: Blood Urea Nitrogen 39 mg/dL (9-20); Calcium 8.8 mg/dL (8.4-10.2); Estimated Glomerular Filt Rate 47; Glucose 107 mg/dL (65-110)
== END 2024-01-26 15:33 | disposition home or self-care (01) ==
LOC: ANHLAB 15:37
PROVIDERS: PCP Nurse Practitioner; Visit Provider Internal Medicine Cardiovascular Disease
DX: R94.30 Abnormal result of cardiovascular function study, unspecified (principal); I50.810 Right heart failure, unspecified
CPT/HCPCS: 36415; 80048

== ENCOUNTER 2024-02-21 23:17 | Emergency (ER) | payer MEDICARE, MEDICAID, SELFPAY ==
--- NOTE | ~2024-02-21 | CT_ITS ---
CT of the Abdomen and Pelvis: Indication: Perineal swelling, abscess Technique: 2.5 mm axial scans were obtained through the abdomen and pelvis following intravenous adm inistration of 100 cc of Omnipaque 350. Dose reduction technique was used on this scan by utilizing a utomated exposure control and iterative reconstruction technique. The dose-length product (DLP) was 1 628.38 mGy-cm. Findings: Scans through the lung bases demonstrate 6 mm groundglass nodule in the right middle lobe near the fissure (axial image 3). Minimal right pleural effusion present with mild bibasilar atelecta tic changes. The liver, spleen, pancreas, adrenals and kidneys are within normal limits. Multiple small gallstones are present. There are atherosclerotic calcifications of the aorta. No lymphadenopathy. No bowel obstruction or bowel wall thickening. There is no evidence to suggest acute appendicitis. Images through the pelvis were performed. Urinary bladder unremarkable. No pelvic mass seen. No ascit es. There is advanced degenerative spondylosis in the lumbar spine. No abscess seen in the perineal region. Impression: No significant abnormality seen in the perineal region. Cholelithiasis. Minimal right pleural effusion with bibasilar atelectatic change. 6 mm groundglass nodule right middle lobe. Consider annual follow-up. Reviewed, dictated and finalized at [facility]. Impression: No significant abnormality seen in the perineal region. Cholelithiasis. Minimal right pleural effusion with bibasilar atelectatic change. 6 mm groundglass nodule right middle lobe. Consider annual follow-up.
--- NOTE | ~2024-02-21 | XR_ITS ---
Portable chest x-ray Comparison: 07/04/2023 Clinical History: Fever Findings: Focal discoid atelectasis left lung base noted. Lungs are otherwise clear. Cardiomediasti nal silhouette is stable. Bones and soft tissues are unremarkable. Impression: Focal discoid left basilar atelectasis, otherwise clear lungs. Reviewed, dictated and finalized at location . Impression: Focal discoid left basilar atelectasis, otherwise clear lungs.
[2024-02-21 23:19] VITALS: BP 141/58; PULSE 76; RESP 17; TEMP 38.3; O2SAT 92
[2024-02-22] VITALS (12 sets, daily range): BP systolic 110–150; BP diastolic 65–67; PULSE 62–78; RESP 16–20; TEMP 37.2–37.3; O2SAT 91–100
--- NOTE | 2024-02-22 02:21 | ED.GENADULT ---
HPI - General Adult General Chief complaint: Skin/Abscess/Foreign Body Stated complaint: Shaking, boil on buttocks Time Seen by Provider: 02/22/24 01:35 History of Present Illness HPI narrative: Patient is a 63-year-old gentleman presents emergency department with chief complaint of swelling in the perineal area. Patient reports that he has a possible boils between his rectum and his scrotum the patient states there was some drainage from the area and reports that he feels not so good having chills today the patient reports that he also has a fever the patient denies problems urinating denies history of diabetes denies history of Yohannes's gangrene patient does have prior history of osteomyelitis on his left foot Related Data Home Medications Medication Instructions Recorded Confirmed clonazepam 0.5 mg tablet 0.5 mg PO DAILY 11/12/20 02/11/24 sertraline 100 mg tablet 150 mg PO DAILY 11/12/20 02/11/24 aripiprazole 30 mg tablet 30 mg PO DAILY 04/01/23 02/11/24 mirabegron 50 mg tablet,extended 50 mg PO DAILY 07/02/23 02/11/24 release 24 hr (Myrbetriq) acetaminophen 500 mg capsule 1,000 mg PO Q6H PRN 09/04/23 02/11/24 Allergies Allergy/AdvReac Type Severity Reaction Status Date / Time aspirin Allergy Severe Anaphylactic Verified 02/21/24 23:26 Shock Review of Systems Review of Systems: A 10 system review of systems was completed on the patient and is negative except for what is stated in the HPI. Nursing and ancillary documentation was reviewed. [facility] Past Medical History Medical History Asymptomatic cholelithiasis Atrial flutter Benign prostatic hyperplasia Body mass index 40.0-44.9, adult Chronic pain COPD (chronic obstructive pulmonary disease) (Unknown) Jsyc-fp-wpoclvyk obstructive ventilatory defect with severe small airway disease pattern no acute bronchodilator response and mildly decreased DLCO noted on pulmonary function testing from 2014. Hematuria History of Clostridium difficile colitis History of myocardial infarction (Unknown) With stress test November 2019 demonstrating 2 fixed perfusion defects small mild area of apical septal segment defect in left ventricle, moderate sized area of mild infarct involving apical inferior apical lateral and mid inferior lateral segment of the left ventricle, ejection fraction of 70%. Hyperlipidemia Nicotine dependence, unspecified, uncomplicated (Unknown) Obstructive sleep apnea treated with BiPAP Settings of according to sleep study in February 2010. Osteomyelitis Paranoid schizophrenia (Unknown) Right heart failure with reduced right ventricular function Echocardiogram November 2019 demonstrated reduced right ventricular systolic function and mild enlargement, mild left ventricular enlargement, EF 55-60%, indeterminate diastolic function, mild left atrial enlargement, mild mitral valve regurgitation, small pericardial effusion Surgical History Surgical History History of inguinal herniorrhaphy As a child. Family History Family History Sibling Healthy female adult Reportedly both of the patient's sisters are healthy. Social History Social History Social History: Surrogate decision maker: Mesha Tanner, sister. Code status: Full code. Smoking packs per day: 1.5 Smoking cigarettes per day: 30.0 Years smoked: 40 Smoking pack-years: 60.00 Smoking status: Former smoker Tobacco type: cigarettes Second hand tobacco smoke exposure: No Smoking end date: 02/05/22 Alcohol intake: never Substance use: never Substance use type: does not use Do You Feel Safe in your Home?: Yes Lack of Transportation: No Lack of Food: Never True Current Housing: I Have Housing Concerned About Futur
[2024-02-22] MEDS: SODIUM CHLORIDE 0.9% IV 1,000 ML 999 ML IV CONT (02:35)
[2024-02-22] MEDS: ACETAMINOPHEN 500 MG TABLET 1000 MG PO (02:36)
[2024-02-22 02:44] LABS: Basophils Percent Auto 0.4 % (0.2-1.2); Eosinophils Percent Auto 0.4 % (0-4.4); Hematocrit 37.7 % (42.0-52.0); Hemoglobin 12.5 g/dL (14.0-18.0); Immature Granulocyte Absolute 0.01 K/mm3 (0.00-0.031); Immature Granulocyte Percent A 0.1 % (0-0.5); Immature Platelet Fraction Pct 0.5 % (0.9-11.2); Lymphocytes Absolute Auto 0.54 K/mm3 (0.9-3.2); Lymphocytes Percent Auto 7.4 % (18.3-44.2); Mean Corpuscular HGB Conc 33.2 g/dl (32-36); Mean Corpuscular Hemoglobin 31.6 pg (26-34); Mean Corpuscular Volume 95.4 fl (80-100); Mean Platelet Volume 8.3 fl (7.4-10.4); Monocytes Absolute Auto 0.4 K/mm3 (0.1-0.6); Neutrophils Absolute Auto 6.3 K/mm3 (1.3-6.7); Neutrophils Percent Auto 86.7 % (45.5-73.1); Platelet Count Result 117 k/mm3 (150-375); Red Blood Count 3.95 M/mm3 (4.6-6.20); Red Cell Distribution Width 14.1 % (11.5-14.5); White Blood Count 7.3 K/mm3 (4.5-10.0)
[2024-02-22 02:55] LABS: Alanine Aminotransferase 19 U/L (6-50); Albumin Level 4.2 g/dL (3.5-5.1); Alkaline Phosphatase 112 U/L (38-126); Anion Gap 11 mmol/L (4-12); Aspartate Amino Transferase 25 U/L (17-59); Bilirubin,Total 0.8 mg/dL (0.2-1.3); Blood Urea Nitrogen 33 mg/dL (9-20); Calcium 8.7 mg/dL (8.4-10.2); Carbon Dioxide 25 mmol/L (22-30); Chloride 100 mmol/L (98-107); Estimated CRCL calculation 61 ml/min; Estimated Glomerular Filt Rate 47; Glucose 97 mg/dL (65-110); Lactic Acid Reflex 0.8 mmol/L (0.7-2.0); Potassium 4.5 mmol/L (3.4-5.0); Sodium 136 mmol/L (137-145)
[2024-02-22 03:12] LABS: Procalcitonin 0.4 ng/mL
[2024-02-22 04:36] LABS: Influenza A QL RT-PCR Negative (Negative); Influenza B QL RT-PCR Negative (Negative); RSV RNA, RT-PCR Negative (Negative); SARS-CoV-2 RNA PCR Negative (Negative)
[2024-02-22 05:02] LABS: Add Urine Microscopic? YES; Appearance Urine Clear (Clear); Bacteria Urine Rare /hpf; Bilirubin Urine Negative (Negative); Blood Urine 3+ (Negative); Color Urine Yellow (Yellow); Glucose Urine UA Negative (Negative); Ketones Urine Negative (Negative); Leukocyte Esterase Ur Negative LEU/UL (Negative); Nitrate Urine Negative (Negative); Non Pathogenic Casts 0-2; Protein Urine Trace mg/dL (Negative); RBC Urine >100 /hpf (0-2); Specific Grav Ur > 1.045 (1.001-1.035); Squamous Epithelial Cell Urine None Seen /hpf (Few)
== END 2024-02-22 07:15 | disposition home or self-care (01) ==
PROVIDERS: Emergency Provider Emergency Medicine; PCP Nurse Practitioner
DX: N39.0 Urinary tract infection, site not specified (principal); Z20.822 Contact with and (suspected) exposure to COVID-19; J44.9 Chronic obstructive pulmonary disease, unspecified; I25.2 Old myocardial infarction; E78.5 Hyperlipidemia, unspecified; G47.30 Sleep apnea, unspecified; I50.9 Heart failure, unspecified
CPT/HCPCS: 36415; 71045; 74177; 80053; 81001; 83605; 84145; 85025; 85055; 87040; 87077; 87086; 87088; 87186; 87637; 96360; 96361; 99284; A9270; J7030; Q9967

== ENCOUNTER 2024-03-30 10:39 | Outpatient (CLI) | payer MEDICARE, MEDICAID, SELFPAY ==
--- NOTE | ~2024-03-30 | CT_ITS ---
Clinical indication:Lung cancer screening COMPARISON:02/16/2023 TECHNIQUE: Multiple contiguous axial images of the chest were performed without the administration of intravenous contrast. FINDINGS: LUNG:Biapical scarring. No pulmonary nodules are identified. MEDIASTINUM:Unremarkable HEART:The heart is of normal size without pericardial effusion SOFT TISSUES OF THE CHEST: Unremarkable BONES OF THE CHEST: Degenerative disease within the thoracic spine with straightening of the normal c urvature. VISUALIZED PORTION OF THE UPPER ABDOMEN: Multiple stones are identified within the gallbladder. The pancreas is atrophic. IMPRESSION: Lung-RADS category 1: Negative. Continue annual screening with noncontrast low-dose chest CT in 12 mo nths. Reviewed, dictated and finalized at location A. IMPRESSION: Lung-RADS category 1: Negative. Continue annual screening with noncontrast low- dose chest CT in 12 months.
== END 2024-03-30 10:40 | disposition home or self-care (01) ==
PROVIDERS: PCP Nurse Practitioner; Visit Provider Physician Assistant
DX: Z12.2 Encounter for screening for malignant neoplasm of respiratory organs (principal); Z87.891 Personal history of nicotine dependence
CPT/HCPCS: 71271

== ENCOUNTER 2024-04-08 16:00 | Emergency (ER) | payer MEDICARE, MEDICAID, SELFPAY ==
[2024-04-08 16:10] VITALS: BP 136/70; PULSE 69; RESP 16; TEMP 36.6; O2SAT 98
--- NOTE | 2024-04-08 16:17 | ED.DENTAL ---
HPI - Dental/Oral General Chief complaint: Dental/Oral Stated complaint: Toothache Time Seen by Provider: 04/08/24 16:17 Source: patient, RN notes reviewed and old records reviewed Mode of arrival: ambulatory Limitations: no limitations History of Present Illness HPI Narrative: 63-year-old male to [facility] Care with complaint right lower molar pain for 3 days. Patient states dental pain initially started 3 months ago but resolved. Patient has attempted to treat at home with kdcy-[id number]-[id number] medication with little relief. Patient reports difficulty chewing due to pain. Patient states that he has an appointment with his dentist in 2 weeks. Patient denies cough, difficulty swallowing, fever, chills. Patient able to tolerate fluids by mouth. Patient resting comfortably in exam room in no acute distress. Related Data Home Medications Medication Instructions Recorded Confirmed clonazepam 0.5 mg tablet 0.5 mg PO DAILY 11/12/20 04/08/24 sertraline 100 mg tablet 150 mg PO DAILY 11/12/20 04/08/24 aripiprazole 30 mg tablet 30 mg PO DAILY 04/01/23 04/08/24 mirabegron 50 mg tablet,extended 50 mg PO DAILY 07/02/23 04/08/24 release 24 hr (Myrbetriq) Allergies Allergy/AdvReac Type Severity Reaction Status Date / Time aspirin Allergy Severe Anaphylactic Verified 04/08/24 16:15 Shock Review of Systems Review of Systems: All systems reviewed & are unremarkable except as noted in HPI and below Constitutional: Constitutional: Reports no additional constitutional complaints Eyes: Eyes: Reports no additional eye complaints ENT: Reports as per HPI and Reports dental pain ( Right lower molar) Cardiovascular: Cardiovascular: Reports no additional cardiovascular complaints, Denies chest pain and Denies dyspnea Respiratory: Respiratory: Reports no additional respiratory complaints, Denies cough and Denies dyspnea Musculoskeletal: Musculoskeletal: Reports no additional musculoskeletal complaints Neurologic: Reports system reviewed and no additional complaints, except as documented Psychiatric: Psychiatric: Reports no additional psychiatric complaints PMFSH Past Medical History Medical History Asymptomatic cholelithiasis Atrial flutter Benign prostatic hyperplasia Body mass index 40.0-44.9, adult Chronic pain COPD (chronic obstructive pulmonary disease) (Unknown) Wpch-ky-cxpbhzeh obstructive ventilatory defect with severe small airway disease pattern no acute bronchodilator response and mildly decreased DLCO noted on pulmonary function testing from 2014. Hematuria History of Clostridium difficile colitis History of myocardial infarction (Unknown) With stress test November 2019 demonstrating 2 fixed perfusion defects small mild area of apical septal segment defect in left ventricle, moderate sized area of mild infarct involving apical inferior apical lateral and mid inferior lateral segment of the left ventricle, ejection fraction of 70%. Hyperlipidemia Nicotine dependence, unspecified, uncomplicated (Unknown) Obstructive sleep apnea treated with BiPAP Settings of 25/20 according to sleep study in February 2010. Osteomyelitis Paranoid schizophrenia (Unknown) Right heart failure with reduced right ventricular function Echocardiogram November 2019 demonstrated reduced right ventricular systolic function and mild enlargement, mild left ventricular enlargement, EF 55-60%, indeterminate diastolic function, mild left atrial enlargement, mild mitral valve regurgitation, small pericardial effusion Surgical History Surgical History History of inguinal herniorrhaphy As a child. Family History Family History Sibling Healthy female adult Reportedly both of the patient's sisters are healthy. Social History Social History Social History: Surrogate decision maker: Mesha Tanner, sister. Code status: Full code. Smoking packs per day: 1.5 Smoking cigarettes per day: 30.0 Years smoked: 40 Smoking pack-years: 60.00 Smoking status: Former smoker Tobacco type: cigarettes Second hand tobacco smoke exposure: No Smoking end date: 02/05/22 Alcohol intake: never Substance use: never Substance use type: does not use Do You Feel Safe in your Home?: Yes Lack of Transportation: No Lack of Food: Never True Current Housing: I Have Housing Concerned About Future Housing: No Difficulty Paying Gas/Electric Bills: No Difficulty Paying for Meds: No Currently Unemployed: No Education: Grade School Difficulty w/ Childcare or Family Care: No Living arrangements: other Additional living arrangements comments: Senior disable apartment building. Sister helps and checks on him frequently Occupation/Education: retired Additional occupation/education comments: Disabled due to paranoid schizophrenia. Gender identity (if verbalized by the patient): Male Spiritual care concerns: No Comments At the time of my signature, I reviewed and agree with the nursing past medical, surgical, social, and family history. There is no relevant family history pertinent to the patient complaint. Exam Const: General: cooperative, comfortable, no acute distress, alert, ill appearing chronically and well nourished Nutritional Appearance: well nourished Orientation/consciousness: patient oriented x3 Limitations: no limitations HENMT: Head: normal to inspection Ears: external ears normal Face/Nose/Sinus: Normal external nose present, Normal nares present, normal facial exam, No erythema and No edema Face and sinus: normal facial exam, no erythema and no edema Mouth: Yes lip normal, Yes tongue normal, Yes moist mucous membranes and No drooling Teeth and gingiva: abnormal tooth and associated gingiva lower right second molar tender, with associated gingival edema and with associated gingival fluctuance and gingiva abnormal Eyes: General: appearance normal, both eyes and all related structures Neck: Neck: normal visual inspection, full ROM and no meningeal signs Chest: Chest palpation & inspection: normal inspection of the chest Resp: Effort & Inspection: normal respiratory effort and able to speak in complete sentences Cardio: Jugular venous distension: no JVD Rate: regular rate Rhythm: regular rhythm Back/Spine/Pelvis: Cervical Spine: cervical ROM normal Skin: General skin exam: normal color, no rashes or lesions noted and turgor normal Neuro: General: patient oriented x3, gait normal, moves all extremities and no meningeal signs Speech: normal speech Gait exam (Neuro): Normal gait present Extrem: General: normal to inspection, full ROM and capillary refill normal Psych: Appearance: grossly normal and well kempt Course Course Emergency Course: Some parts of this dictation were generated by voice recognition software and may contain typographical and/or grammatical inaccuracies. Level of Care: Express Care Visit Vital Signs Vital signs: Vital Signs Temperature 36.6 C 04/08/24 16:10 Pulse Rate 69 04/08/24 16:10 Respiratory Rate 16 04/08/24 16:10 Blood Pressure 136/70 04/08/24 16:10 Pulse Oximetry 98 04/08/24 16:10 Temperature 36.6 C 04/08/24 16:10 Pulse Rate 69 04/08/24 16:10 Respiratory Rate 16 04/08/24 16:10 Blood Pressure 136/70 04/08/24 16:10 Pulse Oximetry 98 04/08/24 16:10 reviewed MDM - Dental/Oral MDM Narrative Medical decision making narrative: 63-year-old male to [facility] Care with complaint right lower molar pain for 3 days. Patient states dental pain initially started 3 months ago but resolved. Patient has attempted to treat at home with yzvt-vyk-[id number] medication with little relief. Patient reports difficulty chewing due to pain. Patient states that he has an appointment with his dentist in 2 weeks. Patient denies cough, difficulty swallowing, fever, chills. Patient able to tolerate fluids by mouth. Patient resting comfortably in exam room in no acute distress. on exam, right lower 2nd molar with dental caries and surrounding gingival edema, tenderness and fluctuance. findings consistent with dental abscess Patient is sitting comfortably in exam room nontoxic in appearance. Patient appropriate for outpatient treatment and follow-up. Discharge instructions reviewed with patient and patient's sister, as well as provided in writing per nursing staff. The instructions also include specific and strict return/GO TO THE ER as well as f/u information. All questions have been answered, and the patient and patient's sister deny any further questions with discharge and discharge plan. Some parts of this dictation were generated by voice recognition software and may contain typographical and/or grammatical inaccuracies. Differential Diagnosis Differential diagnosis: Likely gingival abscess, dental caries, toothache, dental abscess, fracture of tooth and aphthous ulcer Discharge Plan Discharge Clinical Impression: Dental abscess Patient Disposition: Home, Self-Care Condition: Stable Instructions: Dental Abscess (ED) Additional Instructions: Finish the entire course of antibiotics & use the mouthwash. After every time you eat be sure to use salt water gargles. Apply ice to face to help with pain. Dental problems can lead to other problems, so this is important to follow up with a dental provider. Return to Urgent care or go to the ER for New or worsening symptoms. Prescriptions: New penicillin V potassium 500 mg tablet 500 mg PO Q6H 10 Days Qty: 40 0RF chlorhexidine gluconate [Peridex] 0.12 % mouthwash 15 ml mucous membrane BID Qty: 750 0RF No Action clonazepam 0.5 mg tablet 0.5 mg PO DAILY Hold Instructions: .Provider Order sertraline 100 mg tablet 150 mg PO DAILY Hold Instructions: .Provider Order aripiprazole 30 mg tablet 30 mg PO DAILY Myrbetriq 50 mg tablet extended release 24 hr 50 mg PO DAILY Probiotic 10 billion cell capsule 10,000 mmu cells PO DAILY Qty: 45 0RF diclofenac sodium 75 mg tablet,delayed release (DR/EC) 75 mg PO BID Qty: 180 1RF Rx Instructions: Take with food Follow-up/Referrals: Anupam Coulter APRN [Primary Care Provider] - Stand Alone Forms: Work/School Release IP
== END 2024-04-08 16:45 | disposition home or self-care (01) ==
PROVIDERS: Emergency Provider Nurse Practitioner Family; PCP Nurse Practitioner
DX: K04.7 Periapical abscess without sinus (principal); N40.0 Benign prostatic hyperplasia without lower urinary tract symptoms; J44.9 Chronic obstructive pulmonary disease, unspecified; I25.2 Old myocardial infarction; E78.5 Hyperlipidemia, unspecified; I50.9 Heart failure, unspecified; I48.92 Unspecified atrial flutter; G47.33 Obstructive sleep apnea (adult) (pediatric); Z87.891 Personal history of nicotine dependence
CPT/HCPCS: 99213; G0463

== ENCOUNTER 2024-04-13 09:26 | Emergency (ER) | payer MEDICARE, MEDICAID, SELFPAY ==
--- NOTE | ~2024-04-13 | CT_ITS ---
EXAMINATION: CT facial bones w con DATE: 04/13/2024 10:22 INDICATION: Right-sided dental abscess. Right mandibular swelling. TECHNIQUE: Computed tomography (CT) of the facial bones and maxillofacial region was performed with 7 5 mL Omnipaque 350 intravenous contrast. Automated exposure control and iterative reconstruction tech nique were employed. The dose-length product was 493.35 mGy-cm. COMPARISON: None. FINDINGS: There are no pathologically enlarged lymph nodes. There is minimal plaque in the proximal i nternal carotid arteries with 0% stenosis relative to normal distal artery lumen diameters. There is mild mucosal thickening in the paranasal sinuses. Teeth 1, 2, 3, and 7 demonstrate carious lesions. T ooth 13 is fractured with periapical lucencies and breech of the buccal and lingual cortex of the melissa eolar process. There is a small broken left maxillary maxillary molar with periapical lucencies and b reech of the buccal cortex of the alveolar process. Tooth 17 demonstrates a carious lesion. Tooth 25 is chipped. Tooth 31 is fractured into the root. There is right lower face soft tissue swelling. IMPRESSION: 1. Dental disease. Reviewed, dictated and finalized at location A. ONE BUTTON PASTER IMPRESSION: 1. Dental disease.
[2024-04-13 09:34] VITALS: BP 120/65; PULSE 58; RESP 16; TEMP 36.2; O2SAT 97
--- NOTE | 2024-04-13 09:34 | ED_ITS ---
HPI - Dental/Oral General Chief complaint: Dental/Oral <TERESA Martell Last Filed: 04/13/24 12:25> Stated complaint: toothache <TERESA Martell Last Filed: 04/13/24 12:25> Time Seen by Provider: 04/13/24 09:34 <TERESA Martell Last Filed: 04/13/24 12:25> Source: patient <TERESA Martell Last Filed: 04/13/24 12:25> Mode of arrival: ambulatory <TERESA Martell Last Filed: 04/13/24 12:25> Limitations: no limitations <TERESA Martell Last Filed: 04/13/24 12:25> History of Present Illness HPI Narrative: This is a 63-year-old male with PMH of CKD, chronic schizophrenia, atrial flutter, COPD, osteomyelitis who presents to the ED with chief complaint of dental pain beginning over the past week. Reports it is located on the bottom right. He was seen in urgent care 4 days ago and given prescription for penicillin for possible dental abscess. He has a appointment for dentist in our around 2 weeks. States that he has taken all of his doses as prescribed. His family member is bedside states that the swelling has really increased over the past day to the right jaw. Denies trismus, drooling, fevers, chills, nausea, v omiting. <Miguel Angel Moffett PA-C - Last Filed: 04/13/24 12:25> Related Data Home medications: Home Medications Medication Instructions Recorded Confirmed clonazepam 0.5 mg tablet 0.5 mg PO DAILY 11/12/20 04/08/24 sertraline 100 mg tablet 150 mg PO DAILY 11/12/20 04/08/24 aripiprazole 30 mg tablet 30 mg PO DAILY 04/01/23 04/08/24 mirabegron 50 mg tablet,extended 50 mg PO DAILY 07/02/23 04/08/24 release 24 hr (Myrbetriq) <TERESA Martell Last Filed: 04/13/24 12:25> Allergies/adverse reactions: Allergies Allergy/AdvReac Type Severity Reaction Status Date / Time aspirin Allergy Severe Anaphylactic Verified 04/13/24 09:36 Shock <Miguel Angel Moffett PA-C - Last Filed: 04/13/24 12:25> Review of Systems Review of Systems: All systems as dictated in HPI <Miguel Angel Moffett PA-C - Last Filed: 04/13/24 12:25> [facility] Past Medical History Medical History: Medical History Asymptomatic cholelithiasis Atrial flutter Benign prostatic hyperplasia Body mass index 40.0-44.9, adult Chronic pain COPD (chronic obstructive pulmonary disease) (Unknown) Ntah-ok-oxfluthi obstructive ventilatory defect with severe small airway disease pattern no acute bronchodilator response and mildly decreased DLCO noted on pulmonary function testing from 2014. Hematuria History of Clostridium difficile colitis History of myocardial infarction (Unknown) With stress test November 2019 demonstrating 2 fixed perfusion defects small mild area of apical septal segment defect in left ventricle, moderate sized area of mild infarct involving apical inferior apical lateral and mid inferior lateral segment of the left ventricle, ejection fraction of 70%. Hyperlipidemia Nicotine dependence, unspecified, uncomplicated (Unknown) Obstructive sleep apnea treated with BiPAP Settings of 25/20 according to sleep study in February 2010. Osteomyelitis Paranoid schizophrenia (Unknown) Right heart failure with reduced right ventricular function Echocardiogram November 2019 demonstrated reduced right ventricular systolic function and mild enlargement, mild left ventricular enlargement, EF 55-60%, indeterminate diastolic function, mild left atrial enlargement, mild mitral valve regurgitation, small pericardial effusion <Miguel Angel Moffett PA-C - Last Filed: 04/13/24 12:25> Surgical History Surgical History: Surgical History History of inguinal herniorrhaphy As a child. <Miguel Angel Moffett PA-C - Last Filed: 04/13/24 12:25> Family History Family History: Family History Sibling Healthy female adult Reportedly both of the patient's sisters are healthy. <Miguel Angel Moffett PA-C - Last Filed: 04/13/24 12:25> Social History Social History: Social History Social History: Surrogate decision maker: Mesha aTnner, sister. Code status: Full code. Smoking packs per day: 1.5 Smoking cigarettes per day: 30.0 Years smoked: 40 Smoking pack-years: 60.00 Smoking status: Former smoker Tobacco type: cigarettes Second hand tobacco smoke exposure: No Smoking end date: 02/05/22 Alcohol intake: never Substance use: never Substance use type: does not use Do You Feel Safe in your Home?: Yes Lack of Transportation: No Lack of Food: Never True Current Housing: I Have Housing Concerned About Future Housing: No Difficulty Paying Gas/Electric Bills: No Difficulty Paying for Meds: No Currently Unemployed: No Education: Grade School Difficulty w/ Childcare or Family Care: No Living arrangements: other Additional living arrangements comments: Senior disable apartment building. Sister helps and checks on him frequently Occupation/Education: retired Additional occupation/education comments: Disabled due to paranoid arnulfo izophrenia. Gender identity (if verbalized by the patient): Male Spiritual care concerns: No <Miguel Angel Moffett PA-C - Last Filed: 04/13/24 12:25> Exam Narrative: GENERAL: Well-appearing, well-nourished, and in no acute distress. HEAD: Normocephalic, atraumatic. EYES: PERRLA and EOMI. ENT: Right mild submandibular swelling present but not on the left. No overlying skin induration or fluctuance noted. No erythema. Floor of the mouth intact. No trismus. Tolerating secretions. Poor dentition throughout and obvious decayed right lower molar. No discrete or focal abscess detected intraorally Nares clear, no rhinorrhea or epistaxis. Mucous membranes moist. Oropharynx without tonsillar hypertrophy exudate or other lesions. NECK: Supple. No adenopathy or masses. CHEST: No respiratory distress. Clear to auscultation. No wheezes rales or rhonchi HEART: Regular rate and rhythm. No murmur heard. Normal peripheral pulses. ABDOMEN: Soft, nontender, nondistended, normal active bowel sounds. MSK: Normal range of motion. No edema. SKIN: Warm, dry, no rash. NEURO: Alert and oriented x4. No focal deficits. PSYCH: Normal mood and affect. <Miguel Angel Moffett PA-C - Last Filed: 04/13/24 12:25> Course PLANT OPERATOR HELPER/PA Physician Supervision I agree with midlevel documentation; I performed the medical decision making component of this evaluation. <Peace Arechiga MD - Last Filed: 04/13/24 15:09> Vital Signs Vital signs: Vital Signs Temperature 97.2 F L 04/13/24 09:34 Pulse Rate 58 L 04/13/24 09:34 Respiratory Rate 16 04/13/24 09:34 Blood Pressure 120/65 04/13/24 09:34 Pulse Oximetry 97 04/13/24 09:34 Temperature 98.0 F 04/13/24 12:18 Pulse Rate 61 04/13/24 12:18 Respiratory Rate 14 04/13/24 12:18 Blood Pressure 111/78 04/13/24 12:18 Pulse Oximetry 99 04/13/24 12:18 <Miguel Angel Moffett PA-C - Last Filed: 04/13/24 12:25> Vital Signs Temperature 97.2 F L 04/13/24 09:34 Pulse Rate 58 L 04/13/24 09:34 Respiratory Rate 16 04/13/24 09:34 Blood Pressure 120/65 04/13/24 09:34 Pulse Oximetry 97 04/13/24 09:34 Temperature 98.0 F 04/13/24 12:18 Pulse Rate 61 04/13/24 12:18 Respiratory Rate 14 04/13/24 12:18 Blood Pressure 111/78 04/13/24 12:18 Pulse Oximetry 99 04/13/24 12:18 <Peace Arechiga MD - Last Filed: 04/13/24 15:09> MDM - Dental/Oral MDM Narrative Medical decision making narrative: This is a 63 yo male who presents to the ED for chief complaint of right lower dental pain over the past couple of weeks. Vitals are normal. Exam shows mild right-sided facial swelling but nothing severe. Floor of the mouth intact. No focal abscess detected on exam. Patient has been on penicillin previously so started workup reported increase in swelling. He Lab work shows normal white count on the CBC. CRP mildly elevated. CT imaging of the facial bones with contrast reveals dental disease but no deep space infection. Patient was given Unasyn in the ED. to switch him from penicillin to more broad-spectrum with Augmentin. Advise that this pain and will not be resolved until he is able to follow-up with dentist definitively. Patient will be discharged in stable condition. Supportive measures discussed and return precautions given. Patient is understanding and agreeable with plan for discharge with PCP/dental follow-up. <Miguel Angel Moffett PA-C - Last Filed: 04/13/24 12:25> Lab Data Result diagrams: 04/13/24 09:58 04/13/24 10:09 <Miguel Angel Moffett PA-C - Last Filed: 04/13/24 12:25> Labs: Lab Results 04/13/24 04/13/24 Range/Units 09:58 10:09 WBC 5.4 (4.5-10.0) K/mm3 RBC 3.60 L (4.6-6.20) M/mm3 Hgb 11.5 L (14.0-18.0) g/dL Hct 34.0 L (42.0-52.0) % MCV 94.4 (80-100) fl MCH 31.9 (26-34) pg MCHC 33.8 (32-36) g/dl RDW 13.3 (11.5-14.5) % Plt Count 137 L (150-375) k/mm3 MPV 7.7 (7.4-10.4) fl Immature Gran % (Auto) 0.2 (0-0.5) % Neut % (Auto) 76.6 H (45.5-73.1) % Lymph % (Auto) 12.7 L (18.3-44.2) % Pike % (Auto) 8.3 (2.6-8.5) % Eos % (Auto) 1.8 (0-4.4) % Baso % (Auto) 0.4 (0.2-1.2) % Lymph # (Auto) 0.69 L (0.9-3.2) K/mm3 Pike # (Auto) 0.5 (0.1-0.6) K/mm3 Eos # (Auto) 0.1 (0-0.3) K/mm3 Baso # (Auto) 0.0 (0.0-0.1) K/mm3 Abs Immat Gran (auto) 0.01 (0.00-0.031) K/mm3 Absolute Neuts (auto) 4.2 (1.3-6.7) K/mm3 Absolute Nucleated RBC 0.000 (0.0-0.012) K/mm3 Nucleated RBC % 0.0 (0.0-0.2) % % Immature Plt Fraction 0.3 L (0.9-11.2) % Sodium 135 L (137-145) mmol/L Potassium 4.6 (3.4-5.0) mmol/L Chloride 102 (98-107) mmol/L Carbon Dioxide 24 (22-30) mmol/L Anion Gap 9 (4-12) mmol/L BUN 31 H (9-20) mg/dL Creatinine 1.30 1.40 (0.7-1.3) mg/dL Estim Creat Clear Calc 70 65 ml/min Estimated GFR 56 L 51 L (59 - ) Glucose 92 (65-110) mg/dL Calcium 8.8 (8.4-10.2) mg/dL Total Bilirubin 0.6 (0.2-1.3) mg/dL AST 22 (17-59) U/L ALT 14 (6-50) U/L Alkaline Phosphatase 84 (38-126) U/L C-Reactive Protein 7.4 H (<1.0) mg/dL Total Protein 7.0 (6.3-8.2) g/dL Albumin 4.0 (3.5-5.1) g/dL <Miguel Angel Moffett PA-C - Last Filed: 04/13/24 12:25> Lab Results 04/13/24 04/13/24 Range/Units 09:58 10:09 WBC 5.4 (4.5-10.0) K/mm3 RBC 3.60 L (4.6-6.20) M/mm3 Hgb 11.5 L (14.0-18.0) g/dL Hct 34.0 L (42.0-52.0) % MCV 94.4 (80-100) fl MCH 31.9 (26-34) pg MCHC 33.8 (32-36) g/dl RDW 13.3 (11.5-14.5) % Plt Count 137 L (150-375) k/mm3 MPV 7.7 (7.4-10.4) fl Immature Gran % (Auto) 0.2 (0-0.5) % Neut % (Auto) 76.6 H (45.5-73.1) % Lymph % (Auto) 12.7 L (18.3-44.2) % Pike % (Auto) 8.3 (2.6-8.5) % Eos % (Auto) 1.8 (0-4.4) % Baso % (Auto) 0.4 (0.2-1.2) % Lymph # (Auto) 0.69 L (0.9-3.2) K/mm3 Pike # (Auto) 0.5 (0.1-0.6) K/mm3 Eos # (Auto) 0.1 (0-0.3) K/mm3 Baso # (Auto) 0.0 (0.0-0.1) K/mm3 Abs Immat Gran (auto) 0.01 (0.00-0.031) K/mm3 Absolute Neuts (auto) 4.2 (1.3-6.7) K/mm3 Absolute Nucleated RBC 0.000 (0.0-0.012) K/mm3 Nucleated RBC % 0.0 (0.0-0.2) % % Immature Plt Fraction 0.3 L (0.9-11.2) % Sodium 135 L (137-145) mmol/L Potassium 4.6 (3.4-5.0) mmol/L Chloride 102 (98-107) mmol/L Carbon Dioxide 24 (22-30) mmol/L Anion Gap 9 (4-12) mmol/L BUN 31 H (9-20) mg/dL Creatinine 1.30 1.40 (0.7-1.3) mg/dL Estim Creat Clear Calc 70 65 ml/min Estimated GFR 56 L 51 L (59 - ) Glucose 92 (65-110) mg/dL Calcium 8.8 (8.4-10.2) mg/dL Total Bilirubin 0.6 (0.2-1.3) mg/dL AST 22 (17-59) U/L ALT 14 (6-50) U/L Alkaline Phosphatase 84 (38-126) U/L C-Reactive Protein 7.4 H (<1.0) mg/dL Total Protein 7.0 (6.3-8.2) g/dL Albumin 4.0 (3.5-5.1) g/dL <Peace Arechiga MD - Last Filed: 04/13/24 15:09> Discharge Plan Discharge Clinical Impression: Dental disease <Miguel Angel Moffett PA-C - Last Filed: 04/13/24 12:25> Patient Disposition: Home, Self-Care <Miguel Angel Moffett PA-C - Last Filed: 04/13/24 12:25> Condition: Stable <Miguel Angel Moffett PA-C - Last Filed: 04/13/24 12:25> Instructions: Antibiotic Form, Toothache (ED) <Miguel Angel Moffett PA-C - Last Filed: 04/13/24 12:25> Additional Instructions: Your exam does show dental disease but no significant abscess or deep space infection. Please switch from penicillin to Augmentin. Make sure they are taking Tylenol regularly for pain control. Definitive management for this problem will have to be with the dentist. If you have any new or worsening symptoms please return to the ER for further evaluation. <Miguel Angel Moffett PA-C - Last Filed: 04/13/24 12:25> Prescriptions: New amoxicillin-pot clavulanate 875-125 mg tablet 1 tablet PO Q12H Qty: 14 0RF No Action clonazepam 0.5 mg tablet 0.5 mg PO DAILY Hold Instructions: .Provider Order sertraline 100 mg tablet 150 mg PO DAILY Hold Instructions: .Provider Order penicillin V potassium 500 mg tablet 500 mg PO Q6H 10 Days Qty: 40 0RF chlorhexidine gluconate [Peridex] 0.12 % mouthwash 15 ml mucous membrane BID Qty: 750 0RF aripiprazole 30 mg tablet 30 mg PO DAILY Myrbetriq 50 mg tablet extended release 24 hr 50 mg PO DAILY Probiotic 10 billion cell capsule 10,000 mmu cells PO DAILY Qty: 45 0RF diclofenac sodium 75 mg tablet,delayed release (DR/EC) 75 mg PO BID Qty: 180 1RF Rx Instructions: Take with food <Miguel Angel Moffett PA-C - Last Filed: 04/13/24 12:25> Follow-up/Referrals: Anupam Coulter APRN [Primary Care Provider] - <Miguel Angel Moffett PA-C - Last Filed: 04/13/24 12:25> Stand Alone Forms: Work/School Release IP <Miguel Angel Moffett PA-C - Last Filed: 04/13/24 12:25> Time of Disposition: 11:05 <Miguel Angel Moffett PA-C - Last Filed: 04/13/24 12:25> 11:05 <Peace Arechiga MD - Last Filed: 04/13/24 15:09>
[2024-04-13 10:05] LABS: Basophils Percent Auto 0.4 % (0.2-1.2); Eosinophils Absolute Auto 0.1 K/mm3 (0-0.3); Eosinophils Percent Auto 1.8 % (0-4.4); Hemoglobin 11.5 g/dL (14.0-18.0); Immature Granulocyte Absolute 0.01 K/mm3 (0.00-0.031); Immature Granulocyte Percent A 0.2 % (0-0.5); Immature Platelet Fraction Pct 0.3 % (0.9-11.2); Lymphocytes Absolute Auto 0.69 K/mm3 (0.9-3.2); Lymphocytes Percent Auto 12.7 % (18.3-44.2); Mean Corpuscular HGB Conc 33.8 g/dl (32-36); Mean Corpuscular Hemoglobin 31.9 pg (26-34); Mean Corpuscular Volume 94.4 fl (80-100); Mean Platelet Volume 7.7 fl (7.4-10.4); Monocytes Absolute Auto 0.5 K/mm3 (0.1-0.6); Monocytes Percent Auto 8.3 % (2.6-8.5); Neutrophils Absolute Auto 4.2 K/mm3 (1.3-6.7); Neutrophils Percent Auto 76.6 % (45.5-73.1); Platelet Count Result 137 k/mm3 (150-375); Red Cell Distribution Width 13.3 % (11.5-14.5); White Blood Count 5.4 K/mm3 (4.5-10.0)
[2024-04-13 10:11] LABS: Estimated CRCL calculation 65 ml/min; Estimated Glomerular Filt Rate 51
[2024-04-13] MEDS: AMPICILLIN SULB 3 GM/NS 100 ML 3 GM/100 ML VIAL IVPB (10:49)
[2024-04-13] MEDS: MORPHINE SULFATE (*CRX) 2 MG/ML INJ IV PUSH (10:49)
[2024-04-13 10:59] LABS: Alanine Aminotransferase 14 U/L (6-50); Alkaline Phosphatase 84 U/L (38-126); Anion Gap 9 mmol/L (4-12); Aspartate Amino Transferase 22 U/L (17-59); Bilirubin,Total 0.6 mg/dL (0.2-1.3); Blood Urea Nitrogen 31 mg/dL (9-20); CRP 7.4 mg/dL (<1.0); Calcium 8.8 mg/dL (8.4-10.2); Carbon Dioxide 24 mmol/L (22-30); Chloride 102 mmol/L (98-107); Estimated CRCL calculation 70 ml/min; Estimated Glomerular Filt Rate 56; Glucose 92 mg/dL (65-110); Potassium 4.6 mmol/L (3.4-5.0); Sodium 135 mmol/L (137-145)
[2024-04-13 12:18] VITALS: BP 111/78; PULSE 61; RESP 14; TEMP 36.7; O2SAT 99
== END 2024-04-13 12:18 | disposition home or self-care (01) ==
PROVIDERS: Emergency Provider Physician Assistant; PCP Nurse Practitioner
DX: K08.9 Disorder of teeth and supporting structures, unspecified (principal); N18.9 Chronic kidney disease, unspecified; J44.9 Chronic obstructive pulmonary disease, unspecified; Z87.891 Personal history of nicotine dependence
CPT/HCPCS: 36415; 70487; 80053; 85025; 85055; 86140; 96365; 96375; 99284; J0295; J2270; Q9967

== ENCOUNTER 2024-04-14 23:22 | Emergency (ER) | payer MEDICARE, MEDICAID, SELFPAY ==
[2024-04-14 23:31] VITALS: BP 130/74; PULSE 60; RESP 18; TEMP 37; O2SAT 94
--- NOTE | 2024-04-14 23:49 | ED_ITS ---
HPI - Dental/Oral General Chief complaint: Dental/Oral Stated complaint: bottom right dental pain Time Seen by Provider: 04/14/24 23:33 History of Present Illness HPI Narrative: 63-year-old male with history of CKD, chronic schizophrenia, atrial flutter, COPD. Patient presents to the emergency department for re-evaluation of dental pain. Patient has been seen several times this week for similar. No reported changes aside from pain that is not improving despite antibiotics. He was recently switched from penicillin to Augmentin. Was given a dose of IV Unasyn during his last visit yesterday. CT scan of his maxillary facial structures was unremarkable. Patient has a dentist appointment in 7 days time and cannot make any appointment faster. Denies any drooling, trismus, fever, chills, nausea or vomiting. Is able to oppose mouth fully, no difficulty swallowing or tolerating secretions. Was otherwise in his normal state of health but does remember fracturing his tooth on something he ate about 1 week prior to when the symptoms started. Teeth map: 1. Dental fracture with caries Related Data Home Medications Medication Instructions Recorded Confirmed clonazepam 0.5 mg tablet 0.5 mg PO DAILY 11/12/20 04/08/24 sertraline 100 mg tablet 150 mg PO DAILY 11/12/20 04/08/24 aripiprazole 30 mg tablet 30 mg PO DAILY 04/01/23 04/08/24 mirabegron 50 mg tablet,extended 50 mg PO DAILY 07/02/23 04/08/24 release 24 hr (Myrbetriq) Allergies Allergy/AdvReac Type Severity Reaction Status Date / Time aspirin Allergy Severe Anaphylactic Verified 04/14/24 23:23 Shock Review of Systems Review of Systems: As reviewed above in HPI All systems reviewed & are unremarkable except as noted in HPI and below PMFSH Past Medical History Medical History Asymptomatic cholelithiasis Atrial flutter Benign prostatic hyperplasia Body mass index 40.0-44.9, adult Chronic pain COPD (chronic obstructive pulmonary disease) (Unknown) [id number] obstructive ventilatory defect with severe small airway disease pattern no acute bronchodilator response and mildly decreased DLCO noted on pulmonary function testing from 2014. Hematuria History of Clostridium difficile colitis History of myocardial infarction (Unknown) With stress test November 2019 demonstrating 2 fixed perfusion defects small mild area of apical septal segment defect in left ventricle, moderate sized area of mild infarct involving apical inferior apical lateral and mid inferior lateral segment of the left ventricle, ejection fraction of 70%. Hyperlipidemia Nicotine dependence, unspecified, uncomplicated (Unknown) Obstructive sleep apnea treated with BiPAP Settings of 25/20 according to sleep study in February 2010. Osteomyelitis Paranoid schizophrenia (Unknown) Right heart failure with reduced right ventricular function Echocardiogram November 2019 demonstrated reduced right ventricular systolic fun ction and mild enlargement, mild left ventricular enlargement, EF 55-60%, indeterminate diastolic function, mild left atrial enlargement, mild mitral valve regurgitation, small pericardial effusion Surgical History Surgical History History of inguinal herniorrhaphy As a child. Family History Family History Sibling Healthy female adult Reportedly both of the patient's sisters are healthy. Social History Social History Social History: Surrogate decision maker: Mesha Tanner, sister. Code status: Full code. Smoking packs per day: 1.5 Smoking cigarettes per day: 30.0 Years smoked: 40 Smoking pack-years: 60.00 Smoking status: Former smoker Tobacco type: cigarettes Second hand tobacco smoke exposure: No Smoking end date: 02/05/22 Alcohol intake: never Substance use: never Substance use type: does not use Do You Feel Safe in your Home?: Yes Lack of Transportation: No Lack of Food: Never True Current Housing: I Have Housing Concerned About Future Housing: No Difficulty Paying Gas/Electric Bills: No Difficulty Paying for Meds: No Currently Unemployed: No Education: Grade School Difficulty w/ Childcare or Family Care: No Living arrangements: other Additional living arrangements comments: Senior disable apartment building. Sister helps and checks on him frequently Occupation/Education: retired Additional occupation/education comments: Disabled due to paranoid schizophrenia. Gender identity (if verbalized by the patient): Male Spiritual care concerns: No Exam Narrative: GENERAL: [Well-appearing, well-nourished, and in no acute distress.] HEAD: [Normocephalic, atraumatic.] EYES: [PERRLA and EOMI.] ENT: Nares clear, no rhinorrhea or epistaxis. Mucous membranes moist. No submandibular swelling is appreciated, no brawny edema. Able to fully open and close his mouth to any trismus or malocclusion. No overlying induration or fluctuance. Floor of mouth intact, no pooling secretions. Very poor dentition throughout but the tooth in question on the bottom right mandibular premolar area has a dental fracture without any focal abscess or drainable pocket of fluid. No gingival disease noted. Tenderness with percussion. NECK: Supple. CHEST: [Clear to auscultation. No respiratory distress.] HEART: [Regular rate and rhythm]. No murmur heard. [Normal peripheral pulses.] ABDOMEN: [Soft, nondistended], [nontender], [No rigidity or guarding] EXTREMITIES: Normal range of motion. [No edema.] SKIN: Warm, dry, no rash. NEURO: [No focal deficits]. Alert and oriented [x3.] PSYCH: [Normal mood and affect.] Course Vital Signs Vital signs: Vital Signs Temperature 37.0 C 04/14/24 23:31 Pulse Rate 60 04/14/24 23:31 Respiratory Rate 18 04/14/24 23:31 Blood Pressure 130/74 04/14/24 23:31 Pulse Oximetry 94 04/14/24 23:31 Oxygen Delivery Room Air 04/14/24 23:31 Temperature 37.0 C 04/14/24 23:31 Pulse Rate 60 04/14/24 23:31 Respiratory Rate 18 04/14/24 23:31 Blood Pressure 130/74 04/14/24 23:31 Pulse Oximetry 94 04/14/24 23:31 Oxygen Delivery Room Air 04/14/24 23:31 Procedures Nerve Block Nerve Block 1: Nerve block date: 04/15/24 Nerve block time: 00:05 Time out performed: Yes Local Anesthetic: bupivacaine 0.5% Amount of anesthesia used (mL): 5 Side: right Intraoral Nerve Block: inferior alveolar Procedure Successful: Yes Patient Tolerated Procedure: well and no complications Complications: none MDM - Dental/Oral MDM Narrative Medical decision making narrative: 63-year-old male presenting for ongoing dental pain. This is patient's 3rd visit for similar this past week. He has an obvious dental fracture in his lower right mandibular premolar area. Has been treated with antibiotics. No concerning physical exam findings that would make me suspicious for worsening infection. He has no facial swelling, floor of the mouth any induration, no edema. No focal abscesses. Is presently on appropriate antibiotic therapy. Has been taking Tylenol for relief of symptoms but no other medications. CT scan was obtained yesterday with contrast reveals dental disease but no deep space infection. At this time patient definitively needs dental care but nothing that needs to happen in the emergency setting. Will provide him analgesia with a inferior alveolar nerve block for temporizing his symptoms today and provide him a short course of opiate level medication for continued and breakthrough pain until he can safely see his dentist outpatient. Patient was agreeable to this plan of care as well as his family member at bedside. Bupivacaine 5 cc was drawn up in a syringe and please refer to procedure note above for the nerve block details. Patient was discharged with a new prescription of oxycodone in addition to his current medications. All patient's questions were answered he was discharged without further incident. Differential Diagnosis Differential diagnosis: Likely gingival abscess, dental caries, toothache, denta l abscess and fracture of tooth Medical Records Attestation: I reviewed the patient's medical records. Discharge Plan Discharge Clinical Impression: Dental disease, Fracture of tooth, Dental caries Patient Disposition: Home, Self-Care Condition: Stable Instructions: Antibiotic Form, Toothache (ED) Additional Instructions: He needs to see a dentist for definitive care, will provide you a short course of opiate pain medications that he can safely take for breakthrough pain only. Continue taking your ibuprofen 1000 mg Q 8 hours and he can also take ibuprofen every 8 hours as well. Prescriptions: New oxycodone 5 mg capsule 5 mg PO Q8H PRN (Reason: pain) Qty: 10 0RF No Action clonazepam 0.5 mg tablet 0.5 mg PO DAILY Hold Instructions: .Provider Order sertraline 100 mg tablet 150 mg PO DAILY Hold Instructions: .Provider Order penicillin V potassium 500 mg tablet 500 mg PO Q6H 10 Days Qty: 40 0RF chlorhexidine gluconate [Peridex] 0.12 % mouthwash 15 ml mucous membrane BID Qty: 750 0RF aripiprazole 30 mg tablet 30 mg PO DAILY Myrbetriq 50 mg tablet extended release 24 hr 50 mg PO DAILY Probiotic 10 billion cell capsule 10,000 mmu cells PO DAILY Qty: 45 0RF amoxicillin-pot clavulanate 875-125 mg tablet 1 tablet PO Q12H Qty: 14 0RF diclofenac sodium 75 mg tablet,delayed release (DR/EC) 75 mg PO BID Qty: 180 1RF Rx Instructions: Take with food Follow-up/Referrals: Anupam Coulter APRN [Primary Care Provider] - Time of Disposition: 00:15
[2024-04-15 00:45] VITALS: BP 115/55; PULSE 57; RESP 18; O2SAT 96
== END 2024-04-15 00:46 | disposition home or self-care (01) ==
PROVIDERS: Emergency Provider Student in an Organized Health Care Education/Training Program; PCP Nurse Practitioner
DX: K02.9 Dental caries, unspecified (principal); K03.81 Cracked tooth; I48.92 Unspecified atrial flutter; I50.9 Heart failure, unspecified; J44.9 Chronic obstructive pulmonary disease, unspecified; E78.5 Hyperlipidemia, unspecified; N40.0 Benign prostatic hyperplasia without lower urinary tract symptoms; G47.33 Obstructive sleep apnea (adult) (pediatric); M86.9 Osteomyelitis, unspecified; F20.0 Paranoid schizophrenia; Z87.891 Personal history of nicotine dependence; Z79.899 Other long term (current) drug therapy
CPT/HCPCS: 64400; 64999; 99283

== ENCOUNTER 2024-05-03 07:48 | Inpatient (IN) | payer MEDICARE, MEDICAID, SELFPAY ==
[2024-05-03] VITALS (30 sets, daily range): BP systolic 83–124; BP diastolic 50–70; PULSE 55–115; RESP 20–35; TEMP 37.3–38.8; O2SAT 89–99; BMI 41.5
--- NOTE | ~2024-05-03 | XR_ITS ---
XR chest 2V Ordering provider: Jared Fletcher MD History: 63 years Male with . SOB . Comparison: None. FINDINGS: MEDIASTINUM: The cardiac silhouette is slightly enlarged. Prominent lluvia. LUNGS: No effusions or pneumothorax. Opacification in the right lung base suggestive of atelectasis v ersus pneumonia. Prominent bronchovascular markings in the left lung base. Early infiltrate is not ex cluded. Follow-up advised. OTHER: No free air under the diaphragm. Degenerative changes of the spine. Radiopaque shadow projected over the lower heart which may be a stent. IMPRESSION: Right basal atelectasis versus pneumonia. Prominent bronchovascular markings in the left lower lobe w hich may indicate early pneumonia. Follow-up advised. Reviewed, dictated and finalized at location A. MANAGEMENT OFFICER IMPRESSION: Right basal atelectasis versus pneumonia. Prominent bronchovascular markings in the left lower lobe which may indicate early pneumonia. Follow-up advised.
--- NOTE | ~2024-05-03 | CT_ITS ---
CT facial bones w con Ordering provider: Jared Fletcher MD History: . Dental carries, sepsis? . Comparison: None. Technique: Thin slice axial CT of the facial bones was performed without contrast. Coronal and sagit kelsey reformatted images were also obtained. . Automated exposure control and iterative reconstruction technique were employed. The dose-length product was 824.21 mGy-cm. 75 mL Omnipaque 350 was given IV . FINDINGS: Fracture of the left upper 6th tooth with dental cares seen in the same tooth. abscess cannot be exc luded. Clinical correlation advised. PARANASAL SINUSES: Minimal bilateral ethmoid sinus disease. Minimal bilateral ethmoid sinus disease. Mild left nasal septal deviation. BONES: No facial fracture including no nasal bone fracture. Bifid C1 posterior arch. Osteophyte forma tion is seen at the level of C4 with severe spinal canal stenosis. ORBITS AND SUPERFICIAL SOFT TISSUES: The optic globes and orbits are normal. The superficial soft tis sues are normal. VISUALIZED MASTOIDS: Well aerated. LIMITED VISUALIZED BRAIN PARENCHYMA: Normal. Small lymph nodes are seen in the parapharyngeal spaces. IMPRESSION: Fracture of the left upper 6th tooth with surrounding hypodensity suggestive of dental caries. Absces s cannot be excluded. Clinical correlation advised. Severe spinal canal stenosis at the level of C3-C4. Left nasal septal deviation with bilateral ethmoid sinus disease. Reviewed, dictated and finalized at location A. D SETTER IMPRESSION: Fracture of the left upper 6th tooth with surrounding hypodensity suggestive of dental caries. Abscess cannot be excluded. Clinical correlation advised. Severe spinal canal stenosis at the level of C3-C4. Left nasal septal deviation with bilateral ethmoid sinus disease.
--- NOTE | ~2024-05-03 | XR_ITS ---
EXAMINATION: XR chest port-a-cath/central DATE: 05/03/2024 12:39 INDICATION: Central line placement. TECHNIQUE: A single frontal view of the chest was obtained. COMPARISON: Chest 2 views 05/03/2024 FINDINGS: There is no pneumonia, pleural effusion, or pneumothorax. The heart size is normal. A left internal jugular central venous catheter is seen with tip in the superior vena cava. IMPRESSION: 1. Central line tip in the superior vena cava. Reviewed, dictated and finalized at location A. CLOSURE [place]
[2024-05-03] MEDS: ACETAMINOPHEN 500 MG TABLET 1000 MG PO (08:36)
--- NOTE | 2024-05-03 08:41 | ECG_ITS ---
Test Date: 2024-05-03 08:46:59 Measurements Intervals [place] Rate: 104 P: 0 [place]: 0 QRS: -39 QRSD: 159 T: 121 QT: 366 QTc: 483 Interpretive Statements ELECTRONIC VENTRICULAR PACEMAKER BASELINE WANDER- I, II, AVR NO FURTHER INTERPRETATION IS POSSIBLE ATYPICAL ECG No previous ECG available for comparison Electronically Signed On 05-03-2024 09:51:36 DJANGO DEVELOPER by George Cruz D.O.
[2024-05-03 09:13] LABS: Basophils Percent Auto 0.3 % (0.2-1.2); Eosinophils Percent Auto 0.1 % (0-4.4); Hematocrit 39.1 % (42.0-52.0); Hemoglobin 12.8 g/dL (14.0-18.0); Immature Granulocyte Absolute 0.03 K/mm3 (0.00-0.031); Immature Granulocyte Percent A 0.4 % (0-0.5); Immature Platelet Fraction Pct 0.8 % (0.9-11.2); Lymphocytes Absolute Auto 0.35 K/mm3 (0.9-3.2); Lymphocytes Percent Auto 4.6 % (18.3-44.2); Mean Corpuscular HGB Conc 32.7 g/dl (32-36); Mean Corpuscular Hemoglobin 31.1 pg (26-34); Mean Corpuscular Volume 94.9 fl (80-100); Mean Platelet Volume 8.4 fl (7.4-10.4); Monocytes Absolute Auto 0.5 K/mm3 (0.1-0.6); Monocytes Percent Auto 6.4 % (2.6-8.5); Neutrophils Absolute Auto 6.7 K/mm3 (1.3-6.7); Neutrophils Percent Auto 88.2 % (45.5-73.1); Platelet Count Result 103 k/mm3 (150-375); Red Blood Count 4.12 M/mm3 (4.6-6.20); Red Cell Distribution Width 14.1 % (11.5-14.5); White Blood Count 7.6 K/mm3 (4.5-10.0)
[2024-05-03] MEDS: LACTATED RINGERS 1,000 ML 999 ML IV CONT ×2 (09:21→11:06)
[2024-05-03 09:24] LABS: Alanine Aminotransferase 20 U/L (6-50); Albumin Level 4.3 g/dL (3.5-5.1); Alkaline Phosphatase 101 U/L (38-126); Anion Gap 9 mmol/L (4-12); Aspartate Amino Transferase 30 U/L (17-59); Blood Urea Nitrogen 31 mg/dL (9-20); Calcium 8.6 mg/dL (8.4-10.2); Carbon Dioxide 23 mmol/L (22-30); Chloride 102 mmol/L (98-107); Estimated CRCL calculation 67 ml/min; Estimated Glomerular Filt Rate 56; Glucose 90 mg/dL (65-110); Sodium 134 mmol/L (137-145)
--- NOTE | 2024-05-03 09:29 | ED_ITS ---
HPI - Fever General Chief Complaint: Fever Stated Complaint: SOB, fever, chills Time Seen by Provider: 05/03/24 08:36 History of Present Illness HPI Narrative: 63-year-old male with a past medical history significant for chronic kidney disease, COPD, chronic schizophrenia, leadless pacemaker placement for slow atrial fibrillation. Patient also has a history of of significant dental caries and was seen several times earlier this month for symptomatic dental caries without abscess formation. He has since gone to his dentist who states that he had need for a significant procedure with multiple dental extractions and revisions but he needed cardiac clearance before this could happen so he has not undergone any procedure since his last visit. He has since completed oral antibiotic course. He states for last 24 hours he has been having subjective fever and chills and some mild shortness of breath. He did have a fever today at 38.6? C. Patient states that denies any chest discomfort, nausea, vomiting, headache, vision changes. No abdominal pain or back pain. States that his mouth is not particularly sore painful where his dental infection previously was. His provides collateral formation states that he has had previous urinary tract infections and pneumonia that presented similarly. Related Data Home Medications Medication Instructions Recorded Confirmed clonazepam 0.5 mg tablet 0.5 mg PO DAILY PRN Anxiety 11/12/20 05/03/24 sertraline 100 mg tablet 150 mg PO DAILY 11/12/20 05/03/24 aripiprazole 30 mg tablet 30 mg PO DAILY 04/01/23 05/03/24 mirabegron 50 mg tablet,extended 50 mg PO DAILY 07/02/23 05/03/24 release 24 hr (Myrbetriq) Lactobacillus 1 cap PO DAILY 05/03/24 05/03/24 acidophilus-Bifidobac.animalis 2.5 billion cell capsule (Daily Probiotic) acetaminophen 500 mg tablet 1,000 mg PO BID PRN Pain 05/03/24 05/03/24 (Tylenol Extra Strength) diclofenac sodium 75 mg 75 mg PO BID 05/03/24 05/03/24 tablet,delayed release Allergies Allergy/AdvReac Type Severity Reaction Status Date / Time aspirin Allergy Severe Anaphylactic Verified 05/03/24 13:45 Shock Review of Systems Review of Systems: As reviewed above in HPI [facility] Past Medical History Medical History Asymptomatic cholelithiasis Atrial flutter Benign prostatic hyperplasia Body mass index 40.0-44.9, adult Chronic pain COPD (chronic obstructive pulmonary disease) (Unknown) Yyko-gh-ubhojaiu obstructive ventilatory defect with severe small airway disease pattern no acute bronchodilator response and mildly decreased DLCO noted on pulmonary function testing from 2014. Hematuria History of Clostridium difficile colitis History of myocardial infarction (Unknown) With stress test November 2019 demonstrating 2 fixed perfusion defects small mild area of apical septal segment defect in left ventricle, moderate sized area of mild infarct involving apical inferior apical lateral and mid inferior lateral segment of the left ventricle, ejection fraction of 70%. Hyperlipidemia Nicotine dependence, unspecified, uncomplicated (Unknown) Obstructive sleep apnea treated with BiPAP Settings of 25/20 according to sleep study in February 2010. Osteomyelitis Paranoid schizophrenia (Unknown) Right heart failure with reduced right ventricular function Echocardiogram November 2019 demonstrated reduced right ventricular systolic function and mild enlargement, mild left ventricular enlargement, EF 55-60%, indeterminate diastolic function, mild left atrial enlargement, mild mitral valve regurgitation, small pericardial effusion Surgical History Surgical History History of inguinal herniorrhaphy As a child. Family History Family History Sibling Healthy female adult Reportedly both of the patient's sisters are healthy. Social History Social History Social History: Surrogate decision maker: Mesha Ryan, sister. Code status: Full code. Smoking packs per day: 1.5 Smoking cigarettes per day: 30.0 Years smoked: 40 Smoking pack-years: 60.00 Smoking status: Former smoker Tobacco type: cigarettes Second hand tobacco smoke exposure: No Smoking end date: 02/05/22 Alcohol intake: former Substance use: never Substance use type: does not use Do You Feel Safe in your Home?: Yes Lack of Transportation: No Lack of Food: Never True Current Housing: I Have Housing Concerned About Future Housing: No Difficulty Paying Gas/Electric Bills: No Difficulty Paying for Meds: No Currently Unemployed: No Education: Grade School Difficulty w/ Childcare or Family Care: No Living arrangements: other Additional living arrangements comments: Senior disable apartment building. Sister helps and checks on him frequently Occupation/Education: retired Additional occupation/education comments: Disabled due to paranoid schizophrenia. Gender identity (if verbalized by the patient): Male Spiritual care concerns: No Exam Narrative: GENERAL: Ill-appearing, shaking with rigors but answering questions appropriately and awake alert oriented HEAD: [Normocephalic, atraumatic.] EYES: [PERRLA and EOMI.] ENT: Nares clear, no rhinorrhea or epistaxis. Mucous membranes moist. No submandibular swelling, no edema of the neck, able to open and close the mouth fully without any trismus. No overlying induration or fluctuance in the facial structures or jaw. Very poor dentition throughout both upper and lower jaw, right-sided lower teeth were previous infected dental caries still appear similar from previous visit but visualized well abscess or drainable pocket of fluid. No significant tenderness with percussion NECK: Supple. CHEST: [Clear to auscultation. No respiratory distress.] HEART: [Regular rate and rhythm]. No murmur heard. [Normal peripheral pulses.] ABDOMEN: Protuberant but soft nondistended. No tenderness, no rigidity or guarding EXTREMITIES: Normal range of motion. [No edema.] No wounds on the feet or ulceration SKIN: Warm, dry, no rash. No sacral wounds or ulcerations NEURO: [No focal deficits]. Alert and oriented [x3.] PSYCH: [Normal mood and affect.] Course Vital Signs Vital signs: Vital Signs Temperature 38.6 C H 05/03/24 07:48 Pulse Rate 103 H 05/03/24 07:48 Respiratory Rate 23 H 05/03/24 07:48 Blood Pressure 109/69 05/03/24 07:48 Pulse Oximetry 95 05/03/24 07:48 Oxygen Delivery Room Air 05/03/24 07:48 Temperature 37.7 C H 05/03/24 17:05 Pulse Rate 73 05/03/24 16:00 Respiratory Rate 24 H 05/03/24 16:00 Blood Pressure 111/65 05/03/24 16:00 Pulse Oximetry 97 05/03/24 16:00 Oxygen Delivery Nasal Cannula 05/03/24 13:32 Oxygen Flow Rate 2 05/03/24 13:32 Procedures Central Line Placement Left IJ: Central Line Date: 05/03/24 Central Line Time: 12:09 Discussed w/ the patient/family/POA,the placement of a central venous catheter, including its clinical necessity/indication & associated potential risks, benifits and alternatives.: Yes The patient/family/POA understand(s) and acknowledge(s) the need to proceed with central venous catheter insertion as an important element of the patient's clinical management.: Yes Time Out Performed: Yes Patient Placed on Monitor/Pulse Ox: Yes Max. Sterile Barrier Technique: Caps, large sterile sheet and hand hygiene Central Line Prep: 2% chlorhexidine scrub and sterile drapes applied Technique: US-Guided Local Anesthetic: lidocaine 1% Amount of anesthesia used (mL): 5 Ultrasound Used for Placement: Yes Central Line Lumen Inserted: triple Post Procedure: sutured in place, good blood return, all ports aspirated, flushed, capped and sterile dressing applied Post Procedure X-Ray: tip of catheter in good position and no pneumothorax seen Patient Tolerated Procedure: well and no complications Complications: none MDM - Fever MDM Narrative Medical decision making narrative: 63-year-old male presenting to the emergency department with rigors, fever, chills and mild shortness of breath. He has been seen several times previously this month for symptomatic dental caries and dental infection and prescribed antibiotics. He has since seen his dentist but not been able to undergo definitive management as he needs cardiac clearance given his pacemaker and significant cardiac history. His dentist recommended multiple dental extractions and other surgical procedures which were not accomplished earlier this month. Patient states his dental infection feels better than previously and is not sure if the teeth are causing his symptoms today because he also fee ls like he has had similar presentations with pneumonia and urinary infections before. On examination his dental caries appears stable from previous examination by myself durable weeks ago. He has clear breath sounds without any focal consolidation evident on auscultation, no sacral wounds or obvious ulcerations in the extremities or feet. Patient is febrile and tachycardic here with septic kidney and complaints of mild shortness of breath. Differential is broad but includes dental caries that are now infected, deep space infection of the neck although less likely, pneumonia, urinary tract infection, endocarditis, or other nonspecific sepsis/bacteremia. Septic bundle was initiated including 1 L fluid bolus, initiation of Unasyn for antibiosis, Tylenol for fever, blood cultures, PT, PTT, lactic acid, CRP, procalcitonin, CBC, CMP, troponin, urinalysis, chest x-ray, CT of the facial st ructures with contrast, EKG, COVID flu swabs. Patient's laboratory studies returned with no significant leukocytosis or anemia worse than his baseline. Normal platelet level. Coagulation studies normal. CBC showed no electrolyte derangements, BUN of 31 which is chronic but no ROBERT with a creatinine 1.30 which is normal. Negative lactic acid 1.8. Normal CMP without any elevations. Troponin initial 0.029. C-reactive protein elevated at 7.7. Urinalysis shows active signs of infection with white blood cells, nitrates and leukocyte esterase and bacteria. CT of the maxillary facial structures with IV contrast shows hypodensity surrounding his teeth consistent with dental caries but no overt abscess. No obvious other findings in his facial structures. Sec chest x-rays independent reviewed by myself and also interpreted by radiology. He has pneumonia in the right basilar region as well as prominent markings in the left lower lobe consistent with early pneumonia. Patient has multiple sources that could contribute to his fever and overall clinical picture suspicious for sepsis at this time including urinary tract infection, pneumonia or even the sent back dental caries that could have spread to systemic process to the bloodstream. Patient was re-evaluated multiple times here in the emergency department and despite fluid resuscitation he was receiving he started becoming more and more hypotensive. Was called to bedside by the nursing staff when he started becoming hypotensive in the 70s to 80s systolic. He was given a total of 3 L of lactated Ringer's and at this time w ould require initiation of vasoactive medications to maintain maps above 65. Norepinephrine was started on a peripheral line and a left internal jugular venous catheter with central venous access was placed by myself. Please see procedure note above for details. I did independently review the x-ray after the procedure and shows appropriate position of the left IJ without any complications. Confirmed by Radiology. Patient had improvement in the blood pressures. He did require some oxygen herrmann pplementation with nasal cannula this time likely secondary to the fluid overload that we are giving him with multiple L of fluid for resuscitation in concomitant with his pneumonia. I discussed the case with the medical laboratory assistant Dr. Fer schumacher over the phone and we went over patient's imaging studies, plan of care, likely sources of his potential sepsis now causing septic shock. Ultimately we change his antibiotics to vancomycin and cefepime for broader coverage and he was admitted to the intensive care unit. I discussed the case with the MLP currently covering the hospitalist service [place] and relayed the same findings above. He was accepted for admission at this time and was transferred up to the without further incident. Medical Records Attestation: I reviewed the patient's medical records. Lab Data Attestation: I reviewed the patient's lab results. 05/03/24 08:58 05/03/24 08:58 Labs: Lab Results 05/03/24 05/03/24 05/03/24 Range/Units 08:58 09:23 09:41 WBC 7.6 (4.5-10.0) K/mm3 RBC 4.12 L (4.6-6.20) M/mm3 Hgb 12.8 L (14.0-18.0) g/dL Hct 39.1 L (42.0-52.0) % MCV 94.9 (80-100) fl MCH 31.1 (26-34) pg MCHC 32.7 (32-36) g/dl RDW 14.1 (11.5-14.5) % Plt Count 103 L (150-375) k/mm3 MPV 8.4 (7.4-10.4) fl Immature Gran % (Auto) 0.4 (0-0.5) % Neut % (Auto) 88.2 H (45.5-73.1) % Lymph % (Auto) 4.6 L (18.3-44.2) % [place] % (Auto) 6.4 (2.6-8.5) % Eos % (Auto) 0.1 (0-4.4) % Baso % (Auto) 0.3 (0.2-1.2) % Lymph # (Auto) 0.35 L (0.9-3.2) K/mm3 [place] # (Auto) 0.5 (0.1-0.6) K/mm3 Eos # (Auto) 0.0 (0-0.3) K/mm3 Baso # (Auto) 0.0 (0.0-0.1) K/mm3 Abs Immat Gran (auto) 0.03 (0.00-0.031) K/mm3 Absolute Neuts (auto) 6.7 (1.3-6.7) K/mm3 Absolute Nucleated RBC 0.000 (0.0-0.012) K/mm3 Nucleated RBC % 0.0 (0.0-0.2) % % Immature Plt Fraction 0.8 L (0.9-11.2) % PT 14.9 H (11.1-14.7) Seconds INR 1.1 APTT 33.0 (22.3-36.8) Seconds Sodium 134 L (137-145) mmol/L Potassium 5.0 (3.4-5.0) mmol/L Chloride 102 (98-107) mmol/L Carbon Dioxide 23 (22-30) mmol/L Anion Gap 9 (4-12) mmol/L BUN 31 H (9-20) mg/dL Creatinine 1.30 (0.7-1.3) mg/dL Estim Creat Clear Calc 67 ml/min Estimated GFR 56 L (59 - ) Glucose 90 (65-110) mg/dL Lactic Acid 1.8 (0.7-2.0) mmol/L Calcium 8.6 (8.4-10.2) mg/dL Total Bilirubin 1.0 (0.2-1.3) mg/dL AST 30 (17-59) U/L ALT 20 (6-50) U/L Alkaline Phosphatase 101 (38-126) U/L Troponin I (0.000-0.034) ng/mL C-Reactive Protein 7.7 H (<1.0) mg/dL Total Protein 8.0 (6.3-8.2) g/dL Albumin 4.3 (3.5-5.1) g/dL Procalcitonin ng/mL Urine Color Yellow (Yellow) Urine Appearance Clear (Clear) Urine pH 5.5 (5.0-9.0) Ur Specific [place] 1.017 (1.001-1.035) Urine Protein 1+ H (Negative) mg/dL Urine Glucose (UA) Negative (Negative) mg/dL Urine Ketones Negative (Negative) mg/dL Ur Blood (Man) 2+ H (Negative) Urine Nitrate Positive H (Negative) Urine Bilirubin Negative (Negative) Urine Urobilinogen 0.2 (<2.0) mg/dL Leukocyte Esterase Rfl 2+ H (Negative) KADY/UL Urine RBC 6-10 H (0-2) /hpf Urine WBC 51-100 H (0-3) /hpf Ur Squamous Epith Cells None seen (Few) /hpf Urine Bacteria 4+ H /hpf Urine Casts 0-2 Influenza A (RT-PCR) Negative (Negative) Influenza B (RT-PCR) Negative (Negative) RSV (RT-PCR) Negative (Negative) SARS-CoV-2 RNA (RT-PCR) Negative (Negative) 05/03/24 Range/Units 09:43 WBC (4.5-10.0) K/mm3 RBC (4.6-6.20) M/mm3 Hgb (14.0-18.0) g/dL Hct (42.0-52.0) % MCV (80-100) fl MCH (26-34) pg MCHC (32-36) g/dl RDW (11.5-14.5) % Plt Count (150-375) k/mm3 MPV (7.4-10.4) fl Immature Gran % (Auto) (0-0.5) % Neut % (Auto) (45.5-73.1) % Lymph % (Auto) (18.3-44.2) % [place] % (Auto) (2.6-8.5) % Eos % (Auto) (0-4.4) % Baso % (Auto) (0.2-1.2) % Lymph # (Auto) (0.9-3.2) K/mm3 [place] # (Auto) (0.1-0.6) K/mm3 Eos # (Auto) (0-0.3) K/mm3 Baso # (Auto) (0.0-0.1) K/mm3 Abs Immat Gran (auto) (0.00-0.031) K/mm3 Absolute Neuts (auto) (1.3-6.7) K/mm3 Absolute Nucleated RBC (0.0-0.012) K/mm3 Nucleated RBC % (0.0-0.2) % % Immature Plt Fraction (0.9-11.2) % PT (11.1-14.7) Seconds INR APTT (22.3-36.8) Seconds Sodium (137-145) mmol/L Potassium (3.4-5.0) mmol/L Chloride (98-107) mmol/L Carbon Dioxide (22-30) mmol/L Anion Gap (4-12) mmol/L BUN (9-20) mg/dL Creatinine (0.7-1.3) mg/dL Estim Creat Clear Calc ml/min Estimated GFR (59 - ) Glucose (65-110) mg/dL Lactic Acid (0.7-2.0) mmol/L Calcium (8.4-10.2) mg/dL Total Bilirubin (0.2-1.3) mg/dL AST (17-59) U/L ALT (6-50) U/L Alkaline Phosphatase (38-126) U/L Troponin I 0.029 (0.000-0.034) ng/mL C-Reactive Protein (<1.0) mg/dL Total Protein (6.3-8.2) g/dL Albumin (3.5-5.1) g/dL Procalcitonin 0.5 ng/mL Urine Color (Yellow) Urine Appearance (Clear) Urine pH (5.0-9.0) Ur Specific [place] (1.001-1.035) Urine Protein (Negative) mg/dL Urine Glucose (UA) (Negative) mg/dL Urine Ketones (Negative) mg/dL Ur Blood (Man) (Negative) Urine Nitrate (Negative) Urine Bilirubin (Negative) Urine Urobilinogen (<2.0) mg/dL Leukocyte Esterase Rfl (Negative) KADY/UL Urine RBC (0-2) /hpf Urine WBC (0-3) /hpf Ur Squamous Epith Cells (Few) /hpf Urine Bacteria /hpf Urine Casts Influenza A (RT-PCR) (Negative) Influenza B (RT-PCR) (Negative) RSV (RT-PCR) (Negative) SARS-CoV-2 RNA (RT-PCR) (Negative) Imaging Data Attestation: I personally reviewed and interpreted this imaging study as follows: Radiologist's impression: Impressions Face CT 05/03/24 09:54 IMPRESSION: Fracture of the left upper 6th tooth with surrounding hypodensity suggestive of dental caries. Abscess cannot be excluded. Clinical correlation advised. Severe spinal canal stenosis at the level of C3-C4. Left nasal septal deviation with bilateral ethmoid sinus disease. Chest X-Ray 05/03/24 10:40 IMPRESSION: Right basal atelectasis versus pneumonia. Prominent bronchovascular markings in the left lower lobe which may indicate early pneumonia. Follow-up advised. ECG Data EKG #1: Attestation: I personally reviewed and interpreted this ECG as follows: ECG completion date: 05/03/24 ECG completion time: 08:46 Prior ECG tracings: not available for review Ischemic changes: non-specific ST-T wave changes Interpretation: Left bundle-branch block, slightly tachycardic at 1:04 a.m., QTC of 483, QRS 159. Ventricular pacemaker evident, no ST segment elevations, depressions or any Sgarbossa criteria for ischemia. No previous EKG for comparison purposes. leftward axis deviation Pacemaker function: normal pacer function Critical Care Time Critical Care Time Critical Care Time: Yes Total Critical Care Time: 75 Discharge Plan Discharge Clinical Impression: Septic shock, Pneumonia, Dehydration, Fever of unknown origin, Acute UTI, Dental infection Patient Disposition: Still a Patient Condition: Serious Time of Disposition: 12:45
[2024-05-03 09:37] LABS: Add Urine Microscopic? YES; Appearance Urine Clear (Clear); Bacteria Urine 4+ /hpf; Bilirubin Urine Negative (Negative); Blood Urine 2+ (Negative); Color Urine Yellow (Yellow); Glucose Urine UA Negative (Negative); Ketones Urine Negative (Negative); Leukocyte Esterase Ur 2+ LEU/UL (Negative); Nitrate Urine Positive (Negative); Non Pathogenic Casts 0-2; Protein Urine 1+ mg/dL (Negative); Specific Grav Ur 1.017 (1.001-1.035); Squamous Epithelial Cell Urine None Seen /hpf (Few); Urobilinogen Urine 0.2 mg/dL (<2.0); WBC Urine 51-100 /hpf (0-3); pH Urine 5.5 (5.0-9.0)
[2024-05-03 10:03] LABS: INR 1.1; Prothrombin Time 14.9 Seconds (11.1-14.7)
[2024-05-03] MEDS: AMPICILLIN SULB 3 GM/NS 100 ML 3 GM/100 ML VIAL IVPB (10:03)
[2024-05-03 10:05] LABS: Lactic Acid Reflex 1.8 mmol/L (0.7-2.0)
[2024-05-03 10:08] LABS: CRP 7.7 mg/dL (<1.0)
[2024-05-03 10:16] LABS: Troponin I 0.029 ng/mL (0.000-0.034)
[2024-05-03 10:27] LABS: Influenza A QL RT-PCR Negative (Negative); Influenza B QL RT-PCR Negative (Negative); RSV RNA, RT-PCR Negative (Negative); SARS-CoV-2 RNA PCR Negative (Negative)
[2024-05-03 10:47] LABS: Procalcitonin 0.5 ng/mL
--- NOTE | 2024-05-03 11:42 | PC.NURSE ---
Patient placed on 2L oxygen due to SAT sitting at 89-91% consistently
--- NOTE | 2024-05-03 12:09 | PC.NURSE ---
Provider at bedside for central line placement
[2024-05-03] MEDS: CEFEPIME 2 GM/NS 50 ML 2 GM/50 ML BAG IVPB (12:40)
--- NOTE | 2024-05-03 12:54 | P.HP_ITS ---
H&P: HPI History of Present Illness Date/Time: 05/03/24 12:54 Chief Complaint: Fever Narrative: 63-year-old male dental disease, chronic kidney disease, COPD, schizophrenia, a pacemaker for slow atrial fib presents to the hospital with fevers. Patient states that he had vague complaints of malaise yesterday. He states that he woke up about 4:00 a.m. with fever, chills and shortness of breath.. Patient was seen at the hospital earlier this month with significant dental disease he was completed oral antibiotic course earlier this month who is unable to do all dental procedure due to needing cardiac clearance. CT of face shows Fracture of the left upper 6th tooth with surrounding hypodensity suggestive of dental caries. Abscess cannot be excluded. Patient's creatinine is 1.3 which is improved from earlier this month at 1.4, CRP is 7.7, UA is positive for nitrates and leukocyte esterase 2+, respiratory panel is negative, chest x-ray shows right basilar atelectasis versus pneumonia. Due to severe hypertension emergency room a central line was placed the patient received 3 L normal saline with improvement in blood pressure to 90s/60s. Patient was started on ampicillin, cefepime and vancomycin. Blood cultures and urine cultures pending. Patient will be admitted to the ICU for sepsis secondary to pneumonia and UTI. Review of Systems Review of Systems: 12 systems were reviewed and are negativ e except for as per HPI. [facility] Past Medical History Medical History Asymptomatic cholelithiasis Atrial flutter Benign prostatic hyperplasia Body mass index 40.0-44.9, adult Chronic pain COPD (chronic obstructive pulmonary disease) (Unknown) Zsih-[id number] obstructive ventilatory defect with severe small airway disease pattern no acute bronchodilator response and mildly decreased DLCO noted on pulmonary function testing from 2014. Hematuria History of Clostridium difficile colitis History of myocardial infarction (Unknown) With stress test November 2019 demonstrating 2 fixed perfusion defects small mild area of apical septal segment defect in left ventricle, moderate sized area of mild infarct involving apical inferior apical lateral and mid inferior lateral segment of the left ventricle, ejection fraction of 70%. Hyperlipidemia Nicotine dependence, unspecified, uncomplicated (Unknown) Obstructive sleep apnea treated with BiPAP Settings of 25/20 according to sleep study in February 2010. Osteomyelitis Paranoid schizophrenia (Unknown) Right heart failure with reduced right ventricular function Echocardiogram November 2019 demonstrated reduced right ventricular systolic function and mild enlargement, mild left ventricular enlargement, EF 55-60%, indeterminate diastolic function, mild left atrial enlargement, mild mitral valve regurgitation, small pericardial effusion Surgical History Surgical History History of inguinal herniorrhaphy As a child. Family History Family History Sibling Healthy female adult Reportedly both of the patient's sisters are healthy. Social History Social History Social History: Surrogate decision maker: Mesha Tanner, sister. Code status: Full code. Smoking packs per day: 1.5 Smoking cigarettes per day: 30.0 Years smoked: 40 Smoking pack-years: 60.00 Smoking status: Former smoker Tobacco type: cigarettes Second hand tobacco smoke exposure: No Smoking end date: 02/05/22 Alcohol intake: former Substance use: never Substance use type: does not use Do You Feel Safe in your Home?: Yes Lack of Transportation: No Lack of Food: Never True Current Housing: I Have Housing Concerned About Future Housing: No Difficulty Paying Gas/Electric Bills: No Difficulty Paying for Meds: No Currently Unemployed: No Education: Grade School Difficulty w/ Childcare or Family Care: No Living arrangements: other Additional living arrangements comments: Senior disable apartment building. Sister helps and checks on him frequently Occupation/Education: retired Additional occupation/education comments: Disabled due to paranoid schizophrenia. Gender identity (if verbalized by the patient): Male Spiritual care concerns: No Meds Home Medications and Allergies Home Medications Medication Instructions Recorded Confirmed Type clonazepam 0.5 mg tablet 0.5 mg PO DAILY PRN Anxiety 11/12/20 05/03/24 History sertraline 100 mg tablet 150 mg PO DAILY 11/12/20 05/03/24 History aripiprazole 30 mg tablet 30 mg PO DAILY 04/01/23 05/03/24 History mirabegron 50 mg tablet,extended 50 mg PO DAILY 07/02/23 05/03/24 History release 24 hr (Myrbetriq) oxycodone 5 mg capsule 5 mg PO Q8H PRN pain #10 caps 04/15/24 05/03/24 Rx Lactobacillus 1 cap PO DAILY 05/03/24 05/03/24 History acidophilus-Bifidobac.animalis 2.5 billion cell capsule (Daily Probiotic) acetaminophen 500 mg tablet 1,000 mg PO BID PRN Pain 05/03/24 05/03/24 History (Tylenol Extra Strength) diclofenac sodium 75 mg 75 mg PO BID 05/03/24 05/03/24 History tablet,delayed release Allergies Allergy/AdvReac Type Severity Reaction Status Date / Time aspirin Allergy Severe Anaphylactic Verified 05/03/24 13:45 Shock Vital Signs Vital Signs - 24 hr 05/03/24 07:48 05/03/24 10:26 05/03/24 09:01 Temperature 101.4 F H Pulse Rate 103 H 115 H 108 H Respiratory Rate 23 H 30 H 20 Blood Pressure 109/69 108/62 115/63 Pulse Oximetry 95 94 95 Oxygen Delivery Room Air Oxygen Flow Rate 05/03/24 09:23 05/03/24 09:30 05/03/24 09:31 Temperature Pulse Rate 115 H 106 H 108 H Respiratory Rate 23 H 31 H 32 H Blood Pressure 100/63 108/62 Pulse Oximetry 93 93 Oxygen Delivery Oxygen Flow Rate 05/03/24 09:54 05/03/24 10:00 05/03/24 10:15 Temperature Pulse Rate 112 H 107 H 110 H Respiratory Rate 23 H 31 H 30 H Blood Pressure Pulse Oximetry 93 91 92 Oxygen Delivery Oxygen Flow Rate 05/03/24 10:37 05/03/24 11:03 05/03/24 11:42 Temperature 101 F H Pulse Rate 105 H 110 H Respiratory Rate 28 H 25 H Blood Pressure 87/50 L Pulse Oximetry 94 92 94 Oxygen Delivery Nasal Cannula Oxygen Flow Rate 2 05/03/24 10:44 05/03/24 10:45 05/03/24 10:46 Temperature Pulse Rate 101 H 101 H 103 H Respiratory Rate 24 H 28 H 27 H Blood Pressure 83/55 L Pulse Oximetry 92 90 89 L Oxygen Delivery Oxygen Flow Rate 05/03/24 11:00 05/03/24 11:03 05/03/24 12:02 Temperature Pulse Rate 104 H 110 H 106 H Respiratory Rate 31 H 20 Blood Pressure 87/50 L 94/55 L Pulse Oximetry 91 96 Oxygen Delivery Oxygen Flow Rate 05/03/24 12:22 Temperature Pulse Rate 107 H Respiratory Rate 35 H Blood Pressure 98/58 L Pulse Oximetry 99 Oxygen Delivery Oxygen Flow Rate Exam Narrative: General: well appearing, appears stated age. HEENT: normocephalic, atraumatic. Mucous membranes moist. EOMI, PERRLA, bilateral sclera anicteric, no conjunctival injection. Neck supple without JVD, lymphadenopathy, or bruit. Respiratory: Diminished to ascultation bilaterally. No rales/rhonic/wheezes. Cardiovascular: Regular rate and rhythm, normal S1-S2 upon ascultation. No murmurs, rubs, or clicks. PMI is nondisplaced, capillary refill less than 3 second. Abdomen: Soft, round, no pulsatile masses, nondistended and nontender. No rebound, no guarding. No CVA tenderness, no hepatosplenomegaly. Bowel sounds present to all four quadrants. No high pitch or tinkling sounds, resonant to percussion. Extremities: No cyanosis, clubbing, or edema present. Pulses are palpable 2/2. Active ROM to all four extremities. Neuro: Alert and orientated x 4. PERRLA. Cranial nerves 2-12 intact without f ocal deficit. Skin: Warm, dry, and intact, without rash, erythema, or lesion. Psych: pleasant, cooperative, normal speech, normal affect, no hallucinations, no dysarthia H&P: Results Labs Labs: Short CBC 05/03/24 Range/Units 08:58 WBC 7.6 (4.5-10.0) K/mm3 Hgb 12.8 L (14.0-18.0) g/dL Hct 39.1 L (42.0-52.0) % Plt Count 103 L (150-375) k/mm3 [facility] 05/03/24 08:58 Sodium 134 L Potassium 5.0 Chloride 102 Carbon Dioxide 23 BUN 31 H Creatinine 1.30 Glucose 90 Calcium 8.6 Cardiac Enzymes 05/03/24 Range/Units 09:43 Troponin I 0.029 (0.000-0.034) ng/mL Liver Function 05/03/24 Range/Units 08:58 Total Bilirubin 1.0 (0.2-1.3) mg/dL AST 30 (17-59) U/L ALT 20 (6-50) U/L Alkaline Phosphatase 101 (38-126) U/L Albumin 4.3 (3.5-5.1) g/dL Urine 05/03/24 Range/Units 09:23 Urine Color Yellow (Yellow) Urine Appearance Clear (Clear) Urine pH 5.5 (5.0-9.0) Ur Specific [place] 1.017 (1.001-1.035) Urine Protein 1+ H (Negative) mg/dL Urine Glucose (UA) Negative (Negative) mg/dL Assessment and Plan Assessment and plan (1) Sepsis: Qualifiers: Sepsis acute organ dysfunction status: with acute organ dysfunction Sepsis type: sepsis due to unspecified organism Severe sepsis acute organ dysfunction type: encephalopathy Severe sepsis shock status: without septic shock Qualified Code(s): A41.9 - Sepsis, unspecified organism; R65.20 - Severe sepsis without septic shock; G93.40 - Encephalopathy, unspecified Code(s): A41.9 - Sepsis, unspecified organism Status: Acute Assessment and Plan: Patient being admitted to the ICU for sepsis with hypotension. Lactic acid 1.8 Sepsis fluid bolus given Continue Zosyn and vancomycin (2) UTI (urinary tract infection): Code(s): N39.0 - Urinary tract infection, site not specified Status: Acute Assessment and Plan: On Zosyn Culture and sensitivity pending (3) Pneumonia: Code(s): J18.9 - Pneumonia, unspecified organism Status: Acute Assessment and Plan: Given IV Rocephin, vancomycin and ampicillin Continue vancomycin Zosyn (4) Paranoid schizophrenia: Onset Date: Unknown Code(s): F20.0 - Paranoid schizophrenia Status: Chronic Assessment and Plan: Stable Restart home medication (5) Elevated troponin: Code(s): R79.89 - Other specified abnormal findings of blood chemistry Status: Acute Assessment and Plan: Denies chest pain Trend troponins EKG p.r.n. Quality VTE Prophylaxis VTE prophylaxis: mechanical ordered and pharmacologic ordered Hospitalist MIPS Advance Care Plan I have confirmed that the patient's Advanced Care Plan is present, code status is documented, or surrogate decision maker is listed in patient medical record.: Yes Medication Reconciliation I have utilized all available resources to obtain, update and review the patients current medications (includes all prescriptions, OTC, herbals, cannabis, and nutritional supplements).: Yes
--- NOTE | 2024-05-03 13:10 | ADMGEN ---
This patient, Easton Tanner, was admitted to Intensive Care Unit-3. Patient/family oriented to hospital policies and general routines including ID bracelet, bed and alarms, visiting hours, pain management, procedures, bathroom and other care routines, personal items, smoking policy, room service/diet, and visiting hours. Information on how to activate the Rapid Response Team has been discussed. Patient/Family are encouraged to report perceived risks to care and to ask questions if they do not understand what they are told or what they should do.
[2024-05-03] MEDS: VANCOMYCIN 1,250 MG/NS 250 ML 1,250 MG/250 ML BAG 166.67 MG IVPB ×2 (13:26→15:06)
--- NOTE | 2024-05-03 13:26 | P.CONIN_ITS ---
Assessment and Plan Assessment and plan (1) Sepsis: Qualifiers: Sepsis type: sepsis due to unspecified organism Sepsis acute organ dysfunction status: with acute organ dysfunction Severe sepsis acute organ dysfunction type: encephalopathy Severe sepsis shock status: without septic sh ock Qualified Code(s): A41.9 - Sepsis, unspecified organism; R65.20 - Severe sepsis without septic shock; G93.40 - Encephalopathy, unspecified Code(s): A41.9 - Sepsis, unspecified organism Status: Acute Assessment and Plan: 05/03: Patient presented with fevers, chills, elevated neutrophils, normal lactic acid, hypotension -likely source, UTI, dental caries/abscess, poor dentition, possible pneumonia -patient received 3 L IV fluid bolus in the ER, -blood pressures remain low, left IJ central line was inserted in the ER -Levophed on standby for now -will place patient on Zosyn and vancomycin (05/03) -05/03: Blood and urine cultures have been obtained -lactic acid is normal, -normal WBC count with elevated neutrophils (2) UTI (urinary tract infection): Code(s): N39.0 - Urinary tract infection, site not specified Status: Acute Assessment and Plan: Urine analysis showed nitrates, +leukocyte esterase and 4+ bacteria -continue antibiotics as above -urine cultures have been obtained and pending (3) Pneumonia: Code(s): J18.9 - Pneumonia, unspecified organism Status: Acute Assessment and Plan: Chest x-ray showed possible right basilar atelectasis versus pneumonia, prominent bronchovascular marking the left lower lobe which may indicate early pneumonia. -continue antibiotics -currently on 2 L nasal cannula the good O2 sat (4) History of COPD: Onset Date: Unknown Code(s): Z87.09 - Personal history of other diseases of the respiratory system Status: Acute Assessment and Plan: Will add DuoNeb (5) Nicotine dependence, unspecified, uncomplicated: Onset Date: Unknown Qualifiers: Nicotine product type: cigarettes Qualified Code(s): F17.210 - Nicotine dependence, cigarettes, uncomplicated Code(s): F17.200 - Nicotine dependence, unspecified, uncomplicated Status: Chronic Assessment and Plan: Counseled patient on cessation of tobacco use (6) Pacemaker: Code(s): Z95.0 - Presence of cardiac pacemaker Status: Acute Assessment and Plan: Patient has a leadless pacemaker for slow AFib/flutter which was placed 3 years back (7) Dental caries: Code(s): K02.9 - Dental caries, unspecified Status: Inactive Assessment and Plan: Patient has had multiple visits to the ER at [facility] in the beginning of April for dental pain and issues. His dentist has told him that he needs procedures e with multiple dental extractions and revisions but needs a cardiac clearance before this could happen. -continue antibiotics Plan DVT prophylaxis: Lovenox Stress ulcer prophylaxis: Not indicated Nutrition: Heart healthy diet Code Status: Full code Critical Care Time Spent: 51 minutes Discussed with patient and updated with his condition and plan of care. I a nswered all his questions Due to a high probability of clinically significant, life threatening de terioration, the patient required my highest level of preparedness to intervene emergently and I personally spent this critical care time directly and personally managing the patient. This critical care time included obtaining a history; examining the patient; pulse oximetry; ordering and review of studies; arranging urgent treatment with development of a management plan; evaluation of patient's response to treatment; frequent reassessment; and discussions with other providers. It was exclusive of separately billable procedures and treating other patients and teaching time. Please see Assessment and Plan section and the rest of the note for further information on patient assessment and treatment This dictation may have been done utilizing a voice recognition system. Attempts have been made to correct errors. However, there may be uncorrected grammatical, spelling, and recognitions errors present. Manager Human Resources Consult Note Consult date: 05/03/24 Reason for consult: Hypotension, sepsis, UTI, dental infection HPI: Easton Tanner is a 63 year old male with past medical history of slow atrial flutter/fib status post leadless pacemaker, CKD, COPD, BPH, coronary artery disease with normal coronaries on cardiac catheterization done on 05/08/2022, BEBETO, osteomyelitis, paranoid schizophrenia, history of significant dental caries and has been in the ER at [facility] several times early in April 2024, his dentist states that he need significant procedure with multiple dental extractions and revisions but needs a cardiac clearance before this could happen. Patient presented to the ED on 05/03/2024 with complains of fevers, chi lls and shortness of breath. Patient did have fevers of 38.6. The symptoms have been ongoing for approximately 24 hours prior to arrival to the ED. he denies any chest pain, shortness of breath, nausea, vomiting, headaches. Denies any abdominal pain or back pain. Not complaining of any dental pain. He had recently completed antibiotics for his dental infections. Patient was febrile, tachycardic in the ER. Normal WBC count with 88% neutrophils, INR 1.1, sodium 134, potassium 5.0, CO2 23, BUN 31, creatinine 1.30, blood sugars 90, lactic acid 1.8, LFTs are within normal limits, troponin 0.029, CRP 7.7, procalcitonin 0.5. UA was positive for nitrates, leukocyte esterase, 51-100 wbc's and 4+ bacteria. Negative for influenza, RSV and COVID Chest x-ray: Right basal atelectasis versus pneumonia. Prominent bronchovascular markings in the left lower lobe which may indicate early pneumonia. Facial CT: Fracture of the left upper 6th tooth with surrounding hypodensity suggestive of dental caries. Abscess cannot be excluded. Clinical correlation advised. Severe spinal canal stenosis at the level of C3-C4. Left nasal septal deviation with bilateral ethmoid sinus disease Patient seen and examined upon arrival to the ICU, blood pressures are stable, patient is being paced. Currently on 2 L nasal cannula with good O2 sats. Denies any chest pain, shortness of breath, no nausea, vomiting, abdominal pain. He does complain of some cough with white sputum production. His fevers and chills have been ongoing for the last 24 hours prior to arrival to the ED. urine output has been adequate, no dysuria, denies any diarrhea constipation, has regular bowel movements. Does smoke cigarettes, 1/2 pack per day, denies any illicit drug use or alcohol use. Review of Systems Review of Systems: All systems reviewed & are unremarkable except as noted in HPI and below PMFSH Past Medical History Medical History Asymptomatic cholelithiasis Atrial flutter Benign prostatic hyperplasia Body mass index 40.0-44.9, adult Chronic pain COPD (chronic obstructive pulmonary disease) (Unknown) Hftk-mo-mlkiyhxu obstructive ventilatory defect with severe small airway disease pattern no acute bronchodilator response and mildly decreased DLCO noted on pulmonary function testing from 2014. Hematuria History of Clostridium difficile colitis History of myocardial infarction (Unknown) With stress test November 2019 demonstrating 2 fixed perfusion defects small mild area of apical septal segment defect in left ventricle, moderate sized area of mild infarct involving apical inferior apical lateral and mid inferior lateral segment of the left ventricle, ejection fraction of 70%. Hyperlipidemia Nicotine dependence, unspecified, uncomplicated (Unknown) Obstructive sleep apnea treated with BiPAP Settings of 25/20 according to sleep study in February 2010. Osteomyelitis Paranoid schizophrenia (Unknown) Right heart failure with reduced right ventricular function Echocardiogram November 2019 demonstrated reduced right ventricular systolic function and mild enlargement, mild left ventricular enlargement, EF 55-60%, indeterminate diastolic function, mild left atrial enlargement, mild mitral valve regurgitation, small pericardial effusion Surgical History Surgical History History of inguinal herniorrhaphy As a child. Family History Family History Sibling Healthy female adult Reportedly both of the patient's sisters are healthy. Social History Social History Social History: Surrogate decision maker: Mesha Tanner, sister. Code status: Full code. Smoking packs per day: 1.5 Smoking cigarettes per day: 30.0 Years smoked: 40 Smoking pack-years: 60.00 Smoking status: Former smoker Tobacco type: cigarettes Second hand tobacco smoke exposure: No Smoking end date: 02/05/22 Alcohol intake: never Substance use: never Substance use type: does not use Do You Feel Safe in your Home?: Yes Lack of Transportation: No Lack of Food: Never True Current Housing: I Have Housing Concerned About Future Housing: No Difficulty Paying Gas/Electric Bills: No Difficulty Paying for Meds: No Currently Unemployed: No Education: Grade School Difficulty w/ Childcare or Family Care: No Living arrangements: other Additional living arrangements comments: Senior disable apartment building. Sister helps and checks on him frequently Occupation/Education: retired Additional occupation/education comments: Disabled due to paranoid schizophrenia. Gender identity (if verbalized by the patient): Male Spiritual care concerns: No Meds Home Medications and Allergies Home Medications Medication Instructions Recorded Confirmed Type clonazepam 0.5 mg tablet 0.5 mg PO DAILY PRN Anxiety 11/12/20 05/03/24 History sertraline 100 mg tablet 150 mg PO DAILY 11/12/20 05/03/24 History aripiprazole 30 mg tablet 30 mg PO DAILY 04/01/23 05/03/24 History mirabegron 50 mg tablet,extended 50 mg PO DAILY 07/02/23 05/03/24 History release 24 hr (Myrbetriq) oxycodone 5 mg capsule 5 mg PO Q8H PRN pain #10 caps 04/15/24 05/03/24 Rx Lactobacillus 1 cap PO DAILY 05/03/24 05/03/24 History acidophilus-Bifidobac.animalis 2.5 billion cell capsule (Daily Probiotic) acetaminophen 500 mg tablet 1,000 mg PO BID PRN Pain 05/03/24 05/03/24 History (Tylenol Extra Strength) diclofenac sodium 75 mg 75 mg PO BID 05/03/24 05/03/24 History tablet,delayed release Allergies Allergy/AdvReac Type Severity Reaction Status Date / Time aspirin Allergy Severe Anaphylactic Verified 05/03/24 13:45 Shock Vital Signs Vital Signs - 24 hr 05/03/24 07:48 05/03/24 10:26 05/03/24 09:01 Temperature 101.4 F H Pulse Rate 103 H 115 H 108 H Respiratory Rate 23 H 30 H 20 Blood Pressure 109/69 108/62 115/63 Pulse Oximetry 95 94 95 Oxygen Delivery Room Air Oxygen Flow Rate 05/03/24 09:23 05/03/24 09:30 05/03/24 09:31 Temperature Pulse Rate 115 H 106 H 108 H Respiratory Rate 23 H 31 H 32 H Blood Pressure 100/63 108/62 Pulse Oximetry 93 93 Oxygen Delivery Oxygen Flow Rate 05/03/24 09:54 05/03/24 10:00 05/03/24 10:15 Temperature Pulse Rate 112 H 107 H 110 H Respiratory Rate 23 H 31 H 30 H Blood Pressure Pulse Oximetry 93 91 92 Oxygen Delivery Oxygen Flow Rate 05/03/24 10:37 05/03/24 11:03 05/03/24 11:42 Temperature 101 F H Pulse Rate 105 H 110 H Respiratory Rate 28 H 25 H Blood Pressure 87/50 L Pulse Oximetry 94 92 94 Oxygen Delivery Nasal Cannula Oxygen Flow Rate 2 05/03/24 10:44 05/03/24 10:45 05/03/24 10:46 Temperature Pulse Rate 101 H 101 H 103 H Respiratory Rate 24 H 28 H 27 H Blood Pressure 83/55 L Pulse Oximetry 92 90 89 L Oxygen Delivery Oxygen Flow Rate 05/03/24 11:00 05/03/24 11:03 05/03/24 12:02 Temperature Pulse Rate 104 H 110 H 106 H Respiratory Rate 31 H 20 Blood Pressure 87/50 L 94/55 L Pulse Oximetry 91 96 Oxygen Delivery Oxygen Flow Rate 05/03/24 12:22 Temperature Pulse Rate 107 H Respiratory Rate 35 H Blood Pressure 98/58 L Pulse Oximetry 99 Oxygen Delivery Oxygen Flow Rate Exam Narrative: General: Pleasant gentleman in no acute distress HEENT:? Pupils equal and reactive, sclera is clear moist oral mucosa, no obvious abscess noticed, patient has poor dentition on upper and lower jaw. No facial tenderness or swelling noted Neck:? No swelling of the neck noted, no cervical lymphadenopathy Respiratory:? Clear to auscultation bilaterally, decreased at bases, adequate air Cardiac:? Paced rhythm Abdomen:? Soft, nontender, protuberant, nondistended, normal bowel sounds Extremities:? Trace edema, warm, will pedal pulses Neuro:? Awake, alert, oriented x3, answers to questions appropriately and follows simple commands Skin:? Warm and dry Psych:? Normal mood and affect Results Labs 05/03/24 08:58 05/03/24 08:58 Labs: Short CBC 05/03/24 Range/Units 08:58 WBC 7.6 (4.5-10.0) K/mm3 Hgb 12.8 L (14.0-18.0) g/dL Hct 39.1 L (42.0-52.0) % Plt Count 103 L (150-375) k/mm3 [facility] 05/03/24 08:58 Sodium 134 L Potassium 5.0 Chloride 102 Carbon Dioxide 23 BUN 31 H Creatinine 1.30 Glucose 90 Calcium 8.6 Cardiac Enzymes 05/03/24 Range/Units 09:43 Troponin I 0.029 (0.000-0.034) ng/mL Liver Function 05/03/24 Range/Units 08:58 Total Bilirubin 1.0 (0.2-1.3) mg/dL AST 30 (17-59) U/L ALT 20 (6-50) U/L Alkaline Phosphatase 101 (38-126) U/L Albumin 4.3 (3.5-5.1) g/dL Urine 05/03/24 Range/Units 09:23 Urine Color Yellow (Yellow) Urine Appearance Clear (Clear) Urine pH 5.5 (5.0-9.0) Ur Specific [place] 1.017 (1.001-1.035) Urine Protein 1+ H (Negative) mg/dL Urine Glucose (UA) Negative (Negative) mg/dL Quality VTE Prophylaxis VTE prophylaxis: pharmacologic ordered Hospitalist MIPS Advance Care Plan I have confirmed that the patient's Advanced Care Plan is present, code status is documented, or surrogate decision maker is listed in patient medical record.: Yes Medication Reconciliation I have utilized all available resources to obtain, update and review the patients current medications (includes all prescriptions, OTC, herbals, cannabis, and nutritional supplements).: Yes
[2024-05-03 14:22] LABS: Troponin I 0.062 ng/mL (0.000-0.034)
[2024-05-03 14:53] LABS: MRSA (PCR) NOT DETECTED (NOT DETECTE)
[2024-05-03] MEDS: ALBUMIN HUMAN 25% 25 GM/100 ML 100 ML IVPB ×3 (15:08→23:16)
[2024-05-03] MEDS: ACETAMINOPHEN 325 MG TABLET 650 MG PO (15:54)
[2024-05-03] MEDS: PIPERACILLN/TAZ 3.375GM/NS50ML 3.375 GM/50 ML BAG IVPB ×2 (17:41→23:16)
[2024-05-03] MEDS: IPRATROPIUM 0.5 MG/ALBUTEROL SULFATE 2.5 MG AMPUL.NEB 3 ML INHALATION (20:38)
[2024-05-03] MEDS: CENTRAL LINE FLUSH 10 ML IV PUSH (23:17)
[2024-05-04] VITALS (22 sets, daily range): BP systolic 100–128; BP diastolic 51–74; PULSE 52–74; RESP 18–26; TEMP 36.9–37.3; O2SAT 94–99
[2024-05-04 00:14] LABS: Glucose Point of Care 95 mg/dl (65-105)
[2024-05-04] MEDS: IPRATROPIUM 0.5 MG/ALBUTEROL SULFATE 2.5 MG AMPUL.NEB 3 ML INHALATION ×5 (03:28→20:25)
[2024-05-04] MEDS: PIPERACILLN/TAZ 3.375GM/NS50ML 3.375 GM/50 ML BAG IVPB ×3 (05:25→17:16)
[2024-05-04] MEDS: ALBUMIN HUMAN 25% 25 GM/100 ML 100 ML IVPB (05:26)
[2024-05-04] MEDS: CENTRAL LINE FLUSH 10 ML IV PUSH ×3 (05:26→20:47)
[2024-05-04 06:10] LABS: Basophils Percent Auto 0.2 % (0.2-1.2); Eosinophils Percent Auto 0.1 % (0-4.4); Hematocrit 29.5 % (42.0-52.0); Hemoglobin 9.9 g/dL (14.0-18.0); Immature Granulocyte Absolute 0.07 K/mm3 (0.00-0.031); Immature Granulocyte Percent A 0.8 % (0-0.5); Immature Platelet Fraction Pct 0.7 % (0.9-11.2); Lymphocytes Absolute Auto 0.85 K/mm3 (0.9-3.2); Lymphocytes Percent Auto 9.8 % (18.3-44.2); Mean Corpuscular HGB Conc 33.6 g/dl (32-36); Mean Corpuscular Hemoglobin 31.5 pg (26-34); Mean Corpuscular Volume 93.9 fl (80-100); Mean Platelet Volume 8.5 fl (7.4-10.4); Monocytes Absolute Auto 0.6 K/mm3 (0.1-0.6); Monocytes Percent Auto 6.8 % (2.6-8.5); Neutrophils Absolute Auto 7.1 K/mm3 (1.3-6.7); Neutrophils Percent Auto 82.3 % (45.5-73.1); Platelet Count Result 94 k/mm3 (150-375); Red Blood Count 3.14 M/mm3 (4.6-6.20); Red Cell Distribution Width 14.3 % (11.5-14.5); White Blood Count 8.6 K/mm3 (4.5-10.0)
[2024-05-04 06:31] LABS: Alanine Aminotransferase 20 U/L (6-50); Albumin Level 3.9 g/dL (3.5-5.1); Alkaline Phosphatase 78 U/L (38-126); Anion Gap 7 mmol/L (4-12); Aspartate Amino Transferase 25 U/L (17-59); Bilirubin,Total 1.3 mg/dL (0.2-1.3); Blood Urea Nitrogen 21 mg/dL (9-20); Calcium 8.5 mg/dL (8.4-10.2); Carbon Dioxide 23 mmol/L (22-30); Chloride 103 mmol/L (98-107); Estimated CRCL calculation 67 ml/min; Estimated Glomerular Filt Rate 56; Glucose 96 mg/dL (65-110); Phosphorus 2.8 mg/dL (2.5-4.5); Potassium 4.2 mmol/L (3.4-5.0); Sodium 133 mmol/L (137-145)
[2024-05-04] MEDS: VANCOMYCIN 1,500 MG/NS 500 ML 1,500 MG/500 ML BAG 250 MG IVPB (06:42)
[2024-05-04 07:31] LABS: Toxigenic C. Diff POSITIVE (NEGATIVE)
[2024-05-04] MEDS: PANTOPRAZOLE SODIUM IV 40 MG VIAL IV PUSH (08:12)
[2024-05-04] MEDS: MIRABEGRON 50 MG ER TABLET PO (08:13)
[2024-05-04] MEDS: ARIPiprazole 10 MG TABLET 30 MG PO (08:13)
[2024-05-04] MEDS: SERTRALINE HCL 50 MG TABLET 150 MG PO (08:13)
[2024-05-04] MEDS: FIDAXOMICIN 200 MG TABLET PO ×2 (09:43→20:47)
[2024-05-04 09:47] LABS: Glucose Point of Care 83 mg/dl (65-105)
[2024-05-04 12:42] LABS: Glucose Point of Care 119 mg/dl (65-105)
--- NOTE | 2024-05-04 13:12 | WPDINTPN ---
Progress Note: A&P Assessment and Plan (1) Sepsis: Qualifiers: Sepsis type: sepsis due to unspecified organism Sepsis acute organ dysfunction status: with acute organ dysfunction Severe sepsis acute organ dysfunction type: encephalopathy Severe sepsis shock status: without septic shock Qualified Code(s): A41.9 - Sepsis, unspecified organism; R65.20 - Severe sepsis without septic shock; G93.40 - Encephalopathy, unspecified Code(s): A41.9 - Sepsis, unspecified organism Status: Acute Assessment and Plan: 05/03: Patient presented with fevers, chills, elevated neutrophils, normal lactic acid, hypotension -likely source, UTI, dental caries/abscess, poor dentition, possible pneumonia -patient received 3 L IV fluid bolus in the ER, -blood pressures remain low, left IJ central line was inserted in the ER -patient has not required any Levophed since admission, pressures have been stable -continue Zosyn and vancomycin (05/03), will deescalate when cultures are reported -05/03: Preliminary blood culture is negative -05/03: urine cultures pending -lactic acid is normal, -normal WBC count with elevated neutrophils which are trending down (2) UTI (urinary tract infection): Code(s): N39.0 - Urinary tract infection, site not specified Status: Acute Assessment and Plan: Urine analysis showed nitrates, +leukocyte esterase and 4+ bacteria -continue antibiotics as above -urine cultures have been obtained and pending (3) Pneumonia: Code(s): J18.9 - Pneumonia, unspecified organism Status: Acute Assessment and Plan: Chest x-ray showed possible right basilar atelectasis versus pneumonia, prominent bronchovascular marking the left lower lobe which may indicate early pneumonia. -continue antibiotics -currently on room air good O2 sats (4) History of COPD: Onset Date: Unknown Code(s): Z87.09 - Personal history of other diseases of the respiratory system Status: Acute Assessment and Plan: Continue DuoNebs (5) Nicotine dependence, unspecified, uncomplicated: Onset Date: Unknown Qualifiers: Nicotine product type: cigarettes Qualified Code(s): F17.210 - Nicotine dependence, cigarettes, uncomplicated Code(s): F17.200 - Nicotine dependence, unspecified, uncomplicated Status: Chronic Assessment and Plan: Counseled patient on cessation of tobacco use (6) Pacemaker: Code(s): Z95.0 - Presence of cardiac pacemaker Status: Acute Assessment and Plan: Patient has a leadless pacemaker for slow AFib/flutter which was placed 3 years back (7) Dental caries: Code(s): K02.9 - Dental caries, unspecified Status: Inactive Assessment and Plan: Patient has had multiple visits to the ER at [facility] in the beginning of April for dental pain and issues. His dentist has told him that he needs procedures e with multiple dental extractions and revisions but needs a cardiac clearance before this could happen. -continue antibiotics Plan DVT prophylaxis: Lovenox Stress ulcer prophylaxis: Not indicated Nutrition: Heart healthy diet Code Status: Full code Critical Care Time Spent: 31 minutes Patient may transfer out of the ICU if okay with hospitalist team Discussed with patient and updated with his condition and plan of care. I answered all his questions Due to a high probability of clinically significant, life threatening deterioration, the patient required my highest level of preparedness to intervene emergently and I personally spent this critical care time directly and personally managing the patient. This critical care time included obtaining a history; examining the patient; pulse oximetry; ordering and review of studies; arranging urgent treatment with development of a management plan; evaluation of patient's response to treatment; frequent reassessment; and discussions with other providers. It was exclusive of separately billable procedures and treating other patients and teaching time. Please see Assessment and Plan section and the rest of the note for further information on patient assessment and treatment This dictation may have been done utilizing a voice recognition system. Attempts have been made to correct errors. However, there may be uncorrected grammatical, spelling, and recognitions errors present. Subjective Date/time seen: 05/04/24 13:12 Interval history: Reason for consult: Hypotension, sepsis, UTI, dental infection 1127 patient seen examined the ICU is awake, alert, pleasant. Denies any chest pain, shortness of breath abdominal pain, nausea vomiting. He has had diarrhea overnight, C diff was positive, fevers of 101.8. Urine output has been adequate, hemodynamically stable not requiring pressors since admission. Review of Systems Review of Systems: All systems reviewed & are unremarkable except as noted in HPI and below Exam Narrative: General: Pleasant gentleman in no acute distress HEENT:? Pupils equal and reactive, sclera is clear moist oral mucosa, no obvious abscess noticed, patient has poor dentition on upper and lower jaw. No facial tenderness or swelling noted Neck:? No swelling of the neck noted, no cervical lymphadenopathy Respiratory:? Clear to auscultation bilaterally, decreased at bases, adequate air Cardiac:? Paced rhythm Abdomen:? Soft, nontender, protuberant, nondistended, normal bowel sounds Extremities:? Trace edema, warm, will pedal pulses Neuro:? Awake, alert, oriented x3, answers to questions appropriately and follows simple commands Skin:? Warm and dry Psych:? Normal mood and affect Objective Data Vital Signs Vital Signs: Vital Signs - 24 hr 05/03/24 13:32 05/03/24 13:32 05/03/24 15:00 Temperature 100.3 F H Pulse Rate 74 72 Respiratory Rate 23 H 23 H Blood Pressure 110/70 96/63 L Pulse Oximetry 97 94 96 Oxygen Delivery Nasal Cannula Oxygen Flow Rate 2 05/03/24 16:00 05/03/24 17:05 05/03/24 14:00 Temperature 101.8 F H 99.8 F H Pulse Rate 73 55 L Respiratory Rate 24 H Blood Pressure 111/65 Pulse Oximetry 97 Oxygen Delivery Oxygen Flow Rate 05/03/24 16:00 05/03/24 18:00 05/03/24 16:00 Temperature Pulse Rate 81 75 Respiratory Rate Blood Pressure Pulse Oximetry 97 Oxygen Delivery Nasal Cannula Oxygen Flow Rate 2 05/03/24 18:00 05/03/24 20:00 05/03/24 20:00 Temperature 99.2 F Pulse Rate 75 71 71 Respiratory Rate 33 H 22 H Blood Pressure 108/66 124/60 Pulse Oximetry 93 92 Oxygen Delivery Oxygen Flow Rate 05/03/24 20:00 05/03/24 20:44 05/03/24 20:45 Temperature Pulse Rate 73 75 Respiratory Rate 27 H 23 H Blood Pressure Pulse Oximetry 92 94 Oxygen Delivery Nasal Cannula Nasal Cannula Oxygen Flow Rate 1 1 05/03/24 20:52 05/03/24 22:00 05/03/24 22:00 Temperature Pulse Rate 63 63 Respiratory Rate 25 H 28 H Blood Pressure 121/62 Pulse Oximetry 94 Oxygen Delivery Oxygen Flow Rate 05/04/24 00:00 05/04/24 00:00 05/04/24 00:00 Temperature 99.1 F Pulse Rate 54 L 54 L Respiratory Rate 21 H Blood Pressure 114/59 L Pulse Oximetry 94 Oxygen Delivery Autopap Oxygen Flow Rate 05/04/24 02:00 05/04/24 02:00 05/04/24 03:34 Temperature Pulse Rate 74 74 71 Respiratory Rate 24 H 18 Blood Pressure 100/60 Pulse Oximetry 95 Oxygen Delivery Oxygen Flow Rate 05/04/24 04:00 05/04/24 04:00 05/04/24 04:00 Temperature 98.6 F Pulse Rate 60 52 L Respiratory Rate 20 Blood Pressure 103/64 Pulse Oximetry 98 98 Oxygen Delivery Nasal Cannula Oxygen Flow Rate 1 05/04/24 06:00 05/04/24 06:00 05/04/24 08:00 Temperature 98.7 F Pulse Rate 62 62 59 L Respiratory Rate 26 H 22 H Blood Pressure 128/61 121/74 Pulse Oximetry 99 96 Oxygen Delivery Oxygen Flow Rate 05/04/24 08:00 05/04/24 09:19 05/04/24 09:19 Temperature Pulse Rate 59 L 60 Respiratory Rate 22 H 24 H Blood Pressure Pulse Oximetry 96 96 Oxygen Delivery Room Air Room Air Oxygen Flow Rate 05/04/24 09:26 05/04/24 08:00 05/04/24 10:00 Temperature Pulse Rate 60 60 66 Respiratory Rate 24 H Blood Pressure Pulse Oximetry Oxygen Delivery Oxygen Flow Rate 05/04/24 09:45 05/04/24 10:01 05/04/24 12:00 Temperature Pulse Rate 63 63 72 Respiratory Rate 23 H 25 H Blood Pressure 123/71 Pulse Oximetry 96 95 Oxygen Delivery Oxygen Flow Rate Intake/Output Intake/Output: Intake & Output 05/01/24 05/02/24 05/03/24 05/04/24 23:59 23:59 23:59 23:59 Intake Total 3200 2470 Output Total 500 325 Balance 2700 2145 Meds/Results Medications: Active Medications Generic Name Dose Route Start Last Admin Trade Name Freq PRN Reason Stop Dose Admin Acetaminophen 650 mg 05/03/24 13:32 05/03/24 15:54 Acetaminophen 325 Mg Tablet PO 650 mg Q4H PRN Administration Mild Pain (1-3) or Fever Albuterol/Ipratropium 3 ml 05/03/24 14:10 05/04/24 09:19 Ipratropium 0.5 Mg/Albuterol Sulfate 2.5 Mg Ampul.Neb 3 Ml INHALATION 3 ml Q6HRT [place] Administration Aripiprazole 30 mg 05/04/24 09:00 05/04/24 08:13 Aripiprazole 10 Mg Tablet PO 06/03/24 08:59 30 mg DAILY [place] Administration Clonazepam 0.5 mg 05/03/24 14:03 Clonazepam (*Crx) 0.5 Mg Tablet PO DAILY PRN Anxiety Dextrose 12.5 gm 05/04/24 08:22 Dextrose 50% 25 Gm/50 Ml Syringe IV PUSH PRN PRN Hypoglycemia Protocol Enoxaparin Sodium 40 mg 05/04/24 09:00 05/04/24 08:14 Enoxaparin 40 Mg/0.4 Ml Syringe SUB-Q Not Given DAILY [place] Fidaxomicin 200 mg 05/04/24 09:00 05/04/24 09:43 Fidaxomicin 200 Mg Tablet PO 05/14/24 08:59 200 mg Q12HR [place] Administration Glucagon 1 mg 05/04/24 08:22 Glucagon For Inj 1 Mg Vial IM PRN PRN Hypoglycemia Protocol Glucose 15 gm 05/04/24 08:22 Glucose Oral Gel 15 Gm Of Glucse In 37.5 Gm Tube PO PRN PRN Hypoglycemia Protocol Vancomycin HCl 1,500 mg in 500 mls @ 250 mls/hr 05/04/24 07:00 05/04/24 09:10 Vancomycin 1,500 Mg/Ns 500 Ml IVPB Infused Q18H [place] Infusion Piperacillin/Tazobactam/Dextrose 3.375 gm in 50 mls @ 100 mls/hr 05/03/24 17:00 05/04/24 12:07 Zosyn 3.375 Gm/Ns 50 Ml IVPB 100 mls/hr Q6HR [place] Administration Dextrose 1,000 mls @ 100 mls/hr 05/04/24 08:22 Dextrose 5% 1,000 Ml IVPB PRN PRN Hypoglycemia Protocol Insulin Aspart 2 - 5 units 05/04/24 12:00 05/04/24 12:07 Insulin Aspart (*Bkc) 100 Units/Ml SUB-Q Not Given TIDWM [place] Protocol Insulin Aspart 1 - 2 units 05/04/24 21:00 Insulin Aspart (*Bkc) 100 Units/Ml SUB-Q HS [place] Protocol Mirabegron 50 mg 05/04/24 09:00 05/04/24 08:13 Mirabegron 50 Mg Er Tablet PO 50 mg DAILY [place] Administration Pantoprazole Sodium 40 mg 05/04/24 09:00 05/04/24 08:12 Pantoprazole Sodium Iv 40 Mg Vial IV PUSH 40 mg DAILY [place] Administration Sertraline HCl 150 mg 05/04/24 09:00 05/04/24 08:13 Sertraline Hcl 50 Mg Tablet PO 150 mg DAILY [place] Administration Sodium Chloride 10 ml 05/03/24 22:00 05/04/24 05:26 Central Line Flush IV PUSH 10 ml Q8HR [place] Administration Sodium Chloride 20 ml 05/03/24 15:26 Central Line Flush IV PUSH PRN PRN after blood draws Radiology Results: ITS Impressions Face CT 05/03/24 09:54 IMPRESSION: Fracture of the left upper 6th tooth with surrounding hypodensity suggestive of dental caries. Abscess cannot be excluded. Clinical correlation advised. Severe spinal canal stenosis at the level of C3-C4. Left nasal septal deviation with bilateral ethmoid sinus disease. Chest X-Ray 05/03/24 12:49 IMPRESSION: 1. Central line tip in the superior vena cava. Labs Labs: Laboratory Results - last 24 hr 05/03/24 05/04/24 05/04/24 13:33 00:12 06:01 WBC 8.6 RBC 3.14 L Hgb 9.9 L Hct 29.5 L MCV 93.9 MCH 31.5 MCHC 33.6 RDW 14.3 Plt Count 94 L MPV 8.5 Immature Gran % (Auto) 0.8 H Neut % (Auto) 82.3 H Lymph % (Auto) 9.8 L [place] % (Auto) 6.8 Eos % (Auto) 0.1 Baso % (Auto) 0.2 Lymph # (Auto) 0.85 L [place] # (Auto) 0.6 Eos # (Auto) 0.0 Baso # (Auto) 0.0 Abs Immat Gran (auto) 0.07 H Absolute Neuts (auto) 7.1 H Absolute Nucleated RBC 0.000 Nucleated RBC % 0.0 % Immature Plt Fraction 0.7 L Sodium 133 L Potassium 4.2 Chloride 103 Carbon Dioxide 23 Anion Gap 7 BUN 21 H D Creatinine 1.30 Estim Creat Clear Calc 67 Estimated GFR 56 L Glucose 96 POC Capillary Glucose 95 Calcium 8.5 Phosphorus 2.8 Magnesium 2.0 Total Bilirubin 1.3 AST 25 ALT 20 Alkaline Phosphatase 78 Troponin I 0.062 H* D Total Protein 7.0 Albumin 3.9 Nasal MRSA (PCR) Not detected C. difficile (PCR) Positive A* 05/04/24 05/04/24 08:03 12:07 WBC RBC Hgb Hct MCV MCH MCHC RDW Plt Count MPV Immature Gran % (Auto) Neut % (Auto) Lymph % (Auto) [place] % (Auto) Eos % (Auto) Baso % (Auto) Lymph # (Auto) [place] # (Auto) Eos # (Auto) Baso # (Auto) Abs Immat Gran (auto) Absolute Neuts (auto) Absolute Nucleated RBC Nucleated RBC % % Immature Plt Fraction Sodium Potassium Chloride Carbon Dioxide Anion Gap BUN Creatinine Estim Creat Clear Calc Estimated GFR Glucose POC Capillary Glucose 83 119 H Calcium Phosphorus Magnesium Total Bilirubin AST ALT Alkaline Phosphatase Troponin I Total Protein Albumin Nasal MRSA (PCR) C. difficile (PCR) Quality VTE Prophylaxis VTE prophylaxis: mechanical ordered and pharmacologic ordered
[2024-05-04 17:29] LABS: Glucose Point of Care 116 mg/dl (65-105)
[2024-05-04] MEDS: ACETAMINOPHEN 325 MG TABLET 650 MG PO (17:51)
[2024-05-04 21:01] LABS: Glucose Point of Care 125 mg/dl (65-105)
[2024-05-05] VITALS (14 sets, daily range): BP systolic 116–164; BP diastolic 57–74; PULSE 55–70; RESP 16–23; TEMP 36.3–37.2; O2SAT 94–98
[2024-05-05] MEDS: PIPERACILLN/TAZ 3.375GM/NS50ML 3.375 GM/50 ML BAG IVPB ×2 (00:33→05:35)
[2024-05-05] MEDS: IPRATROPIUM 0.5 MG/ALBUTEROL SULFATE 2.5 MG AMPUL.NEB 3 ML INHALATION ×4 (01:34→20:36)
[2024-05-05] MEDS: CENTRAL LINE FLUSH 10 ML IV PUSH ×3 (05:08→20:30)
[2024-05-05 06:03] LABS: Basophils Percent Auto 0.1 % (0.2-1.2); Eosinophils Percent Auto 0.1 % (0-4.4); Hematocrit 29.6 % (42.0-52.0); Hemoglobin 9.6 g/dL (14.0-18.0); Immature Granulocyte Absolute 0.04 K/mm3 (0.00-0.031); Immature Granulocyte Percent A 0.6 % (0-0.5); Immature Platelet Fraction Pct 0.7 % (0.9-11.2); Lymphocytes Absolute Auto 0.76 K/mm3 (0.9-3.2); Mean Corpuscular HGB Conc 32.4 g/dl (32-36); Mean Corpuscular Volume 95.5 fl (80-100); Mean Platelet Volume 8.4 fl (7.4-10.4); Monocytes Absolute Auto 0.3 K/mm3 (0.1-0.6); Monocytes Percent Auto 4.9 % (2.6-8.5); Neutrophils Absolute Auto 5.7 K/mm3 (1.3-6.7); Neutrophils Percent Auto 83.3 % (45.5-73.1); Platelet Count Result 100 k/mm3 (150-375); Red Cell Distribution Width 14.3 % (11.5-14.5); White Blood Count 6.9 K/mm3 (4.5-10.0)
[2024-05-05 06:11] LABS: Alanine Aminotransferase 14 U/L (6-50); Albumin Level 3.8 g/dL (3.5-5.1); Alkaline Phosphatase 64 U/L (38-126); Anion Gap 11 mmol/L (4-12); Aspartate Amino Transferase 19 U/L (17-59); Blood Urea Nitrogen 17 mg/dL (9-20); Calcium 8.3 mg/dL (8.4-10.2); Carbon Dioxide 22 mmol/L (22-30); Chloride 102 mmol/L (98-107); Estimated CRCL calculation 63 ml/min; Estimated Glomerular Filt Rate 51; Glucose 92 mg/dL (65-110); Phosphorus 3.3 mg/dL (2.5-4.5); Potassium 4.1 mmol/L (3.4-5.0); Sodium 135 mmol/L (137-145)
[2024-05-05 07:52] LABS: Glucose Point of Care 84 mg/dl (65-105)
[2024-05-05] MEDS: clonazePAM (*CRX) 0.5 MG TABLET PO (09:57)
[2024-05-05] MEDS: ACETAMINOPHEN 325 MG TABLET 650 MG PO (09:58)
[2024-05-05] MEDS: ARIPiprazole 10 MG TABLET 30 MG PO (09:58)
[2024-05-05] MEDS: FIDAXOMICIN 200 MG TABLET PO ×2 (09:58→20:29)
[2024-05-05] MEDS: PANTOPRAZOLE SODIUM IV 40 MG VIAL IV PUSH (09:58)
[2024-05-05] MEDS: SERTRALINE HCL 50 MG TABLET 150 MG PO (10:00)
[2024-05-05] MEDS: ENOXAPARIN 40 MG/0.4 ML SYRINGE SUB-Q (10:01)
[2024-05-05] MEDS: MIRABEGRON 50 MG ER TABLET PO (10:01)
[2024-05-05 11:36] LABS: Glucose Point of Care 87 mg/dl (65-105)
[2024-05-05] MEDS: AMOXICILLIN/CLAVULANATE K 875-125 MG TAB 1 TABLET PO ×2 (12:47→20:30)
--- NOTE | 2024-05-05 14:18 | P.PNIM_ITS ---
Progress Note: A&P Assessment and Plan (1) Sepsis: Qualifiers: Sepsis type: sepsis due to unspecified organism Sepsis acute organ dysfunction status: with acute organ dysfunction Severe sepsis acute organ dysfunction type: encephalopathy Severe sepsis shock status: without septic shock Qualified Code(s): A41.9 - Sepsis, unspecified organism; R65.20 - Severe sepsis without septic shock; G93.40 - Encephalopathy, unspecified Code(s): A41.9 - Sepsis, unspecified organism Status: Acute Assessment and Plan: 05/03: Patient presented with fevers, chills, elevated neutrophils, normal lactic acid, hypotension -likely source, UTI, dental caries/abscess, poor dentition, possible pneumonia s/p IVF and levophed MRSA negative, and urine culture pansensitive E coli Now on Augmentin to complete a total of 7 days monitor (2) UTI (urinary tract infection): Code(s): N39.0 - Urinary tract infection, site not specified Status: Acute Assessment and Plan: Urine culture positive for Pansensitive E coli Now on Augmentin (3) Pneumonia: Code(s): J18.9 - Pneumonia, unspecified organism Status: Acute Assessment and Plan: Chest x-ray showed possible right basilar atelectasis versus pneumonia, prominent bronchovascular marking the left lower lobe which may indicate early pneumonia. -continue antibiotics as above -currently on room air good O2 sats (4) History of COPD: Onset Date: Unknown Code(s): Z87.09 - Personal history of other diseases of the respiratory system Status: Acute Assessment and Plan: Continue DuoNebs (5) Nicotine dependence, unspecified, uncomplicated: Onset Date: Unknown Qualifiers: Nicotine product type: cigarettes Qualified Code(s): F17.210 - Nicotine dependence, cigarettes, uncomplicated Code(s): F17.200 - Nicotine dependence, unspecified, uncomplicated Status: Chronic Assessment and Plan: Counseled patient on cessation of tobacco use (6) Pacemaker: Code(s): Z95.0 - Presence of cardiac pacemaker Status: Acute Assessment and Plan: Patient has a leadless pacemaker for slow AFib/flutter which was placed 3 years back (7) Dental caries: Code(s): K02.9 - Dental caries, unspecified Status: Inactive Assessment and Plan: Patient has had multiple visits to the ER at [facility] in the beginning of April for dental pain and issues. His dentist has told him that he needs procedures e with multiple dental extractions and revisions but needs a cardiac clearance before this could happen. stated he has follow up with his dentist -continue antibiotics Plan DVT prophylaxis: Lovenox Nutrition: Heart healthy diet PT/OT consulted for discharge disposition Code Status: Full code Subjective Date/time seen: 05/05/24 14:18 Interval history: Patient comfortable at bedside Patient now on Augmentin, PT/OT consulted for discharge disposition Review of Systems Review of Systems: 12 systems were reviewed and are negativ e except for as per HPI. All systems reviewed & are unremarkable except as noted in HPI and below Exam Narrative: General: Pleasant gentleman in no acute distress HEENT:? Pupils equal and reactive, sclera is clear moist oral mucosa, no obvious abscess noticed, patient has poor dentition on upper and lower jaw. No facial tenderness or swelling noted Neck:? No swelling of the neck noted, no cervical lymphadenopathy Respiratory:? Clear to auscultation bilaterally, decreased at bases, adequate air Cardiac:? Paced rhythm Abdomen:? Soft, nontender, protuberant, nondistended, normal bowel sounds Extremities:? Trace edema, warm, will pedal pulses Neuro:? Awake, alert, oriented x3, answers to questions appropriately and follows simple commands Skin:? Warm and dry Psych:? Normal mood and affect Objective Data Vital Signs Vital Signs: Vital Signs - 24 hr 05/04/24 14:26 05/04/24 15:56 05/04/24 16:00 Temperature 98.5 F Pulse Rate 72 74 70 Respiratory Rate 24 H 18 Blood Pressure 117/63 Pulse Oximetry 96 Oxygen Delivery Fraction of Inspired Oxygen 05/04/24 20:25 05/04/24 20:28 05/04/24 20:34 Temperature Pulse Rate 64 62 Respiratory Rate 21 H 23 H Blood Pressure Pulse Oximetry 96 Oxygen Delivery Room Air Fraction of Inspired Oxygen 05/04/24 20:00 05/04/24 20:00 05/04/24 21:32 Temperature 98.5 F Pulse Rate 64 64 Respiratory Rate 18 Blood Pressure 113/51 L Pulse Oximetry 97 Oxygen Delivery Room Air Fraction of Inspired Oxygen 05/05/24 00:00 05/05/24 00:00 05/04/24 22:30 Temperature 99 F Pulse Rate 66 66 64 Respiratory Rate 20 Blood Pressure 128/57 L Pulse Oximetry 97 97 Oxygen Delivery Autopap Fraction of Inspired Oxygen 05/05/24 01:34 05/05/24 01:40 05/05/24 04:00 Temperature Pulse Rate 59 L 55 L 70 Respiratory Rate 23 H 23 H Blood Pressure Pulse Oximetry Oxygen Delivery Fraction of Inspired Oxygen 05/05/24 08:40 05/05/24 08:40 05/05/24 08:47 Temperature Pulse Rate 60 58 L Respiratory Rate 20 20 Blood Pressure Pulse Oximetry 95 Oxygen Delivery Room Air Fraction of Inspired Oxygen 21 05/05/24 08:00 Temperature 97.3 F L Pulse Rate 60 Respiratory Rate 16 Blood Pressure 131/61 Pulse Oximetry 98 Oxygen Delivery Fraction of Inspired Oxygen Intake/Output Intake/Output: Intake & Output 05/02/24 05/03/24 05/04/24 05/05/24 23:59 23:59 23:59 23:59 Intake Total 3200 4220 340 Output Total 500 775 600 Balance 2700 3445 -260 Meds/Results Medications: Active Medications Generic Name Dose Route Start Last Admin Trade Name Freq PRN Reason Stop Dose Admin Acetaminophen 650 mg 05/03/24 13:32 05/05/24 09:58 Acetaminophen 325 Mg Tablet PO 650 mg Q4H PRN Administration Mild Pain (1-3) or Fever Albuterol/Ipratropium 3 ml 05/03/24 14:10 05/05/24 08:40 Ipratropium 0.5 Mg/Albuterol Sulfate 2.5 Mg Ampul.Neb 3 Ml INHALATION 3 ml Q6HRT [place] Administration Amoxicillin/Clavulanate Potassium 1 tablet 05/05/24 11:00 05/05/24 12:47 Amoxicillin/Clavulanate K 875-125 Mg Tab PO 05/09/24 21:01 1 tablet Q12HR [place] Administration Aripiprazole 30 mg 05/04/24 09:00 05/05/24 09:58 Aripiprazole 10 Mg Tablet PO 06/03/24 08:59 30 mg DAILY [place] Administration Clonazepam 0.5 mg 05/03/24 14:03 05/05/24 09:57 Clonazepam (*Crx) 0.5 Mg Tablet PO 0.5 mg DAILY PRN Administration Anxiety Dextrose 12.5 gm 05/04/24 08:22 Dextrose 50% 25 Gm/50 Ml Syringe IV PUSH PRN PRN Hypoglycemia Protocol Enoxaparin Sodium 40 mg 05/04/24 09:00 05/05/24 10:01 Enoxaparin 40 Mg/0.4 Ml Syringe SUB-Q 40 mg DAILY [place] Administration Fidaxomicin 200 mg 05/04/24 09:00 05/05/24 09:58 Fidaxomicin 200 Mg Tablet PO 05/14/24 08:59 200 mg Q12HR [place] Administration Glucagon 1 mg 05/04/24 08:22 Glucagon For Inj 1 Mg Vial IM PRN PRN Hypoglycemia Protocol Glucose 15 gm 05/04/24 08:22 Glucose Oral Gel 15 Gm Of Glucse In 37.5 Gm Tube PO PRN PRN Hypoglycemia Protocol Dextrose 1,000 mls @ 100 mls/hr 05/04/24 08:22 Dextrose 5% 1,000 Ml IVPB PRN PRN Hypoglycemia Protocol Insulin Aspart 2 - 5 units 05/04/24 12:00 05/05/24 12:05 Insulin Aspart (*Bkc) 100 Units/Ml SUB-Q Not Given TIDWM [place] Protocol Insulin Aspart 1 - 2 units 05/04/24 21:00 05/04/24 21:14 Insulin Aspart (*Bkc) 100 Units/Ml SUB-Q Not Given HS [place] Protocol Mirabegron 50 mg 05/04/24 09:00 05/05/24 10:01 Mirabegron 50 Mg Er Tablet PO 50 mg DAILY [place] Administration Pantoprazole Sodium 40 mg 05/04/24 09:00 05/05/24 09:58 Pantoprazole Sodium Iv 40 Mg Vial IV PUSH 40 mg DAILY [place] Administration Sertraline HCl 150 mg 05/04/24 09:00 05/05/24 10:00 Sertraline Hcl 50 Mg Tablet PO 150 mg DAILY [place] Administration Sodium Chloride 10 ml 05/03/24 22:00 05/05/24 05:08 Central Line Flush IV PUSH 10 ml Q8HR [place] Administration Sodium Chloride 20 ml 05/03/24 15:26 Central Line Flush IV PUSH PRN PRN after blood draws Radiology Results: ITS Impressions Face CT 05/03/24 09:54 IMPRESSION: Fracture of the left upper 6th tooth with surrounding hypodensity suggestive of dental caries. Abscess cannot be excluded. Clinical correlation advised. Severe spinal canal stenosis at the level of C3-C4. Left nasal septal deviation with bilateral ethmoid sinus disease. Chest X-Ray 05/03/24 12:49 IMPRESSION: 1. Central line tip in the superior vena cava. Labs Labs: Laboratory Results - last 24 hr 05/04/24 05/04/24 05/05/24 17:12 20:55 05:40 WBC 6.9 RBC 3.10 L Hgb 9.6 L Hct 29.6 L MCV 95.5 MCH 31.0 MCHC 32.4 RDW 14.3 Plt Count 100 L MPV 8.4 Immature Gran % (Auto) 0.6 H Neut % (Auto) 83.3 H Lymph % (Auto) 11.0 L [place] % (Auto) 4.9 Eos % (Auto) 0.1 Baso % (Auto) 0.1 L Lymph # (Auto) 0.76 L [place] # (Auto) 0.3 Eos # (Auto) 0.0 Baso # (Auto) 0.0 Abs Immat Gran (auto) 0.04 H Absolute Neuts (auto) 5.7 Absolute Nucleated RBC 0.000 Nucleated RBC % 0.0 % Immature Plt Fraction 0.7 L Sodium 135 L Potassium 4.1 Chloride 102 Carbon Dioxide 22 Anion Gap 11 BUN 17 Creatinine 1.40 H Estim Creat Clear Calc 63 Estimated GFR 51 L Glucose 92 POC Capillary Glucose 116 H 125 H Calcium 8.3 L Phosphorus 3.3 Magnesium 2.0 Total Bilirubin 1.0 AST 19 ALT 14 Alkaline Phosphatase 64 Total Protein 7.0 Albumin 3.8 05/05/24 05/05/24 07:30 11:27 WBC RBC Hgb Hct MCV MCH MCHC RDW Plt Count MPV Immature Gran % (Auto) Neut % (Auto) Lymph % (Auto) [place] % (Auto) Eos % (Auto) Baso % (Auto) Lymph # (Auto) [place] # (Auto) Eos # (Auto) Baso # (Auto) Abs Immat Gran (auto) Absolute Neuts (auto) Absolute Nucleated RBC Nucleated RBC % % Immature Plt Fraction Sodium Potassium Chloride Carbon Dioxide Anion Gap BUN Creatinine Estim Creat Clear Calc Estimated GFR Glucose POC Capillary Glucose 84 87 Calcium Phosphorus Magnesium Total Bilirubin AST ALT Alkaline Phosphatase Total Protein Albumin Quality VTE Prophylaxis VTE prophylaxis: mechanical ordered and pharmacologic ordered
--- NOTE | 2024-05-05 14:35 | PC.NURSE ---
This patient, Easton Tanner, was received from [ ICU 3] on 05/05/24 at 0725. Patient/family oriented to unit policies and routines
[2024-05-05 16:29] LABS: Glucose Point of Care 101 mg/dl (65-105)
[2024-05-05 20:35] LABS: Glucose Point of Care 118 mg/dl (65-105)
[2024-05-06] VITALS (10 sets, daily range): BP systolic 146; BP diastolic 62; PULSE 56–64; RESP 16; TEMP 36.7; O2SAT 94–96
[2024-05-06] MEDS: IPRATROPIUM 0.5 MG/ALBUTEROL SULFATE 2.5 MG AMPUL.NEB 3 ML INHALATION ×3 (01:52→14:27)
[2024-05-06 06:30] LABS: Basophils Percent Auto 0.3 % (0.2-1.2); Eosinophils Absolute Auto 0.1 K/mm3 (0-0.3); Eosinophils Percent Auto 0.9 % (0-4.4); Hematocrit 31.9 % (42.0-52.0); Hemoglobin 10.4 g/dL (14.0-18.0); Immature Granulocyte Absolute 0.01 K/mm3 (0.00-0.031); Immature Granulocyte Percent A 0.2 % (0-0.5); Lymphocytes Absolute Auto 0.96 K/mm3 (0.9-3.2); Lymphocytes Percent Auto 14.7 % (18.3-44.2); Mean Corpuscular HGB Conc 32.6 g/dl (32-36); Mean Corpuscular Volume 94.9 fl (80-100); Mean Platelet Volume 8.4 fl (7.4-10.4); Monocytes Absolute Auto 0.4 K/mm3 (0.1-0.6); Monocytes Percent Auto 5.7 % (2.6-8.5); Neutrophils Absolute Auto 5.1 K/mm3 (1.3-6.7); Neutrophils Percent Auto 78.2 % (45.5-73.1); Platelet Count Result 100 k/mm3 (150-375); Red Blood Count 3.36 M/mm3 (4.6-6.20); Red Cell Distribution Width 14.2 % (11.5-14.5); White Blood Count 6.5 K/mm3 (4.5-10.0)
[2024-05-06] MEDS: CENTRAL LINE FLUSH 10 ML IV PUSH (06:35)
[2024-05-06 06:49] LABS: Alanine Aminotransferase 16 U/L (6-50); Alkaline Phosphatase 75 U/L (38-126); Anion Gap 11 mmol/L (4-12); Aspartate Amino Transferase 22 U/L (17-59); Blood Urea Nitrogen 13 mg/dL (9-20); Calcium 8.7 mg/dL (8.4-10.2); Carbon Dioxide 24 mmol/L (22-30); Chloride 99 mmol/L (98-107); Estimated CRCL calculation 67 ml/min; Estimated Glomerular Filt Rate 56; Glucose 87 mg/dL (65-110); Magnesium 1.8 mg/dL (1.6-2.3); Potassium 4.4 mmol/L (3.4-5.0); Sodium 134 mmol/L (137-145)
[2024-05-06 07:43] LABS: Glucose Point of Care 86 mg/dl (65-105)
--- NOTE | 2024-05-06 08:25 | PC.NURSE ---
RN called Dr. Baltazar to see if he wanted to hold lovenox today since pt PLT was 100 again today.
--- NOTE | 2024-05-06 08:28 | PC.NURSE ---
RN called provider twice and wasn't able to leave voicemail so RN held the lovenox since pt PLTs were 100 for a second day in a row. RN will try and catch provider during rounds to discuss since unable to talk with him over the phone.
[2024-05-06] MEDS: AMOXICILLIN/CLAVULANATE K 875-125 MG TAB 1 TABLET PO (10:28)
[2024-05-06] MEDS: FIDAXOMICIN 200 MG TABLET PO (10:28)
[2024-05-06] MEDS: ARIPiprazole 10 MG TABLET 30 MG PO (10:28)
[2024-05-06] MEDS: SERTRALINE HCL 50 MG TABLET 150 MG PO (10:28)
[2024-05-06] MEDS: PANTOPRAZOLE SODIUM IV 40 MG VIAL IV PUSH (10:28)
[2024-05-06] MEDS: MIRABEGRON 50 MG ER TABLET PO (10:29)
[2024-05-06] MEDS: ACETAMINOPHEN 325 MG TABLET 650 MG PO (10:29)
[2024-05-06] MEDS: clonazePAM (*CRX) 0.5 MG TABLET PO (10:29)
[2024-05-06 11:45] LABS: Glucose Point of Care 114 mg/dl (65-105)
--- NOTE | 2024-05-06 12:45 | PC.NURSE ---
RN spoke with provider at 12:07 to touch base about lovenox and provider wants to hold it.
--- NOTE | 2024-05-06 13:36 | PM.DS ---
DS: Admitting Diagnosis Discharge Date 05/06/24 Admitting Diagnosis Fever DS: Discharge Diagnosis Discharge Diagnosis (1) Acute UTI: Code(s): N39.0 - Urinary tract infection, site not specified Status: Acute (2) Pneumonia: Code(s): J18.9 - Pneumonia, unspecified organism Status: Acute (3) UTI (urinary tract infection): Code(s): N39.0 - Urinary tract infection, site not specified Status: Acute DS: Summary Hospital Course Hospital Course: 63-year-old male dental disease, chronic kidney disease, COPD, schizophrenia, a pacemaker for slow atrial fib presents to the hospital with fevers. Patient states that he had vague complaints of malaise yesterday. He states that he woke up about 4:00 a.m. with fever, chills and shortness of breath.. Patient was seen at the hospital earlier this month with significant dental disease he was completed oral antibiotic course earlier this month who is unable to do all dental procedure due to needing cardiac clearance. CT of face shows Fracture of the left upper 6th tooth with surrounding hypodensity suggestive of dental caries. Abscess cannot be excluded. Patient's creatinine is 1.3 which is improved from earlier this month at 1.4, CRP is 7.7, UA is positive for nitrates and leukocyte esterase 2+, respiratory panel is negative, chest x-ray shows right basilar atelectasis versus pneumonia. Due to severe hypertension emergency room a central line was placed the patient received 3 L normal saline with improvement in blood pressure to 90s/60s. Patient was started on ampicillin, cefepime and vancomycin. Blood cultures and urine cultures pending. Patient will be admitted to the ICU for sepsis secondary to pneumonia and UTI. Patient was admitted initially to the ICU, however eventually did not require Levophed, and was place on Van, Zosyn. Urine culture positive for pansensitive E coli. Patient was switched to Augmentin to complete total of 7 days of Abx. Also had diarrhea with positive C diff, started on Fidaxomicin to complete total of 10 days. F/u with PCP in 3-5 days Continue follow up with dentist for dental caries. Topical management Assessment and Plan (1) Sepsis: Qualifiers: Sepsis type: sepsis due to unspecified organism Sepsis acute organ dysfunction status: with acute organ dysfunction Severe sepsis acute organ dysfunction type: encephalopathy Severe sepsis shock status: without septic shock Qualified Code(s): A41.9 - Sepsis, unspecified organism; R65.20 - Severe sepsis without septic shock; G93.40 - Encephalopathy, unspecified Code(s): A41.9 - Sepsis, unspecified organism Status: Acute Assessment and Plan: 05/03: Patient presented with fevers, chills, elevated neutrophils, normal lactic acid, hypotension -likely source, UTI, dental caries/abscess, poor dentition, possible pneumonia s/p IVF and levophed MRSA negative, and urine culture pansensitive E coli Now on Augmentin to complete a total of 7 days monitor (2) UTI (urinary tract infection): Code(s): N39.0 - Urinary tract infection, site not specified Status: Acute Assessment and Plan: Urine culture positive for Pansensitive E coli Now on Augmentin (3) Pneumonia: Code(s): J18.9 - Pneumonia, unspecified organism Status: Acute Assessment and Plan: Chest x-ray showed possible right basilar atelectasis versus pneumonia, prominent bronchovascular marking the left lower lobe which may indicate early pneumonia. -continue antibiotics as above -currently on room air good O2 sats (4) History of COPD: Onset Date: Unknown Code(s): Z87.09 - Personal history of other diseases of the respiratory system Status: Acute Assessment and Plan: Continue DuoNebs (5) Nicotine dependence, unspecified, uncomplicated: Onset Date: Unknown Qualifiers: Nicotine product type: cigarettes Qualified Code(s): F17.210 - Nicotine dependence, cigarettes, uncomplicated Code(s): F17.200 - Nicotine dependence, unspecified, uncomplicated Status: Chronic Assessment and Plan: Counseled patient on cessation of tobacco use (6) Pacemaker: Code(s): Z95.0 - Presence of cardiac pacemaker Status: Acute Assessment and Plan: Patient has a leadless pacemaker for slow AFib/flutter which was placed 3 years back (7) Dental caries: Code(s): K02.9 - Dental caries, unspecified Status: Inactive Assessment and Plan: Patient has had multiple visits to the ER at [facility] in the beginning of April for dental pain and issues. His dentist has told him that he needs procedures e with multiple dental extractions and revisions but needs a cardiac clearance before this could happen. stated he has follow up with his dentist -continue antibiotics Time Spent with Patient Time attestation: Total time spent providing and/or coordinating discharge services: DS: Data Data Completed and Pending Labs on day of discharge: Labs from last 24 hours 05/06/24 05/06/24 05/06/24 11:38 07:39 06:01 WBC 6.5 RBC 3.36 L Hgb 10.4 L Hct 31.9 L MCV 94.9 MCH 31.0 MCHC 32.6 RDW 14.2 Plt Count 100 L MPV 8.4 Immature Gran % (Auto) 0.2 Neut % (Auto) 78.2 H Lymph % (Auto) 14.7 L [place]eton % (Auto) 5.7 Eos % (Auto) 0.9 Baso % (Auto) 0.3 Lymph # (Auto) 0.96 Teton # (Auto) 0.4 Eos # (Auto) 0.1 Baso # (Auto) 0.0 Abs Immat Gran (auto) 0.01 Absolute Neuts (auto) 5.1 Absolute Nucleated RBC 0.000 Nucleated RBC % 0.0 Sodium 134 L Potassium 4.4 Chloride 99 Carbon Dioxide 24 Anion Gap 11 BUN 13 Creatinine 1.30 Estim Creat Clear Calc 67 Estimated GFR 56 L Glucose 87 POC Capillary Glucose 114 H 86 Calcium 8.7 Magnesium 1.8 Total Bilirubin 1.0 AST 22 ALT 16 Alkaline Phosphatase 75 Total Protein 7.0 Albumin 4.0 05/05/24 05/05/24 20:29 16:15 WBC RBC Hgb Hct MCV MCH MCHC RDW Plt Count MPV Immature Gran % (Auto) Neut % (Auto) Lymph % (Auto) Teton % (Auto) Eos % (Auto) Baso % (Auto) Lymph # (Auto) Teton # (Auto) Eos # (Auto) Baso # (Auto) Abs Immat Gran (auto) Absolute Neuts (auto) Absolute Nucleated RBC Nucleated RBC % Sodium Potassium Chloride Carbon Dioxide Anion Gap BUN Creatinine Estim Creat Clear Calc Estimated GFR Glucose POC Capillary Glucose 118 H 101 Calcium Magnesium Total Bilirubin AST ALT Alkaline Phosphatase Total Protein Albumin Preliminary micro results at discharge 05/03/24 09:41 Blood Culture - Preliminary Blood 05/03/24 09:23 Blood Culture - Preliminary Blood Discharge Plan Discharge Attending physician on discharge: Juan Baltazar Consulting providers: Bella Braden Discharging Clinician: Juan Baltazar Anticipated Discharge Date/Time: 05/06/24 13:31 Patient Disposition: Home, Self-Care Activity: as tolerated Diet: as tolerated Patient Instructions: Antibiotic Form, Heart Failure (GEN), Pain Management in Older Adults (DC) Stand Alone Forms: General Discharge Information Follow-up/Referrals: Anupam Coulter, GASTROENTEROLOGY PHYSICIAN [Primary Care Provider] - (Follow-up PCP in 3-5 days) Discharge Medications: New amoxicillin-pot clavulanate 875-125 mg tablet 1 tablet PO Q12H Qty: 7 0RF Dificid 200 mg Tablet 200 mg PO Q12HR Qty: 16 0RF Continued clonazepam 0.5 mg tablet 0.5 mg PO DAILY PRN (Reason: Anxiety) Hold Instructions: .Provider Order sertraline 100 mg tablet 150 mg PO DAILY Hold Instructions: .Provider Order aripiprazole 30 mg tablet 30 mg PO DAILY Myrbetriq 50 mg tablet extended release 24 hr 50 mg PO DAILY acetaminophen [Tylenol Extra Strength] 500 mg Tablet 1,000 mg PO BID PRN (Reason: Pain) diclofenac sodium 75 mg tablet,delayed release (DR/EC) 75 mg PO BID Daily Probiotic 2.5 billion cell Capsule 1 cap PO DAILY oxycodone 5 mg capsule 5 mg PO Q8H PRN (Reason: pain) Qty: 10 0RF Date of admission: 05/03/24 12:45 Primary Care Provider: Anupam Coulter Admitting Provider: Ollie Ma Attending physician on admission: Ollie Ma Condition: Serious
--- NOTE | 2024-05-06 16:38 | PC.NURSE ---
RN went over DC with pts sister due to pt being developmentally delayed and pt also requested RN to go over DC info with sister. RN went over DC at 1438 with sister and she had no further questions. RN removed the Left IJ and sutured were cut and cath was removed intactly. pt remained stable and laid on the bed for 45mins post removal. Before pt got dressed and ready RN check and ensure that pt still remained stable and check the gauze which showed no bleeding and RN taped the gauze and informed pt to remove it when he got home. Pt and sister had no question after DC and RN also did a recap of DC paper work to ensure understanding of instructions
--- NOTE | 2024-05-06 17:43 | PC.NURSE ---
1600 Tele not done since pt had DC orders and it was removed at 1300
== END 2024-05-06 17:00 | disposition home or self-care (01) | DRG 871 ==
LOC: ANHED 09:02 → ANHICU 17:21 → ANH3MEDSUR 05-05 21:57 → ANHICU 05-10 10:55
PROVIDERS: Internal Medicine; Nurse Practitioner Gerontology; Admitting Provider Internal Medicine; Emergency Provider Student in an Organized Health Care Education/Training Program; PCP Nurse Practitioner; Visit Provider Internal Medicine
DX: A41.9 Sepsis, unspecified organism (principal); J18.9 Pneumonia, unspecified organism; R65.21 Severe sepsis with septic shock; N39.0 Urinary tract infection, site not specified; F20.0 Paranoid schizophrenia; G93.40 Encephalopathy, unspecified; Z68.41 Body mass index [BMI] 40.0-44.9, adult; N18.9 Chronic kidney disease, unspecified; B96.20 Unspecified Escherichia coli [E. coli] as the cause of diseases classified elsewhere; E86.0 Dehydration; I48.91 Unspecified atrial fibrillation; N40.0 Benign prostatic hyperplasia without lower urinary tract symptoms; K02.9 Dental caries, unspecified; S02.5XXA Fracture of tooth (traumatic), initial encounter for closed fracture; X58.XXXA Exposure to other specified factors, initial encounter; Z20.822 Contact with and (suspected) exposure to COVID-19; J44.9 Chronic obstructive pulmonary disease, unspecified; G47.33 Obstructive sleep apnea (adult) (pediatric); E78.5 Hyperlipidemia, unspecified; I25.2 Old myocardial infarction; Z95.0 Presence of cardiac pacemaker; Z87.891 Personal history of nicotine dependence; E66.9 Obesity, unspecified
CPT/HCPCS: 36415; 36556; 70487; 71046; 80053; 81001; 82948; 83605; 83735; 84100; 84145; 84484; 85025; 85055; 85610; 85730; 86140; 87040; 87077; 87086; 87088; 87186; 87493; 87637; 87641; 93005; 94640; 96361; 96365; 97162; 99291; A9270; C1751; J0295; J0692; J1650; J2470; J2543; J3370; J7120; P9047; Q9967

== ENCOUNTER 2024-05-13 09:46 | Outpatient (CLI) | payer MEDICARE, MEDICAID, SELFPAY ==
--- NOTE | ~2024-05-13 | XR_ITS ---
Clinical Indication: Pneumonia PA and lateral views of the chest: Comparison: 05/03/2024 Findings: The lungs are clear, without evidence of focal consolidation or pleural effusion. Cardiome diastinal silhouette is stable, with loop recorder. Bones and soft tissues are unremarkable. Impression: Clear lungs. Reviewed, dictated and finalized at location . ODUCTION ORDER PROCESSOR Impression: Clear lungs.
== END 2024-05-13 09:47 | disposition home or self-care (01) ==
LOC: ANHIMG 09:52
PROVIDERS: PCP Nurse Practitioner; Visit Provider Internal Medicine
DX: J18.9 Pneumonia, unspecified organism (principal)
CPT/HCPCS: 71046

== ENCOUNTER 2024-08-18 08:00 | Outpatient (CLI) | payer MEDICARE, MEDICAID, SELFPAY ==
--- OUTSIDE RECORDS SUMMARY | 2024-08-18 08:10 | XMS_ITS | Referral Summary ---
Author Organization [facility] [address] [place] Address [address] [place] [address] Care Team Providers Care Plant Worker Name Role Phone Anuel Sparks MD Unavailable [phone] Glenn Low MD Unavailable [phone] Ciro Martinez NP Primary Care Provider [phone] Encounters Date Type Department Care Team Description 07/06/2024 Orders Only [facility] Medical [facility] Cardiology [address] [facility] [address] [place] [id number] ProviderIsrael MD 07/06/2024 10:15 AM ACCESS SPEC Office Visit [facility] Cardiology [address] [facility] [address] [place] [address] Steve Villegas MD Obstructive sleep apnea (adult) (pediatric) (Primary Dx); Elevated left ventricular end-diastolic pressure (LVEDP); Presence of leadless cardiac pacemaker; SOB (shortness of breath); Morbid obesity with BMI of 40.0-44.9, adult (HCC) 07/05/2024 Telephone [facility] Medical [facility] Cardiology [address] [facility] [address] [place] [address] Steve Villegas MD from Last 3 Months Allergies Active Allergy Reactions Criticality Noted Date Comments Oai-Wzzukcdubbhmd-Rkjw-Calcium Hives High 04/02 Aspirin Hives,Anaphylaxis High 06/24/2018 Medications ARIPiprazole (ABILIFY) 30 mg tabletIndication s:Schizophrenia Take 1 tablet (30 mg total) by mouth daily 06/12/2018 Active clonazePAM (KlonoPIN) 0.5 mg tablet Take 1 tablet (0.5 mg total) by mouth daily 0 05/15/2018 Active sertraline (ZOLOFT) 100 mg tablet Take by mouth daily 06/14/2018 Active sertraline (ZOLOFT) 50 mg tablet 1 tablet (50 mg total) daily Takes total of 150mg in the am 06/14/[address] (VOLTAREN) 75 mg EC tablet Take 1 tablet by mouth twice daily 60 tablet 04/17/2022 Active acetaminophen (TYLENOL) 500 mg tabletIndication s:Arthritic Pain Take 2 tablets (1,000 mg total) by mouth every morning Active acidophilus-pect in, citrus 100 million cell-10 mg capsule Take 1 capsule by mouth every morning Active Myrbetriq 50 mg tablet extended release 24 hr Take 1 tablet (50 mg total) by mouth daily Active oxyCODONE (OXY-IR) 5 mg capsule Take 1 capsule (5 mg total) by mouth every 8 (eight) hours as needed 04/15/2024 Active furosemide (LASIX) 20 mg tabletIndication s:Elevated left ventricular end-diastolic pressure (LVEDP),SOB (shortness of breath) Take 1 tablet (20 mg total) by mouth daily as needed (shortness of breath) 30 tablet 1 07/06/2024 Active Active Problems Problem Noted Date Diagnosed Date SOB (shortness of breath) 07/06/2024 Elevated left ventricular end-diastolic pressure (LVEDP) 11/05/2023 Presence of leadless cardiac pacemaker 3 SSS (sick sinus syndrome) 06/25/2022 Bradycardia 05/12/2022 Assessment & Plan (05/12/2022 3:15 PM ACCESS SPEC): AFL with very slow AV conduction, likely with periods of high grade AV block. Rates in 40s. Some nocturnal pauses. Probably symptomatic bradycardia, although symptoms of fatigue/dyspnea are likely multifactorial, with contributing COPD, AFL, bradycardia. Recommend pacing for symptomatic AV block. This would also facilitate safer orthopaedic surgery. Pt's sister expressed concern regarding repeated severe bloodstream infections in the past, as well as difficult with post-op wound care. I offered transvenous versus leadless pacing. The patient and sister both favored leadless pacing in order to minimize infectious complications and streamline postop recovery. I think this is reasonable. I reviewed risks/benefits, procedural steps, recovery process for leadless pacing with patient/sister. Pt is at increased risk of complications given elevated BMI and RV failure. They understand and wish to proceed. As follows, we will plan to study the AFL at time of leadless pacemaker procedure and consider CTI ablation if typical flutter. 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 Occurring in context of probable RV failure related to primary lung disease (COPD), possibly with some diastolic dysfunction. Probably symptomatic, contributing to exertional dyspnea, palpitations. Discussed with patient/sister. Ideally sinus rhythm would be restored. If he has typical AFL, AFL ablation is favored. If atypical AFL or AF, AAD therapy and cardioversion versus consideration of AF ablation could be discussed. I offered diagnostic EPS at time of pacemaker implantation. If typical AFL, we could perform CTI ablation at the same time in order to minimize number of procedures. I explained risks/benefits of this approach. Increased risk for procedural compliations due to elevated BMI and RV failure as well as concomitant leadless PM implantation. They understand and wish to proceed. [id number] = 0. No current indication for anticoagulation. Would start for 1 month post-ablation. --Diagnostic EP study at time of leadless PM implant. If typical AFL, would consider CTI ablation. --HALLEY prior to procedure --Plan 1 month of DOAC therapy post-ablation Hematuria 12/12/2019 Obstructive sleep apnea (adult) (pediatric) 11/2019 Immunizations Immunization Administration Dates Next Due Influenza, Unspecified 05/01/2022 Pfizer SARS-CoV-2 Monovalent Vaccination (12+ Yrs) PURPLE 08/27/2020,08/06/2020 Social History Tobacco Use Types Packs/Day Years Used Date Smoking Tobacco: Former Cigarettes Q uit: 01/26/2022 Smokeless Tobacco: Never Tobacco Cessation:Counseling Given: Not Answered Alcohol Use Standard Drinks/Week Comments No 0 (1 standard drink = 0.6 oz pur e alcohol) AUDIT-C Answer Date Recorded Q1: How often do you have a drink containing alcohol? Never 06/25/2022 Q2: How many drinks containi ng alcohol do you have on a typical day when you are drinking? Patient does not drink Q3: How often do you have si x or more drinks on one occasion? Never 06/25/2022 Personal Safety Answer Date Recorded Getting School Help Needed Denies 05/22 Sex and Gender Information Value Date Recorded Sex Assigned at Not on file Legal Sex Male 3:50 AM ACCESS SPEC Gender Identity Not on file Sexual Orientation Not on file Last Filed Vital Signs Vital Sign Reading Time Taken Comments Blood Pressure 116/56 07/06/2024 10:27 AM ACCESS SPEC Pulse 50 07/06/2024 10:27 AM ACCESS SPEC Temperature 36.6 C (97.8 F) 06/26/2022 4:04 AM ACCESS SPEC Respiratory Rate 20 06/26/2022 4:04 AM ACCESS SPEC Oxygen Saturation 92% 07/06/2024 10:27 AM ACCESS SPEC Inhaled Oxygen Concentration - - Weight 124.7 kg (275 lb) 07/06/2024 10:27 AM ACCESS SPEC Height 170.2 cm (5' 7 ) 07/06/2024 10:27 AM ACCESS SPEC Body Mass Index 43.07 07/06/2024 10:27 AM ACCESS SPEC Plan of Treatment Not on file Medical Devices Implanted Type Area District Agent Device Identifier Shelf Expiration Date Model / Serial / Lot [employer] Vascade Mvp 6-12fr Venous Closure [id number] - [id number] - [id number] Implanted:Qty : 1 on 06/25/2022 by Everett Zuniga III, MD at [facility] Collagen Left: Femoral Vein [employer] 03/18/2024 800-612C -[id number] / [id number] / [id number] [employer] Vascade Mvp 6-12fr Venous Closure [id number] - [id number] - [id number] Implanted:Qty : 1 on 06/25/2022 by Everett Zuniga III, MD at [facility] Collagen Left: Femoral Vein [employer] 03/18/2024 800-612C -10U / [id number] / [id number] Medtronic Inc Margaret Av_Vr Leaderless Pacer - [id number] - [id number] Implanted:Qty : 1 on 06/25/2022 by Everett Zuniga III, MD at [facility] Pacemaker Medtronic Inc [id number] 10/03/2022 [id number] / [id number] / Insurance [place] MEDICARE MEDICARE [facility] Advance Directives For more information, please contact: [phone] Documents on File Type Date Recorded Patient [place] Expl anation Advance Directives and Livin g Will 06/26/2022 7:00 AM * Full Code (Latest Code Status on File) Date Activated Date Inactivated Comments 06/25/2022 4:45 PM 06/26/2022 4:53 PM Care Teams Plant Worker Relationship Specialty Start Date End Date Ciro Martinez NP [address] [facility] [address] [place], [place] [id number] PCP - General Nurse Practitioner 02/18/23 Anuel Sparks MD [address] [facility] [address] [place] [address] Consulting Physician Cardiology 12/05/21 Glenn Low MD [address] [place], [place] [phone] Referring Physician Orthopedic Surgery 04/08/22
--- OUTSIDE RECORDS SUMMARY | 2024-08-18 08:10 | XMS_ITS | Clinical Summary ---
Author Organization [facility] [address] [place] Address [address] [place] [address] Care Team Providers Care Sociology Teacher Name Role Phone Anuel Sparks MD Unavailable [phone] Glenn Low MD Unavailable [phone] Ciro Martinez NP Primary Care Provider [phone] Allergies Active Allergy Reactions Criticality Noted Date Comments Gro-Kjzpjijxippus-Nooi-Calcium Hives High 04/02 Aspirin Hives,Anaphylaxis High 06/24/2018 [...] (LVEDP) 11/05/2023 Presence of leadless cardiac pacemaker SSS (sick sinus syndrome) 06/25/2022 Bradycardia 05/12/2022 Assessment & Plan (05/12/2022 3:15 PM BULL DRIVER): AFL with very slow AV conduction, likely [...] Morbid obesity with BMI of 40.0-44.9, adult 11/2019 Unspecified atrial flutter 12/12/2019 Assessment & Plan (05/12/2022 3:11 PM BULL DRIVER): Persistent atrial flutter, with slow AV conduction. [...] implantation. They understand and wish to proceed. [id number] = 0. No current indication for anticoagulation. Would start for 1 month post-ablation. --Diagnostic EP study at time of leadless PM implant. If typical AFL, would consider CTI ablation. --HALLEY prior to procedure --Plan 1 month of DOAC therapy post-ablation Hematuria 12/12/2019 Obstructive sleep apnea (adult) (pediatric) 11/2019 Encounters Date Type Department Care Team Description 07/06/2024 10:15 AM BULL DRIVER Office Visit [facility] Cardiology [address] [place] [address] Steve Villegas MD Obstructive sleep apnea (adult) (pediatric) (Primary Dx); Elevated left ventricular end-diastolic pressure (LVEDP); Presence of leadless cardiac pacemaker; SOB (shortness of breath); Morbid obesity with BMI of 40.0-44.9, adult (HCC) 07/06/2024 Orders Only [facility] Medical [facility] Cardiology [address] [place] [address] ProviderIsrael MD 07/05/2024 Telephone [facility] Cardiology [address] [place] [phone] Steve Villegas MD from Last 3 Months Immunizations Immunization Administration Dates Next Due Influenza, Unspecified 05/01/2022 Pfizer SARS-CoV-2 Monovalent Vaccination (12+ Yrs) PURPLE 08/27/2020,08/06/2020 Surgical History Surgery Date Site/Laterality Comments INGUINAL HERNIA REPAIR Medical History Medical History Date Comments Abnormal heart rhythm Emphysema of lung (HCC) Depression Heart murmur Social History Tobacco Use Types Packs/Day Years [...] on file Legal Sex Male 3:50 AM BULL DRIVER Gender Identity Not on file Sexual Orientation Not on file Obstetrics History Last Filed Vital Signs Vital Sign Reading Time Taken Comments Blood Pressure 116/56 07/06/2024 10:27 AM BULL DRIVER Pulse 50 07/06/2024 10:27 AM BULL DRIVER Temperature 36.6 C (97.8 F) 06/26/2022 4:04 AM BULL DRIVER Respiratory Rate 20 06/26/2022 4:04 AM BULL DRIVER Oxygen Saturation 92% 07/06/2024 10:27 AM BULL DRIVER Inhaled Oxygen Concentration - - Weight 124.7 kg (275 lb) 07/06/2024 10:27 AM BULL DRIVER Height 170.2 cm (5' 7 ) 07/06/2024 10:27 AM BULL DRIVER Body Mass Index 43.07 07/06/2024 10:27 AM BULL DRIVER Plan of Treatment Health Maintenance Due Date Last Done Comments Colon Cancer Screening-Colonoscopy 1960 Depression Screening 1960 Hepatitis C Screening 1960 Prostate Cancer Screening-PSA 1960 Hepatitis B Screening 1978 Regular Well Visit/Exam 18-64 1978 Pneumococcal vaccine <65 (1 of 2 - PCV) 09/11/1979 Zoster Vaccine (1 of 2) 2010 Covid-19 Vaccine (6 2023-2 5 season) 2024 05/15/2021, 10/30/2020, 10/02/2020, Additional history exists Influenza Vaccine (#1) 2024 , 03/08/2021, 03/15/2020, Additional history exists DTaP/Tdap/Td Vaccine (2 - Td or Tdap) 04/03/2031 04/03/2021 Medical Devices Implanted Type Area Vet Tech Device Identifier Shelf Expiration Date Model / Serial / Lot [employer] Vascade Mvp 6-12fr Venous Closure [id number] - [id number] - [id number] Implanted:Qty : 1 on 06/25/2022 by Everett Zuniga III, MD at [facility] Collagen Left: Femoral Vein [employer] 03/18/2024 800-612C -10U / [id number] / [id number] [employer] Vascade Mvp 6-12fr Venous Closure [id number] - [id number] - [id number] Implanted:Qty : 1 on 06/25/2022 by Everett Zuniga III, MD at [facility] Collagen Left: Femoral Vein [employer] 03/18/2024 800-612C -10U / [id number] / [id number] Medtronic Inc Margaret Av_Vr Leaderless Pacer - [id number] - [id number] Implanted:Qty : 1 on 06/25/2022 by Everett Zuniga III, MD at [facility] Pacemaker Med[employer]onic Inc [id number] 10/03/2022 [id number] / [id number] / Insurance [address] [address] MEDICARE MEDICARE [place] Advance Directives For more information, please contact: [phone] Documents on File Type Date Recorded Patient Maintenance And Repair Worker Expl anation Advance Directives and Livin g Will 06/26/2022 7:00 AM * Full Code (Latest Code Status on File) Date Activated Date Inactivated Comments 06/25/2022 4:45 PM 06/26/2022 4:53 PM Care Teams Sociology Teacher Relationship Specialty Start Date End Date Ciro Martinez NP [address] [facility] [address] [place] [address] PCP - General Nurse Practitioner 02/18/23 Anuel Sparks MD [address] [facility] [address] [place] [address] Consulting Physician Cardiology 12/05/21 Glenn Low MD [address] [place] [address] Referring Physician Orthopedic Surgery 04/08/22
--- OUTSIDE RECORDS SUMMARY | 2024-08-18 08:10 | XMS_ITS | Data Portability ---
Author Organization [place] - [facility] Contract Cloud [facility], Main Office Address [address] [place] [address] Care Team Providers [employer] Representative Name Role Phone MALIK MOTA Primary Care Provider [phone] MALIK MOTA Referring Provider [phone] Assessment Encounter Date Assessment Date Assessment LastModified by Organization Details LastModified Time 10/08/2023 10/08/2023 This note is dictated and transcribed by [employer]. Electronic Equipment Maint Tech variances may occur. Despite proofreading, typographical errors may occur. Occasional wrong-word or 'uctzk-q-rmei' substitutions may have occurred due to the inherent limitations of voice recording. Read the chart carefully and recognize, using context, where substitutions have occurred. Not available 10/08/2023 10:42:25 01/07/2024 01/07/2024 This note is dictated and transcribed by [employer]. Electronic Equipment Maint Tech variances may occur. Despite proofreading, typographical errors may occur. Occasional wrong-word or 'pgnmr-v-fxbj' substitutions may have occurred due to the inherent limitations of voice recording. Read the chart carefully and recognize, using context, where substitutions have occurred. Not available 01/07/2024 14:05:05 08/01/2024 08/01/2024 This note is dictated and transcribed by [employer]. Electronic Equipment Maint Tech variances may occur. Despite proofreading, typographical errors may occur. Occasional wrong-word or 'yjjyl-k-wkmf' substitutions may have occurred due to the inherent limitations of voice recording. Read the chart carefully and recognize, using context, where substitutions have occurred. Not available 08/01/2024 11:09:17 Plan of Treatment Reminders Order Date Submit Date Provider Last Modified By Organization Details Last Modified Time Details Appointments Establish ed Patient 15 2024 09:30A M Will Lundberg DPM Not available Not available Not available Lab None recorded. Referral None recorded. Procedures None recorded. Surgeries None recorded. Imaging None recorded. Medication Orders None recorded. Patient TargetsNo targets recorded. Patient InstructionsNo instructions recorded. Reason for Referral None Reported. Problems Name Problem SNOMED Code Status Onset Date Resolution Date Notes Provider Name and Address Organization Details Recorded Time Paronychia of toe of left foot 7576173350989 9100 Active 2020 Not Available [facility] 3 13:29:49 Unable to cut own toenails 539454377 Active 2020 Not Available [facility] 3 13:29:50 Osteoarthr itis 044360248 Active Not Available [facility] 3 13:29:50 Pain of bilateral knee joints 1987914438043 04 Active 2021 Not Available [facility] 3 13:29:50 Tinea pedis 8184043 Active 2021 Not Available [facility] 3 13:29:50 Dystrophia unguium 95279846 Active 2020 Not Available [facility] 3 13:29:50 Difficulty walking 773937058 Active 2023 Will Lundberg DPM [address], [address], [place], [address] , [facility] 4 10:42:32 Problem Notes None recorded. Procedures Surgical History Date Name Laterality Status Provider Name and Address Organization Details Recorded Time 5 Nail Debridement completed Will Lundberg DPM [address], [address], [place], [address], [facility] 08/01/2024 11:09:13 4 Nail Debridement completed Will Lundberg DPM [address], [place], [address], [facility] 01/07/2024 14:03:56 4 Nail Debridement completed Will Lundberg DPM [address], [address], [place], [address], [facility] [employer] [facility] 10/08/2023 10:42:05 4 Nail Debridement completed Will Lundberg DPM [address], [facility] [address], [place], [address], [facility] [employer] [facility] 06/16/2023 10:37:24 3 Nail Debridement completed Will Lundberg DPM [address], [place], [address], [facility] [employer] [facility] 02/17/2023 11:53:08 3 Nail Debridement completed Will Lundberg DPM [address], [place], [address], [facility] [employer] [facility] 10/14/2022 13:52:44 Imaging Results None recorded. Procedure Notes None recorded. Medical Equipment None Reported. Allergies Allergen ID Allergen Name Allergen Category Reaction Reaction Severity Criticality Documentation Date Start Date Code Code System Note Provider Name and Address Organization Details Recorded Time 26261 aspirin medicatio n Not available Not available Not available 08/06/2022 1191 RxNorm Not Available [facility] 13:31:34 Medications Name Sig Start Date Stop Date Status Note LastModified by Organization Details LastModified Time prednisone 10 mg tablet 06/27 completed Not Available Not Available Not Available hydrocodone 5 mg-acetamin ophen 325 mg tablet 06/27 completed Not Available Not Available Not Available prednisone 20 mg tablet TAKE 3 TABLETS BY MOUTH ONCE DAILY FOR 2 DAYS, THEN 2 TABS FOR 2 DAYS, THEN 1 TABLET FOR 2 DAYS. 06/27 completed Not Available Not Available Not Available clonazepam 0.5 mg tablet TAKE 1 TABLET BY MOUTH ONCE DAILY NEEDED active Not Available Not Available No t Available sertraline 100 mg tablet TAKE 1 TABLET BY MOUTH ONCE DAILY active Not Available Not Available No t Available penicillin V potassium 500 mg tablet TAKE 1 TABLET BY MOUTH EVERY 6 HOURS FOR 10 DAYS active Not Available Not Available No t Available metronidazo le 500 mg tablet 06/27 completed Not Available Not Available Not Available sulfamethox azole 800 mg-trimetho prim 160 mg tablet TAKE 1 TABLET BY MOUTH TWICE DAILY 01/06 completed Not Available Not Available Not Available omeprazole 40 mg capsule,del ayed release 06/27 completed Not Available Not Available Not Available amoxicillin 875 mg tablet 06/27 completed Not Available Not Available Not Available trazodone 100 mg tablet 06/27 completed Not Available Not Available Not Available cephalexin 500 mg capsule TAKE 1 CAPSULE BY MOUTH EVERY 12 HOURS FOR 7 DAYS active Not Available Not Available No t Available naproxen 500 mg tablet,charley yed release 01/15 completed Not Available Not Available Not Available oxycodone 5 mg capsule TAKE 1 CAPSULE BY MOUTH EVERY 8 HOURS NEEDED FOR PAIN active Not Available Not Available No t Available diclofenac sodium 75 mg tablet,charley yed release TAKE 1 TABLET BY MOUTH TWICE DAILY WITH FOOD active Not Available Not Available No t Available furosemide 20 mg tablet TAKE 1 TABLET BY MOUTH ONCE DAILY NEEDED FOR SHORTNESS OF BREATH active Not Available Not Available No t Available methylpredn isolone 4 mg tablets in a dose pack TAKE BY MOUTH DIRECTED ON INSIDE OF PACKAGE 01/15 completed Not Available Not Available Not Available ketoconazol e 2 % topical cream 02/17 completed Not Available Not Available Not Available cefdinir 300 mg capsule 06/27 completed Not Available Not Available Not Available sertraline 50 mg tablet TAKE 1 TABLET BY MOUTH ONCE DAILY active Not Available Not Available No t Available doxycycline hyclate 100 mg tablet TAKE 1 TABLET BY MOUTH TWICE DAILY FOR 10 DAYS 01/06 completed Not Available Not Available Not Available naproxen 500 mg tablet 06/27 completed Not Available Not Available Not Available amoxicillin 875 mg-potassiu m clavulanate 125 mg tablet TAKE 1 TABLET BY MOUTH EVERY 12 HOURS active Not Available Not Available No t Available Ventolin HFA 90 mcg/actuati on aerosol inhaler active Not Available Not Available Not Available neomycin-po lymyxin-hyd rocort 3.5 mg-10,000 unit/mL-1 % ear drops,susp 06/27 completed Not Available Not Available Not Available aripiprazol e 30 mg tablet TAKE 1 TABLET BY MOUTH ONCE DAILY active Not Available Not Available No t Available chlorhexidi ne gluconate 0.12 % mouthwash RINSE MOUTH WITH 15 ML AND SPIT TWICE DAILY DIRECTED active Not Available Not Available No t Available Dificid 200 mg tablet TAKE 1 TABLET BY MOUTH EVERY 12 HOURS FOR 16 DOSES active Not Available Not Available No t Available Xarelto 20 mg tablet TAKE 1 TABLET BY MOUTH ONCE DAILY WITH DINNER active Not Available Not Available No t Available Myrbetriq 50 mg tablet,exte nded release TAKE 1 TABLET BY MOUTH ONCE DAILY active Not Available Not Available No t Available Entresto 24 mg-26 mg tablet TAKE 1 TABLET BY MOUTH TWICE DAILY active Not Available Not Available No t Available Procto-Med HC 2.5 % topical cream perineal applicator APPLY CREAM RECTALLY DAILY NEEDED FOR PAIN active Not Available Not Available No t Available Vitals Date Recorded Body height Heart rate Respiratory rate Oxygen saturation Oxygen saturation in Arterial blood by Pulse oximetry Systolic blood pressure Diastolic blood pressure Provider Name and Address Organization Details Last Updated DateTime 4 165.1 cm 120 /min 18 /min 96 % 96 % 123 mm[Hg] 72 mm[Hg] Valentina Tanner [employer] 4 10:40:28 Date Recorded Body height Heart rate Respiratory rate Oxygen saturation Oxygen saturation in Arterial blood by Pulse oximetry Systolic blood pressure Diastolic blood pressure Provider Name and Address Organization Details Last Updated DateTime 4 165.1 cm 69 /min 14 /min 98 % 98 % 114 mm[Hg] 56 mm[Hg] Valentina Tanner [employer] 4 10:25:02 Date Recorded Body height Heart rate Systolic blood pressure Diastolic blood pressure Provider Name and Address Organization Details Last Updated DateTime 01/07/2024 165.1 cm 64 /min 113 mm[Hg] 52 mm[Hg] Verito Eric [employer] [facility] [employer] 01/07/2024 10:34:29 Date Recorded Body height Heart rate Respiratory rate Oxygen saturation Oxygen saturation in Arterial blood by Pulse oximetry Systolic blood pressure Diastolic blood pressure Provider Name and Address Organization Details Last Updated DateTime 5 165.1 cm 72 /min 14 /min 98 % 98 % 125 mm[Hg] 66 mm[Hg] Valentina Tanner [employer] 5 10:52:53 Social History Question Answer Notes LastModified by Organizat ion Details LastModified Time Tobacco Smoking Status Current Every Day Smoker Not Available [facility] 08/06/2022 13:29:23 What Is Your Level Of Alcohol Consumption? None [id number] Information not available 08/06/2022 In The 14 Days Before Symptom Onset, Have You Had Close Contact With A Laboratory-confirm ed COVID-19 While That Case Was Ill? No [id number] Information not available 08/06/2022 In The 14 Days Before Symptom Onset, Have You Had Close Contact With A Person Who Is Under Investigation For COVID-19 While That Person Was Ill? No [id number] Information not available 08/06/2022 Do You Use Any Illicit Or Recreational Drugs? No [id number] Information not available 08/06/2022 Have You Recently Traveled Abroad? No [id number] Information not available 08/06/2022 Sex: Unknown Functional Status None recorded. Mental Status None recorded. Family History Nothing Reported. Medical History Condition Response MRSA N SLEEP APNEA N ALLERGIES/HAYFEVER N LUNG DISEASE/DISORDER N INSOMNIA N HISTORY OF DRUG ABUSE N RADIATION / CHEMOTHERAPY N COPD Y HIGH CHOLESTEROL / HYPERLIPIDEMIA N HYPERTHYROIDISM N BLOOD DISEASES N EAR OR HEARING PROBLEMS N HYPOTHYROIDISM N SHINGLES N DEPRESSION (INCLUDING POST ) N HAVE YOU BEEN HOSPITALIZED OR SEEN IN [facility] ER IN THE PAST YEAR ? N STROKE/TIA N ULCERS N OBESITY N ANEURYSM N HISTORY WITH COMPLICATIONS WITH ANESTHES IA ? N ARTHRITIS Y NO SIGNIFICANT PAST MEDICAL HISTORY N USE OF BLOOD THINNERS N DIABETES, TYPE N PARATHYROID DISEASE N ENT N SEASONAL ALLERGIES N HEARTBURN / REFLUX N HEPATITIS / LIVER DISEASE N USE OF NSAIDS Y SLEEP DISORDER N HEADACHES/MIGRAINES N SEIZURES/EPILEPSY N CHF N PACEMAKER N DIZZINESS N HEART DISEASE/HEART PROBLEMS N AIDS/HIV N FRACTURES N HYPERTENSION N CANCER: SPECIFY N TOURETTE'S N BLOOD TRANSFUSION N ANESTHESIA COMPLICATIONS N ANEMIA/BLOOD DISORDER N CHRONIC EAR INFECTIONS N TUBERCULOSIS N Past Encounters Encounter ID Performer Location Encounter Start Date Encounter Closed Date Diagnosis/Indication Diagnosis SNOMED-CT Code Diagnosis ICD10 Code Diagnosis Note [id number] [facility] [place] [address] [place] [address] 03/28/2021 00:00:00 04/01/2021 19:39:38 [id number] [facility] [place] [address] [place] [address] 05/16/2021 00:00:00 05/21/2021 10:35:27 [id number] [facility] [place] [address] [place] [address] 05/30/2021 00:00:00 06/03/2021 11:20:41 [id number] [facility] [place] [address] [place] [address] 06/27/2021 00:00:00 06/27/2021 16:30:15 [id number] [facility] [place] [address] [place] [address] 08/29/2021 00:00:00 09/01/2021 14:43:21 [id number] [facility] [place] [address] [place] [address] 11/28/2021 00:00:00 11/28/2021 14:48:09 [id number] [facility] [place] [address] [place] [address] 01/15/2022 00:00:00 01/15/2022 13:36:53 [id number] [facility] [place] [address] [place] [address] 02/27/2022 00:00:00 03/05/2022 17:40:14 [id number] [facility] [address], [facility] [address] [place] [address] 07/08/2022 00:00:00 07/08/2022 16:55:12 [id number] Will Lundberg DPM [facility] [address], [facility] [address] [place] [address] 10/14/2022 11:26:32 10/14/2022 14:08:30 Dystrophia unguium 64851726 L60.3 M79.676 L60.0 Nails 1 through 10 were debrided with sharp mechanical debridemen t without incident. Nails were debrided and greater than 50% length and thickness where needed. Unable to cut own toenails 110113180 Z74.1 [id number] Will Lundberg DPM [facility] [address], [address] [address] 02/17/2023 11:35:02 02/17/2023 11:56:06 Dystrophia unguium 12990920 L60.3 M79.676 L60.0 Nails debrided without incidentfo llow-up 3 months routine foot care Unable to cut own toenails [id number] Z74.1 [id number] Will Lundberg DPM [facility] [address], [address] [address] 06/16/2023 10:35:25 06/16/2023 10:48:56 Dystrophia unguium 54159887 L60.3 M79.676 L60.0 Nails debrided without incidentfo llow-up 3 months routine foot care Unable to cut own toenails 835656743 Z74.1 [id number] [facility] [address] [address] 10/08/2023 10:19:17 10/08/2023 10:50:46 Dystrophia unguium 84103714 L60.3 M79.676 L60.0 Nails debrided without incidentfo llow-up 3 months routine foot care Unable to cut own toenails 060753977 Z74.1 Difficulty walking 37689 2002 R26.2 recommend continued use with a walker [id number] Will Lundberg DPM [facility] [address], [address] [address] 01/07/2024 10:30:48 01/08/2024 08:27:21 Dystrophia unguium 74634510 L60.3 M79.676 L60.0 Nails debrided without incidentfo llow-up 3 months routine foot care Unable to cut own toenails 309991696 Z74.1 [id number] [facility] [place] [address] [facility] [address] [place] [address] 08/01/2024 10:41:30 08/03/2024 13:50:42 Dystrophia unguium 11644724 L60.3 M79.676 L60.0 Nails debrided without incidentfo llow-up 3 months routine foot care Unable to cut own toenails 624849352 Z74.1 Secondary to inability to bend over Difficulty walking 60500 2002 R26.2 recommend continued use with a walker Health Concerns Section Related Observation LastModified by Organization Detai ls LastModified Time None Recorded Concern Status LastModified by Organization Details LastModified Time None Recorded Advance Directives Directive None Recorded Payers Encounter Date Sequence Insurance Name Policy Number Policy Aguirre Covered Member ID Aguirre Member ID Guarantor Name 02/17/2023 1 [place] Easton Tanner [id number] Easton Tanner 02/17/2023 2 [place] WHEN MED[place]ARE OR MEDICARE REPLACEMENT PRIMARY) Mendez Tanner [id number] Easton Tanner 06/16/2023 1 [place] Easton Tanner [id number] Easton Tanner 06/16/2023 2 [place] OR [place]IC[place] REPLACEMENT PRIMARY) Mendez Tanner [id number] Easton Tanner 10/08/2023 1 [place] Easton Tanner [id number] Easton Tannre 10/08/2023 2 [facility] - DUAL ELIGIBLE (MEDICARE REPLACEMENT/AD VANTAGE - HMO) Easton Tanner [id number] Easton Tanner 01/07/2024 1 [place] Easton Tanner [id number] Easton Tanner 01/07/2024 2 [facility] - DUAL [facility]IG[facility] (MEDICARE REPLACEMENT/AD VANTAGE - HMO) Easton Tanner [id number] Easton Tanner 08/01/2024 1 [place] Easton Tanner [id number] Easton Tanner 08/01/2024 2 [facility] - DUAL [facility]IGIBLE (MEDICARE REPLACEMENT/AD VANTAGE - HMO) Easton Tanner [id number] Easton Tanner Notes Date Note Type Note Provider Name and Address Organization Details Recorded Time 02/17/2023 text/html . Patient is a 62-year-old male who presents the office for onychodystrophy of his toenails. Patient states he is unable to cut his nails and states they become long and painful. Patient denies any open wounds or infection of the toes. Patient denies any other complaints. Will Lundberg DPM [address], [place], [address], [employer] 02/17/2023 11:54:30 06/16/2023 text/html . Patient is a 62-year-old male who returns the office for follow-up on nail dystrophy. Patient states he is unable to cut his nails and states they become long. Patient denies any open wounds or infection of the nails. Patient denies any other complaints. Will Lundberg DPM [address], [place], [address], [employer] 06/16/2023 10:46:46 10/08/2023 text/html . Patient is a 63-year-old male who returns the office for follow-up on routine foot care, Patient states that he was recently discharged from the hospital and has been in a rehab facility for a month. Patient states that was admitted to the rehab facility for IV antibiotics due to a left great toe infection. Patient does not have any open wounds or sores of the left great toe I will obtain records from [facility]. Patient states he is unable to cut his nails states they have become long and they are painful. Patient denies any open wounds or infection. Patient denies any intermittent claudication with walking or rest pain. Patient denies any other complaints. Will Lundberg DPM [address], [place], [address], [employer] 10/08/2023 10:44:12 01/07/2024 text/html 6 weeks in [facility] after wound of left great toe, healedno acute signs of infectionfollows up for follow up on that and check upnails elongatedambulates with юлия Lundberg DPM [address], [place], [address], [facility] [employer] [facility] 01/07/2024 14:05:18 08/01/2024 text/html . Patient is a 63-year-old male who returns the office for painful toenails to 2 thickened elongated nails. Patient is unable to cut the nails due to his knees. Patient continues to walk with a rolling walker. Patient denies any other complaints. Will Lundberg DPM [address] [address], [place], [address], [facility] [employer] [facility] 08/01/2024 11:09:40
--- OUTSIDE RECORDS SUMMARY | 2024-08-18 08:10 | XMS_ITS ---
Author Organization [facility] Care Team Providers Care Trail Maintenance Worker Name Role Phone Jayda Abernathy Unavailable Unavailable Sophy Rios Unavailable Unavailable Allergies and adverse reactions Code CodeSystem Substance Reaction Severity StartDate Concern Status 1191 RXNORM Aspirin Anaphylaxis (co de- 06924479, SNOMED CT) Severe 04/13/2021 active Care Team Name Role Address Phone Organization Dates Jayda Abernathy PCP [address] [place], [address], [place] (Office): : [facility] 04/13/2021 - 05/07/2021 Sophy Rios Attending Physician [address] [place], [address], [place] (Office[place] : [facility] 04/13/2021 - 05/07/2021 Immunizations Immunization Status Vaccine Details Vaccine Code CodeSystem Date Notes SARS-COV-2 (COVID-19) completed SARS-COV-2 (COVID-19) vaccine, mRNA, spike protein, LNP, preservative free, 30 mcg/0.3mL dose Step 2 of Multi-step with next step required 208 CVX created date: 04/13/2021 administere d date: 08/27/2020 SARS-COV-2 (COVID-19) completed SARS-COV-2 (COVID-19) vaccine, mRNA, spike protein, LNP, preservative free, 30 mcg/0.3mL dose Mfg: Moderna COVID-19 Vaccine Given intramuscularly Step 1 of Multi-step with next step required 208 CVX created date: 04/13/2021 administere d date: 08/06/2020 Influenza (Flu) completed Influenza, high-dose, split virus, trivalent, injectable, preservative free 135 CVX created date: 04/13/2021 administere d date: 03/08/2021 Mental Status Section Date Assessment Total Score Description 04/23/2021 BIMS 13 cognitively int act CAM 0 No delirium ind icated PHQ-9 03 minimal depress ion Problems Problem # Description Date of onset Resolved Date Code CodeSystem Concern Status 1 PERSONAL HISTORY OF OTHER INFECTIOUS AND PARASITIC DISEASES 04/25/[address] active 2 BENIGN PROSTATIC HYPERPLASIA WITHOUT LOWER URINARY TRACT SYMPTOMS 04/13/[address] active 3 BODY MASS INDEX [BMI]40.0-44.9, ADULT 04/13/[address] active 4 CHRONIC OBSTRUCTIVE PULMONARY DISEASE, UNSPECIFIED 04/13/[address] active 5 HYPERLIPIDEMIA, UNSPECIFIED 04/13/[address] active 6 NICOTINE DEPENDENCE, CIGARETTES, UNCOMPLICATED 04/13/[address] active 7 OBSTRUCTIVE SLEEP APNEA (ADULT) (PEDIATRIC) 04/13/[address] active 8 OLD MYOCARDIAL INFARCTION 04/13/[address] active 9 OTHER CHRONIC PAIN 04/13/[address] active 10 OTHER OSTEOMYELITIS, ANKLE AND FOOT 04/13/[address] active 11 PALMAR FASCIAL FIBROMATOSIS [DUPUYTREN] 04/13/[address] active 12 PARANOID SCHIZOPHRENIA 04/13/[address] active 13 RIGHT HEART FAILURE, UNSPECIFIED 04/13/[address] active 14 UNSPECIFIED ATRIAL FLUTTER 04/13/[address] active 15 UNSPECIFIED SYMPTOMS AND SIGNS INVOLVING COGNITIVE FUNCTIONS AND AWARENESS 04/13/[address] active Reason for Referral No Reasons for Referral Entered Social History Social History Observation Description Start Date End Date Code Code System Current Smoking Status Tobacco smoking consumption unknown 533388297 SNOMED CT Sex Assigned At Male 1960 81596-8 [facility] Vital Signs Code Code System Vitals Name Values and Units Timing Information 78198-8 [facility] Pain Level Value=0.0 05/07/2021 9279-1 [facility] Respiratory Rate Value=18.0 Units=/m in 05/03/2021 8462-4 [facility] Blood Pressure-Diastolic Value=62 Un its=mmHg 05/03/2021 8480-6 [facility] Blood Pressure-Systolic Jiitt=184 Un its=mmHg 05/03/2021 8310-5 [facility] Body Temperature Value=97.5 Units= F 05/03/2021 8867-4 [facility] Heart rate Value=46.0 Units=/min 16815-4 [facility] O2 % BldC Oximetry Value=96.0 Units= % 05/03/2021 02771-9 [facility] Weight Aaryr=797.3 Units=Lbs 8302-2 [facility] Height Value=67.0 Units=Inches 04/13/2021
--- NOTE | 2024-09-15 09:04 | WPDSLEEPSTUD ---
Sleep Study Date of Study: 08/18/24 Ordering Provider: Ciro Martinez APRN Interpreting Physician: Tania Rodriguez DO Sleep Study Type: BiPAP Titration Height: 1.75 m Weight: 117.934 kg Body Mass Index: 38.4 Neck Circumference (inches): 20 [place]: 6 Reason for Sleep Study Split PSG 04/02/09 - Severe obstructive sleep apnea with an AHI of 87.7 associated with significant oxygen desaturation, severe myoclonus, and also heavy snoring. Adequate titration to 20 cm of water CPAP was noted with correction of respiratory events. Oxygen saturation stabilized, and REM was achieved. BiPAP Titration 02/20/10 - titration to BiPAP 25/20. Snoring was also corrected at that level of BiPAP and myoclonus was significantly improved as well. Currently on BPAP 22/18 cm H2O. Compliant with therapy but has large leak. Needs new study to get new equipment. Sleep History The patient is a 64 year old male with previously diagnosed sleep apnea on BPAP that had a sleep study ordered by the Pulmonary group so the patient could get. The patient denies awakening from sleep short of breath. He rarely awakens at night with heartburn, belching or cough. He constantly snores loudly enough others complain. He occasionally has trouble sleeping when he has a cold. He denies waking up gasping for air throughout the night. He constantly has breathing problems at night observed by himself or others. He denies sweating excessively at night. He denies having heart palpitations or irregular heartbeats during the night. He rarely falls asleep during the day but never while driving. He denies sleep paralysis and cataplexy. He denies having trouble at school or work due to sleepiness. He frequently experiences vivid dreamlike scenes upon awakening or falling asleep. He denies feeling afraid of going to sleep. He rarely has nightmares. He frequently remembers his dreams. He denies having thoughts racing through his mind. He occasionally feels sad or depressed. He constantly has anxiety. He denies having muscular tension. He rarely notices parts of his body jerk. He denies kicking during the night. He denies having crawling and aching feelings in his legs and denies having leg pain during the night. He denies grinding his teeth during sleep and denies awakening with morning jaw pain. He denies being bothered by pain during the day and denies being awakened by pain during night. He denies waking up feeling stiff in the morning. He denies waking up with sore or achy muscles. He denies waking up with pain in the neck, spine or other joints. He goes to bed at 9:00 p.m. on weekdays and at 11:30 p.m. on the weekends. It takes him 10 minutes to fall asleep. He wakes up 5-6 times throughout the night for unknown reasons and is able to fall back asleep within 5 minutes. He wakes up at 6:00 a.m. on weekdays and 8:00 a.m. on weekends. He typically gets 9 hours of sleep per night. He will stay in bed for 15 minutes after waking up in the morning. He currently lives alone. He does consume any caffeinated beverages within 2 hours of bedtime. He denies engaging in physical exercise before bedtime. He will watch television before falling asleep. He will take naps in afternoon and they are refreshing. He denies consuming any caffeinated beverages throughout the day. He is a former cigarette smoker. He denies alcohol and recreational drug use. FOR[facility]LY [facility] Past Medical History Medical History Osteomyelitis History of Clostridium difficile colitis Hematuria Chronic pain Hyperlipidemia Benign prostatic hyperplasia Asymptomatic cholelithiasis Obstructive sleep apnea treated with BiPAP Settings of 25/20 according to sleep study in February 2010. Right heart failure with reduced right ventricular function Echocardiogram November 2019 demonstrated reduced right ventricular systolic function and mild enlargement, mild left ventricular enlargement, EF 55-60%, indeterminate diastolic function, mild left atrial enlargement, mild mitral valve regurgitation, small pericardial effusion COPD (chronic obstructive pulmonary disease) (Unknown) Nxya-le-mgaqltgu obstructive ventilatory defect with severe small airway disease pattern no acute bronchodilator response and mildly decreased DLCO noted on pulmonary function testing from 2014. History of myocardial infarction (Unknown) With stress test November 2019 demonstrating 2 fixed perfusion defects small mild area of apical septal segment defect in left ventricle, moderate sized area of mild infarct involving apical inferior apical lateral and mid inferior lateral segment of the left ventricle, ejection fraction of 70%. Atrial flutter Nicotine dependence, unspecified, uncomplicated (Unknown) Paranoid schizophrenia (Unknown) Body mass index 40.0-44.9, adult Surgical History Surgical History History of inguinal herniorrhaphy As a child. Family History Family History Sibling Healthy female adult Reportedly both of the patient's sisters are healthy. Father , tongue cancer No problems noted. Mother , heart failure No problems noted. Social History Social History Social History: Surrogate decision maker: Mesha Tanner, sister. Code status: Full code. Smoking packs per day: 1.5 Smoking cigarettes per day: 30.0 Years smoked: 40 Smoking pack-years: 60.00 Smoking status: Former smoker Tobacco type: cigarettes Second hand tobacco smoke exposure: Yes Smoking end date: 02/05/22 Alcohol intake: former Substance use: never Substance use type: does not use Do You Feel Safe in your Home?: Yes Lack of Transportation: No Lack of Food: Never True Current Housing: I Have Housing Concerned About Future Housing: No Difficulty Paying Gas/Electric Bills: No Difficulty Paying for Meds: No Currently Unemployed: No Education: Grade School Difficulty w/ Childcare or Family Care: No Living arrangements: alone Additional living arrangements comments: Senior disable apartment building. Sister helps and checks on him frequently Occupation/Education: retired Additional occupation/education comments: Disabled due to paranoid schizophrenia. Gender identity (if verbalized by the patient): Male Spiritual care concerns: No Medications Home Medications ?Medication ?Instructions ?Recorded ?Confirmed ?Type clonazepam 0.5 mg tablet 0.5 mg PO DAILY PRN Anxiety 11/12/20 09/08/24 History sertraline 100 mg tablet 150 mg PO DAILY 11/12/20 09/08/24 History aripiprazole 30 mg tablet 30 mg PO DAILY 04/01/23 09/08/24 History mirabegron 50 mg tablet,extended 50 mg PO DAILY 07/02/23 09/08/24 History release 24 hr (Myrbetriq) Lactobacillus 1 cap PO DAILY 05/03/24 09/08/24 History acidophilus-Bifidobac.animalis 2.5 billion cell capsule (Daily Probiotic) acetaminophen 500 mg tablet 1,000 mg PO BID PRN Pain 05/03/24 09/08/24 History (Tylenol Extra Strength) diclofenac sodium 75 mg See Rx Instructions .Route 06/20/24 09/08/24 Rx tablet,delayed release .COMPLEX #180 tabs furosemide 40 mg tablet (Lasix) 40 mg PO QAM 09/08/24 09/08/24 History triamcinolone acetonide 0.1 % 1 applic topical TID PRN 09/08/24 09/08/24 Rx topical cream rash/itching #80 grams Sleep Procedure A full night BPAP Titration using the ReDoc Software multi-channel system recorded the standard physiologic parameters including EEG, EOG, submentalis EMG, anterior tibialis EMG, EKG, body position, nasal and oral airflow using nasal pressure sensor and thermistor.? Respiratory parameters of chest and abdominal movements were recorded with Respiratory Inductance Plethysmography belts. Oxygen saturation was recorded by pulse oximetry. Video monitoring was also performed. Sleep stages, periodic limb movements, and EEG arousals were scored in 30 second epochs according to the criteria of the AASM Scoring Manual. The Apnea-Hypopnea Index was calculated using [facility] guidelines for definition of hypopnea with 4% O2 desaturations while scoring respiratory events. Sleep Architecture The total recording time was 480.5 minutes.? The total sleep time was 339.0 minutes. Sleep latency was 22.7 minutes. REM latency was 261.5 minutes. Sleep efficiency was 70.6%. The patient had 73 awakenings for an awakening index of 12.9. Wake after Sleep Onset time was 118.5 minutes. The patient spent 110.5 minutes, 32.6% of total sleep time in Stage N1. The patient spent 192.0 minutes, 56.6% in Stage N2. The patient spent 0.0 minutes, 0.0% in Stage N3. The patient spent 36.5 minutes, 10.8% in Stage REM. Respiratory Analysis The patient had 84 hypopneas, 45 obstructive apneas, 3 mixed apneas, and 27 central apneas for an overall Apnea Hypopnea Index of 28.1 events per hour. The REM Apnea Hypopnea Index was 19.7. The NREM Apnea Hypopnea Index was 29.2. The patient had a Central Apnea Hypopnea Index of 4.8. There was no evidence of Víctor-Arellano Respirations. The patient was started on BPAP 8/4 cm H2O and titrated to BPAP 23/19 cm H2O. The patient was able to fall asleep starting on BPAP 8/4 cm H2O. The patient was able to achieve REM sleep starting on BPAP 18/12 cm H2O. The patient was able to achieve a residual AHI less than 5 with both NREM and REM sleep in the supine position on the final pressure setting. On BPAP 23/19 cm H2O, the patient spent 6 minutes in NREM and 14.5 minutes in REM with 1 hypopnea, resulting in an AHI of 2.9. The patient had a sleep efficiency of 54.7% on this pressure setting. Arousals There were 159 total arousals for an arousal index of 28.1. There were 118 spontaneous arousals for an index of 20.9. ?There were 34 arousals due to respiratory events for an index of 6.0. There were 3 arousals due to periodic limb movements for an index of 0.5.? There were 5 arousals due to isolated limb movements for an index of 0.9. Periodic Limb Movements The patient had 26 isolated limb movements with an index of 4.6. The patient had 26 periodic limb movements with index of 4.6. Patient had a total of 52 limb movements with a total limb movement index of 9.2. Oximetry Data The patient had an average oxygen saturation of 92.6% in sleep with a minimum oxygen saturation of 79.0% and a maximum oxygen saturation of 99.0%. The patient had 111 oxygen desaturations that were 4% or greater resulting in an Oxygen Desaturation Index of 19.6.? The patient spent 24.8 minutes, 5.3% of total sleep time with an oxygen saturation below 88%. Snoring Profile Mild snoring was present in the beginning of the study. The snoring resolved once the patient was titrated to 23/19 cm H2O. Cardiac Profile The EKG showed a paced rhythm with frequent PVCs. The patient had an average pulse rate of 51.0 bpm with a minimum pulse rate of 43.0 bpm and a maximum pulse rate of 71.0 bpm. ? EEG Profile No signs of seizure activity seen. Assessment and Plan Assessment and Plan (1) Obstructive sleep apnea: Code(s): G47.33 - Obstructive sleep apnea (adult) (pediatric) Status: Chronic Assessment and Plan: The patient was started on BPAP 8/4 cm H2O and titrated to BPAP 23/19 cm H2O. The patient's sleep apnea resolved on the final pressure setting. I recommend that the patient be prescribed Resmed BPAP 23/19 cm H2O, size large F&P Corby FFM, BPAP filters/tubing and heated humidity. This should be used with all episodes of sleep.? Compliance should be reviewed within 31-90 days of starting therapy for usage greater than 4 hours per night greater than 70% of the nights. The patient should be asked about symptoms such as?excessive daytime sleepiness, quality of sleep, decreased nocturia, increased?mental functioning such as memory, mood, and concentration. Data The data obtained during this sleep study is adequate for interpretation. Certification This sleep study has been reviewed by a board certified sleep medicine physician.
[2024-09-15 12:32] VITALS: BMI 38.4
== END 2024-08-19 06:40 | disposition home or self-care (01) ==
LOC: ANHCSM 08:01
PROVIDERS: PCP Nurse Practitioner; Visit Provider Nurse Practitioner Family
DX: G47.33 Obstructive sleep apnea (adult) (pediatric) (principal)
CPT/HCPCS: 95811

== ENCOUNTER 2024-11-17 10:46 | Outpatient (CLI) | payer MEDICARE, MEDICAID, SELFPAY | END 2024-11-17 10:47 | disposition home or self-care (01) | LOC: ANHAUDIO 10:47 | PROVIDERS: Visit Provider Otolaryngology | DX: H91.20 Sudden idiopathic hearing loss, unspecified ear (principal); H91.21 Sudden idiopathic hearing loss, right ear | CPT/HCPCS: 92557; 92567 ==

== ENCOUNTER 2025-03-15 15:13 | Outpatient (CLI) | payer MEDICARE, MEDICAID, SELFPAY ==
[2025-03-15 16:17] LABS: Alanine Aminotransferase 19 U/L (6-50); Albumin Level 4.1 g/dL (3.5-5.1); Alkaline Phosphatase 103 U/L (38-126); Anion Gap 7 mmol/L (4-12); Aspartate Amino Transferase 24 U/L (17-59); Bilirubin,Total 0.6 mg/dL (0.2-1.3); Blood Urea Nitrogen 33 mg/dL (9-20); Calcium 8.7 mg/dL (8.4-10.2); Carbon Dioxide 27 mmol/L (22-30); Chloride 104 mmol/L (98-107); Cholesterol 113 mg/dL (0-200); Estimated Glomerular Filt Rate 47; Glucose 87 mg/dL (65-110); HDL Direct 29 mg/dL; Potassium 4.9 mmol/L (3.4-5.0); Sodium 138 mmol/L (137-145); Total Protein 7.2 g/dL (6.3-8.2); Triglycerides 62 mg/dL (<150)
[2025-03-15 16:52] LABS: Prostate Specific Antigen 6.1 ng/mL (< OR = 4.0); Thyroid Stimulating Hormone 1.570 uIU/mL (0.465-4.680)
[2025-03-15 17:09] LABS: Hemoglobin A1C 5.4 % (<5.7)
== END 2025-03-15 15:14 | disposition home or self-care (01) ==
LOC: ANHLAB 15:14
PROVIDERS: PCP Nurse Practitioner; Visit Provider Nurse Practitioner
DX: E78.5 Hyperlipidemia, unspecified (principal); R73.9 Hyperglycemia, unspecified; Z12.5 Encounter for screening for malignant neoplasm of prostate; Z13.29 Encounter for screening for other suspected endocrine disorder
CPT/HCPCS: 36415; 80053; 80061; 83036; 84153; 84443; G0103

== ENCOUNTER 2025-03-25 10:24 | Outpatient (CLI) | payer MEDICARE, MEDICAID, SELFPAY ==
--- OUTSIDE RECORDS SUMMARY | 2025-03-25 10:33 | XMS_ITS ---
Author Organization [facility] Care Team Providers Care Brush Cleaner Name Role Phone Jayda Abernathy Unavailable Unavailable Blanca, Sophy Unavailable Unavailable Allergies and adverse reactions Code CodeSystem Substance Reaction Severity StartDate Concern Status 1191 RXNORM Aspirin Anaphylaxis (co de- [id number], SNOMED CT) Severe 04/13/2021 active Care Team Name Role Address Phone Organization Dates Jayda Abernathy PCP [address] [place], [address], [place] (Office): : [facility] 04/13/2021 - 05/07/2021 Sophy Rios [address] [place], [address], [place] (Office): : [facility] 04/13/2021 - 05/07/2021 Immunizations Immunization Status [...] ind icated PHQ-9 03 minimal depress ion Insurance Providers Problems Problem # Description Date of onset Resolved Date Code CodeSystem Concern Status 1 PERSONAL HISTORY OF OTHER INFECTIOUS AND PARASITIC DISEASES 04/25/[address] active 2 BENIGN PROSTATIC HYPERPLASIA WITHOUT LOWER URINARY TRACT SYMPTOMS 04/13/[address] active 3 BODY MASS INDEX [BMI]40.0-44.9, ADULT 04/13/[address] active 4 CHRONIC OBSTRUCTIVE PULMONARY DISEASE, UNSPECIFIED 04/13/[address] active 5 HYPERLIPIDEMIA, UNSPECIFIED 04/13/[address] active 6 NICOTINE DEPENDENCE, CIGARETTES, UNCOMPLICATED 04/13/[address] active 7 OBSTRUCTIVE SLEEP APNEA (ADULT) (PEDIATRIC) 04/13/[address] active 8 OLD MYOCARDIAL INFARCTION 04/13/[address] active 9 OTHER CHRONIC PAIN 04/13/[address] active 10 OTHER OSTEOMYELITIS, ANKLE AND FOOT 04/13/[address] active 11 PALMAR FASCIAL FIBROMATOSIS [DUPUYTREN] 04/13/[address] active 12 PARANOID SCHIZOPHRENIA 04/13/[address] active 13 RIGHT HEART FAILURE, UNSPECIFIED 04/13/[address] active 14 UNSPECIFIED ATRIAL FLUTTER 04/13/[address] active 15 UNSPECIFIED SYMPTOMS AND SIGNS INVOLVING COGNITIVE FUNCTIONS AND AWARENESS 04/13/[address] active Reason for Referral No Reasons for Referral Entered Social History Social History Observation Description Start Date End Date Code Code System Current Smoking Status Tobacco smoking consumption unknown 105222440 SNOMED CT Sex Assigned At Male 1960 08481-4 [facility] Gender Identity Sexual Orientation Vital Signs Code Code System Vitals Name Values and Units Timing Information 02808-5 [facility] Pain Level Value=0.0 05/07/2021 9279-1 [facility] Respiratory Rate Value=18.0 Units=/m in 05/03/2021 8462-4 [facility] Blood Pressure-Diastolic Value=62 Un its=mmHg 05/03/2021 8480-6 [facility] Blood Pressure-Systolic Owmgo=404 Un its=mmHg 05/03/2021 8310-5 [facility] Body Temperature Value=97.5 Units= F 05/03/2021 8867-4 [facility] Heart rate Value=46.0 Units=/min 92603-6 [facility] O2 % BldC Oximetry Value=96.0 Units= % 05/03/2021 05652-1 [facility] Weight Hyynt=469.3 Units=Lbs 8302-2 [facility] Height Value=67.0 Units=Inches 04/13/2021
--- OUTSIDE RECORDS SUMMARY | 2025-03-25 10:33 | XMS_ITS | Encounter Summary ---
Author Organization [facility] Healthcare Address [address] [place] [address] Care Team Providers Care Meat Washer Name Role Phone Anuel Sparks MD Unavailable [phone] Glenn Low MD Unavailable [phone] Ciro Martinez NP Primary Care Provider [phone] Tj Monreal DO Primary Care Provider [phone] Encounter Details Date Type Department Care Team (Late st Contact Info) Description 05/03/2024 Orders Only [facility] [place] [facility] Information Management [address] [place] [address] Scanning, Provider Social History Tobacco Use Types Packs/Day Years Used Date Smoking Tobacco: Former Cigarettes Q uit: 01/26/2022 Smokeless Tobacco: Never Alcohol Use Standard Drinks/Week Comments No 0 [...] on file Legal Sex Male 3:50 AM [employer] Gender Identity Not on file Sexual Orientation Not on file documented as of this encounter Plan of Treatment Not on file documented as of this encounter Procedures Procedure Name Priority Date/Time Associated Diagnosis Comments SCAN - RADIOLOGY/IMAGING 05/03/2024 documented in this encounter Results * SCAN - RADIOLOGY/IMAGING (05/03/2024) Anatomical Region Laterality Modality Other us Provider Scanning Final Result documented in this encounter Visit Diagnoses Not on filedocumented in this encounter Care Teams Meat Washer Relationship Specialty Start Date End Date Ciro Martinez NP [address] [place] [address] PCP - General Nurse Practitioner 02/18/23 11/14/24 Tj Monreal DO [address] [place] [address] PCP - General Internal Medicine 11/15/24 Anuel Sparks MD [address] [place] [address] Consulting Physician Cardiology 12/05/21 Glenn Low MD [address] [place] [address] Referring Physician Orthopedic Surgery 04/08/22 documented as of this encounter
--- OUTSIDE RECORDS SUMMARY | 2025-03-25 10:33 | XMS_ITS | Clinical Summary ---
Author Organization [facility] [place] [place] Address [address] [place] [address] Care Team Providers Care Oilseed Meat Presser Name Role Phone Anuel Sparks MD Unavailable [phone] Glenn Low MD Unavailable [phone] Tj Monreal DO Primary Care Provider [phone] Allergies Active Allergy Reactions Criticality Noted Date Comments Pkj-Xndqmvahnwale-Dcow-Calcium Hives High 04/02 Aspirin Hives,Anaphylaxis High 06/24/2018 Medications ARIPiprazole (ABILIFY) 30 mg tabletIndication s:Schizophrenia Take 1 tablet (30 mg total) by mouth daily 9 Active clonazePAM (KlonoPIN) 0.5 mg tablet Take 1 tablet (0.5 mg total) by mouth daily 0 8 Active sertraline (ZOLOFT) 100 mg tablet Take by mouth daily 9 Active sertraline (ZOLOFT) 50 mg tablet 1 tablet (50 mg total) daily Takes total of 150mg in the am [address] (VOLTAREN) 75 mg EC tablet Take 1 tablet by mouth twice daily 60 tablet 2 Active acetaminophen (TYLENOL) 500 mg tabletIndication s:Arthritic [...] mouth every 8 (eight) hours as needed 4 Active furosemide (LASIX) 20 mg tabletIndication s:Elevated left ventricular end-diastolic pressure (LVEDP),SOB (shortness of breath) TAKE 1 TABLET BY MOUTH ONCE DAILY NEEDED FOR SHORTNESS OF BREATH 90 tablet 2 5 Active Active Problems Problem Noted Date Diagnosed Date SOB (shortness of breath) 07/06/2024 Elevated left ventricular end-diastolic pressure (LVEDP) 11/05/2023 Presence of leadless cardiac pacemaker 3 SSS (sick sinus syndrome) 06/25/2022 Bradycardia 05/12/2022 Assessment & Plan (05/12/2022 3:15 PM GRAIN COMBINER): AFL with very slow AV conduction, likely [...] 12/12/2019 Assessment & Plan (05/12/2022 3:11 PM GRAIN COMBINER): Persistent atrial flutter, with slow AV conduction. [...] implantation. They understand and wish to proceed. [id number] = 0. No current indication for anticoagulation. Would start for 1 month post-ablation. --Diagnostic EP study at time of leadless PM implant. If typical AFL, would consider CTI ablation. --HALLEY prior to procedure --Plan 1 month of DOAC therapy post-ablation Hematuria 12/12/2019 Obstructive sleep apnea (adult) (pediatric) 11/2019 Encounters Date Type Department Care Team Description 02/08/2025 1:15 PM CDT [facility] [address] [place] [address] [address], [place] [address] Mesha Ordonez NP Cardiac arrhythmia, unspecified cardiac arrhythmia type (Primary Dx); Presence of leadless cardiac pacemaker 02/08/2025 1:00 PM CDT Ancillary Procedure [facility] [address] [place] [address] [place] [id number] Right-sided heart failure, unspecified HF chronicity (HCC); SSS (sick sinus syndrome) (HCC); Presence of leadless cardiac pacemaker from Last 3 Months Immunizations Immunization Administration Dates Next Due Influenza, Unspecified 05/01/2022 Pfizer SARS-CoV-2 Monovalent Vaccination (12+ Yrs) PURPLE 08/27/2020,08/06/2020 Surgical History Surgery Date Site/Laterality Comments INGUINAL HERNIA REPAIR Medical History Medical History Date Comments Abnormal heart rhythm Emphysema of lung Depression Heart murmur Social History Tobacco Use [...] on file Legal Sex Male 3:50 AM GRAIN COMBINER Gender Identity Not on file Sexual Orientation Not on file Obstetrics History Last Filed Vital Signs Vital Sign Reading Time Taken Comments Blood Pressure 130/81 02/08/2025 12:49 PM CDT Pulse 45 02/08/2025 12:49 PM CDT Temperature 36.6 C (97.8 F) 06/26/2022 4:04 AM GRAIN COMBINER Respiratory Rate 20 06/26/2022 4:04 AM GRAIN COMBINER Oxygen Saturation 94% 11/15/2024 10:43 AM CDT Inhaled Oxygen Concentration - - Weight 136.1 kg (300 lb) 02/08/2025 12:49 PM CDT Height 170.2 cm (5' 7) 02/08/2025 12:49 PM CDT Body Mass Index 46.99 02/08/2025 12:49 PM CDT Plan of Treatment Health Maintenance Due Date Last Done Comments Colon Cancer Screening-Colonoscopy 1960 Depression Screening 1960 Hepatitis C Screening 1960 Prostate Cancer Screening-PSA 1960 Hepatitis B Screening 1978 Regular Well Visit/Exam 18-64 1978 Pneumococcal vaccine <65 (1 of 2 - PCV) 09/11/1979 Covid-19 Vaccine (2024-2 6 season) 2025 05/15/2021, 10/30/2020, 10/02/2020, Additional history exists Influenza Vaccine (#1) 2025 , 03/19/2023, 05/01/2022, Additional history exists DTaP/Tdap/Td Vaccine (2 - Td or Tdap) 04/03/2031 04/03/2021 Zoster Vaccine Completed 07/31/2022, 03/23/2022 Medical Devices Implanted Type Area Press Room Supervisor Device Identifier Shelf Expiration Date Model / Serial / Lot [employer] Vascade Mvp 6-12fr Venous Closure [id number] - [id number] - [id number] Implanted:Qty : 1 on 06/25/2022 by Everett Zuniga III, MD at [facility] Collagen Left: Femoral Vein [employer] 03/18/2024 800-612C -[id number] / [id number] / [id number] [employer] Vascade Mvp 6-12fr Venous Closure [id number] - [id number] - [id number] Implanted:Qty : 1 on 06/25/2022 by Everett Zuniga III, MD at [facility] Collagen Left: Femoral Vein [employer] 03/18/2024 800-612C -10U / [id number] / [id number] Medtronic Inc Margaret Av_Vr Leaderless Pacer - [id number] - [id number] Implanted:Qty : 1 on 06/25/2022 by Everett Zuniga III, MD at [facility] Pacemaker Med[employer]onic Inc [id number] 10/03/2022 [id number] / [id number] / Procedures Procedure Name Priority Date/Time Associated Diagnosis Comments ECG 12-LEAD Routine 02/08/2025 1:11 PM CDT Cardiac arrhythmia, unspecified cardiac arrhythmia type DEVICE CHECK - IN OFFICE Routine 02/08/2025 12:47 PM CDT Right-sided heart failure, unspecified HF chronicity (HCC) SSS (sick sinus syndrome) (HCC) Presence of leadless cardiac pacemaker from Last 3 Months Results * ECG 12 lead (02/08/2025 1:11 PM CDT) Mesha Ordonez NP ECG ORDERABLES Final Resu lt * DEVICE CHECK - IN OFFICE (02/08/2025 12:47 PM CDT) Anatomical Region Laterality Modality Other Narrative 02/10/2025 4:14 PM CDT Table formatting from the original result was not included. PM CHECK (IN OFFICE) Patient ID: Easton Tanner is a 64 y.o. male This patient received a Medtronic micra Pacemaker. They had a routine in-office device interrogation on 02/08/25 Device implant indications: Av block, AFL, SVT ablation Interrogation of the patient's device demonstrates the following: Presenting EGM: V sense @ 46 bpm Underlying rhythm: V sense in the 40s Original Device Settings Right Ventricle Sensitivity (mV) 2.0 mV Pacing Outputs 1.0 V @ 0.24 ms Testing Measurements Right Ventricle Sensitivity (mV) 8.6 mV Impedence (Ohms) 460 ohms Pace Threshold 0.5 V @ 0.24 ms Pacing % 19.9 % Battery Status: >8 years to [place]ASMANY Episodes last 90 days/Comments: Rate histograms show V sense with rates in the 40s to 60s most of the time. NORMAL DEVICE FUNCTION PROGRAMMED MEDICATIONS: Anti-coagulant(s): None Anti-arrhythmic(s): None PLAN: 1) Medtronic Pacemaker evaluation 2) Medtronic remote transmission scheduled in 3 months. 3) Programming appropriate for device measurements Marisabel Thibodeaux RN Mesha Ordonez NP [facility] PROCED URES Final Result from Last 3 Months Insurance [facility] MEDICARE MEDICARE IDPA Advance Directives For more information, please contact: [phone] Documents on File Type Date Recorded Patient Senior Software Development Engineer Expl anation Advance Directives and Livin g Will 06/26/2022 7:00 AM * Full Code (Latest Code Status on File) Date Activated Date Inactivated Comments 06/25/2022 4:45 PM 06/26/2022 4:53 PM Care Teams Oilseed Meat Presser Relationship Specialty Start Date End Date Tj Monreal DO [address] [place] [address] PCP - General Internal Medicine 11/15/24 Anuel Sparks MD [address] [phone] Consulting Physician Cardiology 12/05/21 Glenn Low MD [address] [place] [address] Referring Physician Orthopedic Surgery 04/08/22
--- OUTSIDE RECORDS SUMMARY | 2025-03-25 10:33 | XMS_ITS | Patient Health Record ---
Author Organization [facility] [employer] Address [address] [place] [address] Care Team Providers Care Neuropathologist Name Role Phone Giovanni Devine Unavailable [phone] Reason For Referral No Information Medications Medication SIG (Take, Route, Frequency, Duration) Notes Start Date End Date Status Sertraline HCl 50 MG Tablet Oral Active Xarelto 20 MG Tablet Oral Active Sulfamethoxazole-Trimethopr im 800-160 MG Tablet Oral Active ARIPiprazole 30 mg Tablet Oral Active Diclofenac Sodium 75 MG Tablet Delayed Release Oral Activ e clonazePAM 0.5 MG Tablet Oral Active Furosemide 20 MG Tablet Oral Active Myrbetriq 50 MG Tablet Extended Release 24 Hour Oral Act amarjit Sertraline HCl 100 MG Tablet Oral Active Procto-Med HC 2.5 % Cream Rectal Active Plan Of Treatment No Information Insurance Providers Payer Name Payer Address Payer Phone Subscriber Number Group Number Insured Name Patient Relationship to Insured Coverage Start Date Coverage End Date Medicare-I l Medicare [address] [place] [address] [id number] SABRINA BEAN Self - patient is the insured Medicaid-I l Medicaid [address] [address] [place] [address] [id number] SABRINA BEAN Self - patient is the insured
[2025-03-25 12:12] LABS: Prostate Specific Antigen 2.9 ng/mL (< OR = 4.0)
== END 2025-03-25 10:25 | disposition home or self-care (01) ==
LOC: ANHLAB 10:31
PROVIDERS: PCP Nurse Practitioner; Visit Provider Nurse Practitioner
DX: R97.20 Elevated prostate specific antigen [PSA] (principal)
CPT/HCPCS: 36415; 84153

== ENCOUNTER 2025-05-02 08:56 | Outpatient (CLI) | payer MEDICARE, MEDICAID, SELFPAY ==
--- NOTE | ~2025-05-02 | CT_ITS ---
EXAMINATION: CT lung screening DATE: 05/02/2025 09:13 INDICATION: Personal history of nicotine dependence TECHNIQUE: Computed tomography (CT) of the chest was performed without intravenous contrast. The dose-length product was 474.55 mGy-cm. Automated exposure control and iterative reconstruction technique were employed. COMPARISON: CT dated 03/30/2024 FINDINGS: Chronic right pleural thickening. No thoracic lymphadenopathy. There is atherosclerosis of the aorta. Borderline heart size. No significant pleural or pericardial effusion. 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 There is dependent atelectasis. There is a 4 mm fissural nodule on the right. There is 3 mm right lower lobe nodule. No endobronchial lesions. No pneumothorax. There is diffuse idiopathic skeletal hyperostosis (DISH) of the thoracic spine. IMPRESSION: 1. Lung-RADS category 2: Benign appearance or behavior. Continue annual screening with noncontrast low-dose chest CT in 12 months. Reviewed, dictated and finalized at location O. DING PERFORMANCE SPECIALIST IMPRESSION: 1. Lung-RADS category 2: Benign appearance or behavior. Continue annual screeni ng with noncontrast low-dose chest CT in 12 months.
--- OUTSIDE RECORDS SUMMARY | 2025-05-02 09:28 | XMS_ITS | Encounter Summary ---
Author Organization 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 Gender Identity Not on file Sexual Orientation [...] on filedocumented in this encounter Care Teams Ag Service Manager Relationship Specialty Start Date End Date Ciro Martinez NP [address] [place] [address] PCP - General Nurse Practitioner 02/18/23 11/14/24 Tj Monreal DO [address] [place] [address] PCP - General Internal Medicine 11/15/24 Anuel Sparks MD [address] [place] [address] Consulting Physician Cardiology 12/05/21 Glenn Low MD [address] [place] [address] Referring Physician Orthopedic Surgery 04/08/22 documented as of this encounter
--- OUTSIDE RECORDS SUMMARY | 2025-05-02 09:28 | XMS_ITS | Clinical Summary ---
Author Organization [facility] [place] [facility] [place] Address [address] [place] [address] Care Team Providers Care Sales And Production Manager Name Role Phone Anuel Sparks MD Unavailable [phone] Glenn Low MD Unavailable [phone] Tj Monreal DO Primary Care Provider [phone] Allergies Active Allergy Reactions Criticality Noted Date Comments Pyt-Bciefjgvmmztk-Tdmf-Calcium Hives High 04/02 Aspirin Hives,Anaphylaxis High 06/24/2018 [...] 05/12/2022 Assessment & Plan (05/12/2022 3:15 PM INFLATABLE BUILDINGS LAMINATOR): AFL with very slow AV conduction, likely [...] 12/12/2019 Assessment & Plan (05/12/2022 3:11 PM INFLATABLE BUILDINGS LAMINATOR): Persistent atrial flutter, with slow AV conduction. [...] implantation. They understand and wish to proceed. [id number] = 0. No current indication for anticoagulation. Would start for 1 month post-ablation. --Diagnostic EP study at time of leadless PM implant. If typical AFL, would consider CTI ablation. --HALLEY prior to procedure --Plan 1 month of DOAC therapy post-ablation Hematuria 12/12/2019 Obstructive sleep apnea (adult) (pediatric) 11/2019 Encounters Date Type Department Care Team Description 02/08/2025 1:15 PM CDT Office Visit [facility] [address] [place] [address] [address] [address] Mesha Ordonez NP Cardiac arrhythmia, unspecified cardiac arrhythmia type (Primary Dx); Presence of leadless cardiac pacemaker 02/08/2025 1:00 PM CDT Ancillary Procedure [facility] [address] [place] [address] [place] [address] Right-sided heart failure, unspecified HF chronicity [...] on file Legal 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 Gender Identity Not on file Sexual Orientation Not on file Last Filed Vital Signs Vital Sign Reading Time Taken Comments Blood Pressure 130/81 02/08/2025 12:49 PM CDT Pulse 45 02/08/2025 12:49 PM CDT Temperature 36.6 C (97.8 F) 06/26/2022 4:04 AM INFLATABLE BUILDINGS LAMINATOR Respiratory Rate 20 06/26/2022 4:04 AM INFLATABLE BUILDINGS LAMINATOR Oxygen Saturation 94% 11/15/2024 10:43 AM CDT [...] 07/31/2022, 03/23/2022 Medical Devices Implanted Type Area Ophthalmic Surgical Assistant Device Identifier Shelf Expiration Date Model / Serial / Lot [employer] Vascade Mvp 6-12fr Venous Closure [id number] - [id number] - [id number] Implanted:Qty : 1 on 06/25/2022 by Everett Zuniga III, MD at [facility] Collagen Left: Femoral Vein [employer] 03/18/2024 800-612C -[id number] / [id number] / [id number] [employer] Vascade Mvp 6-12fr Venous Closure [id number] - [id number] - [id number] Implanted:Qty : 1 on 06/25/2022 by Everett Zuniga III, MD at [facility] Collagen Left: Femoral Vein [employer] 03/18/2024 800-612C -10U / [id number] / [id number] Medtronic Inc Margaret Av_Vr Leaderless Pacer - [id number] - [id number] Implanted:Qty : 1 on 06/25/2022 by Everett Zuniga III, MD at [facility] Pacemaker Med[employer] Inc [id number] 10/03/2022 [id number] / [id number] / Procedures Procedure Name Priority Date/Time [...] Final Result from Last 3 Months Insurance [facility] MEDICARE MEDICARE IDDE Advance Directives For more information, please contact: [phone] Documents on File Type Date Recorded Patient Legal Referee Expl anation Advance Directives and Livin g Will 06/26/2022 7:00 AM * Full Code (Latest Code Status on File) Date Activated Date Inactivated Comments 06/25/2022 4:45 PM 06/26/2022 4:53 PM Care Teams Sales And Production Manager Relationship Specialty Start Date End Date Tj Monreal DO [address] [place] [address] PCP - General Internal Medicine 11/15/24 Anuel Sparks MD [address] [phone] Consulting Physician Cardiology 12/05/21 Glenn Low MD [address] [place] [address] Referring Physician Orthopedic Surgery 04/08/22
--- OUTSIDE RECORDS SUMMARY | 2025-05-02 09:28 | XMS_ITS ---
Author Organization [facility] Care Team Providers Care Engravings Polisher Name Role Phone Jyada Abernathy Unavailable Unavailable Blanca, Sophy Unavailable Unavailable Allergies and adverse reactions Code CodeSystem Substance Reaction Severity StartDate Concern Status 1191 RXNORM Aspirin Anaphylaxis (co de- 76519128, SNOMED CT) Severe 04/13/2021 active Care Team Name Role Address Phone Organization Dates Jayda Abernathy PCP [address] [place], [address], [place] (Office): : [facility] 04/13/2021 - 05/07/2021 Sophy Rios [address] [place], [address], [place] (Office[place] : [facility] 04/13/2021 - 05/07/2021 Immunizations Immunization Status Vaccine [...] OF OTHER INFECTIOUS AND PARASITIC DISEASES 04/25/[address] active 2 BENIGN PROSTATIC HYPERPLASIA WITHOUT LOWER URINARY TRACT SYMPTOMS 04/13/[address] active 3 BODY MASS INDEX [BMI]40.0-44.9, ADULT 04/13/[address] active 4 CHRONIC OBSTRUCTIVE PULMONARY DISEASE, UNSPECIFIED 04/13/[address] active 5 HYPERLIPIDEMIA, UNSPECIFIED 04/13/[address] active 6 NICOTINE DEPENDENCE, CIGARETTES, UNCOMPLICATED 04/13/[address] active 7 OBSTRUCTIVE SLEEP APNEA (ADULT) (PEDIATRIC) 04/13/[address] active 8 OLD MYOCARDIAL INFARCTION 04/13/[address] active 9 OTHER CHRONIC PAIN 04/13/[address] active 10 OTHER OSTEOMYELITIS, ANKLE AND FOOT 04/13/[address] active 11 PALMAR FASCIAL FIBROMATOSIS [DUPUYTREN] 04/13/[address] active 12 PARANOID SCHIZOPHRENIA 04/13/[address] active 13 RIGHT HEART FAILURE, UNSPECIFIED 04/13/[address] active 14 UNSPECIFIED ATRIAL FLUTTER 04/13/[address] active 15 UNSPECIFIED SYMPTOMS AND SIGNS INVOLVING COGNITIVE FUNCTIONS AND AWARENESS 04/13/[address] active Reason for Referral No Reasons for Referral Entered Social History Social History Observation Description Start Date End Date Code Code System Current Smoking Status Tobacco smoking consumption unknown 748053143 SNOMED CT Sex Assigned At Male 1960 29803-6 [facility] Gender Identity Sexual Orientation Vital Signs Code Code System Vitals Name Values and Units Timing Information 47562-2 [facility] Pain Level Value=0.0 05/07/2021 9279-1 [facility] Respiratory Rate Value=18.0 Units=/m in 05/03/2021 8462-4 [facility] Blood Pressure-Diastolic Value=62 Un its=mmHg 05/03/2021 8480-6 [facility] Blood Pressure-Systolic Mzymv=921 Un its=mmHg 05/03/2021 8310-5 [facility] Body Temperature Value=97.5 Units= F 05/03/2021 8867-4 [facility] Heart rate Value=46.0 Units=/min 18492-2 [facility] O2 % BldC Oximetry Value=96.0 Units= % 05/03/2021 62216-6 [facility] Weight Ltbxa=113.3 Units=Lbs 8302-2 [facility] Height Value=67.0 Units=Inches 04/13/2021
== END 2025-05-02 08:57 | disposition home or self-care (01) ==
PROVIDERS: PCP Nurse Practitioner; Visit Provider Nurse Practitioner Family
DX: Z12.2 Encounter for screening for malignant neoplasm of respiratory organs (principal); Z87.891 Personal history of nicotine dependence
CPT/HCPCS: 71271